=== PATIENT | male | born 1930 | race Caucasian/White ===

== ENCOUNTER 2016-07-08 17:19 | Inpatient (IN) | payer MEDICARE ==
[~2016-07-08] VITALS: Ht 180.3 cm; Wt 95.6 kg
[~2016-07-08 17:19] MED LIST: /ATOR40TA OR; /TAMS4CA OR; /WARF2TA OR; /WARF3TA PO; ASPI81TA45 OR; CAPT12.5 OR; CARV25TA PO; COLA100C2 OR; CORT10TA OR; DOXY100T OR; DRIS1CAP PO; HUMA100I SC; HYDR5TAB59 PO; ICAPCAP PO; INSULANT SC; KLOR10TA OR; LASI40TA OR; LASI80TA PO; MAGN400T5 PO; MAGN500T2 OR; MIRALEX PO; NOVOLOG100 MG/ML SC; OMEP20TA7 OR; TRENTAL PO; TRIA2TA OR; TYL RE; TYLE325T5 PO; WARF1TAB OR; [UNRECOGNIZED DRUG - CODE] PO; [UNRECOGNIZED DRUG - OTHER] PO
[2016-07-08] MEDS ORDERED: TRAZ100T4 PO (17:49)
[2016-07-08] MEDS ORDERED: COUM1TAB14 PO (17:49)
[2016-07-08] MEDS ORDERED: TOUJ1.2I SC (17:49)
[2016-07-08] MEDS ORDERED: CITA20TA4 PO (17:49)
[2016-07-08] MEDS ORDERED: VITA1TAB27 PO (17:49)
[2016-07-08] MEDS ORDERED: GLIP5TAB8 PO (17:49)
[2016-07-08] MEDS ORDERED: COUM2TAB10 PO (17:49)
[2016-07-08] MEDS ORDERED: FURO1TAB15 PO (17:49)
[2016-07-08] MEDS ORDERED: CAPT62TA PO (17:49)
[2016-07-08] MEDS ORDERED: VITA1CAP25 PO (17:49)
[2016-07-08] MEDS ORDERED: GABA-283 PO (17:49)
[2016-07-08] MEDS ORDERED: NS 1,000 ML IV SCH (18:29)
[2016-07-08 18:41] LABS: INR 2.39
[2016-07-08 18:45] LABS: BASO % 0.2 % (0.0-1.0); EOS # 0.4 K/mm3 (0.0-0.50); EOS % 3.8 % (0.0-3.0); LARGE UNSTAINED CELL # 0.1 K/mm3 (0.0-0.4); LYMPH # 1.6 K/mm3 (1.5-4.5); LYMPH % 14.6 % (24.0-44.0); MEAN CORPUSCULAR HEMOGLOBIN 26.6 pg (27.0-33.0); MEAN CORPUSCULAR HGB CONC 31.5 g/dl (32.0-36.5); MEAN CORPUSCULAR VOLUME 84.5 fl (80.0-96.0); MONO # 0.5 K/mm3 (0.0-0.8); MONO % 5.4 % (0.0-5.0); NEUTROPHILS # 7.5 K/mm3 (1.8-7.7); NEUTROPHILS % 75.1 % (36.0-66.0); PLATELET COUNT, AUTOMATED 224 k/mm3 (150-450); RED CELL DISTRIBUTION WIDTH 14.5 % (11.5-14.5)
[2016-07-08 18:46] LABS: ANION GAP 6 MEQ/L (8-16); BLOOD UREA NITROGEN 36 MG/DL (7-18); CALCIUM LEVEL 8.4 MG/DL (8.8-10.2); CARBON DIOXIDE LEVEL 31 MEQ/L (21-32); CHLORIDE LEVEL 103 MEQ/L (98-107); GLOMERULAR FILTRATION RATE 38.6 (>35); GLUCOSE, FASTING 100 MG/DL (83-110); POTASSIUM SERUM 4.5 MEQ/L (3.5-5.1); SODIUM LEVEL 140 MEQ/L (136-145)
--- NOTE | 2016-07-08 19:41 | REP ---
RIGHT HIP: REASON: Pain after trauma. There is comminuted femoral neck fracture. The bones are demineralized. I can not rule out the possibility of a pathological fracture. The AP examination of the pelvis shows the bones to be demineralized with bilateral degenerative changes involving each hip and sacroiliac joints. No additional fractures are noted. IMPRESSION: Right hip fracture as described above. RIGHT FEMUR, TWO VIEWS: PRIOR: Proximal femoral fracture again noted. Please see the hip and AP pelvis report. There is a total knee prosthetic device. There are no additional fractures. Signed by Jacek Enciso DO 07/08/2016 07:45 P
--- NOTE | 2016-07-08 20:06 | REP ---
RIGHT TIBIA AND FIBULA, AP AND LATERAL VIEWS: HISTORY: Pain after trauma. There is a total knee prosthetic device in place. There is no acute fracture or dislocation. The bones are somewhat demineralized. Signed by Jacek Enciso DO 07/09/2016 08:49 A
[2016-07-08] MEDS ORDERED: GLUCAGON FOR INJ 1 MG VIAL (J1610) SC PRN (20:45)
[2016-07-08] MEDS ORDERED: GLUCOSE 4 GM CHEW TABLET PO PRN (20:45)
[2016-07-08] MEDS ORDERED: HYDROmorphone HCL 1 MG/ML SYRINGE (J1170) IV PRN (20:45)
[2016-07-08] MEDS ORDERED: traZODone 100 MG TAB PO SCH (21:00)
[2016-07-08 21:07] LABS: T UPTAKE 33 % (33-40); THYROXINE (T4) 8.6 UG/DL (4.5-12.0)
[2016-07-08] MEDS: HYDROmorphone HCL 1 MG/ML SYRINGE (J1170) IV PRN (21:30)
[2016-07-08] MEDS ORDERED: ATOR40TA PO (22:08)
[2016-07-08] MEDS ORDERED: ASPI81TA7 PO (22:08)
[2016-07-08] MEDS ORDERED: CARV25TA PO (22:14)
[2016-07-08] MEDS ORDERED: GABA-282 PO (22:23)
[2016-07-08] MEDS ORDERED: OMEP40CA2 PO (22:23)
[2016-07-08] MEDS ORDERED: CORE25TA PO (22:23)
[2016-07-08] MEDS ORDERED: INSUHUMDS SC (22:23)
[2016-07-08] MEDS ORDERED: K-TA1TAB PO (22:23)
[2016-07-08] MEDS ORDERED: MAG400TA PO (22:23)
[2016-07-08] MEDS ORDERED: TYLE325T5 PO (22:27)
[2016-07-08 23:30] VITALS: BP 170/76
[2016-07-08] MEDS: HumaLOG INSULIN (NovoLOG) PER UNIT SC SCH (23:44)
[2016-07-08] MEDS: ACETAMINOPHEN TAB 650MG DOSE (2X325MG) PO PRN (23:55)
[2016-07-08] MEDS: NS 1,000 ML IV SCH (23:56)
[2016-07-09] MEDS: CARVedilol 12.5 MG TAB PO SCH ×3 (00:07→21:14)
[2016-07-09] MEDS: SENOKOT S TAB PO SCH ×3 (00:09→21:16)
[2016-07-09] MEDS: HYDROmorphone HCL 1 MG/ML SYRINGE (J1170) IV PRN ×4 (00:41→12:15)
[2016-07-09 01:15] LABS: MICROSCOPIC INDICATED? MAN YES (NO)
[2016-07-09 01:16] LABS: MICROSCOPIC EXAM UNSPUN
[2016-07-09 01:17] LABS: BACTERIA, URINE MOD AMOUNT; HYALINE CAST, URINE NONE SEEN /lpf (0-1); RBC, URINE TNTC /hpf (0-3); SQUAMOUS EPITHELIAL CELL URINE MOD AMOUNT /hpf (SMALL AMT); WBC, URINE 40-50 /hpf (0-3)
--- NOTE | 2016-07-09 01:29 | HPE ---
DATE OF ADMISSION: 07/08/2016 PRIMARY CARE PROVIDER: Doc Smith MD. ORTHOPEDIC SURGEON: Sebastian Tripathi MD. CHIEF COMPLAINT: Fall with right hip pain. HISTORY OF PRESENT ILLNESS: This is an 85-year-old male patient with underlying medical history of coronary arterial disease, catheterization with stents, multiple stents 2004 in [place], with also underlying medical history of atrial fibrillation on Coumadin, dyslipidemia, diabetes mellitus, peripheral vascular disease, questionable history of Richie's disease, hypertension, nephrolithiasis. 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 Subsequently, with severe pain, unable to ambulate. Denies any loss of consciousness or head trauma. Baseline, as per , patient is able to ambulate with a walker for more than a block, able to get up a flight of stairs in the house. Has not had any chest pain recently. Denies any palpitations, abdominal pain, diarrhea, constipation, lightheadedness, any focal neurological weakness. Denies history of sleep apnea, even though the says that she suspects the patient might have sleep apnea, but never had a sleep study. ALLERGIES: HYDROCODONE, MEPERIDINE, MORPHINE, OXYCODONE, PEAS, QUINOLONE, SULFA DRUGS, SULFA DRUGS CROSS REACTOR, SULFAMETHOXAZOLE, TRIAMTERENE. PAST MEDICAL HISTORY: 1. Coronary arterial disease. 2. History of bronchitis. 3. Diabetes type 2. 4. Dyslipidemia. 5. Peripheral vascular disease. 6. Hoagland's disease. 7. BPH. 8. Nephrolithiasis. PAST SURGICAL HISTORY: 1. Cardiac stents. 2. Bilateral knee replacement. 3. Urethral stent. 4. Cholecystectomy. SOCIAL HISTORY: Quit smoking more than 20 years ago. Denies alcohol drinking or illicit drug use. FAMILY HISTORY: Noncontributory. REVIEW OF SYSTEMS: 10-point review of systems negative except for those mentioned in history of present illness (HPI). HOME MEDICATIONS: - aspirin 81 mg by mouth daily - Lipitor 40 mg by mouth daily - captopril 6.25 mg by mouth twice a day - Coreg 25 mg by mouth twice a day - citalopram 20 mg by mouth daily - Lasix 80 mg by mouth daily - gabapentin 400 mg by mouth four times a day - glipizide 5 mg by mouth daily - insulin Humalog before food, nightly - trazodone 100 mg by mouth nightly - Coumadin 6 mg by mouth daily - magnesium oxide 400 by mouth twice a day - vitamin D 50,000 units by mouth as directed every other week - potassium chloride 20 mEq by mouth twice a day - Toujeo 45 units subcutaneously daily PHYSICAL EXAMINATION: VITAL SIGNS: Temperature 99, pulse 64, respirations 18, blood pressure 169/76, pulse oximetry 93% on room air. GENERAL: Patient alert and oriented times three, pale, in no acute distress. HEENT: Normocephalic, atraumatic. PULMONARY: Bilaterally clear to auscultation. CARDIAC: Regular S1, S2. No murmurs detected. ABDOMEN: Soft, nontender, nondistended. EXTREMITIES: Right lower extremity is externally rotated, shortened. Dorsalis pedis (DP), posterior tibialis (PT) pulses 2+. No edema bilateral lower extremities. EKG shows sinus rhythm at 65, no ST segment changes. LABORATORY: WBC 10, hemoglobin and hematocrit 9.7/30.6, platelets 224. Chemistry: Sodium 140, potassium 4.5, chloride 103, bicarbonate 31, BUN 36, creatinine 1.8. A1c 8.4. Cardiac enzymes negative times one. X-ray shows right hip fracture, femoral neck fracture. ASSESSMENT AND PLAN: This is an 85-year-old male patient with underlying medical history of coronary arterial disease, last stent placed 2003, peripheral vascular disease, history of urinary tract infection (UTI), diabetes type 2, dyslipidemia, Hoagland's disease, atrial fibrillation, chronic kidney disease (CKD), admitted status post mechanical fall with right femoral neck fracture. 1. Right femoral neck fracture status post mechanical fall with likely underlying osteopenia due to steroid use. Perioperative management as per orthopedics. Intravenous (IV) fluids for hydration, nothing by mouth after midnight, IV fluids for now. Baseline ambulating with a walker or cane. Pain regimen as ordered. Patient has not tolerated morphine in the past. Will place the patient on Dilaudid. Bowel regimen as ordered. Will give fresh frozen plasma (FFP) 3 units overnight and followup international normalized ratio (INR) with a goal INR of 1.5. Case discussed with Dr. Sebastian Tripathi. Orthopedics has been consulted. Patient's baseline METS greater than four. With advanced age, patient is intermediate risk for intermediate risk procedure. Discussed with patient's family. Given advanced age, even with surgery, patient might not be able to walk again and surgery carries considerable complications including myocardial infarction (DC), pulmonary embolism (PE), and , but alternative is more of a palliation and with significant pain; therefore, surgery will be beneficial to the patient. Patient currently is medically optimized for surgery. Will continue aspirin, holding Coumadin, give FFP, continue beta blockers as ordered. Holding diuretics until after the surgery, nothing by mouth after midnight. Restarting Coumadin after surgery for anticoagulation for atrial fibrillation and deep venous thrombosis (DVT) prophylaxis. 2. Coronary arterial disease. Continue aspirin, statin, beta blockers for now. Resume diuretics after surgery. Currently, patient nothing by mouth. 3. Peripheral vascular disease. Continue aspirin, statin. Resume anticoagulation after surgery. 4. Atrial fibrillation. Continue beta blockers. Resume Coumadin after surgery. Continue to monitor. 5. History of Hoagland's disease. Resume home medication. If patient is hypotensive, will consider stress dose steroids. 6. Diabetes. Insulin as per protocol. Basal bolus. Followup fingersticks. A1c is appreciated. 7. Gastroesophageal reflux disease (GERD). Continue proton pump inhibitor (PPI). 8. Questionable history of obstructive sleep apnea. Obstructive sleep apnea (CHAVEZ) as per protocol. Will continue to monitor. 9. DVT prophylaxis. Patient is with therapeutic INR at this time. Will place the patient on Venodyne sequential compression device. Incentive spirometry. DISPOSITION: Pending surgery via orthopedics, clinical improvement. Likely will need physical medicine and rehabilitation (PM and R) evaluation after surgery.
[2016-07-09 06:00] VITALS: BP 141/63
[2016-07-09 08:26] LABS: MEAN CORPUSCULAR HEMOGLOBIN 26.7 pg (27.0-33.0); MEAN CORPUSCULAR HGB CONC 32.2 g/dl (32.0-36.5); RED CELL DISTRIBUTION WIDTH 14.7 % (11.5-14.5); WHITE BLOOD COUNT 6.8 K/mm3 (4.0-10.0)
[2016-07-09 08:36] LABS: INR 1.81
[2016-07-09 08:52] LABS: ANION GAP 8 MEQ/L (8-16); BLOOD UREA NITROGEN 31 MG/DL (7-18); CALCIUM LEVEL 8.4 MG/DL (8.8-10.2); CARBON DIOXIDE LEVEL 29 MEQ/L (21-32); CHLORIDE LEVEL 105 MEQ/L (98-107); CREATININE FOR GFR 1.58 MG/DL (0.70-1.30); GLOMERULAR FILTRATION RATE 44.8 (>35); GLUCOSE, FASTING 61 MG/DL (83-110); SODIUM LEVEL 142 MEQ/L (136-145)
[2016-07-09] MEDS ORDERED: LEVEMIR (INSULIN DETEMIR) 1 UNITS/0.01ML SC SCH (09:00)
--- NOTE | 2016-07-09 09:27 | CR ---
DATE OF CONSULTATION: 07/08/2016 REASON FOR CONSULTATION: Right femoral neck fracture. 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 He complained of pain and soreness in the right hip only. No loss of consciousness. No neck pain. No complaints of numbness or tingling in his lower extremities and he does not complain of any other injury, soreness or pain other than the right hip. He was transferred here to [facility], evaluated by the emergency room (ER) staff, found to have a femoral neck fracture on the right, and the hospitalist was called for admission and then I was called to see him for this injury. Again, he only complains of right-sided soreness of the right hip. PAST MEDICAL HISTORY: He has a past medical history that is significant for: 1. Atrial fibrillation. 2. Insulin-dependent diabetes. 3. Gastric reflux. 4. Coronary artery disease. 5. Neuropathy. 6. Hypertension. 7. Hypercholesterolemia. 8. Anxiety. PAST SURGICAL HISTORY: 1. Bilateral total knee replacements. 2. Cholecystectomy. 3. Esophageal dilatation. 4. Cardiac stent placements. 5. Cataract excisions. ALLERGIES: No known drug allergies, although NARCOTICS cause hallucinations. MEDICATIONS: Presently at home are Lipitor, Drisdol, magnesium oxide, Coumadin, Coreg, captopril, insulin, Prilosec, trazodone, glipizide, potassium chloride, citalopram, Lasix, and tamsulosin. SOCIAL HISTORY: He is . He is retired. He used to work for [employer]. He uses a cane and a walker on a typical day for ambulation, safety, and balance. He does not smoke or drink alcohol excessively. REVIEW OF SYSTEMS: His review of systems otherwise is unremarkable. Dr. Doc Smith cares for him medically with Beba Perales NP at [facility]. PHYSICAL EXAMINATION: On examination, he is an elderly, pleasant male. He is alert and he is oriented. His blood pressure is 169/76, temperature is 99, his pulse is regular at 64, respirations are 18, oxygen saturations are 93% on room air. HEENT EXAMINATION: Normocephalic, atraumatic. Extraocular muscles grossly unremarkable. NECK: Nontender. UPPER EXTREMITIES: He could elevate his arms up overhead without pain, deformity, or swelling of his shoulder, clavicles, humeri, elbows, forearms, or wrists. ABDOMEN: Nontender. Healed transverse oblique scar consistent with cholecystectomy. His lower extremity on the right side was held in a flexed position and externally rotated with soreness and localized tenderness laterally over the right hip and groin area. Left lower extremity was atraumatic. He had pulses is his feet. He could dorsiflex and plantar flex his ankles and he had reasonable extensor hallucis longus (EHL) and flexor hallucis longus (FHL) strength with sensory function intact, but he has burning pain and that is what he relates to as his neuropathy. Nothing has changed since his fall. LABORATORY STUDIES: Show a white count of 10, hematocrit 30.6, and platelets of 224. Sodium 140, potassium 4.5, bicarbonate 31, chloride 103, sugar was 100. His BUN was 36, creatinine 1.8. Prothrombin time was 26.1 with an INR of 2.39. X-rays of his pelvis and hip showed a displaced right femoral neck fracture. There is some atherosclerosis noted in his iliac arteries. The right tibia/fibula was atraumatic. EKG showed normal sinus rhythm. IMPRESSION: My impression is that this is a displaced right femoral neck fracture in an 85-year-old male with some medical comorbidities and with an elevated international normalized ratio (INR). I talked to he and his about this in some length and I recommended to them that these types of fractures are typically treated with surgical fixation, and with a displaced femoral neck fracture such as this, I would recommend a hemiarthroplasty or prosthetic hip, but doing so carries the risk of having surgery. There is a risk of infection, damage to nerves or blood vessels, anesthetic complications, phlebitis, embolism, heart attack, , amongst others. They understand this. 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 I talked at length with Dr. Anderson, the hospitalist who is admitting him, and clearly he is not prepared for surgery this evening because of his elevated INR. We plan to see if we can reverse him gradually over the next several hours with fresh frozen plasma (FFP) and proceed in the morning if he is medically optimized and his INR is at an acceptable level. The patient signed the consent and we plan to proceed.
--- NOTE | 2016-07-09 09:48 | REP ---
Cough and fever. COMPARISON: 03/21/2012. The technique utilized in obtaining the radiograph has magnified the cardiac silhouette and accentuated the interstitial markings. Cardiomegaly status quo. Interstitial fibrosis status quo. Calcified granulomas left lower lobe status quo. No new abnormal opacities. No change in the osseous structures. IMPRESSION: Stable chronic changes. Signed by Jacek Enciso DO 07/09/2016 10:20 A
[2016-07-09] MEDS: ATORVASTATIN 20 MG TAB PO SCH (10:15)
[2016-07-09] MEDS: PANTOPRAZOLE 40MG TAB (PROTONIX) PO SCH (10:16)
[2016-07-09] MEDS: GABAPENTIN 300 MG CAP PO SCH ×4 (10:16→21:16)
[2016-07-09] MEDS: CitaloPRAM (CeleXA) 20 MG TAB PO SCH (10:16)
[2016-07-09] MEDS: MAGNESIUM OXIDE 400 MG TAB (MAG-OX) PO SCH (10:16)
[2016-07-09] MEDS: HumaLOG INSULIN (NovoLOG) PER UNIT SC SCH ×4 (10:17→21:00)
[2016-07-09] MEDS: NS 1,000 ML IV SCH (10:17)
[2016-07-09] MEDS ORDERED: FUROSEMIDE 80 MG TAB PO ONE (10:45)
[2016-07-09] MEDS ORDERED: PHYTONADIONE 1.25 MG 1/4 TAB PO ONE (11:00)
[2016-07-09] MEDS: TAPENTADOL 50 MG TABLET (NUCYNTA) PO PRN (13:29)
--- NOTE | 2016-07-09 13:57 | ECGEPIP ---
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 No significant change compared with 03/21/2012. Electronically Signed On 07-09-2016 13:57:42 EDT by Erik De Dios
[2016-07-09 13:59] LABS: MICROSCOPIC INDICATED? MAN YES (NO)
[2016-07-09 14:01] LABS: BACTERIA, URINE LARGE AMOUNT; HYALINE CAST, URINE NONE SEEN /lpf (0-1); RBC, URINE TNTC /hpf (0-3); SQUAMOUS EPITHELIAL CELL URINE MOD AMOUNT /hpf (SMALL AMT); WBC, URINE TNTC /hpf (0-3)
[2016-07-09 14:02] LABS: MICROSCOPIC EXAM PERFORMED
--- NOTE | 2016-07-09 15:43 | IPN ---
DATE: 07/09/2016 SUBJECTIVE: Patient seen and examined in the room today. Patient is experiencing pain at the right hip; however, pain his manageable with pain medication. Denies any acute complaint or acute changes. OBJECTIVE: VITAL SIGNS: Temperature is 99.5, pulse is 58, respirations 20, blood pressure is 141/63, pulse oximetry is 96% in room air. GENERAL: No acute distress. Alert and oriented times three. HEENT: Normocephalic, atraumatic. Extraocular motor grossly intact. CARDIOVASCULAR: Positive S1, S2. Regular rate. LUNGS: Clear to auscultation bilaterally. ABDOMEN: Soft, nontender, nondistended. Bowel sounds present. No rebound. No guarding. EXTREMITIES: No edema. No sign of cyanosis. LABORATORY DATA: WBC 6.8, hemoglobin 8.5, hematocrit 26.3, platelet count is 165. Sodium is 142, potassium 4, chloride 105, carbon dioxide 29, BUN 31, creatinine 1.58, GFR is 44.8, fasting glucose is 61, calcium is 8.4, magnesium 2. Troponin I is less than 0.02. UA showed positive nitrite, positive leukocyte esterase, too many to count WBC. Microbiology: Blood cultures pending times two sets. Urine culture is pending. ASSESSMENT AND PLAN: 1. Right hip fracture. Patient has been taking warfarin. Three doses of fresh frozen plasma were given to the patient to attempt to reverse the INR; however, this morning patient still has INR of 1.8. Per orthopedic team, the desired INR would be 1.5 or below; therefore, surgery will be postponed until tomorrow. Patient has been optimized and cleared by the admitting physician, Dr. Anderson, yesterday. Will continue with medical optimization. Patient will be nothing by mouth after midnight today. Currently, patient still has a urinalysis (UA) suggestive of a urinary tract infection (UTI). Microbiology was reviewed. Patient has history of klebsiella and Escherichia (E) coli in the past, and they are all sensitive to Rocephin. Will wait for the urine culture results. Patient will continue on the beta roland. 2. Diabetes, on sliding scale. For today, patient will have a consistent-carbohydrate diet. Patient will start nothing by mouth tomorrow. 3. History of atrial fibrillation. EKG was obtained. Patient showed sinus rhythm. 4. History of coronary artery disease. 5. Dyslipidemia. 6. Peripheral vascular disease. 7. Question of Kaufman disease. 8. Benign prostatic hypertrophy. 9. Questionable history of obstructive sleep apnea. Patient is on obstructive sleep apnea (CHAVEZ) protocol. 10. Gastroesophageal reflux disease. Continue Protonix. 11. Deep vein thrombosis (DVT) prophylaxis. Currently we are in the process of reversing patient's INR. Patient will be on thromboembolic deterrents (TEDs) and sequentials. 12. Acute on chronic renal injury. Renal function is improving. Will to follow the renal function.
[2016-07-09] MEDS: DEXTROSE 50% 50 ML SYRINGE IV PRN ×2 (17:14→17:30)
[2016-07-09] MEDS ORDERED: NALOXONE INJ 0.4 MG/1 ML VIAL (J2310) IV STA (17:15)
[2016-07-09] MEDS ORDERED: NALOXONE INJ 0.4 MG/1 ML VIAL (J2310) As Ordered ONE (17:17)
--- NOTE | 2016-07-09 17:53 | IPN ---
DATE: 07/09/2016 TIME: Around 5:00 p.m. I was called to the patient's room by the nursing staff urgently. The patient was noted to have rapidly decreased alertness and wakefulness and unable to answer any questions or follow commands. When I arrived to the scene, the patient is barely responsive and the patient was found to have a glucose of 53. I ordered 1 amp of dextrose. The patient's medication history was reviewed. Due to suspicion for contributing factor from the narcotic use, 0.4 mg of Narcan was given stat. Shortly after Narcan and the dextrose, the patient showed almost spontaneous recovery of the patient's mental status. The patient is alert and fully oriented but not fully awake yet. All the patient's vital signs were reviewed. Laboratory tests and portable chest x-ray were also ordered.
[2016-07-09] MEDS: cefTRIAXone SOD 2 GM in D5W MINI-BAG PLUS 50 ML IV SCH (18:19)
[2016-07-09 19:54] LABS: INR 1.9
[2016-07-09 20:05] LABS: CALCIUM LEVEL 7.9 MG/DL (8.8-10.2); CREATININE FOR GFR 1.59 MG/DL (0.70-1.30); GLOMERULAR FILTRATION RATE 44.5 (>35); POTASSIUM SERUM 4.1 MEQ/L (3.5-5.1)
[2016-07-09] MEDS: ACETAMINOPHEN TAB 650MG DOSE (2X325MG) PO PRN (21:13)
[2016-07-09] MEDS: CAPTOpril 6.25 MG PER 1/2 TABLET PO SCH (21:15)
[2016-07-09] MEDS: ASPIRIN 81 MG ENTERIC TAB PO SCH (21:16)
[2016-07-09 22:00] VITALS: BP 199/85
[2016-07-10] MEDS: DEXTROSE 50% 50 ML SYRINGE IV PRN ×2 (00:52→04:56)
[2016-07-10] MEDS: cefTRIAXone SOD 2 GM in D5W MINI-BAG PLUS 50 ML IV SCH ×2 (03:38→16:09)
[2016-07-10 05:04] VITALS: BP 187/81
[2016-07-10 06:00] VITALS: BP 170/86
[2016-07-10] MEDS ORDERED: FUROSEMIDE 40 MG/4 ML VIAL (J1940) IV ONE (06:00)
[2016-07-10] MEDS: HumaLOG INSULIN (NovoLOG) PER UNIT SC SCH ×3 (06:00→18:00)
[2016-07-10] MEDS ORDERED: GLUCAGON FOR INJ 1 MG VIAL (J1610) SC PRN (06:15)
[2016-07-10] MEDS ORDERED: GLUCOSE 4 GM CHEW TABLET PO PRN (06:15)
[2016-07-10] MEDS ORDERED: DEXTROSE 50% 50 ML SYRINGE IV PRN (06:15)
[2016-07-10 06:26] LABS: MEAN CORPUSCULAR HEMOGLOBIN 27.3 pg (27.0-33.0); MEAN CORPUSCULAR HGB CONC 32.9 g/dl (32.0-36.5); RED CELL DISTRIBUTION WIDTH 14.6 % (11.5-14.5)
[2016-07-10 06:37] LABS: INR 1.44
[2016-07-10 06:40] LABS: CALCIUM LEVEL 8.6 MG/DL (8.8-10.2); CREATININE FOR GFR 1.42 MG/DL (0.70-1.30); GLOMERULAR FILTRATION RATE 50.7 (>35); POTASSIUM SERUM 3.6 MEQ/L (3.5-5.1)
[2016-07-10] MEDS: ONDANSETRON 4MG/2ML VIAL (J2405) IV PRN ×2 (08:20→16:09)
--- NOTE | 2016-07-10 08:47 | REP ---
Altered mental status. COMPARISON: Earlier the same day. The technique utilized in obtaining the radiograph has magnified the cardiac silhouette and accentuated the interstitial markings. The cardiomediastinal silhouette is unchanged. The heart is enlarged. The lung cortez are essentially unchanged with the possibility of a single linear density in the left lung base due to subsegmental atelectatic change. The exam is otherwise unchanged. Signed by Jacek Enciso DO 07/10/2016 08:51 A
[2016-07-10] MEDS ORDERED: PROPOFOL 200 MG/20 ML VIAL As Ordered ONE (08:53)
[2016-07-10] MEDS ORDERED: LIDOCAINE 2% INJ 100 MG/5 ML SDV (FOR ANES.) As Ordered ONE (08:54)
[2016-07-10] MEDS ORDERED: ROCURONIUM BROMIDE 50 MG/5 ML VIAL As Ordered ONE (08:54)
[2016-07-10] MEDS ORDERED: fentaNYL 100 MCG/2 ML INJECTION (J3010) As Ordered ONE ×2 (08:55→10:47)
[2016-07-10] MEDS: CAPTOpril 6.25 MG PER 1/2 TABLET PO SCH (09:00)
[2016-07-10] MEDS: LEVEMIR (INSULIN DETEMIR) 1 UNITS/0.01ML SC SCH (09:00)
[2016-07-10] MEDS ORDERED: FUROSEMIDE 80 MG TAB PO SCH (09:00)
[2016-07-10] MEDS: CARVedilol 12.5 MG TAB PO SCH (09:00)
--- NOTE | 2016-07-10 09:08 | ECGEPIP ---
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
[2016-07-10] MEDS ORDERED: EPINEPHrine INJ 1 MG/ML 1ML VIAL/AMP As Ordered ONE (09:21)
[2016-07-10] MEDS ORDERED: ceFAZolin 1GM INJ (J0690) As Ordered ONE (09:21)
[2016-07-10] MEDS ORDERED: ceFAZolin 2 GM/D5W 50 ML IV BAG (J0690) As Ordered ONE (09:44)
[2016-07-10] MEDS ORDERED: SUCCINYLCHOLINE 100 MG/5 ML SYRINGE (J0330) As Ordered ONE (09:50)
[2016-07-10] MEDS ORDERED: dexameTHASONE 4 MG/ML 1ML VIAL (J1100) As Ordered ONE (09:50)
[2016-07-10] MEDS ORDERED: ePHEDrine SULFATE 25 MG/5 ML(5MG/ML) SYRINGE As Ordered ONE (10:35)
[2016-07-10] MEDS ORDERED: ONDANSETRON 4MG/2ML VIAL (J2405) As Ordered ONE (10:39)
[2016-07-10] MEDS ORDERED: HYDROmorphone HCL 1 MG/ML SYRINGE (J1170) IV PRN (12:30)
[2016-07-10] MEDS ORDERED: ONDANSETRON 4MG/2ML VIAL (J2405) IV PRN (12:30)
[2016-07-10] MEDS ORDERED: fentaNYL 100 MCG/2 ML INJECTION (J3010) IV PRN (12:30)
[2016-07-10 12:50] VITALS: BP 178/81
[2016-07-10 13:35] VITALS: BP 152/63
[2016-07-10] MEDS: ATORVASTATIN 20 MG TAB PO SCH (13:40)
[2016-07-10] MEDS: POTASSIUM CHLORIDE 10 MEQ SR TABLET PO SCH (13:41)
[2016-07-10] MEDS: CitaloPRAM (CeleXA) 20 MG TAB PO SCH (13:41)
[2016-07-10] MEDS: MAGNESIUM OXIDE 400 MG TAB (MAG-OX) PO SCH (13:41)
[2016-07-10] MEDS: PANTOPRAZOLE 40MG TAB (PROTONIX) PO SCH (13:41)
[2016-07-10] MEDS: SENOKOT S TAB PO SCH ×2 (13:41→20:31)
[2016-07-10 14:00] VITALS: BP 152/70
[2016-07-10] MEDS ORDERED: GABAPENTIN 300 MG CAP PO SCH (14:45)
[2016-07-10] MEDS: GABAPENTIN 100 MG CAP PO SCH ×3 (16:00→20:31)
[2016-07-10] MEDS: ACETAMINOPHEN TAB 650MG DOSE (2X325MG) PO PRN (16:43)
[2016-07-10] MEDS ORDERED: WARFARIN SOD 5 MG TAB PO ONE (17:00)
[2016-07-10] MEDS ORDERED: METOCLOPRAMIDE INJ 10MG/2ML VIAL (J2765) IV PRN (17:30)
[2016-07-10] MEDS: HYDROmorphone HCL 1 MG/ML SYRINGE (J1170) IV PRN ×2 (17:53→22:00)
[2016-07-10] MEDS: NS 1,000 ML IV SCH (18:48)
--- NOTE | 2016-07-10 19:01 | IPN ---
DATE: 07/10/2016 SUBJECTIVE: Patient is seen and examined in the room today. Patient started having intractable nausea and vomiting and patient seemed to be more agitated than before. However, patient is alert and oriented times three. OBJECTIVE: VITAL SIGNS: Temperature 98.8, pulse 79, respirations 18, blood pressure 152/70, pulse oximetry 99% with 3 liters nasal cannula. GENERAL: Patient shows physical signs of distress. Patient is alert and oriented times three but patient is agitated and anxious. HEENT: Normocephalic, atraumatic. Extraocular motors grossly intact. CARDIOVASCULAR: Tachycardic, positive S1, S2. LUNGS: Clear to auscultation bilaterally. ABDOMEN: Soft, nontender, nondistended. Bowel sounds present. No rebound. No guarding. EXTREMITIES: Surgical dressing is in place. Lower extremities show no signs of edema or cyanosis. LABORATORY DATA: WBC 9, hemoglobin 10.2, hematocrit 31.1, platelet count 161. Sodium 140, potassium 3.6, chloride 103, carbon dioxide 31, BUN 26, creatinine 1.42, GFR 50.7, fasting glucose 84, calcium 8.6, magnesium 2. ASSESSMENT AND PLAN: 1. Right hip fracture. Patient just had a hip replacement by orthopedic team. Will defer pain medication, diet, and activity level per primary team. 2. Urinary tract infection. Patient has a positive urinalysis. Urine culture is pending. Patient has history of Escherichia (E) coli and Klebsiella. Patient is on Rocephin. 3. Diabetes. On sliding scale. Will defer diet to the primary orthopedic team. 4. History of atrial fibrillation. EKG obtained and patient in sinus rhythm. Patient's warfarin was reversed to prepare for surgery. We defer anticoagulation to the surgical team for now. 5. History of coronary artery disease. 6. Question of Richie's disease. 7. Benign prostatic hypertrophy. Continue home medication. 8. History of obstructive sleep apnea (CHAVEZ). Patient is on obstructive sleep apnea (CHAVEZ) protocol. 9. Gastroesophageal reflux disease. On Protonix. 10. Deep venous thrombosis (DVT) prophylaxis. Patient is on thromboembolism deterrents (TEDs) and sequential compression device. 11. Acute on chronic renal injury, improving. Continue to follow renal function.
[2016-07-10] MEDS: ASPIRIN 81 MG ENTERIC TAB PO SCH (20:31)
[2016-07-10 22:00] VITALS: BP 146/69
[2016-07-11 02:00] VITALS: BP 172/74
[2016-07-11] MEDS: cefTRIAXone SOD 2 GM in D5W MINI-BAG PLUS 50 ML IV SCH ×2 (03:30→14:55)
[2016-07-11] MEDS: HYDROmorphone HCL 1 MG/ML SYRINGE (J1170) IV PRN (05:44)
[2016-07-11 06:00] VITALS: BP 155/66
[2016-07-11] MEDS: HumaLOG INSULIN (NovoLOG) PER UNIT SC SCH ×4 (06:00→18:32)
[2016-07-11] MEDS: NS 1,000 ML IV SCH ×2 (06:30→18:32)
[2016-07-11 07:01] LABS: MEAN CORPUSCULAR HGB CONC 32.4 g/dl (32.0-36.5); MEAN CORPUSCULAR VOLUME 83.6 fl (80.0-96.0); RED CELL DISTRIBUTION WIDTH 14.7 % (11.5-14.5); WHITE BLOOD COUNT 11.2 K/mm3 (4.0-10.0)
[2016-07-11 07:09] LABS: INR 1.63
[2016-07-11 07:17] LABS: CALCIUM LEVEL 8.3 MG/DL (8.8-10.2); CREATININE FOR GFR 1.49 MG/DL (0.70-1.30); GLOMERULAR FILTRATION RATE 47.9 (>35); MAGNESIUM LEVEL 2.3 MG/DL (1.8-2.4); POTASSIUM SERUM 3.1 MEQ/L (3.5-5.1)
[2016-07-11] MEDS: ATORVASTATIN 20 MG TAB PO SCH (08:43)
[2016-07-11] MEDS: MOM 30ML SUSPENSION UDC PO SCH (08:43)
[2016-07-11] MEDS: MIRALAX *UNIT DOSE* 17GM PACKET PO SCH (08:43)
[2016-07-11] MEDS: FUROSEMIDE 80 MG TAB PO SCH (08:51)
[2016-07-11] MEDS: GABAPENTIN 100 MG CAP PO SCH ×4 (08:51→22:17)
[2016-07-11] MEDS: SENOKOT S TAB PO SCH ×2 (08:51→22:17)
[2016-07-11] MEDS: TAPENTADOL 50 MG TABLET (NUCYNTA) PO PRN (08:52)
[2016-07-11] MEDS: MAGNESIUM OXIDE 400 MG TAB (MAG-OX) PO SCH (08:52)
[2016-07-11] MEDS: POTASSIUM CHLORIDE 10 MEQ SR TABLET PO SCH (08:53)
[2016-07-11] MEDS: CitaloPRAM (CeleXA) 20 MG TAB PO SCH (08:53)
[2016-07-11] MEDS: ONDANSETRON 4MG/2ML VIAL (J2405) IV PRN (08:53)
[2016-07-11] MEDS: PANTOPRAZOLE 40MG TAB (PROTONIX) PO SCH (08:53)
[2016-07-11] MEDS: LEVEMIR (INSULIN DETEMIR) 1 UNITS/0.01ML SC SCH (08:54)
[2016-07-11] MEDS: ACETAMINOPHEN TAB 650MG DOSE (2X325MG) PO PRN ×2 (08:57→14:35)
[2016-07-11] MEDS: CYCLOBENZAPRINE 10 MG TAB PO SCH ×4 (10:09→22:18)
--- NOTE | 2016-07-11 10:09 | REP ---
Right femur post operative study: There is a hemiarthroplasty in satisfactory position alignment both views. There is a cerclage wire. Skin tesha are incidentally noted. Signed by Fady Tatum MD 07/11/2016 10:01 A
--- NOTE | 2016-07-11 11:41 | RO ---
DATE OF PROCEDURE: 07/10/2016 PREPROCEDURE DIAGNOSIS: Right hip femoral neck fracture. POSTPROCEDURE DIAGNOSIS: Right hip femoral neck fracture. PROCEDURE: Right hip hemiarthroplasty cemented using a size #5 [place] stem with a +0 neck and a 15 mm ball. Fixation of a nondisplaced calcar fracture with a single 1.7 mm Synthes cable. SURGEON: Dr. Benny Tripathi DEPARTMENT CLINICIAN: Dr. Flex Zazueta ANESTHESIA: General endotracheal tube anesthesia. COMPLICATIONS: Intraoperative calcar fracture during trial reduction. ESTIMATED BLOOD LOSS: 200 mL. SPECIMENS: Femoral head. DESCRIPTION OF PROCEDURE: Antibiotics were given intravenously preoperatively. He received some for his urinary tract infection (UTI), but also received 2 grams of Kefzol preoperatively. Right hip area was then prepped and draped in the usual sterile fashion. After an appropriate time-out, a longitudinal incision was made for direct lateral approach to the hip. Bovie cautery was used to coagulate crossing vessels. Tensor fascial was divided in line with the skin incision. We split the gluteus medius, anterior one-third and posterior two-third junction, and then the underlying gluteus minimus and then exposed the underlying fracture site. The leg was placed in a leg bag anteriorly, and the starter reamer placed in the piriformis fossa and we began reaming. Then the starter reamer was utilized, followed by the lateralizing reamer. Femoral neck osteotomy was then performed and then we broached up to a size 5 broach. It fit reasonably snuggly and our plan was cement technique, thus I did not want to go any larger to have appropriate sized cement mantle. I then trialed off the #5 broach. The +0 fit well, but I thought possibly we could use a +5. As we were trialing the +5 as we were reducing the hip, the rotational torque caused a nondisplaced fracture of the medial calcar, which was non propagating. For prophylactic purposes, at this point, I called for the cable device fixation and the cable was carefully passed around the medial calcar and around the proximal femur under the vastus lateralis and then secured at 4 kg of pressure. This provided good firm reduction. At this point, we proceeded to cementing the stem. We used the canal brush and the pulsatile lavage intelligence support officer to enter the canal and sized for the cement restricter. A size #4 was chosen, and then measuring off the real stem, I advanced the cement restricter and then began irrigating the canal once again with a canal brush and then used a long nelson tip sucker and then three epinephrine soaked sponges were placed down the femoral canal, and then the cement was mixed on the back table. Two sponges were placed in the acetabulum for cement blocking, and then once the cement had been mixed, I removed the epinephrine soaked sponges and applied three additional dry sutures. We had excellent drying of the femoral canal and then the cement was placed, followed by the real stem with a 10.5 cementralizer. Then we impacted the stem and removed all the excess and held continuous pressure on the stem until the cement had hardened. It is noteworthy that after I broached the femur, we did remove the femoral head and sized for a 50 mm sized femoral head and acetabulum contents were inspected. The ligament of Teres had a small patti of bone attached and thus I did remove that with a rongeur and then carefully inspected the acetabulum and there was no other debris. We copiously irrigated as well. Then I placed the read #50 head on top of the +0 sleeve on the trunnion, after thoroughly drying, and then reduced the hip. He had good stability with flexion and internal rotation and extension and external rotation and minimal, if any, telescoping at all was noted. I then irrigated once again copiously and then closed the deep capsule and the gluteus minimus back anatomically with interrupted #1 PDS sutures, as well as the gluteus medius back anatomically to the greater trochanter anatomically with interrupted #1 PDS sutures, irrigating between layers. I closed the tensor fascia with a running Stratafix. Subdermal tissues were irrigated again and closed with deep subdermal #2-0 PDS sutures and skin was closed with tesha, covered by Adaptic dry, sterile, bulky dressing. He was then turned supine, extubated, and then transferred to his bed and then to the recovery room in stable condition. The intraoperative complication was a nondisplaced calcar fracture. [facility]FIORE HEALTH SYSTEMLuis Fernando
[2016-07-11] MEDS ORDERED: POTASSIUM CHLORIDE 10 MEQ SR TABLET PO ONE (12:30)
[2016-07-11 14:00] VITALS: BP 170/73
[2016-07-11] MEDS: CAPTOpril 6.25 MG PER 1/2 TABLET PO SCH ×3 (14:48→22:17)
[2016-07-11] MEDS: CARVedilol 12.5 MG TAB PO SCH ×3 (14:49→22:18)
[2016-07-11] MEDS ORDERED: WARFARIN SOD 5 MG TAB PO ONE (17:00)
--- NOTE | 2016-07-11 18:25 | IPN ---
DATE: 07/11/2016 SUBJECTIVE: The patient seen and examined in the room in the morning. The patient stated she feels very fatigued. He would like to get some rest. Yesterday he felt anxiety and agitation and he could not get a good night's sleep. No acute complaints. SUBJECTIVE: VITAL SIGNS: Temperature 99, pulse 62, respirations 20, blood pressure 144/66, pulse oximetry 95% with 2 liters nasal cannula. GENERAL: The patient is fatigued. Alert and oriented times three. Answers questions in full sentences. HEENT: Normocephalic, atraumatic. Extraocular movements grossly intact. CARDIOVASCULAR: Intermittent tachycardia. Positive S1, S2. LUNGS: Clear to auscultation bilaterally. . ABDOMEN: Soft, nontender, nondistended. Bowel sounds present. No rebound. No guarding. EXTREMITIES: Surgical dressing in place. No lower extremity edema or sign of cyanosis. LABORATORY DATA: WBC is 11.3, hemoglobin 9.6, hematocrit 29.8, platelet count is 175. Sodium is 140, potassium 3.1, chloride is 99, carbon dioxide 29, BUN 33, creatinine 1.49. GFR is 47.9, fasting glucose is 242. Calcium is 8.3. Magnesium 2.3, PT is 19.4, INR is 1.63. ASSESSMENT AND PLAN: 1. Right hip fracture. The patient has right hip replacement by orthopedic team. Will defer the pain management, diet, activity level, and anticoagulation per primary team. 2. Urinary tract infection. The patient's urine culture is still pending. 3. The patient has a history of E. coli and Klebsiella. The patient on Rocephin. 4. Diabetes. On sliding scale. The patient's IV fluid per ortho. Will refer diet to the ortho team. 5. History of atrial fibrillation. EKG shows sinus rhythm. The patient's warfarin was reversed to prepare for the surgery. Will defer the anticoagulation to surgical team. 6. History of coronary artery disease. 7. Questionable [place] disease. 8. Benign prostatic hypertrophy. Continue home medications. 9. Obstructive sleep apnea (CHAVEZ). CHAVEZ protocol. 10. Gastroesophageal reflux disease. On Protonix. 11. Acute on chronic renal injury, improving. The patient is stable. The patient may need additional fluid due to poor oral intake at this moment. 12. Deep venous thrombosis (DVT) prophylaxis. Patient is on thromboembolism deterrents (TEDs) and sequential compression devices.
[2016-07-11 22:00] VITALS: BP 150/67
[2016-07-11] MEDS: ASPIRIN 81 MG ENTERIC TAB PO SCH (22:17)
[2016-07-12] MEDS: cefTRIAXone SOD 2 GM in D5W MINI-BAG PLUS 50 ML IV SCH ×2 (04:21→18:50)
[2016-07-12] MEDS: CYCLOBENZAPRINE 10 MG TAB PO SCH ×3 (05:32→20:55)
[2016-07-12 06:00] VITALS: BP 139/69
[2016-07-12] MEDS: HumaLOG INSULIN (NovoLOG) PER UNIT SC SCH ×5 (06:00→18:00)
[2016-07-12 07:12] LABS: MEAN CORPUSCULAR HEMOGLOBIN 27.4 pg (27.0-33.0); MEAN CORPUSCULAR HGB CONC 32.5 g/dl (32.0-36.5); MEAN CORPUSCULAR VOLUME 84.3 fl (80.0-96.0); RED CELL DISTRIBUTION WIDTH 14.9 % (11.5-14.5); WHITE BLOOD COUNT 8.9 K/mm3 (4.0-10.0)
[2016-07-12 07:21] LABS: INR 2.82
[2016-07-12 07:29] LABS: CALCIUM LEVEL 8.1 MG/DL (8.8-10.2); CREATININE FOR GFR 1.46 MG/DL (0.70-1.30); GLOMERULAR FILTRATION RATE 49.1 (>35); POTASSIUM SERUM 3.6 MEQ/L (3.5-5.1)
[2016-07-12 08:45] VITALS: BP 135/69
[2016-07-12] MEDS: LEVEMIR (INSULIN DETEMIR) 1 UNITS/0.01ML SC SCH (11:21)
[2016-07-12] MEDS: TAPENTADOL 50 MG TABLET (NUCYNTA) PO PRN (11:22)
[2016-07-12] MEDS: CAPTOpril 6.25 MG PER 1/2 TABLET PO SCH ×2 (11:37→21:02)
[2016-07-12] MEDS: GABAPENTIN 100 MG CAP PO SCH ×3 (11:38→20:55)
[2016-07-12] MEDS: POTASSIUM CHLORIDE 10 MEQ SR TABLET PO SCH (11:38)
[2016-07-12] MEDS: MOM 30ML SUSPENSION UDC PO SCH (11:39)
[2016-07-12] MEDS: MIRALAX *UNIT DOSE* 17GM PACKET PO SCH (11:39)
[2016-07-12] MEDS: MAGNESIUM OXIDE 400 MG TAB (MAG-OX) PO SCH (11:39)
[2016-07-12] MEDS: ATORVASTATIN 20 MG TAB PO SCH (11:40)
[2016-07-12] MEDS: FUROSEMIDE 80 MG TAB PO SCH (11:40)
[2016-07-12] MEDS: CitaloPRAM (CeleXA) 20 MG TAB PO SCH (11:40)
[2016-07-12] MEDS: SENOKOT S TAB PO SCH ×2 (11:41→20:55)
[2016-07-12] MEDS: PANTOPRAZOLE 40MG TAB (PROTONIX) PO SCH (11:41)
[2016-07-12] MEDS: CARVedilol 12.5 MG TAB PO SCH ×2 (11:45→21:03)
[2016-07-12 14:35] VITALS: BP 160/68
--- NOTE | 2016-07-12 16:27 | IPNPDOC ---
Text Note Date of Service The patient was seen on 07/12/16. NOTE Subjective: Patient states he feels well. No hip pain. No chest pain/shortness of breath/palpitations. Objective: Vitals: (see below) General: No acute distress, laying comfortably in bed. HEENT: Moist mucous membranes. Neck: No JVD or lymphadenopathy Cardiac: RRR, No murmurs Pulm: Clear to auscultation b/l. No wheezing, rhonchi Abd: NT/ND + BS Ext: Right hip surgical site with mild swelling. No bleeding. Distal pulses intact. Labs (see below) Images: Assessment/Plan 1. Right hip fracture status post arthroplasty by orthopedics. Pain management deferred to orthopedics. 2. Urinary tract infection- Escherichia coli on culture. Continue antibiotics 3. Diabetes mellitus- continue sliding scale insulin 4. Atrial fibrillation- on Coumadin. INR 2.8. Restart Coumadin tomorrow. 5. History of CAD- continue home meds 6. Questionable history of [place]'s disease 7. Obstructive sleep apnea- CHAVEZ protocol 8. DEEDEE on CKD- resolved. Creatinine at baseline. Avoid nephro toxins. 9 GERD- continue PPI DVT prophy: On Coumadin Dispo: Will need rehabilitation. VS,Fishbone, I+O VS, Fishbone, I+O Laboratory Tests 07/12/16 06:40 Calcium Level 8.1 L, Red Blood Count 3.10 L, Mean Corpuscular Volume 84.3, Mean Corpuscular Hemoglobin 27.4, Mean Corpuscular Hemoglobin Concent 32.5, Red Cell Distribution Width 14.9 H Vital Signs Date Time Temp Pulse Resp B/P Pulse Ox O2 Delivery O2 Flow Rate FiO2 07/12/16 14:35 99.1 52 18 160/68 93 Room Air 07/11/16 21:00 2.0 07/10/16 11:35 100 I&O- Last 24 Hours up to 6 AM 07/12/16 06:00 Intake Total 1480 ml Output Total 950 ml Balance 530 ml KATHERYN SHANNON MD Jul 12, 2016 16:27
[2016-07-12] MEDS ORDERED: WARFARIN SOD 2 MG TAB PO SCH (17:00)
[2016-07-12] MEDS: ASPIRIN 81 MG ENTERIC TAB PO SCH (20:55)
[2016-07-12] MEDS: ACETAMINOPHEN TAB 650MG DOSE (2X325MG) PO PRN (20:56)
[2016-07-12 22:00] VITALS: BP 165/55
[2016-07-13] MEDS: HumaLOG INSULIN (NovoLOG) PER UNIT SC SCH ×5 (00:39→21:00)
[2016-07-13] MEDS: cefTRIAXone SOD 2 GM in D5W MINI-BAG PLUS 50 ML IV SCH ×2 (03:25→17:24)
[2016-07-13] MEDS: CYCLOBENZAPRINE 10 MG TAB PO SCH ×3 (05:44→21:42)
[2016-07-13] MEDS: ACETAMINOPHEN TAB 650MG DOSE (2X325MG) PO PRN ×2 (05:45→17:51)
[2016-07-13 06:00] VITALS: BP_SYST 162; BP_SYST 177; BP_DIAS 55; BP_DIAS 74
[2016-07-13 07:36] LABS: MEAN CORPUSCULAR HEMOGLOBIN 26.8 pg (27.0-33.0); MEAN CORPUSCULAR HGB CONC 31.9 g/dl (32.0-36.5); MEAN CORPUSCULAR VOLUME 83.9 fl (80.0-96.0); RED CELL DISTRIBUTION WIDTH 14.8 % (11.5-14.5); WHITE BLOOD COUNT 7.7 K/mm3 (4.0-10.0)
[2016-07-13 07:51] LABS: CALCIUM LEVEL 7.8 MG/DL (8.8-10.2); CREATININE FOR GFR 1.34 MG/DL (0.70-1.30); GLOMERULAR FILTRATION RATE 54.2 (>35); MAGNESIUM LEVEL 2.2 MG/DL (1.8-2.4); POTASSIUM SERUM 3.5 MEQ/L (3.5-5.1)
[2016-07-13 08:12] LABS: INR 5.07
[2016-07-13] MEDS: MOM 30ML SUSPENSION UDC PO SCH (08:53)
[2016-07-13] MEDS: MIRALAX *UNIT DOSE* 17GM PACKET PO SCH (08:54)
[2016-07-13] MEDS: FUROSEMIDE 80 MG TAB PO SCH (08:54)
[2016-07-13] MEDS: SENOKOT S TAB PO SCH ×2 (08:54→21:00)
[2016-07-13] MEDS: CAPTOpril 6.25 MG PER 1/2 TABLET PO SCH ×2 (08:54→21:42)
[2016-07-13] MEDS: CitaloPRAM (CeleXA) 20 MG TAB PO SCH (08:54)
[2016-07-13] MEDS: PANTOPRAZOLE 40MG TAB (PROTONIX) PO SCH (08:54)
[2016-07-13] MEDS: ATORVASTATIN 20 MG TAB PO SCH (08:55)
[2016-07-13] MEDS: CARVedilol 12.5 MG TAB PO SCH ×2 (08:55→21:42)
[2016-07-13] MEDS: MAGNESIUM OXIDE 400 MG TAB (MAG-OX) PO SCH (08:55)
[2016-07-13] MEDS: POTASSIUM CHLORIDE 10 MEQ SR TABLET PO SCH (08:55)
[2016-07-13] MEDS: GABAPENTIN 100 MG CAP PO SCH ×3 (08:56→21:42)
[2016-07-13] MEDS: LEVEMIR (INSULIN DETEMIR) 1 UNITS/0.01ML SC SCH (08:56)
--- NOTE | 2016-07-13 13:20 | IPNPDOC ---
Text Note Date of Service The patient was seen on 07/13/16. NOTE Subjective: Patient states he feels well. No acute changes overnight. No bleeding. Objective: Vitals: (see below) General: No acute distress, laying comfortably in bed. HEENT: Moist mucous membranes. Neck: No JVD or lymphadenopathy Cardiac: RRR, No murmurs Pulm: Clear to auscultation b/l. No wheezing, rhonchi Abd: NT/ND + BS Ext: Right hip surgical site with mild swelling. No bleeding. Distal pulses intact. Labs (see below) Images: Assessment/Plan 1. Right hip fracture status post arthroplasty by orthopedics. Pain management deferred to orthopedics. 2. Urinary tract infection- Escherichia coli on culture. Continue antibiotics 3. Diabetes mellitus- continue sliding scale insulin 4. Atrial fibrillation- on Coumadin. INR 5. Coumadin Held. No bleeding. Will monitor, and repeat INR in the am. 5. History of CAD- continue home meds 6. Questionable history of [place]'s disease 7. Obstructive sleep apnea- CHAVEZ protocol 8. DEEDEE on CKD- resolved. Creatinine at baseline. Avoid nephro toxins. 9 GERD- continue PPI DVT prophy: On Coumadin Dispo: Will need short term rehabilitation. VS,Fishbone, I+O VS, Fishbone, I+O Laboratory Tests 07/13/16 07:15 Calcium Level 7.8 L, Red Blood Count 3.16 L, Mean Corpuscular Volume 83.9, Mean Corpuscular Hemoglobin 26.8 L, Mean Corpuscular Hemoglobin Concent 31.9 L, Red Cell Distribution Width 14.8 H Vital Signs Date Time Temp Pulse Resp B/P Pulse Ox O2 Delivery O2 Flow Rate FiO2 07/13/16 08:55 52 162/55 07/13/16 06:00 98.7 16 93 Room Air 07/11/16 21:00 2.0 07/10/16 11:35 100 I&O- Last 24 Hours up to 6 AM 07/13/16 06:00 Intake Total 870 ml Output Total 0 ml Balance 870 ml KATHERYN SHANNON MD Jul 13, 2016 13:20
[2016-07-13] MEDS ORDERED: amLODIPine 5 MG TAB PO ONE (13:30)
[2016-07-13 14:00] VITALS: BP 147/67
[2016-07-13] MEDS ORDERED: WARFARIN SOD 2 MG TAB PO SCH (17:00)
[2016-07-13] MEDS: ASPIRIN 81 MG ENTERIC TAB PO SCH (21:42)
[2016-07-13 22:00] VITALS: BP 165/60
[2016-07-14] MEDS: CYCLOBENZAPRINE 10 MG TAB PO SCH ×3 (05:00→22:23)
[2016-07-14] MEDS: cefTRIAXone SOD 2 GM in D5W MINI-BAG PLUS 50 ML IV SCH ×2 (05:00→15:52)
[2016-07-14 06:00] VITALS: BP 160/72
[2016-07-14 06:54] LABS: MEAN CORPUSCULAR HEMOGLOBIN 26.4 pg (27.0-33.0); MEAN CORPUSCULAR VOLUME 85.1 fl (80.0-96.0); RED CELL DISTRIBUTION WIDTH 14.6 % (11.5-14.5); WHITE BLOOD COUNT 7.2 K/mm3 (4.0-10.0)
[2016-07-14 07:01] LABS: INR 4.14
[2016-07-14 07:09] LABS: ANION GAP 8 MEQ/L (8-16); BLOOD UREA NITROGEN 32 MG/DL (7-18); CALCIUM LEVEL 8.3 MG/DL (8.8-10.2); CARBON DIOXIDE LEVEL 30 MEQ/L (21-32); CHLORIDE LEVEL 104 MEQ/L (98-107); CREATININE FOR GFR 1.18 MG/DL (0.70-1.30); GLOMERULAR FILTRATION RATE > 60.0 (>35); GLUCOSE, FASTING 118 MG/DL (83-110); MAGNESIUM LEVEL 2.3 MG/DL (1.8-2.4); POTASSIUM SERUM 3.5 MEQ/L (3.5-5.1); SODIUM LEVEL 142 MEQ/L (136-145)
[2016-07-14] MEDS ORDERED: NUCY50TA9 PO (08:00)
[2016-07-14] MEDS: LEVEMIR (INSULIN DETEMIR) 1 UNITS/0.01ML SC SCH (08:15)
[2016-07-14] MEDS: HumaLOG INSULIN (NovoLOG) PER UNIT SC SCH ×4 (08:16→21:00)
[2016-07-14] MEDS: CitaloPRAM (CeleXA) 20 MG TAB PO SCH (08:16)
[2016-07-14] MEDS: POTASSIUM CHLORIDE 10 MEQ SR TABLET PO SCH (08:16)
[2016-07-14] MEDS: FUROSEMIDE 80 MG TAB PO SCH (08:17)
[2016-07-14] MEDS: PANTOPRAZOLE 40MG TAB (PROTONIX) PO SCH (08:17)
[2016-07-14] MEDS: CARVedilol 12.5 MG TAB PO SCH ×2 (08:17→22:30)
[2016-07-14] MEDS: MAGNESIUM OXIDE 400 MG TAB (MAG-OX) PO SCH (08:17)
[2016-07-14] MEDS: SENOKOT S TAB PO SCH ×2 (08:18→21:00)
[2016-07-14] MEDS: MIRALAX *UNIT DOSE* 17GM PACKET PO SCH (08:18)
[2016-07-14] MEDS: MOM 30ML SUSPENSION UDC PO SCH (08:18)
[2016-07-14] MEDS: CAPTOpril 6.25 MG PER 1/2 TABLET PO SCH ×2 (08:18→22:30)
[2016-07-14] MEDS: GABAPENTIN 100 MG CAP PO SCH ×3 (08:18→22:22)
[2016-07-14] MEDS: ATORVASTATIN 20 MG TAB PO SCH (08:18)
[2016-07-14] MEDS ORDERED: LEVA500T PO (08:49)
[2016-07-14] MEDS ORDERED: INSUDET SC (08:49)
[2016-07-14] MEDS ORDERED: amLODIPine 5 MG TAB PO SCH (09:00)
[2016-07-14] MEDS ORDERED: AMLO10TA2 PO (12:32)
[2016-07-14 14:00] VITALS: BP 177/72
--- NOTE | 2016-07-14 14:25 | IPNPDOC ---
Text Note Date of Service The patient was seen on 07/14/16. NOTE Subjective: Patient states he feels well. No acute changes overnight. No bleeding. Objective: Vitals: (see below) General: No acute distress, laying comfortably in bed. HEENT: Moist mucous membranes. Neck: No JVD or lymphadenopathy Cardiac: RRR, No murmurs Pulm: Clear to auscultation b/l. No wheezing, rhonchi Abd: NT/ND + BS Ext: Right hip surgical site with mild swelling. No bleeding. Distal pulses intact. Labs (see below) Images: Assessment/Plan 1. Right hip fracture status post arthroplasty by orthopedics. Pain management deferred to orthopedics. 2. Urinary tract infection- Escherichia coli on culture. Continue antibiotics 3. Diabetes mellitus- continue sliding scale insulin 4. Atrial fibrillation- on Coumadin. INR 4, decreased from yesterday. Coumadin Held. No bleeding. Will monitor, and repeat INR in the am. 5. History of CAD- continue home meds 6. Questionable history of [place]'s disease 7. Obstructive sleep apnea- CHAVEZ protocol 8. DEEDEE on CKD- resolved. Creatinine at baseline. Avoid nephro toxins. 9 GERD- continue PPI DVT prophy: On Coumadin Dispo: Plan to d/c to [facility] tomorrow. VS,Fishbone, I+O VS, Fishbone, I+O Laboratory Tests 07/14/16 06:28 Calcium Level 8.3 L, Red Blood Count 3.24 L, Mean Corpuscular Volume 85.1, Mean Corpuscular Hemoglobin 26.4 L, Mean Corpuscular Hemoglobin Concent 31.0 L, Red Cell Distribution Width 14.6 H Vital Signs Date Time Temp Pulse Resp B/P Pulse Ox O2 Delivery O2 Flow Rate FiO2 07/14/16 08:17 54 160/72 07/14/16 07:54 Room Air 07/14/16 06:00 99.2 18 93 07/11/16 21:00 2.0 07/10/16 11:35 100 I&O- Last 24 Hours up to 6 AM 07/14/16 06:00 Intake Total 980 ml Balance 980 ml KATHERYN SHANNON MD Jul 14, 2016 14:25
[2016-07-14] MEDS: ACETAMINOPHEN TAB 650MG DOSE (2X325MG) PO PRN (15:52)
[2016-07-14 22:00] VITALS: BP 148/68
[2016-07-14] MEDS: ASPIRIN 81 MG ENTERIC TAB PO SCH (22:23)
[2016-07-15] MEDS: cefTRIAXone SOD 2 GM in D5W MINI-BAG PLUS 50 ML IV SCH (04:58)
[2016-07-15] MEDS: CYCLOBENZAPRINE 10 MG TAB PO SCH ×3 (05:03→21:10)
[2016-07-15 06:00] VITALS: BP 179/78
[2016-07-15 07:17] LABS: MEAN CORPUSCULAR HEMOGLOBIN 26.8 pg (27.0-33.0); MEAN CORPUSCULAR HGB CONC 32.2 g/dl (32.0-36.5); MEAN CORPUSCULAR VOLUME 83.5 fl (80.0-96.0); RED CELL DISTRIBUTION WIDTH 14.5 % (11.5-14.5); WHITE BLOOD COUNT 7.1 K/mm3 (4.0-10.0)
[2016-07-15 07:34] LABS: ANION GAP 7 MEQ/L (8-16); BLOOD UREA NITROGEN 25 MG/DL (7-18); CALCIUM LEVEL 7.7 MG/DL (8.8-10.2); CARBON DIOXIDE LEVEL 28 MEQ/L (21-32); CHLORIDE LEVEL 106 MEQ/L (98-107); CREATININE FOR GFR 1.05 MG/DL (0.70-1.30); GLOMERULAR FILTRATION RATE > 60.0 (>35); GLUCOSE, FASTING 121 MG/DL (83-110); MAGNESIUM LEVEL 2.1 MG/DL (1.8-2.4); POTASSIUM SERUM 3.6 MEQ/L (3.5-5.1); SODIUM LEVEL 141 MEQ/L (136-145)
[2016-07-15 08:03] LABS: INR 5.35
[2016-07-15] MEDS: CARVedilol 12.5 MG TAB PO SCH ×2 (08:30→21:10)
[2016-07-15] MEDS: MAGNESIUM OXIDE 400 MG TAB (MAG-OX) PO SCH (08:30)
[2016-07-15] MEDS: PANTOPRAZOLE 40MG TAB (PROTONIX) PO SCH (08:30)
[2016-07-15] MEDS: amLODIPine 10 MG TAB PO SCH (08:30)
[2016-07-15] MEDS: CitaloPRAM (CeleXA) 20 MG TAB PO SCH (08:30)
[2016-07-15] MEDS: TAPENTADOL 50 MG TABLET (NUCYNTA) PO PRN ×2 (08:31→12:55)
[2016-07-15] MEDS: ATORVASTATIN 20 MG TAB PO SCH (08:31)
[2016-07-15] MEDS: CAPTOpril 6.25 MG PER 1/2 TABLET PO SCH ×2 (08:31→21:10)
[2016-07-15] MEDS: GABAPENTIN 100 MG CAP PO SCH ×3 (08:31→21:10)
[2016-07-15] MEDS: FUROSEMIDE 80 MG TAB PO SCH (08:31)
[2016-07-15] MEDS: POTASSIUM CHLORIDE 10 MEQ SR TABLET PO SCH (08:31)
[2016-07-15] MEDS: HumaLOG INSULIN (NovoLOG) PER UNIT SC SCH ×4 (08:32→21:00)
[2016-07-15] MEDS: LEVEMIR (INSULIN DETEMIR) 1 UNITS/0.01ML SC SCH (08:32)
[2016-07-15] MEDS: MOM 30ML SUSPENSION UDC PO SCH (08:35)
[2016-07-15] MEDS: MIRALAX *UNIT DOSE* 17GM PACKET PO SCH (08:35)
[2016-07-15] MEDS: SENOKOT S TAB PO SCH ×2 (08:36→21:10)
[2016-07-15] MEDS ORDERED: PHYTONADIONE 5 MG TAB PO ONE (11:30)
--- NOTE | 2016-07-15 13:21 | IPNPDOC ---
Text Note Date of Service The patient was seen on 07/15/16. NOTE Subjective: Patient states he feels well. No acute changes overnight. No bleeding. Objective: Vitals: (see below) General: No acute distress, laying comfortably in bed. HEENT: Moist mucous membranes. Neck: No JVD or lymphadenopathy Cardiac: RRR, No murmurs Pulm: Clear to auscultation b/l. No wheezing, rhonchi Abd: NT/ND + BS Ext: Right hip surgical site with mild swelling. No bleeding. Distal pulses intact. Labs (see below) Images: Assessment/Plan 1. Right hip fracture status post arthroplasty by orthopedics. Pain management deferred to orthopedics. 2. Urinary tract infection- Escherichia coli on culture. Continue antibiotics 3. Diabetes mellitus- continue sliding scale insulin 4. Atrial fibrillation- on Coumadin. INR 5, decreased from yesterday. Coumadin Held. No bleeding. Vitamin K PO.Will monitor, and repeat INR in the am. 5. History of CAD- continue home meds 6. Questionable history of [place]'s disease 7. Obstructive sleep apnea- CHAVEZ protocol 8. DEEDEE on CKD- resolved. Creatinine at baseline. Avoid nephro toxins. 9 GERD- continue PPI DVT prophy: On Coumadin Dispo: I was informed that due to insurance, he will not be able to d/c until Monday. VS,Fishbone, I+O VS, Fishbone, I+O Laboratory Tests 07/15/16 07:03 Calcium Level 7.7 L, Red Blood Count 3.26 L, Mean Corpuscular Volume 83.5, Mean Corpuscular Hemoglobin 26.8 L, Mean Corpuscular Hemoglobin Concent 32.2, Red Cell Distribution Width 14.5 Vital Signs Date Time Temp Pulse Resp B/P Pulse Ox O2 Delivery O2 Flow Rate FiO2 07/15/16 11:14 Room Air 07/15/16 09:01 16 07/15/16 08:30 58 179/78 07/15/16 06:00 99.5 92 07/11/16 21:00 2.0 07/10/16 11:35 100 I&O- Last 24 Hours up to 6 AM 07/15/16 06:00 Intake Total 1370 ml Output Total 0 ml Balance 1370 ml KATHERYN SHANNON MD Jul 15, 2016 13:21
[2016-07-15 14:00] VITALS: BP 180/80
[2016-07-15] MEDS: ASPIRIN 81 MG ENTERIC TAB PO SCH (21:10)
[2016-07-15 22:00] VITALS: BP 142/68
[2016-07-16] MEDS: CYCLOBENZAPRINE 10 MG TAB PO SCH ×2 (05:03→13:19)
[2016-07-16 06:00] VITALS: BP 148/70
[2016-07-16] MEDS ORDERED: LevoFLOXacin 500 MG TABLET PO SCH (06:00)
[2016-07-16] MEDS: PANTOPRAZOLE 40MG TAB (PROTONIX) PO SCH (07:47)
[2016-07-16] MEDS: SENOKOT S TAB PO SCH ×2 (07:47→20:54)
[2016-07-16] MEDS: MAGNESIUM OXIDE 400 MG TAB (MAG-OX) PO SCH (07:47)
[2016-07-16] MEDS: CARVedilol 12.5 MG TAB PO SCH ×2 (07:48→20:53)
[2016-07-16] MEDS: CAPTOpril 6.25 MG PER 1/2 TABLET PO SCH ×2 (07:48→20:54)
[2016-07-16] MEDS: POTASSIUM CHLORIDE 10 MEQ SR TABLET PO SCH (07:48)
[2016-07-16] MEDS: FUROSEMIDE 80 MG TAB PO SCH (07:49)
[2016-07-16] MEDS: CitaloPRAM (CeleXA) 20 MG TAB PO SCH (07:49)
[2016-07-16] MEDS: GABAPENTIN 100 MG CAP PO SCH ×3 (07:49→20:52)
[2016-07-16] MEDS: amLODIPine 10 MG TAB PO SCH (07:49)
[2016-07-16] MEDS: ATORVASTATIN 20 MG TAB PO SCH (07:49)
[2016-07-16] MEDS: HumaLOG INSULIN (NovoLOG) PER UNIT SC SCH ×4 (07:50→20:54)
[2016-07-16] MEDS: LEVEMIR (INSULIN DETEMIR) 1 UNITS/0.01ML SC SCH (07:50)
[2016-07-16] MEDS: MOM 30ML SUSPENSION UDC PO SCH (07:50)
[2016-07-16] MEDS: MIRALAX *UNIT DOSE* 17GM PACKET PO SCH (07:51)
[2016-07-16 09:12] LABS: BASO % 0.3 % (0.0-1.0); EOS # 0.3 K/mm3 (0.0-0.50); EOS % 4.1 % (0.0-3.0); LARGE UNSTAINED CELL # 0.1 K/mm3 (0.0-0.4); LARGE UNSTAINED CELL % 1.1 % (0.0-4.0); LYMPH # 1.3 K/mm3 (1.5-4.5); MEAN CORPUSCULAR HEMOGLOBIN 27.2 pg (27.0-33.0); MEAN CORPUSCULAR HGB CONC 32.6 g/dl (32.0-36.5); MEAN CORPUSCULAR VOLUME 83.4 fl (80.0-96.0); MONO # 0.5 K/mm3 (0.0-0.8); MONO % 6.4 % (0.0-5.0); NEUTROPHILS # 5.3 K/mm3 (1.8-7.7); NEUTROPHILS % 71.2 % (36.0-66.0); PLATELET COUNT, AUTOMATED 209 k/mm3 (150-450); RED CELL DISTRIBUTION WIDTH 14.5 % (11.5-14.5); WHITE BLOOD COUNT 7.5 K/mm3 (4.0-10.0)
[2016-07-16 09:19] LABS: INR 1.6
[2016-07-16 09:32] LABS: ANION GAP 7 MEQ/L (8-16); BLOOD UREA NITROGEN 23 MG/DL (7-18); CARBON DIOXIDE LEVEL 29 MEQ/L (21-32); CHLORIDE LEVEL 104 MEQ/L (98-107); CREATININE FOR GFR 1.07 MG/DL (0.70-1.30); GLOMERULAR FILTRATION RATE > 60.0 (>35); GLUCOSE, FASTING 122 MG/DL (83-110); POTASSIUM SERUM 3.6 MEQ/L (3.5-5.1); SODIUM LEVEL 140 MEQ/L (136-145)
--- NOTE | 2016-07-16 11:05 | IPNPDOC ---
Text Note Date of Service The patient was seen on 07/16/16. NOTE Subjective: Patient states he feels well. No acute changes overnight. No bleeding. Objective: Vitals: (see below) General: No acute distress, laying comfortably in bed. HEENT: Moist mucous membranes. Neck: No JVD or lymphadenopathy Cardiac: RRR, No murmurs Pulm: Clear to auscultation b/l. No wheezing, rhonchi Abd: NT/ND + BS Ext: Right hip surgical site with mild swelling. No bleeding. Distal pulses intact. Labs (see below) Images: Assessment/Plan 1. Right hip fracture status post arthroplasty by orthopedics. Pain management deferred to orthopedics. 2. Urinary tract infection- Escherichia coli on culture. completed antibiotics 3. Diabetes mellitus- continue sliding scale insulin 4. Atrial fibrillation- on Coumadin. INR 5-->1.6 s/p Vit K. Coumadin restarted today at lower dose. No bleeding. 5. History of CAD- continue home meds 6. Questionable history of Richie's disease 7. Obstructive sleep apnea- CHAVEZ protocol 8. DEEDEE on CKD- resolved. Creatinine at baseline. Avoid nephro toxins. 9 GERD- continue PPI DVT prophy: On Coumadin Dispo: I was informed that due to insurance, he will not be able to d/c until Monday. VS,Panterabone, I+O VS, Fishbone, I+O Laboratory Tests 07/16/16 08:54 Calcium Level 8.0 L, Red Blood Count 3.56 L, Mean Corpuscular Volume 83.4, Mean Corpuscular Hemoglobin 27.2, Mean Corpuscular Hemoglobin Concent 32.6, Red Cell Distribution Width 14.5, Neutrophils (%) (Auto) 71.2 H, Lymphocytes (%) (Auto) 17.0 L, Monocytes (%) (Auto) 6.4 H, Eosinophils (%) (Auto) 4.1 H, Basophils (%) (Auto) 0.3, Neutrophils # (Auto) 5.3, Lymphocytes # (Auto) 1.3 L, Monocytes # ( Auto) 0.5, Eosinophils # (Auto) 0.3, Basophils # (Auto) 0.0 Vital Signs Date Time Temp Pulse Resp B/P Pulse Ox O2 Delivery O2 Flow Rate FiO2 4/22/17 07:49 70 148/70 4/22/17 06:00 99.2 20 96 Room Air 07/11/16 21:00 2.0 07/10/16 11:35 100 I&O- Last 24 Hours up to 6 AM 07/16/16 06:00 Intake Total 1610 ml Balance 1610 ml KATHERYN SHANNON MD Jul 16, 2016 11:05
[2016-07-16 14:00] VITALS: BP 107/50
[2016-07-16 14:45] VITALS: BP_SYST 111; BP_SYST 150; BP_DIAS 58; BP_DIAS 69
[2016-07-16] MEDS ORDERED: WARFARIN SOD 2.5 MG TAB PO SCH (17:00)
[2016-07-16 17:13] VITALS: BP 107/52
[2016-07-16 17:30] VITALS: BP_SYST 119; BP_SYST 142; BP_SYST 196; BP_DIAS 56; BP_DIAS 66; BP_DIAS 88
[2016-07-16] MEDS: ASPIRIN 81 MG ENTERIC TAB PO SCH (20:53)
[2016-07-16] MEDS: traZODone 100 MG TAB PO PRN (20:56)
[2016-07-16] MEDS: ACETAMINOPHEN TAB 650MG DOSE (2X325MG) PO PRN (20:56)
[2016-07-16 22:00] VITALS: BP 157/69
[2016-07-17 06:00] VITALS: BP 148/63
[2016-07-17 06:04] LABS: BASO % 0.2 % (0.0-1.0); EOS # 0.3 K/mm3 (0.0-0.50); EOS % 4.1 % (0.0-3.0); LARGE UNSTAINED CELL # 0.1 K/mm3 (0.0-0.4); LARGE UNSTAINED CELL % 1.6 % (0.0-4.0); LYMPH # 1.9 K/mm3 (1.5-4.5); LYMPH % 22.7 % (24.0-44.0); MEAN CORPUSCULAR HEMOGLOBIN 28.2 pg (27.0-33.0); MEAN CORPUSCULAR HGB CONC 33.4 g/dl (32.0-36.5); MEAN CORPUSCULAR VOLUME 84.2 fl (80.0-96.0); MONO # 0.5 K/mm3 (0.0-0.8); MONO % 6.4 % (0.0-5.0); NEUTROPHILS # 5.3 K/mm3 (1.8-7.7); PLATELET COUNT, AUTOMATED 214 k/mm3 (150-450); RED CELL DISTRIBUTION WIDTH 14.7 % (11.5-14.5); WHITE BLOOD COUNT 8.1 K/mm3 (4.0-10.0)
[2016-07-17 06:13] LABS: INR 1.36
[2016-07-17 06:27] LABS: ANION GAP 8 MEQ/L (8-16); BLOOD UREA NITROGEN 26 MG/DL (7-18); CARBON DIOXIDE LEVEL 30 MEQ/L (21-32); CHLORIDE LEVEL 104 MEQ/L (98-107); CREATININE FOR GFR 1.21 MG/DL (0.70-1.30); GLOMERULAR FILTRATION RATE > 60.0 (>35); GLUCOSE, FASTING 135 MG/DL (83-110); POTASSIUM SERUM 3.6 MEQ/L (3.5-5.1); SODIUM LEVEL 142 MEQ/L (136-145)
[2016-07-17] MEDS: MOM 30ML SUSPENSION UDC PO SCH (09:00)
[2016-07-17] MEDS: MIRALAX *UNIT DOSE* 17GM PACKET PO SCH (09:00)
[2016-07-17] MEDS: ATORVASTATIN 20 MG TAB PO SCH (09:28)
[2016-07-17] MEDS: GABAPENTIN 100 MG CAP PO SCH ×3 (09:28→21:15)
[2016-07-17] MEDS: CAPTOpril 6.25 MG PER 1/2 TABLET PO SCH ×3 (09:28→21:17)
[2016-07-17] MEDS: SENOKOT S TAB PO SCH ×2 (09:29→21:18)
[2016-07-17] MEDS: MAGNESIUM OXIDE 400 MG TAB (MAG-OX) PO SCH (09:29)
[2016-07-17] MEDS: FUROSEMIDE 80 MG TAB PO SCH (09:29)
[2016-07-17] MEDS: amLODIPine 10 MG TAB PO SCH (09:29)
[2016-07-17] MEDS: PANTOPRAZOLE 40MG TAB (PROTONIX) PO SCH (09:30)
[2016-07-17] MEDS: CitaloPRAM (CeleXA) 20 MG TAB PO SCH (09:30)
[2016-07-17] MEDS: CARVedilol 12.5 MG TAB PO SCH ×2 (09:30→21:17)
[2016-07-17] MEDS: LEVEMIR (INSULIN DETEMIR) 1 UNITS/0.01ML SC SCH (09:31)
[2016-07-17] MEDS: HumaLOG INSULIN (NovoLOG) PER UNIT SC SCH ×4 (09:31→21:18)
[2016-07-17] MEDS: POTASSIUM CHLORIDE 10 MEQ SR TABLET PO SCH (09:33)
[2016-07-17 12:46] LABS: CALCIUM LEVEL 8.5 MG/DL (8.8-10.2); CREATININE FOR GFR 1.43 MG/DL (0.70-1.30); GLOMERULAR FILTRATION RATE 50.3 (>35)
--- NOTE | 2016-07-17 13:29 | IPNPDOC ---
Text Note Date of Service The patient was seen on 07/17/16. NOTE Subjective: Patient states he feels well. No acute changes overnight. Objective: Vitals: (see below) General: No acute distress, laying comfortably in bed. HEENT: Moist mucous membranes. Neck: No JVD or lymphadenopathy Cardiac: RRR, No murmurs Pulm: Clear to auscultation b/l. No wheezing, rhonchi Abd: NT/ND + BS Ext: Right hip surgical site with mild swelling. No bleeding. Distal pulses intact. Labs (see below) Images: Assessment/Plan 1. Right hip fracture status post arthroplasty by orthopedics. Pain management deferred to orthopedics. 2. Urinary tract infection- Escherichia coli on culture. completed antibiotics 3. Diabetes mellitus- continue sliding scale insulin 4. Atrial fibrillation- on Coumadin. INR 5-->1.6 s/p Vit K. Coumadin restarted. No bleeding. 5. History of CAD- continue home meds 6. Questionable history of [place]'s disease 7. Obstructive sleep apnea- CHAVEZ protocol 8. DEEDEE on CKD-gentle IV fluid hydration.avoid nephro toxins. Lasix held for now. 9 GERD- continue PPI 10. Orthostatic vitals- we'll continue to monitor. Lasix discontinued. Gentle hydration. DVT prophy: On Coumadin Dispo: I was informed that due to insurance, he will not be able to d/c until Monday. VS,Fishbone, I+O VS, Fishbone, I+O Laboratory Tests 07/17/16 05:27 Calcium Level 8.0 L, Red Blood Count 3.31 L, Mean Corpuscular Volume 84.2, Mean Corpuscular Hemoglobin 28.2, Mean Corpuscular Hemoglobin Concent 33.4, Red Cell Distribution Width 14.7 H, Neutrophils (%) (Auto) 65.0, Lymphocytes (%) (Auto) 22.7 L, Monocytes (%) (Auto) 6.4 H, Eosinophils (%) (Auto) 4.1 H, Basophils (%) (Auto) 0.2, Neutrophils # (Auto) 5.3, Lymphocytes # (Auto) 1.9, Monocytes # ( Auto) 0.5, Eosinophils # (Auto) 0.3, Basophils # (Auto) 0.0 07/17/16 12:19 Calcium Level 8.5 L Vital Signs Date Time Temp Pulse Resp B/P Pulse Ox O2 Delivery O2 Flow Rate FiO2 07/17/16 09:30 58 148/63 07/17/16 06:00 98.7 18 93 Room Air 07/16/16 14:15 2.0 I&O- Last 24 Hours up to 6 AM 07/17/16 05:59 Intake Total 1380 ml Output Total 0 ml Balance 1380 ml KATHERYN SHANNON MD Jul 17, 2016 13:29
[2016-07-17] MEDS ORDERED: NS 1,000 ML IV SCH (13:30)
[2016-07-17 14:00] VITALS: BP 176/77
[2016-07-17 17:00] VITALS: BP_SYST 124; BP_SYST 167; BP_SYST 175; BP_DIAS 59; BP_DIAS 66; BP_DIAS 73
[2016-07-17] MEDS: WARFARIN SOD 5 MG TAB PO SCH (18:14)
[2016-07-17 18:35] LABS: CALCIUM LEVEL 8.7 MG/DL (8.8-10.2); CREATININE FOR GFR 1.55 MG/DL (0.70-1.30); GLOMERULAR FILTRATION RATE 45.8 (>35); POTASSIUM SERUM 4.1 MEQ/L (3.5-5.1)
[2016-07-17] MEDS ORDERED: NS 0.45% 1,000 ML IV SCH (21:00)
[2016-07-17] MEDS ORDERED: amLODIPine 5 MG TAB PO ONE (21:00)
[2016-07-17] MEDS: ACETAMINOPHEN TAB 650MG DOSE (2X325MG) PO PRN (21:16)
[2016-07-17] MEDS: ASPIRIN 81 MG ENTERIC TAB PO SCH (21:18)
[2016-07-17 22:00] VITALS: BP 142/70
[2016-07-18 06:00] VITALS: BP_SYST 132; BP_SYST 140; BP_SYST 155; BP_DIAS 50; BP_DIAS 56; BP_DIAS 70
[2016-07-18 07:05] LABS: BASO % 0.4 % (0.0-1.0); EOS # 0.3 K/mm3 (0.0-0.50); LARGE UNSTAINED CELL # 0.1 K/mm3 (0.0-0.4); LARGE UNSTAINED CELL % 1.2 % (0.0-4.0); LYMPH % 24.2 % (24.0-44.0); MEAN CORPUSCULAR HEMOGLOBIN 27.1 pg (27.0-33.0); MEAN CORPUSCULAR HGB CONC 31.9 g/dl (32.0-36.5); MONO # 0.5 K/mm3 (0.0-0.8); MONO % 5.9 % (0.0-5.0); NEUTROPHILS % 64.3 % (36.0-66.0); PLATELET COUNT, AUTOMATED 223 k/mm3 (150-450); RED CELL DISTRIBUTION WIDTH 14.7 % (11.5-14.5); WHITE BLOOD COUNT 7.7 K/mm3 (4.0-10.0)
[2016-07-18 07:11] LABS: INR 1.47
[2016-07-18 07:38] LABS: ALBUMIN 2.4 GM/DL (3.2-5.2); ALBUMIN/GLOBULIN RATIO 0.6 (1.00-1.93); BILIRUBIN,TOTAL 0.6 MG/DL (0.2-1.0); CREATININE FOR GFR 1.43 MG/DL (0.70-1.30); GLOMERULAR FILTRATION RATE 50.3 (>35); POTASSIUM SERUM 3.6 MEQ/L (3.5-5.1); TOTAL PROTEIN 6.4 GM/DL (6.4-8.2)
[2016-07-18] MEDS: MOM 30ML SUSPENSION UDC PO SCH (09:00)
[2016-07-18] MEDS: MIRALAX *UNIT DOSE* 17GM PACKET PO SCH (09:00)
[2016-07-18] MEDS: HumaLOG INSULIN (NovoLOG) PER UNIT SC SCH ×4 (09:08→21:00)
[2016-07-18] MEDS: LEVEMIR (INSULIN DETEMIR) 1 UNITS/0.01ML SC SCH (09:08)
[2016-07-18] MEDS: PANTOPRAZOLE 40MG TAB (PROTONIX) PO SCH (09:09)
[2016-07-18] MEDS: MAGNESIUM OXIDE 400 MG TAB (MAG-OX) PO SCH (09:09)
[2016-07-18] MEDS: CAPTOpril 6.25 MG PER 1/2 TABLET PO SCH ×2 (09:09→21:38)
[2016-07-18] MEDS: amLODIPine 5 MG TAB PO SCH (09:09)
[2016-07-18] MEDS: SENOKOT S TAB PO SCH ×2 (09:09→21:00)
[2016-07-18] MEDS: GABAPENTIN 100 MG CAP PO SCH ×3 (09:09→21:38)
[2016-07-18] MEDS: CitaloPRAM (CeleXA) 20 MG TAB PO SCH (09:09)
[2016-07-18] MEDS: CARVedilol 12.5 MG TAB PO SCH ×2 (09:10→21:39)
[2016-07-18] MEDS: ATORVASTATIN 20 MG TAB PO SCH (09:10)
[2016-07-18] MEDS: POTASSIUM CHLORIDE 10 MEQ SR TABLET PO SCH (09:10)
--- NOTE | 2016-07-18 12:08 | IPNPDOC ---
Text Note Date of Service The patient was seen on 07/18/16. NOTE Subjective: Patient states he feels well. No acute changes overnight. Objective: Vitals: (see below) General: No acute distress, laying comfortably in bed. HEENT: Moist mucous membranes. Neck: No JVD or lymphadenopathy Cardiac: RRR, No murmurs Pulm: Clear to auscultation b/l. No wheezing, rhonchi Abd: NT/ND + BS Ext: Right hip surgical site with mild swelling. No bleeding. Distal pulses intact. Labs (see below) Images: Assessment/Plan 1. Right hip fracture status post arthroplasty by orthopedics. Pain management deferred to orthopedics. 2. Urinary tract infection- Escherichia coli on culture. completed antibiotics 3. Diabetes mellitus- continue sliding scale insulin 4. Atrial fibrillation- on Coumadin. INR 5-->1.6 s/p Vit K. Coumadin restarted. No bleeding. 5. History of CAD- continue home meds 6. Questionable history of [place]'s disease 7. Obstructive sleep apnea- CHAVEZ protocol 8. DEEDEE on CKD-gentle IV fluid hydration.avoid nephro toxins. Lasix held for now. 9 GERD- continue PPI 10. Orthostatic vitals- we'll continue to monitor. Lasix discontinued. Gentle hydration. DVT prophy: On Coumadin Dispo: Awaiting placement. Placed in [facility]. VS,Fishbone, I+O VS, Fishbone, I+O Laboratory Tests 07/17/16 12:19 Calcium Level 8.5 L 07/17/16 17:48 Calcium Level 8.7 L 07/18/16 06:27 Calcium Level 8.0 L, Aspartate Amino Transf (AST/SGOT) 17, Alanine Aminotransferase (ALT/SGPT) 17, Alkaline Phosphatase 82, Total Bilirubin 0.6, Total Protein 6.4, Albumin 2.4 L, Red Blood Count 3.38 L, Mean Corpuscular Volume 85.0, Mean Corpuscular Hemoglobin 27.1, Mean Corpuscular Hemoglobin Concent 31.9 L, Red Cell Distribution Width 14.7 H, Neutrophils (%) (Auto) 64.3 , Lymphocytes (%) (Auto) 24.2, Monocytes (%) (Auto) 5.9 H, Eosinophils (%) (Auto ) 4.0 H, Basophils (%) (Auto) 0.4, Neutrophils # (Auto) 5.0, Lymphocytes # (Auto ) 2.0, Monocytes # (Auto) 0.5, Eosinophils # (Auto) 0.3, Basophils # (Auto) 0.0 Vital Signs Date Time Temp Pulse Resp B/P Pulse Ox O2 Delivery O2 Flow Rate FiO2 07/18/16 09:09 68 140/56 07/18/16 08:00 Room Air 07/18/16 06:00 99.7 18 94 07/16/16 14:15 2.0 I&O- Last 24 Hours up to 6 AM 07/18/16 06:00 Intake Total 2660 ml Balance 2660 ml KATHERYN SHANNON MD Jul 18, 2016 12:08
[2016-07-18] MEDS: ACETAMINOPHEN TAB 650MG DOSE (2X325MG) PO PRN (13:57)
[2016-07-18 14:00] VITALS: BP 136/64
[2016-07-18] MEDS: WARFARIN SOD 5 MG TAB PO SCH (16:24)
[2016-07-18] MEDS: ASPIRIN 81 MG ENTERIC TAB PO SCH (21:39)
[2016-07-18 22:00] VITALS: BP 166/76
[2016-07-19 06:00] VITALS: BP 143/74
[2016-07-19 07:27] LABS: BASO % 0.4 % (0.0-1.0); EOS # 0.3 K/mm3 (0.0-0.50); EOS % 4.5 % (0.0-3.0); LARGE UNSTAINED CELL # 0.1 K/mm3 (0.0-0.4); LARGE UNSTAINED CELL % 1.6 % (0.0-4.0); LYMPH # 1.6 K/mm3 (1.5-4.5); LYMPH % 22.2 % (24.0-44.0); MEAN CORPUSCULAR HEMOGLOBIN 26.9 pg (27.0-33.0); MEAN CORPUSCULAR VOLUME 84.1 fl (80.0-96.0); MONO # 0.5 K/mm3 (0.0-0.8); MONO % 6.8 % (0.0-5.0); NEUTROPHILS # 4.4 K/mm3 (1.8-7.7); NEUTROPHILS % 64.5 % (36.0-66.0); PLATELET COUNT, AUTOMATED 236 k/mm3 (150-450); RED CELL DISTRIBUTION WIDTH 14.7 % (11.5-14.5); WHITE BLOOD COUNT 6.8 K/mm3 (4.0-10.0)
[2016-07-19 07:37] LABS: INR 2.04
[2016-07-19 07:43] LABS: ALBUMIN 2.5 GM/DL (3.2-5.2); ALBUMIN/GLOBULIN RATIO 0.63 (1.00-1.93); BILIRUBIN,TOTAL 0.5 MG/DL (0.2-1.0); CALCIUM LEVEL 8.3 MG/DL (8.8-10.2); CREATININE FOR GFR 1.3 MG/DL (0.70-1.30); GLOMERULAR FILTRATION RATE 56.1 (>35); POTASSIUM SERUM 4.1 MEQ/L (3.5-5.1); TOTAL PROTEIN 6.5 GM/DL (6.4-8.2)
[2016-07-19] MEDS: HumaLOG INSULIN (NovoLOG) PER UNIT SC SCH ×4 (08:22→20:44)
[2016-07-19] MEDS: CitaloPRAM (CeleXA) 20 MG TAB PO SCH (08:23)
[2016-07-19] MEDS: GABAPENTIN 100 MG CAP PO SCH ×3 (08:23→20:44)
[2016-07-19] MEDS: LEVEMIR (INSULIN DETEMIR) 1 UNITS/0.01ML SC SCH (08:23)
[2016-07-19] MEDS: CARVedilol 12.5 MG TAB PO SCH ×2 (08:23→20:44)
[2016-07-19] MEDS: MAGNESIUM OXIDE 400 MG TAB (MAG-OX) PO SCH (08:24)
[2016-07-19] MEDS: CAPTOpril 6.25 MG PER 1/2 TABLET PO SCH ×2 (08:24→20:44)
[2016-07-19] MEDS: POTASSIUM CHLORIDE 10 MEQ SR TABLET PO SCH (08:24)
[2016-07-19] MEDS: ATORVASTATIN 20 MG TAB PO SCH (08:24)
[2016-07-19] MEDS: amLODIPine 5 MG TAB PO SCH (08:24)
[2016-07-19] MEDS: PANTOPRAZOLE 40MG TAB (PROTONIX) PO SCH (08:25)
[2016-07-19] MEDS: ACETAMINOPHEN TAB 650MG DOSE (2X325MG) PO PRN ×2 (08:25→18:42)
[2016-07-19] MEDS: MOM 30ML SUSPENSION UDC PO SCH (08:25)
[2016-07-19] MEDS: MIRALAX *UNIT DOSE* 17GM PACKET PO SCH (08:25)
[2016-07-19] MEDS: SENOKOT S TAB PO SCH ×2 (08:25→20:44)
[2016-07-19 14:00] VITALS: BP 139/64
[2016-07-19] MEDS: WARFARIN SOD 2.5 MG TAB PO SCH (17:06)
[2016-07-19] MEDS: ASPIRIN 81 MG ENTERIC TAB PO SCH (20:44)
[2016-07-19 22:00] VITALS: BP 155/65
[2016-07-20 06:00] VITALS: BP 170/77
[2016-07-20 06:53] LABS: BASO % 0.3 % (0.0-1.0); EOS # 0.3 K/mm3 (0.0-0.50); EOS % 4.1 % (0.0-3.0); LARGE UNSTAINED CELL # 0.1 K/mm3 (0.0-0.4); LARGE UNSTAINED CELL % 1.2 % (0.0-4.0); LYMPH # 1.7 K/mm3 (1.5-4.5); LYMPH % 23.7 % (24.0-44.0); MEAN CORPUSCULAR HEMOGLOBIN 27.4 pg (27.0-33.0); MEAN CORPUSCULAR HGB CONC 32.4 g/dl (32.0-36.5); MEAN CORPUSCULAR VOLUME 84.4 fl (80.0-96.0); MONO # 0.5 K/mm3 (0.0-0.8); MONO % 6.8 % (0.0-5.0); NEUTROPHILS # 4.3 K/mm3 (1.8-7.7); NEUTROPHILS % 63.8 % (36.0-66.0); PLATELET COUNT, AUTOMATED 231 k/mm3 (150-450); RED CELL DISTRIBUTION WIDTH 14.6 % (11.5-14.5); WHITE BLOOD COUNT 6.7 K/mm3 (4.0-10.0)
[2016-07-20 06:58] LABS: INR 2.39
[2016-07-20 07:14] LABS: ALBUMIN 2.6 GM/DL (3.2-5.2); ALBUMIN/GLOBULIN RATIO 0.72 (1.00-1.93); ALKALINE PHOSPHATASE 83 U/L (45-117); ALT/SGPT 16 U/L (12-78); ANION GAP 9 MEQ/L (8-16); AST/SGOT 16 U/L (15-37); BILIRUBIN,TOTAL 0.5 MG/DL (0.2-1.0); BLOOD UREA NITROGEN 27 MG/DL (7-18); CALCIUM LEVEL 8.3 MG/DL (8.8-10.2); CARBON DIOXIDE LEVEL 27 MEQ/L (21-32); CHLORIDE LEVEL 105 MEQ/L (98-107); CREATININE FOR GFR 1.21 MG/DL (0.70-1.30); GLOMERULAR FILTRATION RATE > 60.0 (>35); GLUCOSE, FASTING 94 MG/DL (83-110); POTASSIUM SERUM 3.8 MEQ/L (3.5-5.1); SODIUM LEVEL 141 MEQ/L (136-145); TOTAL PROTEIN 6.2 GM/DL (6.4-8.2)
[2016-07-20] MEDS: HumaLOG INSULIN (NovoLOG) PER UNIT SC SCH ×4 (07:30→21:00)
[2016-07-20] MEDS: MOM 30ML SUSPENSION UDC PO SCH (09:00)
[2016-07-20] MEDS: MIRALAX *UNIT DOSE* 17GM PACKET PO SCH (09:00)
[2016-07-20] MEDS: SENOKOT S TAB PO SCH ×2 (09:00→21:00)
[2016-07-20] MEDS: ATORVASTATIN 20 MG TAB PO SCH (11:26)
[2016-07-20] MEDS: CAPTOpril 6.25 MG PER 1/2 TABLET PO SCH ×2 (11:26→22:35)
[2016-07-20] MEDS: CARVedilol 12.5 MG TAB PO SCH ×2 (11:27→22:35)
[2016-07-20] MEDS: GABAPENTIN 100 MG CAP PO SCH ×3 (11:27→22:33)
[2016-07-20] MEDS: amLODIPine 5 MG TAB PO SCH (11:27)
[2016-07-20] MEDS: PANTOPRAZOLE 40MG TAB (PROTONIX) PO SCH (11:27)
[2016-07-20] MEDS: CitaloPRAM (CeleXA) 20 MG TAB PO SCH (11:27)
[2016-07-20] MEDS: POTASSIUM CHLORIDE 10 MEQ SR TABLET PO SCH (11:28)
[2016-07-20] MEDS: LEVEMIR (INSULIN DETEMIR) 1 UNITS/0.01ML SC SCH (11:28)
[2016-07-20] MEDS: ACETAMINOPHEN TAB 650MG DOSE (2X325MG) PO PRN (11:28)
[2016-07-20] MEDS: MAGNESIUM OXIDE 400 MG TAB (MAG-OX) PO SCH (11:28)
[2016-07-20] MEDS: TAPENTADOL 50 MG TABLET (NUCYNTA) PO PRN ×2 (11:29→22:34)
[2016-07-20 14:00] VITALS: BP 143/72
[2016-07-20] MEDS: WARFARIN SOD 2.5 MG TAB PO SCH (17:42)
[2016-07-20 22:00] VITALS: BP 155/70
[2016-07-20] MEDS: ASPIRIN 81 MG ENTERIC TAB PO SCH (22:34)
[2016-07-21 06:00] VITALS: BP 145/70
[2016-07-21 06:39] LABS: BASO % 0.4 % (0.0-1.0); EOS # 0.4 K/mm3 (0.0-0.50); EOS % 4.9 % (0.0-3.0); LARGE UNSTAINED CELL # 0.1 K/mm3 (0.0-0.4); LARGE UNSTAINED CELL % 0.9 % (0.0-4.0); LYMPH # 1.7 K/mm3 (1.5-4.5); LYMPH % 22.8 % (24.0-44.0); MEAN CORPUSCULAR HEMOGLOBIN 26.9 pg (27.0-33.0); MEAN CORPUSCULAR HGB CONC 32.1 g/dl (32.0-36.5); MEAN CORPUSCULAR VOLUME 83.7 fl (80.0-96.0); MONO # 0.5 K/mm3 (0.0-0.8); MONO % 6.6 % (0.0-5.0); NEUTROPHILS # 4.6 K/mm3 (1.8-7.7); NEUTROPHILS % 64.3 % (36.0-66.0); PLATELET COUNT, AUTOMATED 227 k/mm3 (150-450); RED CELL DISTRIBUTION WIDTH 14.6 % (11.5-14.5); WHITE BLOOD COUNT 7.1 K/mm3 (4.0-10.0)
[2016-07-21 06:44] LABS: INR 2.71
[2016-07-21 07:27] LABS: ALBUMIN 2.7 GM/DL (3.2-5.2); ALBUMIN/GLOBULIN RATIO 0.84 (1.00-1.93); ALKALINE PHOSPHATASE 86 U/L (45-117); ALT/SGPT 18 U/L (12-78); ANION GAP 9 MEQ/L (8-16); AST/SGOT 19 U/L (15-37); BILIRUBIN,TOTAL 0.5 MG/DL (0.2-1.0); BLOOD UREA NITROGEN 22 MG/DL (7-18); CARBON DIOXIDE LEVEL 27 MEQ/L (21-32); CHLORIDE LEVEL 106 MEQ/L (98-107); GLOMERULAR FILTRATION RATE > 60.0 (>35); GLUCOSE, FASTING 82 MG/DL (83-110); SODIUM LEVEL 142 MEQ/L (136-145); TOTAL PROTEIN 5.9 GM/DL (6.4-8.2)
[2016-07-21] MEDS: HumaLOG INSULIN (NovoLOG) PER UNIT SC SCH ×4 (08:09→21:00)
[2016-07-21] MEDS: MIRALAX *UNIT DOSE* 17GM PACKET PO SCH (09:03)
[2016-07-21] MEDS: MOM 30ML SUSPENSION UDC PO SCH (09:03)
[2016-07-21] MEDS: POTASSIUM CHLORIDE 10 MEQ SR TABLET PO SCH (09:04)
[2016-07-21] MEDS: CAPTOpril 6.25 MG PER 1/2 TABLET PO SCH ×2 (09:04→20:49)
[2016-07-21] MEDS: LEVEMIR (INSULIN DETEMIR) 1 UNITS/0.01ML SC SCH (09:04)
[2016-07-21] MEDS: GABAPENTIN 100 MG CAP PO SCH ×3 (09:04→20:49)
[2016-07-21] MEDS: CARVedilol 12.5 MG TAB PO SCH ×2 (09:05→20:49)
[2016-07-21] MEDS: SENOKOT S TAB PO SCH ×2 (09:05→20:49)
[2016-07-21] MEDS: CitaloPRAM (CeleXA) 20 MG TAB PO SCH (09:05)
[2016-07-21] MEDS: MAGNESIUM OXIDE 400 MG TAB (MAG-OX) PO SCH (09:05)
[2016-07-21] MEDS: ATORVASTATIN 20 MG TAB PO SCH (09:05)
[2016-07-21] MEDS: PANTOPRAZOLE 40MG TAB (PROTONIX) PO SCH (09:05)
[2016-07-21] MEDS: amLODIPine 5 MG TAB PO SCH (09:06)
[2016-07-21] MEDS: ACETAMINOPHEN TAB 650MG DOSE (2X325MG) PO PRN ×2 (12:15→23:14)
[2016-07-21 13:00] VITALS: BP_SYST 112; BP_SYST 117; BP_SYST 119; BP_DIAS 52; BP_DIAS 56; BP_DIAS 58
[2016-07-21 14:00] VITALS: BP 126/66
[2016-07-21] MEDS: WARFARIN 1.25 MG PER 1/2 TABLET PO SCH (17:56)
[2016-07-21] MEDS: ASPIRIN 81 MG ENTERIC TAB PO SCH (20:49)
[2016-07-21 22:00] VITALS: BP 164/73
[2016-07-22 06:00] VITALS: BP_SYST 121; BP_SYST 124; BP_SYST 168; BP_DIAS 55; BP_DIAS 72
[2016-07-22 06:40] LABS: BASO % 0.4 % (0.0-1.0); EOS # 0.4 K/mm3 (0.0-0.50); EOS % 5.2 % (0.0-3.0); LARGE UNSTAINED CELL # 0.1 K/mm3 (0.0-0.4); LARGE UNSTAINED CELL % 1.1 % (0.0-4.0); LYMPH # 1.9 K/mm3 (1.5-4.5); LYMPH % 24.8 % (24.0-44.0); MEAN CORPUSCULAR HEMOGLOBIN 28.4 pg (27.0-33.0); MEAN CORPUSCULAR HGB CONC 33.4 g/dl (32.0-36.5); MONO # 0.4 K/mm3 (0.0-0.8); MONO % 5.9 % (0.0-5.0); NEUTROPHILS # 4.7 K/mm3 (1.8-7.7); NEUTROPHILS % 62.6 % (36.0-66.0); PLATELET COUNT, AUTOMATED 247 k/mm3 (150-450); RED CELL DISTRIBUTION WIDTH 14.8 % (11.5-14.5); WHITE BLOOD COUNT 7.4 K/mm3 (4.0-10.0)
[2016-07-22 06:50] LABS: INR 3.45
[2016-07-22 07:02] LABS: ALBUMIN 2.6 GM/DL (3.2-5.2); ALBUMIN/GLOBULIN RATIO 0.68 (1.00-1.93); BILIRUBIN,TOTAL 0.4 MG/DL (0.2-1.0); CALCIUM LEVEL 8.3 MG/DL (8.8-10.2); CREATININE FOR GFR 1.28 MG/DL (0.70-1.30); GLOMERULAR FILTRATION RATE 57.1 (>35); TOTAL PROTEIN 6.4 GM/DL (6.4-8.2)
[2016-07-22] MEDS: MIRALAX *UNIT DOSE* 17GM PACKET PO SCH ×2 (08:25→10:02)
[2016-07-22] MEDS: MOM 30ML SUSPENSION UDC PO SCH (08:25)
[2016-07-22] MEDS: SENOKOT S TAB PO SCH ×2 (08:26→20:47)
[2016-07-22] MEDS: HumaLOG INSULIN (NovoLOG) PER UNIT SC SCH ×4 (08:26→21:00)
[2016-07-22] MEDS: LEVEMIR (INSULIN DETEMIR) 1 UNITS/0.01ML SC SCH (08:26)
[2016-07-22] MEDS: ACETAMINOPHEN TAB 650MG DOSE (2X325MG) PO PRN ×2 (08:27→20:47)
[2016-07-22] MEDS: amLODIPine 5 MG TAB PO SCH (08:27)
[2016-07-22] MEDS: CAPTOpril 6.25 MG PER 1/2 TABLET PO SCH ×2 (08:27→20:42)
[2016-07-22] MEDS: POTASSIUM CHLORIDE 10 MEQ SR TABLET PO SCH (08:27)
[2016-07-22] MEDS: ATORVASTATIN 20 MG TAB PO SCH (08:27)
[2016-07-22] MEDS: CitaloPRAM (CeleXA) 20 MG TAB PO SCH (08:28)
[2016-07-22] MEDS: MAGNESIUM OXIDE 400 MG TAB (MAG-OX) PO SCH (08:28)
[2016-07-22] MEDS: GABAPENTIN 100 MG CAP PO SCH ×3 (08:28→20:42)
[2016-07-22] MEDS: PANTOPRAZOLE 40MG TAB (PROTONIX) PO SCH (08:28)
[2016-07-22] MEDS: CARVedilol 12.5 MG TAB PO SCH ×2 (08:29→20:42)
[2016-07-22 14:00] VITALS: BP 105/54
[2016-07-22] MEDS: traZODone 100 MG TAB PO PRN (20:42)
[2016-07-22] MEDS: ASPIRIN 81 MG ENTERIC TAB PO SCH (20:42)
[2016-07-22 22:00] VITALS: BP 160/71
[2016-07-23 06:00] VITALS: BP 180/81
[2016-07-23 06:42] LABS: BASO % 0.3 % (0.0-1.0); EOS # 0.4 K/mm3 (0.0-0.50); EOS % 4.8 % (0.0-3.0); LARGE UNSTAINED CELL # 0.1 K/mm3 (0.0-0.4); LARGE UNSTAINED CELL % 1.2 % (0.0-4.0); LYMPH # 1.6 K/mm3 (1.5-4.5); LYMPH % 20.4 % (24.0-44.0); MEAN CORPUSCULAR HEMOGLOBIN 27.4 pg (27.0-33.0); MEAN CORPUSCULAR HGB CONC 32.4 g/dl (32.0-36.5); MEAN CORPUSCULAR VOLUME 84.6 fl (80.0-96.0); MONO # 0.4 K/mm3 (0.0-0.8); MONO % 5.4 % (0.0-5.0); NEUTROPHILS # 5.4 K/mm3 (1.8-7.7); NEUTROPHILS % 67.8 % (36.0-66.0); PLATELET COUNT, AUTOMATED 259 k/mm3 (150-450); RED CELL DISTRIBUTION WIDTH 14.7 % (11.5-14.5)
[2016-07-23 06:45] LABS: INR 4.29
[2016-07-23] MEDS: ATORVASTATIN 20 MG TAB PO SCH (08:42)
[2016-07-23] MEDS: GABAPENTIN 100 MG CAP PO SCH ×3 (08:42→21:13)
[2016-07-23] MEDS: CitaloPRAM (CeleXA) 20 MG TAB PO SCH (08:42)
[2016-07-23] MEDS: CARVedilol 12.5 MG TAB PO SCH ×2 (08:42→21:14)
[2016-07-23] MEDS: PANTOPRAZOLE 40MG TAB (PROTONIX) PO SCH (08:42)
[2016-07-23] MEDS: amLODIPine 5 MG TAB PO SCH (08:43)
[2016-07-23] MEDS: MAGNESIUM OXIDE 400 MG TAB (MAG-OX) PO SCH (08:43)
[2016-07-23] MEDS: POTASSIUM CHLORIDE 10 MEQ SR TABLET PO SCH (08:43)
[2016-07-23] MEDS: SENOKOT S TAB PO SCH ×2 (08:44→21:13)
[2016-07-23] MEDS: LEVEMIR (INSULIN DETEMIR) 1 UNITS/0.01ML SC SCH (08:44)
[2016-07-23] MEDS: MOM 30ML SUSPENSION UDC PO SCH (08:44)
[2016-07-23] MEDS: HumaLOG INSULIN (NovoLOG) PER UNIT SC SCH ×4 (08:44→21:00)
[2016-07-23] MEDS: CAPTOpril 6.25 MG PER 1/2 TABLET PO SCH ×2 (08:44→21:13)
[2016-07-23] MEDS: MIRALAX *UNIT DOSE* 17GM PACKET PO SCH (08:45)
[2016-07-23] MEDS ORDERED: traZODone 50 MG TAB PO PRN (10:16)
[2016-07-23] MEDS ORDERED: PHYTONADIONE 1.25 MG 1/4 TAB PO ONE (12:00)
[2016-07-23 14:00] VITALS: BP 160/71
[2016-07-23 14:14] VITALS: BP 137/65
[2016-07-23] MEDS: ASPIRIN 81 MG ENTERIC TAB PO SCH (21:13)
[2016-07-23 22:00] VITALS: BP 158/70
[2016-07-24 06:00] VITALS: BP 160/72
[2016-07-24] MEDS: LEVEMIR (INSULIN DETEMIR) 1 UNITS/0.01ML SC SCH (08:41)
[2016-07-24] MEDS: CAPTOpril 6.25 MG PER 1/2 TABLET PO SCH ×2 (08:41→20:36)
[2016-07-24] MEDS: HumaLOG INSULIN (NovoLOG) PER UNIT SC SCH ×4 (08:41→21:00)
[2016-07-24] MEDS: GABAPENTIN 100 MG CAP PO SCH ×3 (08:42→20:36)
[2016-07-24] MEDS: POTASSIUM CHLORIDE 10 MEQ SR TABLET PO SCH (08:42)
[2016-07-24] MEDS: amLODIPine 5 MG TAB PO SCH (08:42)
[2016-07-24] MEDS: MAGNESIUM OXIDE 400 MG TAB (MAG-OX) PO SCH (08:42)
[2016-07-24] MEDS: SENOKOT S TAB PO SCH ×2 (08:43→20:37)
[2016-07-24] MEDS: PANTOPRAZOLE 40MG TAB (PROTONIX) PO SCH (08:43)
[2016-07-24] MEDS: CitaloPRAM (CeleXA) 20 MG TAB PO SCH (08:43)
[2016-07-24] MEDS: CARVedilol 12.5 MG TAB PO SCH ×2 (08:43→20:37)
[2016-07-24] MEDS: MOM 30ML SUSPENSION UDC PO SCH (08:43)
[2016-07-24] MEDS: ATORVASTATIN 20 MG TAB PO SCH (08:43)
[2016-07-24] MEDS: MIRALAX *UNIT DOSE* 17GM PACKET PO SCH (08:44)
--- NOTE | 2016-07-24 09:37 | IPN ---
DATE: 07/23/2016 SUBJECTIVE: This is an 85-year-old male who was seen and examined at bedside. Overnight, no reported acute events. This morning participated in physical therapy, ate breakfast and is now tired and wants to go back to sleep. Per , the patient has episodes at home where he would have excessive snoring and had apneic episodes. However, he did not have further workup regarding his obstructive sleep apnea (CHAVEZ). He denies any chest pain, shortness of breath, palpitations, fevers, chills, nausea, vomiting, diarrhea or constipation. Pain to his hip is well under control. OBJECTIVE: VITAL SIGNS: Blood pressure 180/81 this morning. Heart rate 60. Temperature 98.5. Respiration rate 20. Pulse oximetry 96% on room air. Intake and output last 24 hours 600, no output documented in the last 24 hours, however in the last 12 hours, 400. GENERAL: Patient is lying flat in bed, comfortable, no acute distress. at bedside. Pleasant and cooperative, but tired appearing. HEENT: Normocephalic, atraumatic. Dry oral mucosa. Dentures in place. Eyes extraocular movements intact. Pupils equal and reactive to light. NECK: Supple. Trachea midline. No jugular venous distention (JVD). CHEST: Symmetric chest rise. No accessory muscle use. Breath sounds were diminished, but clear bilaterally. HEART: Regular rate and rhythm. I did not appreciate murmurs, rubs or gallops. ABDOMEN: Soft, nontender, nondistended. Bowel sounds present. No guarding. No rebound. EXTREMITIES: No pedal edema. Pedal pulses are present. LABORATORY DATA: WBC 8, hemoglobin 9.6, hematocrit 29.6, platelets 259. Sodium 141, potassium 4, chloride 105, carbon dioxide 28, BUN 21, creatinine 1.28, glucose 106, calcium 8.3, INR 4.29. Fingerstick glucose have been ranging 97 to 176. IMPRESSION/PLAN: Mr. Nguyen is an 85-year-old male with a history of right hip fracture who underwent surgery with the orthopedic team. 1. Right hip fracture. Postop day 13. He underwent a right hip hemiarthroplasty with fixation of nondisplaced fracture. Pain is well under control without narcotics at this time. He is on gabapentin 200 mg three times a day. Patient is currently on anticoagulation, however his INR was supratherapeutic this morning. We have given him a one time dose of vitamin K. Repeat labs in the morning. 2. History of urinary tract infection. This admission he was found to have E. coli and Aerococcus. Has completed antibiotic course. Remains asymptomatic. 3. Type 2 diabetes. Continue Levemir 20 units daily and insulin sliding scale. 4. History of coronary artery disease. Continue aspirin 81 mg at bedtime, Lipitor 40 mg daily, Coreg 25 mg by mouth twice a day. 5. History of hypertension. Blood pressure was running more on the high end this morning, however yesterday he was more on the low end. His blood pressure does tend to fluctuate significantly. I have asked staff to repeat blood pressure. If continues to be elevated will consider increasing his Norvasc from 5 mg to 10 mg. Continue all other medications including captopril 6.25 mg twice a day, Coreg 25 mg twice a day. 6. Hyperlipidemia. Continue statin as mentioned. 7. Hypokalemia. He is on his home dose of potassium supplementation. 8. Anemia. No evidence of bleeding. Continue to monitor. 9. Supratherapeutic INR. Vitamin K will be given today. 10. Deep vein thrombosis (DVT) prophylaxis. Sequential compression devices (SCD), thromboembolic deterrent stockings (TEDS) and INR is supratherapeutic. DISPOSITION: At this time the plan is for the patient to continue physical therapy with hopefully discharge planning next week, Monday or Monday home with home care. My preceptor for this patient encounter was Dr. Annabel Sinha. The preceptor was physically present in the building during the encounter and was fully available. As needed, all aspects of the patient interview, examination, medical decision making process, and medical care plan development were reviewed and approved by the preceptor. The preceptor is aware and concurs with the plan as stated in the body of this note and will attest to such by his/her cosignature. ARELI
[2016-07-24 14:00] VITALS: BP 166/72
[2016-07-24 16:35] LABS: INR 1.64
[2016-07-24] MEDS: WARFARIN 1.25 MG PER 1/2 TABLET PO SCH (18:06)
[2016-07-24] MEDS: ASPIRIN 81 MG ENTERIC TAB PO SCH (20:37)
[2016-07-24 22:00] VITALS: BP 152/64
[2016-07-25 06:00] VITALS: BP_SYST 138; BP_SYST 142; BP_SYST 145; BP_SYST 159; BP_SYST 160; BP_SYST 164; BP_SYST 165; BP_DIAS 60; BP_DIAS 62; BP_DIAS 64; BP_DIAS 65; BP_DIAS 70
[2016-07-25 06:49] LABS: MEAN CORPUSCULAR HEMOGLOBIN 27.1 pg (27.0-33.0); MEAN CORPUSCULAR HGB CONC 32.1 g/dl (32.0-36.5); MEAN CORPUSCULAR VOLUME 84.3 fl (80.0-96.0); RED CELL DISTRIBUTION WIDTH 14.8 % (11.5-14.5); WHITE BLOOD COUNT 7.5 K/mm3 (4.0-10.0)
[2016-07-25 06:53] LABS: INR 1.42
[2016-07-25 07:12] LABS: ANION GAP 7 MEQ/L (8-16); BLOOD UREA NITROGEN 12 MG/DL (7-18); CALCIUM LEVEL 8.7 MG/DL (8.8-10.2); CARBON DIOXIDE LEVEL 29 MEQ/L (21-32); CHLORIDE LEVEL 109 MEQ/L (98-107); CREATININE FOR GFR 0.99 MG/DL (0.70-1.30); GLOMERULAR FILTRATION RATE > 60.0 (>35); GLUCOSE, FASTING 109 MG/DL (83-110); POTASSIUM SERUM 4.1 MEQ/L (3.5-5.1); SODIUM LEVEL 145 MEQ/L (136-145)
[2016-07-25] MEDS: HumaLOG INSULIN (NovoLOG) PER UNIT SC SCH ×2 (07:30→12:00)
[2016-07-25] MEDS: MOM 30ML SUSPENSION UDC PO SCH (11:03)
[2016-07-25] MEDS: MIRALAX *UNIT DOSE* 17GM PACKET PO SCH (11:03)
[2016-07-25] MEDS: GABAPENTIN 100 MG CAP PO SCH (11:04)
[2016-07-25] MEDS: CARVedilol 12.5 MG TAB PO SCH (11:04)
[2016-07-25] MEDS: SENOKOT S TAB PO SCH (11:05)
[2016-07-25] MEDS: ATORVASTATIN 20 MG TAB PO SCH (11:05)
[2016-07-25] MEDS: PANTOPRAZOLE 40MG TAB (PROTONIX) PO SCH (11:05)
[2016-07-25] MEDS: LEVEMIR (INSULIN DETEMIR) 1 UNITS/0.01ML SC SCH (11:05)
[2016-07-25] MEDS: MAGNESIUM OXIDE 400 MG TAB (MAG-OX) PO SCH (11:06)
[2016-07-25] MEDS: POTASSIUM CHLORIDE 10 MEQ SR TABLET PO SCH (11:07)
[2016-07-25] MEDS: amLODIPine 5 MG TAB PO SCH (11:07)
[2016-07-25 11:08] VITALS: BP 164/62
[2016-07-25] MEDS: CitaloPRAM (CeleXA) 20 MG TAB PO SCH (11:08)
[2016-07-25] MEDS: CAPTOpril 6.25 MG PER 1/2 TABLET PO SCH (11:08)
[2016-07-25] MEDS ORDERED: COUM2TAB10 PO (13:26)
[2016-07-25] MEDS ORDERED: COUM1TAB14 PO (13:26)
[2016-07-25] MEDS ORDERED: AMLO10TA2 PO (13:57)
[2016-07-25 14:00] VITALS: BP 133/63
--- NOTE | 2016-07-25 16:10 | DS.PDOC ---
Discharge Summary General Date of Admission Jul 08, 2016 at 20:49 Date of Discharge 07/25/16 Specialist/Consultants Involve: Benny Tripathi Discharge Summary PROCEDURES PERFORMED DURING STAY: Right hip hemiarthroplasty ADMITTING DIAGNOSES: 1. . Right hip fracture status post right hip hemiarthroplasty 2. . Urinary tract infection 3. . Diabetes mellitus DISCHARGE DIAGNOSES: 1. . Right hip fracture status post right hip hemiarthroplasty 2. . Urinary tract infection 3. . Diabetes mellitus COMPLICATIONS/CHIEF COMPLAINT: R Hip Fx. HISTORY OF PRESENT ILLNESS: . 85 male with past medical history of atrial fibrillation, CAD, type 2 diabetes, dyslipidemia, peripheral vascular disease, Richie's disease, BPH, and nephrolithiasis presents to the ER on 07/08 after the patient sustained a fall. The patient apparently was in his garage and had a fall in the driveway landing on his right hip. He denied trauma to his head, or any complaints of fevers, chills, chest pain, shortness breath, palpitations, abdominal pain, or any nausea/vomiting/diarrhea leading up to the event. He presented to the ER for further evaluation and management of pain in the right hip. In the ER, an x-ray of the right hip revealed a proximal femoral fracture. The patient was admitted to the hospitalist service and an orthopedic consult was placed for further evaluation and management. During the patient's stay in the hospital he did undergo a right hip hemiarthroplasty with orthopedic surgery. The patient was seen by physical therapy and cleared home for discharge. Of note, the patient's INR was noted to be supratherapeutic while inpatient and he did receive vitamin K. At this time, we will continue the patient on his home dose of Coumadin 2 mg every day except Wednesdays on which day he will take 4 mg as he was previously scheduled. I've advised the patient to follow-up with his primary care physician with a repeat INR within the next 2-4 days. I've also asked the patient follow-up with orthopedic surgery in the next 2-4 weeks for further evaluation. DISCHARGE MEDICATIONS: Please see below. ALLERGIES: Please see below. PHYSICAL EXAMINATION ON DISCHARGE: VITAL SIGNS: Please see below. General: No acute distress, laying comfortably in bed. HEENT: Moist mucous membranes. Neck: No JVD or lymphadenopathy Cardiac: RRR, No murmurs Pulm: Clear to auscultation b/l. No wheezing, rhonchi Abd: NT/ND + BS Ext: Right hip surgical site with no swelling. No bleeding. Distal pulses intact. LABORATORY DATA: Please see below. IMAGING: RIGHT HIP: REASON: Pain after trauma. There is comminuted femoral neck fracture. The bones are demineralized. I can not rule out the possibility of a pathological fracture. The AP examination of the pelvis shows the bones to be demineralized with bilateral degenerative changes involving each hip and sacroiliac joints. No additional fractures are noted. IMPRESSION: Right hip fracture as described above. RIGHT FEMUR, TWO VIEWS: PRIOR: Proximal femoral fracture again noted. Please see the hip and AP pelvis report. There is a total knee prosthetic device. There are no additional fractures. PROGNOSIS: Medically stable at this time ACTIVITY: As tolerated. DIET: . 2 g low sodium diet DISCHARGE PLAN: DISPOSITION: Home, Self-Care. DISCHARGE INSTRUCTIONS: 1. . Follow-up with primary care physician within one to 2 weeks 2. . Follow-up with orthopedic surgery within 2-4 weeks 3. . Follow-up with INR in 2-4 days DISCHARGE CONDITION: Stable. TIME SPENT ON DISCHARGE: Greater than 30 minutes. Vital Signs/I&Os Vital Signs Date Time Temp Pulse Resp B/P (MAP) Pulse Ox O2 Delivery O2 Flow Rate FiO2 07/25/16 11:08 164/62 07/25/16 11:07 58 07/25/16 06:00 99.1 18 98 Room Air I&O- Last 24 Hours up to 6 AM 07/25/16 06:00 Intake Total 1380 ml Output Total 0 ml Balance 1380 ml Laboratory Data Labs 24H Laboratory Tests 2 07/24/16 16:17: Bedside Glucose (Misc Panel) 128H 07/24/16 16:20: Prothrombin Time 19.5H, Prothromb Time International Ratio 1.64 07/24/16 20:30: Bedside Glucose (Misc Panel) 143H 07/25/16 06:18: Bedside Glucose (Misc Panel) 115H 07/25/16 06:32: Prothrombin Time 17.5H, Prothromb Time International Ratio 1.42, Anion Gap 7L, Glomerular Filtration Rate > 60.0, Blood Urea Nitrogen 12, Creatinine 0.99, Sodium Level 145, Potassium Level 4.1, Chloride Level 109H, Carbon Dioxide Level 29, Calcium Level 8.7L CBC/BMP Laboratory Tests 07/25/16 06:32 Calcium Level 8.7 L 07/25/16 06:33 Red Blood Count 3.42 L, Mean Corpuscular Volume 84.3, Mean Corpuscular Hemoglobin 27.1, Mean Corpuscular Hemoglobin Concent 32.1, Red Cell Distribution Width 14.8 H FSBS Laboratory Tests Test 07/24/16 16:17 07/24/16 20:30 07/25/16 06:18 Range/Units Bedside Glucose (Misc Panel) 128 143 115 83-110 MG/DL Discharge Medications Scheduled Amlodipine Besylate (Amlodipine Besylate) 10 Mg Tab, 10 MG PO DAILY Amlodipine Besylate (Amlodipine Besylate) 10 Mg Tab, 10 MG PO DAILY Aspirin (Aspirin) 81 Mg Tab, 81 MG PO DAILY, (Reported) Atorvastatin Calcium (Atorvastatin Calcium) 40 Mg Tab, 40 MG PO DAILY, (Reported ) Captopril (Captopril) 12.5 Mg Tab, 6.25 MG PO BID, (Reported) Carvedilol (Carvedilol) 25 Mg Tab, 25 MG PO BID, (Reported) Cholecalciferol (Vitamin D3) 50,000 Unit Tab, 50,000 UNIT PO ASDIRECTED, ( Reported) Every Other Week (Monday @ ) Citalopram Hydrobromide (Citalopram Hydrobromide) 20 Mg Tab, 20 MG PO DAILY, ( Reported) Furosemide (Furosemide) 80 Mg Tab, 80 MG PO DAILY, (Reported) Gabapentin (Gabapentin) 300 Mg Cap, 300 MG PO QID, (Reported) Glipizide (Glipizide) 5 Mg Tab, 5 MG PO BID, (Reported) QAM & Lunch Insulin Detemir (Levemir) 1 Units/0.01 Ml Susp, 15 UNITS SC DAILY Insulin Human Lispro (Humalog) 1 Units/0.01 Ml Inj, 0 SC ASDIRECTED, (Reported) Per Sliding Scale Magnesium Oxide (Magnesium Oxide) 400 Mg Tab, 400 MG PO DAILY, (Reported) Omeprazole (Omeprazole) 40 Mg Cap, 40 MG PO DAILY, (Reported) Potassium Chloride (K-Tab) 20 Meq Tab, 20 MEQ PO DAILY, (Reported) Trazodone HCl (Trazodone HCl) 100 Mg Tab, 100 MG PO QHS, (Reported) Warfarin Sod (Coumadin) 2 Mg Tab, 2 MG PO ASDIRECTED Warfarin Sod (Coumadin) 4 Mg Tab, 4 MG PO ASDIRECTED Scheduled PRN Acetaminophen (Tylenol) 325 Mg Tab, 650 MG PO Q4H PRN for PAIN, (Reported) Tapentadol Hydrochloride (Nucynta) 50 Mg Tab, 50 MG PO Q4HP PRN for pain Allergies Coded Allergies: Sulfa Drugs (Verified Allergy, Mild, RASH, 06/25/12) Sulfa Drugs Cross Reactors (Verified Allergy, Mild, RASH, 06/25/12) Sulfamethoxazole (Verified Allergy, Mild, RASH, 06/25/12) Trimethoprim (Verified Allergy, Mild, RASH, 06/25/12) Pea (Verified Allergy, Unknown, 03/21/12) Hydrocodone (Verified Adverse Reaction, Intermediate, HALLUCINATIONS, ) Meperidine (Verified Adverse Reaction, Intermediate, HALLUCINATIONS, ) Morphine (Verified Adverse Reaction, Intermediate, HALLUCINATIONS, 06/25/12) Oxycodone (Verified Adverse Reaction, Intermediate, HALLUCINATIONS, 06/25/12 ) Replaces PERCODAN Quinolones (Verified Adverse Reaction, Intermediate, HALLUCINATIONS, ) GARRETT PARRY MD July 25, 2016 16:10
== END 2016-07-25 15:10 | disposition home or self-care (01) | DRG 470 ==
LOC: EDBD 17:19 → M ED 17:45 → M ED INP 20:49 → M MS5PR 23:20
PROVIDERS: ADMIT Hospitalist; ATTEND Internal Medicine
PROC: 30233K1 Transfusion of Nonautologous Frozen Plasma into Peripheral Vein, Percutaneous Approach (ICD-10-PCS; 2016-07-09)
PROC: 30233N1 Transfusion of Nonautologous Red Blood Cells into Peripheral Vein, Percutaneous Approach (ICD-10-PCS; 2016-07-09)
PROC: 0SR9029 Replacement of Right Hip Joint with Metal on Polyethylene Synthetic Substitute, Cemented, Open Approach (ICD-10-PCS; principal; 2016-07-10 08:30)
DX: S72.001A Fracture of unspecified part of neck of right femur, initial encounter for closed fracture (principal); N39.0 Urinary tract infection, site not specified; N17.9 Acute kidney failure, unspecified; E27.1 Primary adrenocortical insufficiency; E11.9 Type 2 diabetes mellitus without complications; E78.5 Hyperlipidemia, unspecified; N40.0 Benign prostatic hyperplasia without lower urinary tract symptoms; I48.91 Unspecified atrial fibrillation; I12.9 Hypertensive chronic kidney disease with stage 1 through stage 4 chronic kidney disease, or unspecified chronic kidney disease; N18.9 Chronic kidney disease, unspecified; I73.9 Peripheral vascular disease, unspecified; B96.20 Unspecified Escherichia coli [E. coli] as the cause of diseases classified elsewhere; R41.82 Altered mental status, unspecified; E87.6 Hypokalemia; D64.9 Anemia, unspecified; K21.9 Gastro-esophageal reflux disease without esophagitis; I25.10 Atherosclerotic heart disease of native coronary artery without angina pectoris; T40.605A Adverse effect of unspecified narcotics, initial encounter; W01.0XXA Fall on same level from slipping, tripping and stumbling without subsequent striking against object, initial encounter; Y92.014 Private driveway to single-family (private) house as the place of occurrence of the external cause; Y93.01 Activity, walking, marching and hiking; Y99.9 Unspecified external cause status; Z79.82 Long term (current) use of aspirin; Z79.4 Long term (current) use of insulin; Z79.01 Long term (current) use of anticoagulants; Z79.899 Other long term (current) drug therapy; Z88.2 Allergy status to sulfonamides; Z88.1 Allergy status to other antibiotic agents; Z88.5 Allergy status to narcotic agent; Z88.8 Allergy status to other drugs, medicaments and biological substances; Z95.9 Presence of cardiac and vascular implant and graft, unspecified; Z96.653 Presence of artificial knee joint, bilateral; Z90.49 Acquired absence of other specified parts of digestive tract; Z96.0 Presence of urogenital implants; Z87.891 Personal history of nicotine dependence

== ENCOUNTER → 2016-09-10 | Outpatient (CLI) | payer MEDICARE ==
[~2016-09-10] MED LIST changes: +AMLO10TA2 PO; +ASPI81TA7 PO; +ATOR40TA PO; +CAPT62TA PO; +CITA20TA4 PO; +CORE25TA PO; +COUM1TAB14 PO; +COUM2TAB10 PO; +FURO1TAB15 PO; +GABA-282 PO; +GABA-283 PO; +GLIP5TAB8 PO; +INSUDET SC; +INSUHUMDS SC; +K-TA1TAB PO; +LEVA500T PO; +MAG400TA PO; +NUCY50TA9 PO; +OMEP40CA2 PO; +TOUJ1.2I SC; +TRAZ100T4 PO; +VITA1CAP25 PO; +VITA1TAB27 PO
[2016-09-10 20:16] LABS: MEAN CORPUSCULAR HEMOGLOBIN 28.1 pg (27.0-33.0); MEAN CORPUSCULAR HGB CONC 31.6 g/dl (32.0-36.5); RED CELL DISTRIBUTION WIDTH 15.3 % (11.5-14.5); WHITE BLOOD COUNT 6.7 K/mm3 (4.0-10.0)
[2016-09-10 20:32] LABS: ALBUMIN 3.3 GM/DL (3.2-5.2); BILIRUBIN,TOTAL 0.4 MG/DL (0.2-1.0); CALCIUM LEVEL 8.6 MG/DL (8.8-10.2); CREATININE FOR GFR 1.59 MG/DL (0.70-1.30); GLOMERULAR FILTRATION RATE 44.4 (>35); POTASSIUM SERUM 4.9 MEQ/L (3.5-5.1); TOTAL PROTEIN 6.6 GM/DL (6.4-8.2)
== END ==
LOC: M WUC 09:43
PROVIDERS: ATTEND Internal Medicine
DX: I12.9 Hypertensive chronic kidney disease with stage 1 through stage 4 chronic kidney disease, or unspecified chronic kidney disease (principal); N18.3 Chronic kidney disease, stage 3 (moderate); D63.1 Anemia in chronic kidney disease; E11.40 Type 2 diabetes mellitus with diabetic neuropathy, unspecified; E78.00 Pure hypercholesterolemia, unspecified

== ENCOUNTER → 2017-01-24 | Outpatient (REF) | payer MEDICARE ==
[~2017-01-24] MED LIST changes: +ASPI1TAB15 PO; -ASPI81TA7 PO; -ATOR40TA PO; +ATOR40TA75 PO; -COUM2TAB10 PO; +COUM2TAB22 PO; -FURO1TAB15 PO; +FURO80TA2 PO; +LEVA1TAB2 PO; -LEVA500T PO; +NUCY50TA6 PO; -NUCY50TA9 PO; +TRAZ-136 PO; -TRAZ100T4 PO
[2017-01-24 17:48] LABS: MEAN CORPUSCULAR HEMOGLOBIN 28.8 pg (27.0-33.0); MEAN CORPUSCULAR HGB CONC 32.6 g/dl (32.0-36.5); MEAN CORPUSCULAR VOLUME 88.3 fl (80.0-96.0); PLATELET COUNT, AUTOMATED 205 10^3/uL (150-450); RED CELL DISTRIBUTION WIDTH 14.5 % (11.5-14.5); WHITE BLOOD COUNT 7.5 10^3/uL (4.0-10.0)
[2017-01-24 18:01] LABS: ALBUMIN 3.7 GM/DL (3.2-5.2); ALBUMIN/GLOBULIN RATIO 1.19 (1.00-1.93); BILIRUBIN,TOTAL 0.3 MG/DL (0.2-1.0); CALCIUM LEVEL 9.5 MG/DL (8.8-10.2); CREATININE FOR GFR 1.74 MG/DL (0.70-1.30); MAGNESIUM LEVEL 2.2 MG/DL (1.8-2.4); POTASSIUM SERUM 5.1 MEQ/L (3.5-5.1); TOTAL PROTEIN 6.8 GM/DL (6.4-8.2)
== END ==
LOC: M SFHCPLAZ 15:35
PROVIDERS: ATTEND Internal Medicine
DX: I48.2 Chronic atrial fibrillation (principal); I12.9 Hypertensive chronic kidney disease with stage 1 through stage 4 chronic kidney disease, or unspecified chronic kidney disease; N18.3 Chronic kidney disease, stage 3 (moderate); D63.1 Anemia in chronic kidney disease; E11.40 Type 2 diabetes mellitus with diabetic neuropathy, unspecified

== ENCOUNTER → 2017-05-09 | Outpatient (CLI) | payer MEDICARE ==
[2017-05-09 13:56] LABS: HEMATOCRIT 34.6 % (42.0-52.0); HEMOGLOBIN 10.8 g/dl (14.0-18.0); MEAN CORPUSCULAR HEMOGLOBIN 27.7 pg (27.0-33.0); MEAN CORPUSCULAR HGB CONC 31.2 g/dl (32.0-36.5); MEAN CORPUSCULAR VOLUME 88.7 fl (80.0-96.0); PLATELET COUNT, AUTOMATED 210 10^3/uL (150-450); RED CELL DISTRIBUTION WIDTH 14.6 % (11.5-14.5); WHITE BLOOD COUNT 5.7 10^3/uL (4.0-10.0)
[2017-05-09 14:26] LABS: ALBUMIN 3.5 GM/DL (3.2-5.2); ALBUMIN/GLOBULIN RATIO 1.03 (1.00-1.93); ALKALINE PHOSPHATASE 111 U/L (45-117); ALT/SGPT 23 U/L (12-78); ANION GAP 7 MEQ/L (8-16); AST/SGOT 18 U/L (7-37); BILIRUBIN,TOTAL 0.4 MG/DL (0.2-1.0); BLOOD UREA NITROGEN 33 MG/DL (7-18); CALCIUM LEVEL 8.5 MG/DL (8.8-10.2); CARBON DIOXIDE LEVEL 32 MEQ/L (21-32); CHLORIDE LEVEL 103 MEQ/L (98-107); CHOLESTEROL LEVEL 162 MG/DL (<200); CHOLESTEROL RISK RATIO 3.767 (<5); CREATININE FOR GFR 1.75 MG/DL (0.70-1.30); GLOMERULAR FILTRATION RATE 39.7 (>35); GLUCOSE, FASTING 153 MG/DL (70-100); HDL CHOLESTEROL 43 MG/DL (>40); LDL CHOLESTEROL 95.4 MG/DL (<100); MAGNESIUM LEVEL 2.3 MG/DL (1.8-2.4); NON-HDL-C 119 MG/DL; POTASSIUM SERUM 4.8 MEQ/L (3.5-5.1); SODIUM LEVEL 142 MEQ/L (136-145); TOTAL PROTEIN 6.9 GM/DL (6.4-8.2); TRIGLYCERIDES LEVEL 118 MG/DL (<150)
[2017-05-09 14:28] LABS: ESTIMATED AVERAGE GLUCOSE 143 MG/DL (60-110); HEMOGLOBIN A1c 6.6 %
[2017-05-09 14:35] LABS: PTH INTACT 109.9 PG/ML (18.5-88.0)
[2017-05-09 14:41] LABS: CREATININE, URINE 26.3 MG/DL; MAU/CREAT RATIO 437.2 MCG/MG (0.0-30.0)
== END ==
LOC: M WUC 08:48
DX: E78.00 Pure hypercholesterolemia, unspecified (principal); D63.1 Anemia in chronic kidney disease; E11.40 Type 2 diabetes mellitus with diabetic neuropathy, unspecified; E11.22 Type 2 diabetes mellitus with diabetic chronic kidney disease; I12.9 Hypertensive chronic kidney disease with stage 1 through stage 4 chronic kidney disease, or unspecified chronic kidney disease; N18.3 Chronic kidney disease, stage 3 (moderate)
CPT/HCPCS: 83735

== ENCOUNTER 2017-05-18 14:17 | Inpatient (IN) | payer MEDICARE ==
[2017-05-18 15:43] LABS: BEDSIDE GLUCOSE 199 MG/DL (83-110)
[2017-05-18] MEDS: PROMETHAZINE INJ 25 MG/ML VIAL (J2550) IV (15:43)
[2017-05-18] MEDS: NS 1,000 ML IV (15:44)
[2017-05-18 15:51] LABS: BASO % 0.3 % (0.0-1.0); EOS # 0.1 10^3/uL (0.0-0.50); EOS % 1.1 % (0.0-3.0); HEMATOCRIT 35.5 % (42.0-52.0); HEMOGLOBIN 11.7 g/dl (14.0-18.0); IMMATURE GRANULOCYTE % 0.5 % (0-3.0); LYMPH # 1.1 10^3/uL (1.5-4.5); LYMPH % 14.5 % (24.0-44.0); MEAN CORPUSCULAR HEMOGLOBIN 27.9 pg (27.0-33.0); MEAN CORPUSCULAR VOLUME 84.5 fl (80.0-96.0); MONO # 0.6 10^3/uL (0.0-0.8); MONO % 7.5 % (0.0-5.0); NEUTROPHILS # 5.7 10^3/uL (1.8-7.7); NEUTROPHILS % 76.1 % (36.0-66.0); PLATELET COUNT, AUTOMATED 207 10^3/uL (150-450); RED CELL DISTRIBUTION WIDTH 14.3 % (11.5-14.5); WHITE BLOOD COUNT 7.5 10^3/uL (4.0-10.0)
[2017-05-18 16:02] LABS: INR 2.07
[2017-05-18 16:13] LABS: LACTIC ACID SEPSIS PROTOCOL 1.5 MMOL/L (0.4-2.0)
[2017-05-18 16:15] LABS: ALBUMIN 3.9 GM/DL (3.2-5.2); ALBUMIN/GLOBULIN RATIO 1.18 (1.00-1.93); ALKALINE PHOSPHATASE 115 U/L (45-117); ALT/SGPT 29 U/L (12-78); ANION GAP 9 MEQ/L (8-16); AST/SGOT 24 U/L (7-37); BILIRUBIN,DIRECT 0.2 MG/DL (0.0-0.2); BILIRUBIN,TOTAL 0.7 MG/DL (0.2-1.0); BLOOD UREA NITROGEN 31 MG/DL (7-18); CALCIUM LEVEL 9.3 MG/DL (8.8-10.2); CARBON DIOXIDE LEVEL 28 MEQ/L (21-32); CHLORIDE LEVEL 103 MEQ/L (98-107); CPK CREATINE PHOSPHOKINASE 72 U/L (39-308); CREATININE FOR GFR 1.67 MG/DL (0.70-1.30); GLOMERULAR FILTRATION RATE 41.9 (>35); GLUCOSE, FASTING 187 MG/DL (70-100); LIPASE 83 U/L (73-393); SODIUM LEVEL 140 MEQ/L (136-145); TOTAL PROTEIN 7.2 GM/DL (6.4-8.2); TROPONIN I < 0.02 NG/ML (< 0.10)
[2017-05-18 16:16] LABS: CK-MB VALUE MASS 1.9 NG/ML (0.0-3.6); MB/CK RELATIVE INDEX 2.63 (< OR =4)
[2017-05-18] MEDS ORDERED: NS 1,000 ML IV (17:34)
[2017-05-18 18:14] LABS: MAGNESIUM LEVEL 2.4 MG/DL (1.8-2.4)
[2017-05-18] MEDS ORDERED: GLUCAGON FOR INJ 1 MG VIAL (J1610) SC (18:15)
[2017-05-18] MEDS ORDERED: DEXTROSE 50% 50 ML SYRINGE IV (18:15)
[2017-05-18] MEDS ORDERED: BISACODYL 10 MG SUPP PR (18:15)
[2017-05-18] MEDS ORDERED: ACETAMINOPHEN TAB 650MG DOSE (2X325MG) PO (18:15)
[2017-05-18] MEDS ORDERED: GLUCOSE 4 GM CHEW TABLET PO (18:15)
[2017-05-18] MEDS: FLEET ENEMA PR (18:40)
[2017-05-18] MEDS: OMEPRAZOLE 20 MG CAP PO (18:46)
[2017-05-18] MEDS: WARFARIN SOD 2 MG TAB PO (19:45)
[2017-05-18 20:12] LABS: INR 1.92; PROTHROMBIN TIME 22.6 SECONDS (12.4-14.5)
[2017-05-18] MEDS: HumaLOG INSULIN (NovoLOG) PER UNIT SC (21:00)
[2017-05-18] MEDS ORDERED: CEFTRIAXONE SOD 1 GM in APPROPRIATE DILUENT 1 EA IV (21:00)
[2017-05-18] MEDS: SENOKOT S TAB PO (21:00)
[2017-05-18 21:31] LABS: BEDSIDE GLUCOSE 103 MG/DL (83-110)
[2017-05-18] MEDS: CAPTOpril 6.25 MG PER 1/2 TABLET PO (21:43)
[2017-05-18] MEDS ORDERED: metroNIDAZOLE 500 MG in APPROPRIATE DILUENT 1 EA IV (22:00)
[2017-05-18 22:15] LABS: BEDSIDE GLUCOSE 136 MG/DL (83-110)
[2017-05-18] MEDS: ONDANSETRON 4MG/2ML VIAL (J2405) IV (22:46)
[2017-05-18] MEDS: CEFTRIAXONE SOD 1 GM in APPROPRIATE DILUENT 1 EA IV (23:24)
[2017-05-18] MEDS: metroNIDAZOLE 500 MG in APPROPRIATE DILUENT 1 EA IV (23:58)
[2017-05-19] MEDS: ASPIRIN 81 MG ENTERIC TAB PO ×2 (00:20→20:01)
[2017-05-19] MEDS: CARVedilol 12.5 MG TAB PO ×3 (00:20→20:01)
[2017-05-19] MEDS: GABAPENTIN 300 MG CAP PO ×5 (00:21→20:00)
[2017-05-19] MEDS: metroNIDAZOLE 500 MG in APPROPRIATE DILUENT 1 EA IV ×3 (05:40→21:00)
[2017-05-19 07:02] LABS: HEMATOCRIT 31.6 % (42.0-52.0); HEMOGLOBIN 10.2 g/dl (14.0-18.0); MEAN CORPUSCULAR HGB CONC 32.3 g/dl (32.0-36.5); MEAN CORPUSCULAR VOLUME 86.8 fl (80.0-96.0); PLATELET COUNT, AUTOMATED 173 10^3/uL (150-450); RED BLOOD COUNT 3.64 10^6/uL (4.30-6.10); RED CELL DISTRIBUTION WIDTH 14.5 % (11.5-14.5); WHITE BLOOD COUNT 7.4 10^3/uL (4.0-10.0)
[2017-05-19 07:22] LABS: ALBUMIN 3.2 GM/DL (3.2-5.2); ALBUMIN/GLOBULIN RATIO 0.97 (1.00-1.93); ALKALINE PHOSPHATASE 101 U/L (45-117); ALT/SGPT 22 U/L (12-78); ANION GAP 7 MEQ/L (8-16); AST/SGOT 23 U/L (7-37); BILIRUBIN,TOTAL 0.4 MG/DL (0.2-1.0); BLOOD UREA NITROGEN 30 MG/DL (7-18); CALCIUM LEVEL 8.4 MG/DL (8.8-10.2); CARBON DIOXIDE LEVEL 28 MEQ/L (21-32); CHLORIDE LEVEL 110 MEQ/L (98-107); CREATININE FOR GFR 1.59 MG/DL (0.70-1.30); GLOMERULAR FILTRATION RATE 44.4 (>35); GLUCOSE, FASTING 79 MG/DL (70-100); MAGNESIUM LEVEL 2.3 MG/DL (1.8-2.4); POTASSIUM SERUM 3.7 MEQ/L (3.5-5.1); SODIUM LEVEL 145 MEQ/L (136-145); TOTAL PROTEIN 6.5 GM/DL (6.4-8.2)
[2017-05-19] MEDS: HumaLOG INSULIN (NovoLOG) PER UNIT SC ×4 (07:30→20:01)
[2017-05-19] MEDS: LEVEMIR (INSULIN DETEMIR) 1 UNITS/0.01ML SC (09:00)
[2017-05-19] MEDS: SENOKOT S TAB PO ×2 (09:14→20:01)
[2017-05-19] MEDS: CitaloPRAM (CeleXA) 20 MG TAB PO (09:14)
[2017-05-19] MEDS: CAPTOpril 6.25 MG PER 1/2 TABLET PO ×2 (09:15→20:00)
[2017-05-19] MEDS: OMEPRAZOLE 20 MG CAP PO (09:15)
[2017-05-19] MEDS: CEFTRIAXONE SOD 1 GM in APPROPRIATE DILUENT 1 EA IV ×2 (09:15→20:01)
[2017-05-19] MEDS: NS 1,000 ML IV ×2 (10:31)
[2017-05-19 11:55] LABS: BEDSIDE GLUCOSE 146 MG/DL (83-110)
[2017-05-19 16:44] LABS: BEDSIDE GLUCOSE 89 MG/DL (83-110)
[2017-05-19] MEDS: WARFARIN SOD 2 MG TAB PO (17:51)
[2017-05-19] MEDS: ATORVASTATIN 20 MG TAB PO (17:51)
[2017-05-19 19:56] LABS: BEDSIDE GLUCOSE 157 MG/DL (83-110)
[2017-05-20] MEDS: metroNIDAZOLE 500 MG in APPROPRIATE DILUENT 1 EA IV (05:19)
[2017-05-20 06:22] LABS: HEMATOCRIT 34.2 % (42.0-52.0); HEMOGLOBIN 10.8 g/dl (14.0-18.0); MEAN CORPUSCULAR HEMOGLOBIN 26.9 pg (27.0-33.0); MEAN CORPUSCULAR HGB CONC 31.6 g/dl (32.0-36.5); MEAN CORPUSCULAR VOLUME 85.3 fl (80.0-96.0); PLATELET COUNT, AUTOMATED 180 10^3/uL (150-450); RED BLOOD COUNT 4.01 10^6/uL (4.30-6.10); RED CELL DISTRIBUTION WIDTH 14.5 % (11.5-14.5); WHITE BLOOD COUNT 6.5 10^3/uL (4.0-10.0)
[2017-05-20 06:40] LABS: ALBUMIN 3.2 GM/DL (3.2-5.2); ALBUMIN/GLOBULIN RATIO 0.97 (1.00-1.93); ALKALINE PHOSPHATASE 93 U/L (45-117); ALT/SGPT 20 U/L (12-78); ANION GAP 7 MEQ/L (8-16); AST/SGOT 19 U/L (7-37); BILIRUBIN,TOTAL 0.3 MG/DL (0.2-1.0); BLOOD UREA NITROGEN 24 MG/DL (7-18); CALCIUM LEVEL 8.3 MG/DL (8.8-10.2); CARBON DIOXIDE LEVEL 26 MEQ/L (21-32); CHLORIDE LEVEL 113 MEQ/L (98-107); CREATININE FOR GFR 1.24 MG/DL (0.70-1.30); GLOMERULAR FILTRATION RATE 59.1 (>35); GLUCOSE, FASTING 87 MG/DL (70-100); MAGNESIUM LEVEL 2.2 MG/DL (1.8-2.4); POTASSIUM SERUM 3.4 MEQ/L (3.5-5.1); SODIUM LEVEL 146 MEQ/L (136-145); TOTAL PROTEIN 6.5 GM/DL (6.4-8.2)
[2017-05-20] MEDS: HumaLOG INSULIN (NovoLOG) PER UNIT SC ×4 (07:30→20:40)
[2017-05-20] MEDS: CitaloPRAM (CeleXA) 20 MG TAB PO (09:33)
[2017-05-20] MEDS: GABAPENTIN 300 MG CAP PO ×4 (09:33→20:49)
[2017-05-20] MEDS: OMEPRAZOLE 20 MG CAP PO (09:33)
[2017-05-20] MEDS: SENOKOT S TAB PO ×2 (09:33→20:41)
[2017-05-20] MEDS: CEFTRIAXONE SOD 1 GM in APPROPRIATE DILUENT 1 EA IV ×2 (09:35→20:49)
[2017-05-20] MEDS: CARVedilol 12.5 MG TAB PO ×2 (09:37→20:49)
[2017-05-20] MEDS: LEVEMIR (INSULIN DETEMIR) 1 UNITS/0.01ML SC (09:37)
[2017-05-20] MEDS: CAPTOpril 6.25 MG PER 1/2 TABLET PO ×2 (09:37→20:48)
[2017-05-20 11:42] LABS: BEDSIDE GLUCOSE 181 MG/DL (83-110)
[2017-05-20] MEDS: metroNIDAZOLE (FLAGYL) 500 MG TAB PO ×2 (13:57→21:23)
[2017-05-20 17:21] LABS: BEDSIDE GLUCOSE 134 MG/DL (83-110)
[2017-05-20] MEDS: WARFARIN SOD 2 MG TAB PO (17:22)
[2017-05-20 20:28] LABS: BEDSIDE GLUCOSE 128 MG/DL (83-110)
[2017-05-20] MEDS: ASPIRIN 81 MG ENTERIC TAB PO (20:49)
[2017-05-21] MEDS ORDERED: metroNIDAZOLE (FLAGYL) 500 MG TAB As Ordered (05:51)
[2017-05-21] MEDS: metroNIDAZOLE (FLAGYL) 500 MG TAB PO ×2 (05:57→13:00)
[2017-05-21 06:18] LABS: HEMATOCRIT 31.7 % (42.0-52.0); HEMOGLOBIN 10.4 g/dl (14.0-18.0); MEAN CORPUSCULAR HEMOGLOBIN 27.8 pg (27.0-33.0); MEAN CORPUSCULAR HGB CONC 32.8 g/dl (32.0-36.5); MEAN CORPUSCULAR VOLUME 84.8 fl (80.0-96.0); PLATELET COUNT, AUTOMATED 159 10^3/uL (150-450); RED BLOOD COUNT 3.74 10^6/uL (4.30-6.10); RED CELL DISTRIBUTION WIDTH 14.3 % (11.5-14.5); WHITE BLOOD COUNT 6.6 10^3/uL (4.0-10.0)
[2017-05-21 06:50] LABS: ALBUMIN 3.1 GM/DL (3.2-5.2); ALBUMIN/GLOBULIN RATIO 0.91 (1.00-1.93); ALKALINE PHOSPHATASE 97 U/L (45-117); ALT/SGPT 20 U/L (12-78); ANION GAP 9 MEQ/L (8-16); AST/SGOT 21 U/L (7-37); BILIRUBIN,TOTAL 0.3 MG/DL (0.2-1.0); BLOOD UREA NITROGEN 21 MG/DL (7-18); CALCIUM LEVEL 8.4 MG/DL (8.8-10.2); CARBON DIOXIDE LEVEL 24 MEQ/L (21-32); CHLORIDE LEVEL 111 MEQ/L (98-107); CREATININE FOR GFR 1.21 MG/DL (0.70-1.30); GLOMERULAR FILTRATION RATE > 60.0 (>35); GLUCOSE, FASTING 82 MG/DL (70-100); POTASSIUM SERUM 3.4 MEQ/L (3.5-5.1); SODIUM LEVEL 144 MEQ/L (136-145); TOTAL PROTEIN 6.5 GM/DL (6.4-8.2)
[2017-05-21] MEDS: HumaLOG INSULIN (NovoLOG) PER UNIT SC ×2 (07:30→13:00)
[2017-05-21 08:34] LABS: INR 2.32; PROTHROMBIN TIME 26.4 SECONDS (12.4-14.5)
[2017-05-21] MEDS: SENOKOT S TAB PO (09:00)
[2017-05-21] MEDS: OMEPRAZOLE 20 MG CAP PO (09:37)
[2017-05-21] MEDS: GABAPENTIN 300 MG CAP PO ×2 (09:37→13:00)
[2017-05-21] MEDS: CEFTRIAXONE SOD 1 GM in APPROPRIATE DILUENT 1 EA IV (09:37)
[2017-05-21] MEDS: LEVEMIR (INSULIN DETEMIR) 1 UNITS/0.01ML SC (09:38)
[2017-05-21] MEDS: CitaloPRAM (CeleXA) 20 MG TAB PO (09:38)
[2017-05-21] MEDS: CARVedilol 12.5 MG TAB PO (09:39)
[2017-05-21] MEDS: CAPTOpril 6.25 MG PER 1/2 TABLET PO (09:39)
[2017-05-21 12:07] LABS: BEDSIDE GLUCOSE 171 MG/DL (83-110)
[2017-05-24] MEDS ORDERED: WARFARIN SOD 4 MG TAB PO (17:00)
== END 2017-05-21 15:20 | disposition home or self-care (01) | DRG 389 ==
LOC: M ED 14:17 → M ED INP 19:49 → M MS4PR 21:50
PROVIDERS: Internal Medicine
DX: K56.41 Fecal impaction (principal); N17.9 Acute kidney failure, unspecified; E27.1 Primary adrenocortical insufficiency; K52.9 Noninfective gastroenteritis and colitis, unspecified; I48.91 Unspecified atrial fibrillation; N18.3 Chronic kidney disease, stage 3 (moderate); K21.9 Gastro-esophageal reflux disease without esophagitis; G62.9 Polyneuropathy, unspecified; I73.9 Peripheral vascular disease, unspecified; E78.5 Hyperlipidemia, unspecified; I25.10 Atherosclerotic heart disease of native coronary artery without angina pectoris; E11.9 Type 2 diabetes mellitus without complications; Z79.899 Other long term (current) drug therapy; Z79.82 Long term (current) use of aspirin; N40.0 Benign prostatic hyperplasia without lower urinary tract symptoms; Z88.2 Allergy status to sulfonamides; Z88.8 Allergy status to other drugs, medicaments and biological substances; Z88.5 Allergy status to narcotic agent; Z96.651 Presence of right artificial knee joint; Z96.652 Presence of left artificial knee joint; Z95.2 Presence of prosthetic heart valve; Z79.01 Long term (current) use of anticoagulants

== ENCOUNTER → 2017-09-15 | Outpatient (CLI) | payer MEDICARE ==
[2017-09-15 12:54] LABS: ALBUMIN 3.6 GM/DL (3.2-5.2); ALBUMIN/GLOBULIN RATIO 1.13 (1.00-1.93); ALKALINE PHOSPHATASE 98 U/L (45-117); ALT/SGPT 18 U/L (12-78); ANION GAP 7 MEQ/L (8-16); AST/SGOT 10 U/L (7-37); BILIRUBIN,TOTAL 0.3 MG/DL (0.2-1.0); BLOOD UREA NITROGEN 41 MG/DL (7-18); CALCIUM LEVEL 8.6 MG/DL (8.8-10.2); CARBON DIOXIDE LEVEL 32 MEQ/L (21-32); CHLORIDE LEVEL 105 MEQ/L (98-107); CREATININE FOR GFR 2.12 MG/DL (0.70-1.30); GLOMERULAR FILTRATION RATE 31.8 (>35); GLUCOSE, FASTING 82 MG/DL (70-100); MAGNESIUM LEVEL 1.9 MG/DL (1.8-2.4); POTASSIUM SERUM 5.1 MEQ/L (3.5-5.1); SODIUM LEVEL 144 MEQ/L (136-145); TOTAL PROTEIN 6.8 GM/DL (6.4-8.2)
[2017-09-15 13:10] LABS: PTH INTACT 78.3 PG/ML (18.5-88.0)
== END ==
LOC: M WUC 09:52
DX: E78.00 Pure hypercholesterolemia, unspecified (principal); N18.3 Chronic kidney disease, stage 3 (moderate); Z79.01 Long term (current) use of anticoagulants
CPT/HCPCS: 83735

== ENCOUNTER → 2018-01-23 | Outpatient (CLI) | payer MEDICARE ==
[2018-01-23 12:47] LABS: HEMATOCRIT 30.2 % (42.0-52.0); HEMOGLOBIN 9.3 g/dl (13.5-17.5); MEAN CORPUSCULAR HGB CONC 30.8 g/dl (32.0-36.5); PLATELET COUNT, AUTOMATED 226 10^3/uL (150-450); RED BLOOD COUNT 3.32 10^6/uL (4.30-6.10); RED CELL DISTRIBUTION WIDTH 14.3 % (11.5-14.5); WHITE BLOOD COUNT 7.4 10^3/uL (4.0-10.0)
[2018-01-23 13:17] LABS: ALBUMIN 3.2 GM/DL (3.2-5.2); ALBUMIN/GLOBULIN RATIO 1.03 (1.00-1.93); ALKALINE PHOSPHATASE 82 U/L (45-117); ALT/SGPT 14 U/L (12-78); ANION GAP 3 MEQ/L (8-16); AST/SGOT 14 U/L (7-37); BILIRUBIN,TOTAL 0.3 MG/DL (0.2-1.0); BLOOD UREA NITROGEN 19 MG/DL (7-18); CALCIUM LEVEL 8.6 MG/DL (8.8-10.2); CARBON DIOXIDE LEVEL 31 MEQ/L (21-32); CHLORIDE LEVEL 107 MEQ/L (98-107); CHOLESTEROL LEVEL 142 MG/DL (<200); CHOLESTEROL RISK RATIO 3.944 (<5); CREATININE FOR GFR 1.25 MG/DL (0.70-1.30); GLOMERULAR FILTRATION RATE 58.4 (>35); GLUCOSE, FASTING 74 MG/DL (70-100); HDL CHOLESTEROL 36 MG/DL (>40); LDL CHOLESTEROL 85 MG/DL (<100); MAGNESIUM LEVEL 2.1 MG/DL (1.8-2.4); NON-HDL-C 106 MG/DL; POTASSIUM SERUM 5.4 MEQ/L (3.5-5.1); SODIUM LEVEL 141 MEQ/L (136-145); TOTAL PROTEIN 6.3 GM/DL (6.4-8.2); TRIGLYCERIDES LEVEL 105 MG/DL (<150)
[2018-01-23 13:26] LABS: PTH INTACT 40.6 PG/ML (18.5-88.0)
[2018-01-23 13:52] LABS: ESTIMATED AVERAGE GLUCOSE 134 MG/DL (60-110); HEMOGLOBIN A1c 6.3 %
[2018-01-23 14:00] LABS: CREATININE, URINE 23.8 MG/DL; MAU/CREAT RATIO 3079.8 MCG/MG (0.0-30.0)
[2018-01-23 14:16] LABS: TOTAL 25(OH) VITAMIN D 62.1 NG/ML (30.0-100.0)
== END ==
LOC: M WUC 09:55
DX: E11.40 Type 2 diabetes mellitus with diabetic neuropathy, unspecified (principal); D63.1 Anemia in chronic kidney disease; I12.9 Hypertensive chronic kidney disease with stage 1 through stage 4 chronic kidney disease, or unspecified chronic kidney disease; E78.00 Pure hypercholesterolemia, unspecified; N18.3 Chronic kidney disease, stage 3 (moderate); E55.9 Vitamin D deficiency, unspecified
CPT/HCPCS: 83735

== ENCOUNTER → 2018-03-09 | Outpatient (REF) | payer MEDICARE ==
[~2018-03-09] MED LIST changes: -AMLO10TA2 PO; +AMLO10TA4 PO; +CEFD1CAP8 PO; +FLAG500T PO; -GABA-282 PO; -GABA-283 PO; +GABA-843 PO; +GABA-845 PO; +KLOR10TA76 PO; -TRAZ-136 PO; +TRAZ-163 PO; +WARF-20 PO; +WARF4TAB51 PO
[2018-03-09 14:17] LABS: AMORPHOUS SEDIMENT SMALL (NEGATIVE); APPEARANCE, URINE TURBID (CLEAR); BACTERIA, URINE AUTO NEGATIVE (NEGATIVE); BILIRUBIN, URINE AUTO NEGATIVE (NEGATIVE); BLOOD, URINE BLOOD NEGATIVE (NEGATIVE); COLOR, URINE AMBER (YELLOW); GLUCOSE, URINE (UA) AUTO NEGATIVE (NEGATIVE); KETONE, URINE AUTO NEGATIVE (NEGATIVE); LEUKOCYTE ESTERASE, URINE AUTO 2+ (NEGATIVE); NITRITE, URINE AUTO NEGATIVE (NEGATIVE); PROTEIN, URINE AUTO 3+ mg/dL (NEGATIVE); RBC, URINE AUTO 40 /HPF (0-3); SPECIFIC GRAVITY URINE AUTO 1.013 (1.002-1.035); SQUAMOUS EPITHELIAL CELL UR AU 1 /HPF (0-6); UROBILINOGEN, URINE AUTO 0.2 mg/dL (0.0-2.0); WBC, URINE AUTO 23 /HPF (0-3)
== END ==
LOC: M SFHCPLAZ 13:16
PROVIDERS: ATTEND Internal Medicine
DX: R30.0 Dysuria (principal)

== ENCOUNTER → 2018-04-10 | Outpatient (REF) | payer MEDICARE ==
[~2018-04-10] MED LIST changes: -AMLO10TA4 PO; +AMLO10TA5 PO; +NUCY50TA19 PO; -NUCY50TA6 PO
== END ==
LOC: M SFHCPLAZ 14:25
PROVIDERS: ATTEND Nurse Practitioner Adult Health
DX: R35.0 Frequency of micturition (principal)

== ENCOUNTER → 2018-05-01 | Outpatient (REF) | payer MEDICARE | LOC: M SFHCPLAZ 11:41 | PROVIDERS: ATTEND Nurse Practitioner Adult Health | DX: R35.0 Frequency of micturition (principal) ==

== ENCOUNTER 2018-05-12 11:10 | Inpatient (IN) | payer MEDICARE ==
[~2018-05-12] VITALS: Ht 180.3 cm; Wt 99.5 kg
[2018-05-12 11:30] LABS: BASO % 0.3 % (0.0-1.0); EOS # 0.2 10^3/uL (0.0-0.50); EOS % 1.4 % (0.0-3.0); HEMATOCRIT 28.8 % (42.0-52.0); HEMOGLOBIN 8.7 g/dl (13.5-17.5); LYMPH # 1.1 10^3/uL (1.5-4.5); LYMPH % 8.8 % (24.0-44.0); MEAN CORPUSCULAR HGB CONC 30.2 g/dl (32.0-36.5); MEAN CORPUSCULAR VOLUME 79.6 fl (80.0-96.0); MONO # 1.1 10^3/uL (0.0-0.8); MONO % 8.9 % (0.0-5.0); NEUTROPHILS # 9.9 10^3/uL (1.8-7.7); PLATELET COUNT, AUTOMATED 298 10^3/uL (150-450); RED BLOOD COUNT 3.62 10^6/uL (4.30-6.10); WHITE BLOOD COUNT 12.4 10^3/uL (4.0-10.0)
[2018-05-12 11:40] LABS: INR 3.57; PARTIAL THROMBOPLASTIN TIME 37.8 SECONDS (25.4-37.6); PROTHROMBIN TIME 36.5 SECONDS (12.1-14.4)
[2018-05-12] MEDS ORDERED: NS 500 ML IV ONE (11:45)
[2018-05-12] MEDS ORDERED: NITR100C2 PO (11:51)
[2018-05-12 12:02] LABS: ALBUMIN 3.3 GM/DL (3.2-5.2); BILIRUBIN,DIRECT 0.2 MG/DL (0.0-0.2); BILIRUBIN,TOTAL 0.6 MG/DL (0.2-1.0); CALCIUM LEVEL 8.7 MG/DL (8.8-10.2); CREATININE FOR GFR 1.33 MG/DL (0.70-1.30); FREE T4 1.42 NG/DL (0.76-1.46); GLOMERULAR FILTRATION RATE 54.4 (>35); MB/CK RELATIVE INDEX 2.93 (< OR =4); POTASSIUM SERUM 3.5 MEQ/L (3.5-5.1); THYROID STIMULATING HORMONE 1.56 uIU/ML (0.358-3.740); TROPONIN I 0.06 NG/ML (< 0.10)
--- NOTE | 2018-05-12 12:09 | REP ---
CT BRAIN WITHOUT CONTRAST: 05/12/2018. Clinical history: Weakness. Comparison: 05/18/2017. Findings: Noncontrast protocol with soft tissue and bone windows reviewed for each slice level. Lateral ventricles are midline, symmetric and mildly dilated. Third and fourth ventricles are also dilated. All of this is proportionate to the diffuse cerebral atrophy. This is age appropriate. There is periventricular, deep central and subcortical white matter hypodensity again seen, representing chronic small vessel white matter ischemic disease. 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 There is also a small old lacunar infarct in the left thalamus unchanged. No vascular territory infarct or extra-axial fluid collection. No extra-axial or intra-axial hemorrhage. Brainstem was unremarkable. Cerebellum shows mild atrophy but no posterior fossa hemorrhage. Vascular calcification of the vertebrobasilar arteries noted. Carotid siphon calcifications also seen. Mastoids and sinuses visible were clear. Skull base and calvarium show no fracture or focal lesion. Impression: 1. 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 2. Ventriculomegaly proportionate to the degree of atrophy and extensive chronic small vessel white matter ischemic changes of aging noted. 3. No intracranial hemorrhage, acute infarct, extra-axial fluid collection nor other significant finding. Stable examination. Electronically Signed by Kervin Lawrence MD 05/12/2018 07:44 P
--- NOTE | 2018-05-12 13:40 | REP ---
CHEST AP LATERAL: 05/12/2018. COMPARISON: 05/07/2018, 05/18/2017. CLINICAL HISTORY: Weakness. FINDINGS: Some cardiomegaly with left atrial and ventricular enlargement noted. There is vascular congestion present with redistribution evident. Underlying fibrosis makes early interstitial edema difficult to exclude. Heavier basilar fibrosis noted, left more than right. No gross effusion. Calcified tortuous aorta unchanged. There are degenerative changes throughout the spine, shoulders, and AC joints. IMPRESSION: 1. Cardiomegaly with left atrial and ventricular enlargement, vascular redistribution, and some underlying interstitial fibrosis. This fibrosis makes early interstitial edema difficult to exclude and I am suspicious. I do not see dense consolidation with air bronchograms. No visible effusion. Electronically Signed by Kervin Lawrence MD 05/12/2018 07:49 P
[2018-05-12] MEDS ORDERED: NS 1,000 ML IV SCH (14:25)
[2018-05-12] MEDS ORDERED: METOCLOPRAMIDE INJ 10MG/2ML VIAL (J2765) IV PRN (14:30)
[2018-05-12] MEDS ORDERED: **hydrALAZINE HCL** 25 MG TAB PO ONE (14:30)
[2018-05-12] MEDS ORDERED: ATOR80TA59 PO (15:05)
[2018-05-12] MEDS ORDERED: VENTAER INH (15:12)
[2018-05-12] MEDS: cefTRIAXone SOD 1 GM in D5W MINI-BAG PLUS 50 ML IV SCH (16:02)
[2018-05-12] MEDS ORDERED: GLUCAGON FOR INJ 1 MG VIAL (J1610) SC PRN (16:45)
[2018-05-12] MEDS ORDERED: GLUCOSE 4 GM CHEW TABLET PO PRN (16:45)
[2018-05-12] MEDS ORDERED: ALBUTEROL 90 MCG/ACT 8GM HFA INHALER INH PRN (16:45)
[2018-05-12] MEDS ORDERED: DEXTROSE 50% 50 ML SYRINGE IV PRN (16:45)
[2018-05-12] MEDS: HumaLOG INSULIN (NovoLOG) PER UNIT SC SCH ×2 (17:30→21:00)
[2018-05-12] MEDS ORDERED: DEXTROSE 50% 50 ML SYRINGE As Ordered ONE (18:07)
[2018-05-12] MEDS ORDERED: WARFARIN SOD 2 MG TAB PO SCH (18:30)
[2018-05-12] MEDS ORDERED: FUROSEMIDE 80 MG TAB PO SCH (18:30)
[2018-05-12] MEDS ORDERED: WARFARIN SOD 4 MG TAB PO SCH (18:30)
[2018-05-12] MEDS: D5W/0.45% SODIUM CHLORIDE 1,000 ML IV SCH (18:33)
[2018-05-12] MEDS: CitaloPRAM (CeleXA) 20 MG TAB PO SCH (18:33)
--- NOTE | 2018-05-12 18:56 | HPEPDOC ---
General Date of Admission May 12, 2018 at 13:52 Primary Care Physician: Beba Perales Other Providers PCP: Dr. nicholson Attending Physician: SUNIL RABAGO MD Chief Complaint The patient is a 87-year-old male admitted with a reason for visit of UTI. History of Present Illness 87-year-old male brought in via EMS after his noted blood in his urine earlier today. He denies any abdominal, pelvic, or bladder pain. Of note, he was recently treated for UTI, placed on Bactrim, without any improvement. He admits to continued dysuria, urgency, frequency. At baseline, he is incontinent of his urine. Per MrChace mathew, he is still making urine, and is actually going more than his usual, likely due to his UTI. Per the , patient has a history of a urethral stent, procedure performed in [place], of which we do not have records. Currently he is in the process of establishing with a local urologist. In the ER, attempts were made at inserting a Marrero as well as straight cath for urine sample, however per staff, resistance was met within 2-3 cm of insertion. Home Medications Scheduled (Kayla Jean) 300 Unit/Ml Inj, 35 UNIT SC DAILY, (Reported) Aspirin (Aspirin) 81 Mg Tab, 81 MG PO QHS, (Reported) Atorvastatin Calcium (Atorvastatin Calcium) 80 Mg Tab, 40 MG PO 3XW, (Reported) QHS: MON,MON,MON Captopril (Captopril) 12.5 Mg Tab, 6.25 MG PO BID, (Reported) Carvedilol (Carvedilol) 25 Mg Tab, 25 MG PO BID, (Reported) Cholecalciferol (Vitamin D3) 50,000 Unit Tab, 50,000 UNIT PO Q2WK, (Reported) WEDNESDAYS Citalopram Hydrobromide (Citalopram Hydrobromide) 20 Mg Tab, 20 MG PO DAILY, (Reported) Furosemide (Furosemide) 80 Mg Tab, 80 MG PO 2XWK, (Reported) MONDAY AND MONDAY Gabapentin (Gabapentin) 300 Mg Cap, 300 MG PO ACHS, (Reported) Glipizide (Glipizide) 5 Mg Tab, 2.5 MG PO BID, (Reported) BREAKFAST AND DINNER Magnesium Oxide (Magnesium Oxide) 400 Mg Tab, 400 MG PO QHS, (Reported) Nitrofurantoin Macrocrystals (Nitrofurantoin Macrocrystals) 100 Mg Cap, 100 MG PO BID, (Reported) FILLED 2/8 X 10 DAY SUPPLY Omeprazole (Omeprazole) 40 Mg Cap, 40 MG PO DAILY, (Reported) LUNCH Potassium Chloride (Klor-Con M10) 10 Meq Tabcr, 10 MEQ PO BID, (Reported) BREAKFAST AND DINNER Trazodone HCl (Trazodone HCl) 100 Mg Tab, 100 MG PO QHS, (Reported) Warfarin Sod (Warfarin Sodium) 2 Mg Tab, 2 MG PO 4XWK, (Reported) QPM: TU,THURS,SAT,SUN Warfarin Sod (Warfarin Sodium) 4 Mg Tab, 4 MG PO 3XW, (Reported) QPM: MON,WED,FRI Scheduled PRN Albuterol Sulfate (Ventolin Hfa) 108 Mcg/Act Aer, 2 PUFF INH Q4H PRN for SHORT NESS OF BREATH, (Reported) Allergies Coded Allergies: Sulfa Drugs (Verified Allergy, Mild, RASH, 06/25/12) Sulfa Drugs Cross Reactors (Verified Allergy, Mild, RASH, 06/25/12) Sulfamethoxazole (Verified Allergy, Mild, RASH, 06/25/12) Trimethoprim (Verified Allergy, Mild, RASH, 06/25/12) Pea (Verified Allergy, Unknown, 03/21/12) Hydrocodone (Verified Adverse Reaction, Intermediate, HALLUCINATIONS, 06/25/12) Meperidine (Verified Adverse Reaction, Intermediate, HALLUCINATIONS, 06/25/12) Morphine (Verified Adverse Reaction, Intermediate, HALLUCINATIONS, 06/25/12) Oxycodone (Verified Adverse Reaction, Intermediate, HALLUCINATIONS, 06/25/12) Replaces PERCODAN Quinolones (Verified Adverse Reaction, Intermediate, HALLUCINATIONS, 06/25/12) Past Medical History Medical History Chronic A. 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 Previous smoker, quit 10 years ago. Denies alcohol. Review of Systems Constitutional: Denies: Chills, Fever, Fatigue, Weight Loss Eyes: Reports: Pain, Vision change Pulmonary: Denies: Dyspnea, Cough Cardiovascular: Reports: Lt Headedness; Denies: Chest Pain, Palpitations Gastrointestinal: Reports: Nausea; Denies: Vomiting, Abdominal Pain, Diarrhea, Constipation, Melena, Hematochezia Hematologic: Reports: Bruising (chroinc AC) Musculoskeletal: Denies: Back Pain, Muscle Pain Neurological: Denies: Weakness, Numbness Physical Examination General Exam: Positive: Alert, Cooperative, No Acute Distress Eye Exam: Positive: Conjunctiva & lids normal, EOMI ENT Exam: Positive: Atraumatic, Other ENT (hard of hearing); Negative: Mucous membr. moist/pink (dry) Neck Exam: Positive: Supple, +2 carotid pulse wo bruit; Negative: JVD Chest Exam: Positive: Clear to auscultation, Normal air movement; Negative: Rales, Rhonchi, Wheezing Heart Exam: Positive: Rate Normal, Irregular Rhythm (in afib on monitor) Telemetry: Positive: Atrial fibrillation Abdomen Exam: Positive: Normal bowel sounds Extremity Exam: Positive: Normal pulses, Tenderness (chronic pain in rt leg) Psych Exam: Positive: Mental status NL, Mood NL Vital Signs Vital Signs Date Time Temp Pulse Resp B/P (MAP) Pulse Ox O2 Delivery O2 Flow Rate FiO2 05/12/18 16:25 98.4 64 20 169/80 (109) 98 Nasal Cannula 2.0 Laboratory Data Labs 24H Laboratory Tests 2 05/12/18 11:24: Immature Granulocyte % (Auto) 0.6, White Blood Count 12.4H, Red Blood Count 3.62L, Hemoglobin 8.7L, Hematocrit 28.8L, Mean Corpuscular Volume 79.6L, Mean Corpuscular Hemoglobin 24.0L, Mean Corpuscular Hemoglobin Concent 30.2L, Red Cell Distribution Width 15.7H, Platelet Count 298, Neutrophils (%) (Auto) 80.0H, Lymphocytes (%) (Auto) 8.8L, Monocytes (%) (Auto) 8.9H, Eosinophils (%) (Auto) 1.4, Basophils (%) (Auto) 0.3, Neutrophils # (Auto) 9.9H, Lymphocytes # (Auto) 1.1L, Monocytes # (Auto) 1.1H, Eosinophils # (Auto) 0.2, Basophils # (Auto) 0.0, Nucleated Red Blood Cells % (auto) 0.0, Prothrombin Time 36.5H, Prothromb Time International Ratio 3.57, Activated Partial Thromboplast Time 37.8H, Anion Gap 8, Glomerular Filtration Rate 54.4, Calcium Level 8.7L, Aspartate Amino Transf (AST/SGOT) 21, Alanine Aminotransferase (ALT/SGPT) 17, Alkaline Phosphatase 89, Total Bilirubin 0.6, Direct Bilirubin 0.2, Total Creatine Kinase 123, Creatine Kinase MB 4.0H, Creatine Kinase MB Relative Index 2.93, Troponin I 0.06, Total Protein 7.0, Albumin 3.3, Albumin/Globulin Ratio 0.89L, Lipase 34L, Thyroid Stimulating Hormone (TSH) 1.560, Free Thyroxine 1.42 05/12/18 11:28: Bedside Glucose (Misc Panel) 65L 05/12/18 12:01: Bedside Glucose (Misc Panel) 65L 05/12/18 15:00: Lactic Acid Level 1.1 05/12/18 17:50: Bedside Glucose (Misc Panel) 55L CBC/BMP Laboratory Tests 05/12/18 11:24 Red Blood Count 3.62 L, Mean Corpuscular Volume 79.6 L, Mean Corpuscular Hemoglobin 24.0 L, Mean Corpuscular Hemoglobin Concent 30.2 L, Red Cell Distribution Width 15.7 H, Neutrophils (%) (Auto) 80.0 H, Lymphocytes (%) (Auto) 8.8 L, Monocytes (%) (Auto) 8.9 H, Eosinophils (%) (Auto) 1.4, Basophils (%) (Auto) 0.3, Neutrophils # (Auto) 9.9 H, Lymphocytes # (Auto) 1.1 L, Monocytes # (Auto) 1.1 H, Eosinophils # (Auto) 0.2, Basophils # (Auto) 0.0 Microbiology Microbiology 05/12/18 Blood Culture, Received Pending 05/12/18 Blood Culture, Received Pending Assessment/Plan Gross hematuria * With a history of obstructive uropathy and urethral stent placed in [place]. We do not have records * bleeding may be multifactorial: supratherapeutic INR vs trauma/dislodged stent vs UTI vs possible nephrolithiasis vs glomerulonephritis * pt unable to give UA in ER, and inserting catheter was unsuccessful due to resistance met in 2-3cm of insertion. Awaiting UA. Renal US ordered * Urologist Dr. Carter consulted, appreciate input. Per her recommendations, perform a post void residual and call her with the results, avoid inserting any catheters at this point. She will see patient tomorrow. No need for CBI or OR at this point. * place blood thinners on hold. Monitor H&H. Baseline 9-10. Transfuse <8. UTI * Patient has a history of growing Escherichia coli in his urine. Was recently started on Macrobid without any improvement. * Most recent UA is from 05/01/2018, which is also growing Escherichia coli sensitive to ceftriaxone. Given his multiple allergies, will start him on IV ceftriaxone. Supratherapeutic INR * Hold home Coumadin. From PCP notes, it appears they have been trying to adjust his anticoagulation as his INR was supratherapeutic in the past few weeks in the office as well. Check daily PT/INR. Leukocytosis * likely 2/2 UTI. Pt afebrile. Continue monitor Chronic A. fib * long-term Coumadin. Will hold anticoagulation especially given supratherapeu tic INR on admission. BPH with baseline urinary incontinence * Continue home Flomax Hypoglycemia in setting of IDDM2 * will give D5 half-normal saline. Blood sugars improved after half amp of D5. Insulin sliding scale inpatient. Hold home glipizide, and reduce long-acting insulin inpatient. For the remainder of his chronic medical conditions, will continue his home medications. Hold his home diuretics given he is actively being hydrated and dry on exam. Hold home KIERA inhibitor given his mildly-elevated creatinine from baseline on admission. Consider resuming these as he improves. PO hydralazine has been started in lieu of his KIERA inhibitor temporarily for BP control. DVT prophylaxis: Mechanical, hold it correlation given his subtherapeutic INR and current bleed DISPO: Will admit to the hospital service. To be seen by urology. Plan / VTE VTE Prophylaxis Ordered?: Yes VTE Exclusion Pharmacological: Active Bleeding GME ATTESTATION GME ATTESTATION My faculty preceptor for this patient encounter was physically present during the encounter and was fully available. All aspects of the patient interview, examination, medical decision making process, and medical care plan development were reviewed and approved by the faculty preceptor. The faculty preceptor is aware and concurs with the plan as stated in the body of this note and will attest to such by his/her cosignature. LAKESHIA MCKINLEY DO May 12, 2018 18:56
--- NOTE | 2018-05-12 19:38 | ECGEPIP ---
Stationary ECG Study [facility] - ED Test Date: 2018-05-12 Pat Name: AME MCCOLLUM Department: Room: - Gender: M News Commentator: : [id number] Requested By: MARINA Zapata Order Number: [id number] Reading MD: Aria Cormier Measurements Intervals [place] Rate: 62 P: 30 IN: 185 QRS: 13 QRSD: 142 T: -8 QT: 469 QTc: 476 Interpretive Statements SINUS RHYTHM WITH SINUS ARRHYTHMIA RIGHT BUNDLE BRANCH BLOCK INCREASED RATE/LESS ECTOPY 05/18/17 Electronically Signed On 05-12-2018 19:38:14 EST by Aria Cormier
[2018-05-12] MEDS ORDERED: ASPIRIN 81 MG ENTERIC TAB PO SCH (21:00)
[2018-05-12] MEDS ORDERED: POTASSIUM CHLORIDE 10 MEQ SR TABLET PO SCH (21:00)
[2018-05-12] MEDS ORDERED: CAPTOpril 6.25 MG PER 1/2 TABLET PO SCH (21:00)
[2018-05-12] MEDS ORDERED: MAGNESIUM OXIDE 400 MG TAB (MAG-OX) PO SCH (21:00)
[2018-05-12] MEDS ORDERED: glipiZIDE (GLUCOTROL) 5 MG TAB PO SCH (21:00)
[2018-05-12 22:00] VITALS: BP 138/65
[2018-05-12] MEDS: traZODone 100 MG TAB PO SCH (22:10)
[2018-05-12] MEDS: GABAPENTIN 300 MG CAP PO SCH (22:11)
[2018-05-12] MEDS: **hydrALAZINE** 10 MG TAB PO SCH (22:11)
[2018-05-12] MEDS: CARVedilol 12.5 MG TAB PO SCH (22:12)
[2018-05-12] MEDS: LEVEMIR (INSULIN DETEMIR) 1 UNITS/0.01ML SC SCH (22:40)
[2018-05-13] MEDS: D5W/0.45% SODIUM CHLORIDE 1,000 ML IV SCH ×4 (02:39→22:54)
[2018-05-13 06:00] VITALS: BP 148/66
[2018-05-13 06:37] LABS: HEMATOCRIT 26.1 % (42.0-52.0); HEMOGLOBIN 7.8 g/dl (13.5-17.5); MEAN CORPUSCULAR HEMOGLOBIN 23.5 pg (27.0-33.0); MEAN CORPUSCULAR HGB CONC 29.9 g/dl (32.0-36.5); MEAN CORPUSCULAR VOLUME 78.6 fl (80.0-96.0); PLATELET COUNT, AUTOMATED 216 10^3/uL (150-450); RED BLOOD COUNT 3.32 10^6/uL (4.30-6.10); WHITE BLOOD COUNT 9.2 10^3/uL (4.0-10.0)
[2018-05-13 07:01] LABS: INR 4.55; PROTHROMBIN TIME 44.3 SECONDS (12.1-14.4)
[2018-05-13 07:02] LABS: CALCIUM LEVEL 8.3 MG/DL (8.8-10.2); CREATININE FOR GFR 1.3 MG/DL (0.70-1.30); GLOMERULAR FILTRATION RATE 55.9 (>35); POTASSIUM SERUM 3.2 MEQ/L (3.5-5.1)
--- NOTE | 2018-05-13 07:13 | REP ---
RENAL ULTRASOUND: 05/12/2018. CLINICAL HISTORY: Hematuria. Evaluate for obstruction or hydronephrosis. COMPARISON: CT abdomen pelvis, 05/18/2017. FINDINGS: Sonographic evaluation shows the right kidney 10.8 x 7.3 x 5.3 cm with cortical thinning and increased sinus lipomatosis. No hydronephrosis or hydroureter on that right side. There is a lateral cyst peripherally upper pole 3.9 x 3.6 x 3.5 cm, stable from CT. No solid mass, stone, or perinephric fluid. The left kidney is 10.7 x 5.1 x 5.6 cm. It also shows cortical thinning and sinus lipomatosis. There is an exophytic 1.3 x 1 cm cyst interpolar region peripherally. No hydronephrosis, solid mass, or perinephric fluid. Bladder is poorly filled. Measurement of 8.3 x 5.8 x 2.7 cm gives calculated volume 67 mL. It has irregular posterior-inferior wall which could be from nondistention or a lesion. The bladder evaluation is nondiagnostic with underfilling. Bladder wall mass is not excluded. IMPRESSION: 1. Cortical thinning and sinus lipomatosis bilaterally. No hydronephrosis, hydroureter, solid mass, stone, or perinephric fluid. 2. Exophytic cyst on the right 3.9 x 3.6 cm, on the left 1.3 x 1 cm. 3. Bladder underfilled. Thickened irregular bladder wall inferiorly, but this could be just due to underfilling of the bladder versus a true bladder wall mass. True bladder lesion is not excluded or defined by this study which is nondiagnostic regarding the bladder. A better exam with the bladder filled would be in order for followup. Electronically Signed by Kervin Lawrence MD 05/13/2018 08:20 A
[2018-05-13] MEDS: HumaLOG INSULIN (NovoLOG) PER UNIT SC SCH ×4 (07:30→21:00)
[2018-05-13] MEDS: GABAPENTIN 300 MG CAP PO SCH ×4 (08:36→20:42)
[2018-05-13] MEDS: CitaloPRAM (CeleXA) 20 MG TAB PO SCH (08:37)
[2018-05-13] MEDS: **hydrALAZINE** 10 MG TAB PO SCH ×2 (08:37→20:42)
[2018-05-13] MEDS: CARVedilol 12.5 MG TAB PO SCH ×2 (08:38→20:41)
[2018-05-13] MEDS: traZODone 100 MG TAB PO SCH (08:40)
[2018-05-13] MEDS ORDERED: LEVEMIR (INSULIN DETEMIR) 1 UNITS/0.01ML SC SCH (09:00)
--- NOTE | 2018-05-13 11:47 | CR ---
UROLOGIC CONSULTATION DATE OF CONSULTATION: 05/13/2018 REASON FOR CONSULTATION Gross hematuria, recurrent urinary tract infection, and patient with a urethral stent. HISTORY OF PRESENT ILLNESS The patient is in a 87-year-old gentleman who had one episode of gross hematuria yesterday without any clots. He was recently treated for an E. coli UTI as an outpatient with Macrobid but he did not notice any improvement in his burning with urination. His urine also had appeared murky and had a foul odor. He denies any previous history of gross hematuria and since that time his urine is now clear although he is incontinent of urine. A postvoid residual was checked and he is emptying his bladder completely. The patient had a urethral stent placed in 2003 in [place] and he and his do not remember if it was done for urethral stricture or for benign prostatic hypertrophy. After the original procedure, he was not incontinent. He denies any previous history of gross hematuria. He is on Coumadin and aspirin now. His incontinence began 1 year ago and it sounds like it is mostly urinary urgency and urge incontinence and he also has fecal incontinence. He is confused at times but does not have any diagnosis of dementia and has not had any strokes. His incontinence has not been worked up by a urologist and he has not tried medications for this problem. He denies any previous history of kidney stones. He normally feels as though he empties his bladder completely. He does not drink coffee or tea, but he does drink diet soda during the day. He denies any constipation and does have loose stools and again is incontinent of his bowels also. PAST MEDICAL HISTORY: Chronic atrial fibrillation on Coumadin. Type 2 diabetes. High blood pressure with heart disease. Coronary artery disease. Hypercholesterolemia. Chronic kidney disease stage III. History of obstructive uropathy with benign prostatic hypertrophy (BPH) on Flomax. Anemia of renal disease. Macular degeneration. PAST SURGICAL HISTORY: Appendectomy. Bilateral total knee repair. Colonoscopy. Esophageal dilation. Urethral stent placement back in 2003. Cardiac stents placed with five stents in 2006. Bilateral cataract extractions. Right hip and knee operative arthroplasty. MEDICATIONS: - aspirin - atorvastatin - captopril - carvedilol - cholecalciferol - citalopram - furosemide mg two times a week - gabapentin - glipizide - magnesium oxide - Macrobid when he came in - omeprazole - potassium chloride - trazodone - warfarin ALLERGIES: 1. SULFA causes a rash. 2. HYDROCODONE caused hallucinations. 3. MEPERIDINE caused hallucinations. 4. MORPHINE caused hallucinations. FAMILY HISTORY: Father had coronary artery disease. His mother had a cerebrovascular accident (CVA). SOCIAL HISTORY: Lives at home with his . He was previous smoker but quit 10 years ago. He denies alcohol use. REVIEW OF SYSTEMS: A 12 system review was done and he is all little lightheaded and has been much more tired than normal. Otherwise, there is no change from the HPI. PHYSICAL EXAMINATION: This is a well-developed, well-nourished gentleman napping in a hospital bed, alert and oriented times three. His temperature is 97.3. His heart rate was 55. His blood pressure is 148/66 and his pulse is 96 on the nasal cannula. His head is normocephalic, atraumatic. His eyes are EOMI. His trachea is midline and he has no significant supraclavicular or cervical adenopathy. His heart has a regular rate but an irregular rhythm and he is in atrial fibrillation on the monitor. His lungs are clear to auscultation and percussion with normal air movement and no rales, rhonchi or wheezing appreciated. He has no CVA tenderness. His abdomen is soft and nontender. His diaper shows darkish urine but without blood. His extremities show no cyanosis, clubbing or edema. LABORATORY DATA His white blood count is down to 9.2 from 12.4 yesterday. His hemoglobin and hematocrit is 7.8/26.1 and this is down from 8.7/28.8 yesterday. His BUN is 24 and his creatinine is 1.33. Blood cultures are pending but no urine was sent because they were unable to place a catheter and he is incontinent. IMAGING STUDIES: A renal ultrasound done 05/12/2018 showed cortical thinning with some irregularity of the bladder wall with thickness but the bladder was not distended. IMPRESSION: 1. Episode of gross hematuria with a complicated UTI in a patient with a urethral stent placed in 2003. 2. Urinary and bowel incontinence for the last year of questionable etiology but with urinary urgency and urge incontinence in a patient who does drink diet soda and takes gross might 80 mg twice weekly. 3. Multiple medical problems including coronary artery disease with five stents, on Coumadin, atrial fibrillation, type 2 diabetes, high blood pressure, chronic kidney disease stage III. PLAN: 1. Recommend putting on a condom cath and obtaining a urine to sent for microscopic urinalysis, culture and sensitivity, and change antibiotics accordingly. 2. Continue current medical management. 3. Consider a blood transfusion since he is quite tired and weak and with his history of heart disease. 4. The patient will need to be seen as an outpatient and will require a cystoscopy and probably urodynamic studies at that time to try to deal with his urinary incontinence.
[2018-05-13 14:00] VITALS: BP 182/85
[2018-05-13] MEDS ORDERED: PHYTONADIONE 5 MG TAB PO ONE (14:00)
[2018-05-13] MEDS ORDERED: POTASSIUM CHLORIDE 10 MEQ SR TABLET PO ONE (14:00)
[2018-05-13] MEDS: OMEPRAZOLE 20 MG CAP PO SCH (14:14)
--- NOTE | 2018-05-13 16:42 | IPN ---
DATE: 05/13/2018 SUBJECTIVE: The patient is seen and examined in the room today. The patient feels very fatigued. The patient noted to have blood in the urine. The patient stated when he came to the hospital he was noted to have increased wheeze. No fever, no chills. OBJECTIVE: VITAL SIGNS: Temperature 97.3, pulse 55, respirations 19, blood pressure 148/66, pulse oximetry 96% on 2 liters nasal canula. GENERAL: No sign of acute distress or fatigue, alert and awake. HEENT: Normocephalic, atraumatic. Extraocular muscles intact. CARDIOVASCULAR: Positive S1, S2, irregularly irregular. LUNGS: Clear to auscultation bilaterally. ABDOMEN: Soft, nontender, nondistended. Bowel sounds present. EXTREMITIES: Chronic pain of the lower extremities. LABORATORY DATA: White blood count (WBC) 9.3, hemoglobin 7.8, hematocrit 26.1, platelet count is 216. Sodium is 140, potassium 3.85, chloride 105, CO2 is 29, BUN is 25, creatinine is 1.3, glomerular filtration rate (GFR) is 55.9, fasting glucose is 125, calcium is 8.3. PT is 44.3, INR is 4.55. ASSESSMENT AND PLAN: 1. Gross hematuria. The patient had a history of obstructive uropathy, status post ureteral stent placement in [place]. The patient currently being treated for the urinary tract infection (UTI). The patient has supra-therapeutic INR on empiric antibiotics. Warfarin on hold and urologist consulted. Continue to hemoglobin and hematocrit. Blood cultures obtained. Will give the patient transfusion as needed. 2. Urinary tract infection (UTI). The patient had multiple urine cultures done in the past, mostly the patient has Escherichia coli urinary tract infection (UTI). The patient is on Rocephin. 3. Supra-therapeutic INR. Coumadin on hold. 4. Chronic atrial fibrillation. Coumadin on hold due to supra-therapeutic INR. Heart rate in satisfactory range. 5. Insulin-dependent diabetes. The patient is on insulin. 6. Coronary artery disease. Due to bleeding, aspirin is on hold, on Lipitor, Coreg. 7. History of chronic kidney disease (CKD), stage III. Continue to monitor. 8. Deep vein thrombosis (DVT) prophylaxis. The patient currently has supra-therapeutic INR.
[2018-05-13] MEDS: cefTRIAXone SOD 1 GM in D5W MINI-BAG PLUS 50 ML IV SCH (21:20)
[2018-05-13] MEDS: LEVEMIR (INSULIN DETEMIR) 1 UNITS/0.01ML SC SCH (21:24)
[2018-05-13 22:00] VITALS: BP 144/70
[2018-05-14 02:55] LABS: APPEARANCE, URINE CLOUDY (CLEAR); BACTERIA, URINE AUTO NEGATIVE (NEGATIVE); BILIRUBIN, URINE AUTO NEGATIVE (NEGATIVE); BLOOD, URINE BLOOD 2+ (NEGATIVE); CALCIUM PHOSPHATE CRYSTALS SMALL; COLOR, URINE AMBER (YELLOW); GLUCOSE, URINE (UA) AUTO NEGATIVE (NEGATIVE); KETONE, URINE AUTO NEGATIVE (NEGATIVE); LEUKOCYTE ESTERASE, URINE AUTO 3+ (NEGATIVE); MUCUS, URINE SMALL (NEGATIVE); NITRITE, URINE AUTO NEGATIVE (NEGATIVE); PROTEIN, URINE AUTO 3+ mg/dL (NEGATIVE); RBC, URINE AUTO 66 /HPF (0-3); SPECIFIC GRAVITY URINE AUTO 1.019 (1.002-1.035); SQUAMOUS EPITHELIAL CELL UR AU 7 /HPF (0-6); TRANSITIONAL EPITHELIAL AUTO 3 /HPF; UROBILINOGEN, URINE AUTO 0.2 mg/dL (0.0-2.0); WBC, URINE AUTO TNTC /HPF (0-3)
[2018-05-14 05:54] LABS: HEMATOCRIT 28.3 % (42.0-52.0); HEMOGLOBIN 8.4 g/dl (13.5-17.5); MEAN CORPUSCULAR HGB CONC 29.7 g/dl (32.0-36.5); MEAN CORPUSCULAR VOLUME 80.9 fl (80.0-96.0); PLATELET COUNT, AUTOMATED 192 10^3/uL (150-450); WHITE BLOOD COUNT 8.4 10^3/uL (4.0-10.0)
[2018-05-14 06:00] VITALS: BP 147/70
[2018-05-14 06:07] LABS: INR 2.33
[2018-05-14 06:15] LABS: BLOOD UREA NITROGEN 22 MG/DL (7-18); CALCIUM LEVEL 7.5 MG/DL (8.8-10.2); CARBON DIOXIDE LEVEL 27 MEQ/L (21-32); CHLORIDE LEVEL 108 MEQ/L (98-107); CREATININE FOR GFR 1.17 MG/DL (0.70-1.30); GLOMERULAR FILTRATION RATE > 60.0 (>35); GLUCOSE, FASTING 123 MG/DL (70-100); POTASSIUM SERUM 3.4 MEQ/L (3.5-5.1); SODIUM LEVEL 140 MEQ/L (136-145)
[2018-05-14] MEDS: D5W/0.45% SODIUM CHLORIDE 1,000 ML IV SCH ×2 (06:47→15:01)
[2018-05-14] MEDS: GABAPENTIN 300 MG CAP PO SCH ×4 (07:59→21:07)
[2018-05-14] MEDS ORDERED: POTASSIUM CHLORIDE 10 MEQ SR TABLET PO ONE (08:00)
[2018-05-14] MEDS: CARVedilol 12.5 MG TAB PO SCH ×2 (08:04→21:07)
[2018-05-14] MEDS: HumaLOG INSULIN (NovoLOG) PER UNIT SC SCH ×4 (08:05→21:00)
[2018-05-14] MEDS: **hydrALAZINE** 10 MG TAB PO SCH ×2 (08:06→21:08)
[2018-05-14] MEDS: traZODone 100 MG TAB PO SCH (08:06)
[2018-05-14] MEDS: CitaloPRAM (CeleXA) 20 MG TAB PO SCH (08:07)
--- NOTE | 2018-05-14 11:53 | IPN ---
DATE OF SERVICE: 05/14/2018 ATTENDING PHYSICIAN: Annabel Sinha MD The patient examined at bedside with in room. The patient's hematuria has resolved, and now he is having brown cloudy output. Denies any bladder or pelvic pain. No difficulty urinating. Is status post 1 unit packed red blood cells (PRBC) transfused yesterday with hemoglobin stable at 8.4 today. No fever or chills. Continues on ceftriaxone for a urinary tract infection (UTI). No longer having any wheezing or difficulty breathing. OBJECTIVE: PHYSICAL EXAMINATION: Vital signs: Temperature 98.0, pulse 56, respirations 18, blood pressure (BP) 147/70, mean arterial pressure (MAP) of 95, pulse oximetry 94% on 2 liters nasal cannula. General: Alert and oriented times three, resting comfortably in bed, no acute distress, pleasantly conversant. HEENT: Normocephalic and atraumatic (NCAT). Extraocular movements intact (EOMI). Anicteric sclerae. Cardiovascular: Irregular rhythm. Rate is controlled. Has chronic atrial fibrillation (AFib). No audible murmur. Lungs: Clear to auscultation bilaterally. Equal chest rise bilaterally. Abdomen: Soft, nontender, nondistended. Positive bowel sounds. No guarding, rigidity, or rebound. No extended bladder. Extremities: 2+ radial pulses bilaterally. Chronic pain in lower extremities. LABORATORIES: WBC 8.4, hemoglobin and hematocrit 8.4 and 28.3, platelets 192. Potassium 3.4, BUN and creatinine 22 and 1.17. INR 2.33. Blood cultures negative. Urine culture pending. ASSESSMENT AND PLAN: 1. Gross hematuria with a history of obstructive uropathy, status post urethral stent. May be related to his supratherapeutic international normalized ratio (INR) on admission, as well as underlying UTI. His warfarin and aspirin are on h old. His hematuria has resolved as of this morning, and he has responded well to 1 unit transfused yesterday with a hemoglobin of 8.4 today. Will recheck his hemoglobin and hematocrit later today and if stable will consider resuming his warfarin after discussion with urology. Transfuse as needed to maintain hemoglobin of 8. 2. Urinary tract infection. Current urine culture is pending. However, previous culture had been positive for Escherichia (E.) coli. Per sensitivities, continue on ceftriaxone. 3. Supratherapeutic international normalized ratio. The patient is on Coumadin for atrial fibrillation. He is status post one dose of vitamin K yesterday for an INR of 4.55. Today is at 2.33. Will consider resuming Coumadin after discussing with urology. 4. Chronic atrial fibrillation. Rate is controlled. Coumadin on hold due to supratherapeutic INR. 5. Insulin-dependent diabetes. Insulin sliding scale. Consistent-carbohydrate diet 6. Coronary artery disease (CAD). Continue on Lipitor and Coreg. Aspirin on hold, given acute bleed. 7. History of chronic kidney disease (CKD) stage III, stable. Continue monitoring. May resume his home angiotensin-converting enzyme (KIERA) inhibitor, which was initially on hold due to elevated creatinine. 8. Hypokalemia. Is supplemented. Will recheck tomorrow. 9. Benign prostatic hypertrophy (BPH) with baseline urinary incontinence. Continue home Flomax. 10. Deep vein thrombosis (DVT) prophylaxis. Thromboembolic deterrents (TEDs), sequential. Hold anticoagulation given his acute bleed. DISPOSITION: Monitor hemoglobin and hematocrit and INR. Consider resuming warfarin. Will discuss with urology. My faculty preceptor for this patient encounter was physically present during the encounter and was fully available. All aspects of the patient interview, examination, medical decision-making process, and medical care plan development were reviewed and approved by the faculty preceptor. The faculty preceptor is aware and concurs with the plan as stated in the body of this note and will attest to such by his/her cosignature.
[2018-05-14 12:59] LABS: HEMATOCRIT 31.9 % (42.0-52.0); HEMOGLOBIN 9.6 g/dl (13.5-17.5)
[2018-05-14] MEDS: OMEPRAZOLE 20 MG CAP PO SCH (13:27)
[2018-05-14 14:00] VITALS: BP 163/65
[2018-05-14] MEDS: ASPIRIN 81 MG ENTERIC TAB PO SCH (14:57)
[2018-05-14] MEDS: cefTRIAXone SOD 1 GM in D5W MINI-BAG PLUS 50 ML IV SCH (14:58)
[2018-05-14] MEDS ORDERED: WARFARIN SOD 3 MG TAB PO ONE (17:00)
[2018-05-14] MEDS: ATORVASTATIN 20 MG TAB PO SCH (21:07)
[2018-05-14] MEDS: LEVEMIR (INSULIN DETEMIR) 1 UNITS/0.01ML SC SCH (21:08)
[2018-05-14 22:00] VITALS: BP 160/72
[2018-05-15] MEDS: D5W/0.45% SODIUM CHLORIDE 1,000 ML IV SCH ×2 (00:05→09:42)
[2018-05-15 05:54] LABS: HEMATOCRIT 28.8 % (42.0-52.0); HEMOGLOBIN 8.6 g/dl (13.5-17.5); MEAN CORPUSCULAR HEMOGLOBIN 23.9 pg (27.0-33.0); MEAN CORPUSCULAR HGB CONC 29.9 g/dl (32.0-36.5); PLATELET COUNT, AUTOMATED 197 10^3/uL (150-450); WHITE BLOOD COUNT 9.9 10^3/uL (4.0-10.0)
[2018-05-15 06:00] VITALS: BP 172/80
[2018-05-15 06:05] LABS: INR 1.57
[2018-05-15 06:21] LABS: BLOOD UREA NITROGEN 20 MG/DL (7-18); CALCIUM LEVEL 7.6 MG/DL (8.8-10.2); CARBON DIOXIDE LEVEL 26 MEQ/L (21-32); CHLORIDE LEVEL 109 MEQ/L (98-107); GLOMERULAR FILTRATION RATE > 60.0 (>35); GLUCOSE, FASTING 127 MG/DL (70-100); POTASSIUM SERUM 3.9 MEQ/L (3.5-5.1); SODIUM LEVEL 140 MEQ/L (136-145)
[2018-05-15 09:30] VITALS: BP 216/91
[2018-05-15] MEDS: CitaloPRAM (CeleXA) 20 MG TAB PO SCH (09:43)
[2018-05-15] MEDS: traZODone 100 MG TAB PO SCH ×3 (09:43→20:46)
[2018-05-15] MEDS: ASPIRIN 81 MG ENTERIC TAB PO SCH (09:43)
[2018-05-15] MEDS: HumaLOG INSULIN (NovoLOG) PER UNIT SC SCH ×4 (09:43→20:35)
[2018-05-15] MEDS: GABAPENTIN 300 MG CAP PO SCH ×4 (09:44→20:46)
[2018-05-15] MEDS: **hydrALAZINE** 10 MG TAB PO SCH ×2 (09:47→20:45)
[2018-05-15] MEDS: CARVedilol 12.5 MG TAB PO SCH ×2 (09:48→20:47)
[2018-05-15] MEDS: OMEPRAZOLE 20 MG CAP PO SCH (12:26)
[2018-05-15] MEDS: SENNA 8.6 MG TAB (SENOKOT) PO SCH ×2 (13:03→20:45)
[2018-05-15] MEDS: CAPTOpril 6.25 MG PER 1/2 TABLET PO SCH ×2 (13:06→20:45)
[2018-05-15 13:32] LABS: HEMATOCRIT 30.4 % (42.0-52.0); HEMOGLOBIN 8.9 g/dl (13.5-17.5)
[2018-05-15 14:55] VITALS: BP 175/85
[2018-05-15] MEDS: cefTRIAXone SOD 1 GM in D5W MINI-BAG PLUS 50 ML IV SCH (15:27)
[2018-05-15] MEDS ORDERED: WARFARIN SOD 4 MG TAB PO ONE (17:00)
--- NOTE | 2018-05-15 17:39 | IPN ---
DATE: 05/15/2018 Patient seen and examined at bedside. No reported events overnight. Per the patient and staff, his hematuria is almost fully resolved. He is overall having his regular cloudy urine. A small clot this morning; however, otherwise is doing well. No abdominal or pelvic pain. No bladder distention or urinary retention. Of note, his hemoglobin did drop from 9.6 to 8.6 this morning. We will be rechecking in the afternoon. PHYSICAL EXAMINATION: VITAL SIGNS: Temperature 98.1, pulse 64, respirations 21, blood pressure (BP) 172/80 with a mean arterial pressure (MAP) of 110, pulse oximetry 94% on 1 liter nasal cannula. GENERAL: Ambulating comfortably from the bathroom to his chair. No acute distress. Fully conversant. HEENT: Normocephalic, atraumatic (NCAT). Extraocular muscles intact (EOMI). Anicteric sclerae. NECK: Supple. CARDIOVASCULAR: Regular rate and regular rhythm today, although has a history of paroxysmal atrial fibrillation. No audible murmurs. LUNGS: Clear to auscultation bilaterally. Equal chest rise. No audible wheezing. ABDOMEN: Soft, nontender, nondistended. Positive bowel sounds. Nontender and nondistended bladder. EXTREMITIES: Radial pulses 2+ bilaterally. Chronic pain in bilateral lower extremities. LABORATORY DATA: WBC 9.9, hemoglobin and hematocrit 8.6 and 28.8, platelets 197. Potassium 3.9, BUN and creatinine 20 and 1.1, ASSESSMENT AND PLAN: 1. Gross hematuria, likely multifactorial given his acute urinary tract infection (UTI) and a history of obstructive uropathy as well as urethral stent in 2003. He is being actively treated for his UTI, and his INR is subtherapeutic today at 1.57. Continue his warfarin doses to get in therapeutic range. His hematuria has essentially resolved. Urology would like an outpatient followup for possible cystoscopy and urologic studies. His hemoglobin did drop from 9.6 to 8.6 this morning. We will recheck in the afternoon and transfuse as needed to maintain hemoglobin above 8. He is status post one transfusion thus far this admission. 2. UTI. Positive urinalysis (UA) on admission; however, culture is negative. Of note, he did have a recent urine culture done just a few days prior to this admission that did grow Escherichia (E) coli and did not improve with Macrobid; thus, we will continue him on ceftriaxone, started on May 12, based off previous sensitivities. 3. Long-term anticoagulation use. The patient is on Coumadin for his atrial fibrillation, however, was supratherapeutic on admission and has received one dose of vitamin K, and anticoag was initially held. Due to his acute hematuria, he was restarted back on Coumadin yesterday without any bleeding, however, has subtherapeutic INR today. After speaking to urology yesterday, Dr. Carter recommended restarting anticoagulation. Will give higher dose today and recheck INR tomorrow. 4. Paroxysmal atrial fibrillation. Patient is in normal sinus rhythm this morning. Rate is controlled. Continue adjusting Coumadin for therapeutic level. 5. Insulin-dependent diabetes mellitus, type 2. Continue insulin sliding scale and consistent-carbohydrate diet. 6. Coronary artery disease (CAD). Continue Lipitor, Coreg, and aspirin restarted per urology's recommendations. 7. Chronic kidney disease (CKD), stage III, stable. Continue monitoring. We will resume his home angiotensin-converting enzyme (KIERA) inhibitor, which was initially held due to elevated creatinine. 8. Hypokalemia. Supplemented yesterday, resolved today. 9. BPH. Baseline urinary incontinence. Continue Flomax. 10. Deep vein thrombosis (DVT) prophylaxis. Thromboembolic deterrent stockings (TEDS), sequential compression devices (SCDs), and Coumadin. DISPOSITION: Monitor hemoglobin and hematocrit. Subtherapeutic INR. Likely discharge in the next few days. My faculty preceptor for this patient encounter was physically present during the encounter and was fully available. All aspects of the patient interview, examination, medical decision making process, and medical care plan development were reviewed and approved by the faculty preceptor. The faculty preceptor is aware and concurs with the plan as stated in the body of this note and will attest to such by his/her co-signature. ARELI
[2018-05-15] MEDS: LEVEMIR (INSULIN DETEMIR) 1 UNITS/0.01ML SC SCH (20:46)
[2018-05-15 22:00] VITALS: BP 160/87
[2018-05-16 05:43] LABS: HEMATOCRIT 27.8 % (42.0-52.0); HEMOGLOBIN 8.3 g/dl (13.5-17.5); MEAN CORPUSCULAR HGB CONC 29.9 g/dl (32.0-36.5); MEAN CORPUSCULAR VOLUME 80.3 fl (80.0-96.0); PLATELET COUNT, AUTOMATED 185 10^3/uL (150-450); RED BLOOD COUNT 3.46 10^6/uL (4.30-6.10); WHITE BLOOD COUNT 7.8 10^3/uL (4.0-10.0)
[2018-05-16 05:57] LABS: INR 1.54; PROTHROMBIN TIME 18.7 SECONDS (12.1-14.4)
[2018-05-16 06:00] VITALS: BP 159/88
[2018-05-16 06:09] LABS: BLOOD UREA NITROGEN 19 MG/DL (7-18); CALCIUM LEVEL 7.6 MG/DL (8.8-10.2); CARBON DIOXIDE LEVEL 26 MEQ/L (21-32); CHLORIDE LEVEL 111 MEQ/L (98-107); CREATININE FOR GFR 1.11 MG/DL (0.70-1.30); GLOMERULAR FILTRATION RATE > 60.0 (>35); GLUCOSE, FASTING 145 MG/DL (70-100); POTASSIUM SERUM 3.8 MEQ/L (3.5-5.1); SODIUM LEVEL 141 MEQ/L (136-145)
[2018-05-16] MEDS: SENNA 8.6 MG TAB (SENOKOT) PO SCH ×2 (08:43→21:00)
[2018-05-16] MEDS: HumaLOG INSULIN (NovoLOG) PER UNIT SC SCH ×4 (08:43→20:53)
[2018-05-16] MEDS: CARVedilol 12.5 MG TAB PO SCH ×2 (08:44→21:02)
[2018-05-16] MEDS: CAPTOpril 12.5 MG TAB PO SCH ×2 (08:44→21:02)
[2018-05-16] MEDS: CitaloPRAM (CeleXA) 20 MG TAB PO SCH (08:44)
[2018-05-16] MEDS: **hydrALAZINE** 10 MG TAB PO SCH ×2 (08:44→21:01)
[2018-05-16] MEDS: GABAPENTIN 300 MG CAP PO SCH ×4 (08:45→21:00)
[2018-05-16] MEDS: ASPIRIN 81 MG ENTERIC TAB PO SCH (08:45)
[2018-05-16] MEDS: OMEPRAZOLE 20 MG CAP PO SCH (12:41)
[2018-05-16] MEDS: CEFDINIR 300 MG CAP (OMNICEF) PO SCH ×2 (13:47→21:00)
--- NOTE | 2018-05-16 16:26 | IPN ---
DATE: 05/16/2018 Patient seen and examined at bedside. No acute events overnight. His hemoglobin and hematocrit remain stable. He is no longer having hematuria. No bladder or pelvic pain. His INR remains subtherapeutic. Continue increasing his warfarin doses. He continues to participate with physical therapy (PT). PHYSICAL EXAMINATION: VITAL SIGNS: Temperature 99, pulse 67, respirations 20, blood pressure (BP) 159/88 with a mean arterial pressure (MAP) of 111, pulse oxycodone 98% on 1 liter nasal cannula. GENERAL: Sitting up in chair resting comfortable. No acute distress. Fully conversant. HEENT: Normocephalic, atraumatic (NCAT). Extraocular muscles intact (EOMI), anicteric sclerae. NECK: Supple. CARDIOVASCULAR: Regular rate and rhythm, although he has a history of paroxysmal atrial fibrillation. No audible murmurs. Normal S1, S2. LUNGS: Clear to auscultation bilaterally. Equal chest rise. No wheezing, rhonchi, or rales. ABDOMEN: Soft, nontender, nondistended. Positive bowel sounds. Non-tense bladder. EXTREMITIES: Radial pulses 2+ bilaterally. Chronic pain, bilateral lower extremities. LABORATORY DATA: WBC 7.8, hemoglobin and hematocrit 8.3 and 27.8, platelets 185. BUN and creatinine are 19 and 1.11. INR today 1.54. ASSESSMENT AND PLAN: 1. Gross hematuria, likely multifactorial given his supratherapeutic INR on admission as well as acute urinary tract infection (UTI) and history of obstructive uropathy, status post urethral stent in 2003. Hematuria has resolved after withholding anticoagulation on admission and with supportive care. He is now resumed on his warfarin and is actively being treated with antibiotics for his UTI. Urology would like outpatient followup for possible cystoscopy and urologic studies. His hemoglobin and hematocrit remain stable at 8.3 today. Continue monitoring. He has received 1 unit of packed red blood cells (PRBC) thus far (to maintain above 8). 2. Subtherapeutic INR. Patient is chronically anticoagulated for his history of paroxysmal atrial fibrillation. Warfarin was initially held on admission given his acute hematuria, which is now resolved. He has also received 1 unit of fresh frozen plasma (FFP) thus far. His INR is 1.54. Continue up-titrating his Coumadin for therapeutic levels. 3. UTI. Continue ceftriaxone started on 05/12/2018. He has grown Escherichia (E) coli in the past. 4. Hypertension. Patient is on 6.25 mg twice a day of captopril at home. He has elevated blood pressures thus far. Will increase dose and monitor. Renal function is stable. 5. Paroxysmal atrial fibrillation. He is in normal sinus rhythm today. Rate is controlled. Continue up-titrating Coumadin and checking daily INRs. 6. Insulin-dependent diabetes mellitus, type 2. Continue insulin sliding scale, consistent-carbohydrate diet. 7. Coronary artery disease (CAD). Continue Lipitor, Coreg, aspirin. 8. Chronic kidney disease (CKD), stage III, stable. Continue monitoring. 9. BPH. Continue Flomax. 10. Deep vein thrombosis prophylaxis. Thromboembolic deterrents (TEDs) and sequential compression devices (SCDs) and chronically on Coumadin. DISPOSITION: Pending PT and occupational therapy (OT). Likely to acute rehabilitation in the next few days. My faculty preceptor for this patient encounter was physically present during the encounter and was fully available. All aspects of the patient interview, examination, medical decision making process, and medical care plan development were reviewed and approved by the faculty preceptor. The faculty preceptor is aware and concurs with the plan as stated in the body of this note and will attest to such by his/her co-signature.
[2018-05-16] MEDS ORDERED: WARFARIN SOD 3 MG TAB PO ONE (17:00)
[2018-05-16] MEDS: ATORVASTATIN 20 MG TAB PO SCH (21:00)
[2018-05-16] MEDS: traZODone 100 MG TAB PO SCH (21:01)
[2018-05-16] MEDS: LEVEMIR (INSULIN DETEMIR) 1 UNITS/0.01ML SC SCH (21:03)
[2018-05-16 22:00] VITALS: BP 157/71
[2018-05-17 05:51] LABS: HEMATOCRIT 27.5 % (42.0-52.0); HEMOGLOBIN 8.2 g/dl (13.5-17.5); MEAN CORPUSCULAR HEMOGLOBIN 24.3 pg (27.0-33.0); MEAN CORPUSCULAR HGB CONC 29.8 g/dl (32.0-36.5); MEAN CORPUSCULAR VOLUME 81.4 fl (80.0-96.0); PLATELET COUNT, AUTOMATED 170 10^3/uL (150-450); RED BLOOD COUNT 3.38 10^6/uL (4.30-6.10); WHITE BLOOD COUNT 7.8 10^3/uL (4.0-10.0)
[2018-05-17 06:00] VITALS: BP 151/77
[2018-05-17 06:08] LABS: INR 1.54; PROTHROMBIN TIME 18.7 SECONDS (12.1-14.4)
[2018-05-17 06:19] LABS: BLOOD UREA NITROGEN 19 MG/DL (7-18); CALCIUM LEVEL 7.7 MG/DL (8.8-10.2); CARBON DIOXIDE LEVEL 25 MEQ/L (21-32); CHLORIDE LEVEL 112 MEQ/L (98-107); CREATININE FOR GFR 1.07 MG/DL (0.70-1.30); GLOMERULAR FILTRATION RATE > 60.0 (>35); GLUCOSE, FASTING 106 MG/DL (70-100); POTASSIUM SERUM 3.9 MEQ/L (3.5-5.1); SODIUM LEVEL 143 MEQ/L (136-145)
[2018-05-17] MEDS: HumaLOG INSULIN (NovoLOG) PER UNIT SC SCH ×4 (07:30→20:50)
[2018-05-17] MEDS: CEFDINIR 300 MG CAP (OMNICEF) PO SCH ×2 (08:39→20:50)
[2018-05-17] MEDS: ASPIRIN 81 MG ENTERIC TAB PO SCH (08:39)
[2018-05-17] MEDS: CAPTOpril 12.5 MG TAB PO SCH ×2 (08:39→20:49)
[2018-05-17] MEDS: CitaloPRAM (CeleXA) 20 MG TAB PO SCH (08:40)
[2018-05-17] MEDS: GABAPENTIN 300 MG CAP PO SCH ×4 (08:40→20:50)
[2018-05-17] MEDS: SENNA 8.6 MG TAB (SENOKOT) PO SCH ×2 (08:40→20:49)
[2018-05-17] MEDS: CARVedilol 12.5 MG TAB PO SCH ×2 (08:41→20:49)
[2018-05-17] MEDS: amLODIPine 5 MG TAB PO SCH (08:41)
[2018-05-17] MEDS: OMEPRAZOLE 20 MG CAP PO SCH (12:15)
[2018-05-17 14:00] VITALS: BP 132/50
[2018-05-17] MEDS ORDERED: WARFARIN SOD 4 MG TAB PO ONE (17:00)
--- NOTE | 2018-05-17 20:08 | IPN ---
DATE: 05/17/2018 Patient was examined at bedside. No issues overnight. He continues to ambulate and is looking forward to going to rehabilitation and then home. His INR is subtherapeutic. Continue up titrating warfarin. His blood pressure is slightly elevated for which he has been started on additional antihypertensives. Continues with physical therapy (PT)/occupational therapy (OT). PHYSICAL EXAMINATION: VITALS: Temperature 98.1, pulse 64, respirations 19, blood pressure 157/77. Mean arterial pressure (MAP) of 101. Pulse oximetry 93% on 2 liters. GENERAL: Sitting up in bed. No acute distress. Fully conversant and pleasant. HEENT: Normocephalic, atraumatic. Extraocular muscles intact. Anicteric sclera. Moist mucous membranes. NECK: Supple. CARDIOVASCULAR: Regular rate and rhythm. He does have a history of paroxysmal atrial fibrillation (a-fib). No audible murmurs. Normal S1, S2. LUNGS: Clear bilaterally. Equal chest rise. No wheezing, rhonchi, or rales. ABDOMEN: Soft, nontender, nondistended. Positive bowel sounds. EXTREMITIES: 2+ radial pulses bilaterally. Chronic pain bilateral lower extremities. LABS: WBC 7.8, hemoglobin and hematocrit 8.2, 27.5. Platelets 170. BUN and creatinine 19 and 1.07. INR 1.54. ASSESSMENT AND PLAN: 1. Gross hematuria. Has resolved after holding anticoagulation and with supportive care. Most likely multifactorial given supratherapeutic INR on admission as well as active urinary tract infection (UTI) and history of obstructive uropathy. Status post urethral stent in 2003. He is now resumed on his anticoagulation. No longer having any hematuria and he continues on antibiotics for the UTI. Upon discharge urology would like outpatient followup for possible cystoscopy and neurologic studies. His hemoglobin and hematocrit overall remain stable. Transfuse as needed to maintain above 8. Currently he is status post one transfusion during this stay. 2. Subtherapeutic INR. Patient is on warfarin chronically for his paroxysmal atrial fibrillation. Anticoagulation was held on admission due to supratherapeutic levels and patient is status post one unit of fresh frozen plasma (FFP). INR remains 1.54 today. Continue up titrating Coumadin for therapeutic levels. 3. UTI. He continues on by mouth (p.o.) cefdinir. Given previous cultures of E. Coli, antibiotics started 05/12/2018. 4. Hypertension. Home dose of Captopril has been increased. He has also been started on amlodipine for better blood pressure control. Renal function remains stable. 5. Paroxysmal a-fib. He is in normal sinus rhythm today. Rate is controlled. Subtherapeutic INR requires continuing up titrating his Coumadin and daily INR checks. 6. Insulin dependent diabetes mellitus type 2. On insulin sliding scale and consistent carbohydrate diet. 7. Coronary artery disease (CAD). Lipitor, Coreg and aspirin. 8. Chronic kidney disease (CKD) stage III. Stable. 9. Benign prostatic hypertrophy (BPH). Continue Flomax. 10. Deep venous thrombosis (DVT) prophylaxis. TEDs, sequential compression devices (SCDs) and chronically Coumadin. DISPOSITION: Pending PT and OT. Likely to acute rehabilitation when he clears. My faculty preceptor for this patient encounter was physically present during the encounter and was fully available. All aspects of the patient interview, examination, medical decision making process, and medical care plan development were reviewed and approved by the faculty preceptor. The faculty preceptor is aware and concurs with the plan as stated in the body of this note and will attest to such by his/her co-signature.
[2018-05-17] MEDS: traZODone 100 MG TAB PO SCH (20:48)
[2018-05-17] MEDS: LEVEMIR (INSULIN DETEMIR) 1 UNITS/0.01ML SC SCH (20:48)
[2018-05-17 22:00] VITALS: BP_SYST 130; BP_SYST 66; BP_DIAS 77
[2018-05-18 06:00] VITALS: BP 149/87
[2018-05-18 06:00] LABS: HEMATOCRIT 26.9 % (42.0-52.0); HEMOGLOBIN 7.9 g/dl (13.5-17.5); MEAN CORPUSCULAR HGB CONC 29.4 g/dl (32.0-36.5); MEAN CORPUSCULAR VOLUME 81.8 fl (80.0-96.0); PLATELET COUNT, AUTOMATED 164 10^3/uL (150-450); RED BLOOD COUNT 3.29 10^6/uL (4.30-6.10)
[2018-05-18 06:09] LABS: INR 1.86; PROTHROMBIN TIME 21.8 SECONDS (12.1-14.4)
[2018-05-18 06:21] LABS: BLOOD UREA NITROGEN 18 MG/DL (7-18); CALCIUM LEVEL 7.6 MG/DL (8.8-10.2); CARBON DIOXIDE LEVEL 26 MEQ/L (21-32); CHLORIDE LEVEL 110 MEQ/L (98-107); CREATININE FOR GFR 1.04 MG/DL (0.70-1.30); GLOMERULAR FILTRATION RATE > 60.0 (>35); GLUCOSE, FASTING 110 MG/DL (70-100); POTASSIUM SERUM 3.8 MEQ/L (3.5-5.1); SODIUM LEVEL 142 MEQ/L (136-145)
[2018-05-18] MEDS: ASPIRIN 81 MG ENTERIC TAB PO SCH (09:09)
[2018-05-18] MEDS: CEFDINIR 300 MG CAP (OMNICEF) PO SCH (09:09)
[2018-05-18] MEDS: SENNA 8.6 MG TAB (SENOKOT) PO SCH (09:09)
[2018-05-18] MEDS: GABAPENTIN 300 MG CAP PO SCH ×2 (09:09→13:23)
[2018-05-18] MEDS: HumaLOG INSULIN (NovoLOG) PER UNIT SC SCH ×2 (09:10→13:24)
[2018-05-18] MEDS: CitaloPRAM (CeleXA) 20 MG TAB PO SCH (09:10)
[2018-05-18 09:11] VITALS: BP 160/75
[2018-05-18] MEDS: amLODIPine 5 MG TAB PO SCH (09:11)
[2018-05-18] MEDS: CARVedilol 12.5 MG TAB PO SCH (09:11)
[2018-05-18] MEDS: CAPTOpril 12.5 MG TAB PO SCH (09:11)
[2018-05-18] MEDS ORDERED: WARF4TAB51 PO ×2 (11:08→11:09)
[2018-05-18] MEDS ORDERED: WARFARIN SOD 5 MG TAB PO ONE ×2 (11:15→17:00)
[2018-05-18] MEDS: OMEPRAZOLE 20 MG CAP PO SCH (13:23)
[2018-05-18 14:00] VITALS: BP 135/60
[2018-05-18] MEDS ORDERED: WARFARIN SOD 4 MG TAB PO ONE (17:00)
--- NOTE | 2018-05-29 12:07 | DS.PDOC ---
Discharge Summary General Date of Admission May 14, 2018 at 13:36 Date of Discharge 05/18/18 Attending Physician: GARRETT PARRY MD Discharge Summary PROCEDURES PERFORMED DURING STAY: 2U PRBC transfusion, 1 dose Vit K ADMITTING DIAGNOSES: 1. Gross hematuria 2. supratherapeutic INR 3. Supra-therapeutic INR 4. UTI DISCHARGE DIAGNOSES: 1. Gross hematuria, resolved. 2/2 supratherapeutic INR & UTI 2. Supra-therapeutic INR 3. UTI 4. Hypoglycemia in setting of IDDM2 5. Uncontrolled HTN with Hypertensive Heart Ds Paroxysmal Afib, chronically on Coumadin CAD Hypercholesterolemia CKD III Obstructive uropathy with BPH, s/p urethral stent 2003 Dysthymic disorder Vitamin D deficiency Anemia of renal disease Macular degeneration COMPLICATIONS/CHIEF COMPLAINT: UTI. HISTORY OF PRESENT ILLNESS: 87-year-old male brought in via EMS after his noted blood in his urine earlier today. He denies any abdominal, pelvic, or bladder pain. Of note, he was recently treated for UTI, placed on Bactrim, without any improvement. He admits to continued dysuria, urgency, frequency. At baseline, he is incontinent of his urine. Per MrChace mathew, he is still making urine, and is actually going more than his usual, likely due to his UTI. Per the , patient has a history of a urethral stent, procedure performed in [place], of which we do not have records. Currently he is in the process of establishing with a local urologist. In the ER, attempts were made at inserting a Marrero as well as straight cath for urine sample, however per staff, resistance was met within 2-3 cm of insertion. HOSPITAL COURSE: Pt was admitted. UA & renal Us ordered. given +UA and hx growing EColi and having failed o/p Macrobid, he was started on Ceftriaxone. Pt was also noted to be hypoglycemic in 50s-60s on admission, improved with fluids and hypoglycemic protocol. Urologist Dr. Carter was consulted and recommended performing a post void residual and to avoid inserting any catheters given resistance on attempts in ER. Per Urology, no need for CBI or OR. Urology recommended he be seen as an outpatient and will require a cystoscopy and probably urodynamic studies. Pt Coumadin was held due to INR of 3.57 on admission, and he was given 1 dose Vit K for INR of 4.55 the next morning. INR dropped to 2.33 next day, and after discussing with Urology, Coumadin was resumed per their recommendations. He required larger doses of Coumadin to help raise his INR, still subtherapeutic on discharge at 1.86 with 10mg given before pt left hospital. During the stay, he required 2U PRBC transfusion for H&H 7.8 on day 2 and 7.9 on d/c. His hematuria gradually improved with supportive care. His H&H remained stable and hematuria resolved. He cleared PT & OT, and was discharged home, updated on his health and plan of care and all questions answered. Pt was instructed to f/u with PCP within 1 week and Urology in 2-3 weeks. He was switched to po antibitoics for UTI and instructed to complete remaining course. Of note, during his stay, bp was uncontrolled despite resuming his home regimen. Captopril was doubled from his home dose of 6.25mg bid to 12.5 bid, with which renal function remained stable, but bp still uncontrolled. Thus, he was also started on Amlodipine inpatient. On discharge, pt was kept on same antihypertensives as before admission, and counseled to follow up o/p with PCP regarding bp reassessment and adjustment as needed. MEDS CHANGED ON DISCHARGE: Stop nitrofurantoin Warfarin dose adjusted to 2mg daily, f/u INR with PCP DISCHARGE MEDICATIONS: Please see below. ALLERGIES: Please see below. PHYSICAL EXAMINATION ON DISCHARGE: VITAL SIGNS: Please see below. GENERAL: Sitting up in bed. No acute distress. Fully conversant and pleasant. HEENT: Normocephalic, atraumatic. Extraocular muscles intact. Anicteric sclera. Moist mucous membranes. NECK: Supple. CARDIOVASCULAR: Regular rate and rhythm. He does have a history of paroxysmal atrial fibrillation (a-fib). No audible murmurs. Normal S1, S2. LUNGS: Clear bilaterally. Equal chest rise. No wheezing, rhonchi, or rales. ABDOMEN: Soft, nontender, nondistended. Positive bowel sounds. EXTREMITIES: 2+ radial pulses bilaterally. Chronic pain bilateral lower extremities. LABORATORY DATA: Please see below. IMAGING: * 05/12/[address]: 1. 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 2. Ventriculomegaly proportionate to the degree of atrophy and extensive chronic small vessel white matter ischemic changes of aging noted. 3. No intracranial hemorrhage, acute infarct, extra-axial fluid collection nor other significant finding. Stable examination. * 05/12/18 CXR: 1. Cardiomegaly with left atrial and ventricular enlargement, vascular redistribution, and some underlying interstitial fibrosis. This fibrosis makes early interstitial edema difficult to exclude and I am leon spicious. I do not see dense consolidation with air bronchograms. No visible effusion. * 05/12/18 Renal US: 1. Cortical thinning and sinus lipomatosis bilaterally. No hydronephrosis, hydroureter, solid mass, stone, or perinephric fluid. 2. Exophytic cyst on the right 3.9 x 3.6 cm, on the left 1.3 x 1 cm. 3. Bladder underfilled. Thickened irregular bladder wall inferiorly, but this could be just due to underfilling of the bladder versus a true bladder wall mass. True bladder lesion is not excluded or defined by this study which is nondiagnostic regarding the bladder. A better exam with the bladder filled would be in order for followup. PROGNOSIS: fair ACTIVITY: [As tolerated]. DIET: 2g sodium DISPOSITION: 01 Home, Self-Care. DISCHARGE INSTRUCTIONS: 1. F/U with PCP within 1 week, with Urology within 2-3 weeks 2. Return to ER for emergency 3. Complete remainder of antibiotics as prescribed DISCHARGE CONDITION: [Stable]. TIME SPENT ON DISCHARGE: Greater than 35 minutes. Discharge Medications Scheduled (Kayla Jean) 300 Unit/Ml Inj, 35 UNIT SC DAILY, (Reported) Aspirin (Aspirin) 81 Mg Tab, 81 MG PO QHS, (Reported) Atorvastatin Calcium (Atorvastatin Calcium) 80 Mg Tab, 40 MG PO 3XW, (Reported) QHS: MON,WED,MON Captopril (Captopril) 12.5 Mg Tab, 6.25 MG PO BID, (Reported) Carvedilol (Carvedilol) 25 Mg Tab, 25 MG PO BID, (Reported) Cholecalciferol (Vitamin D3) 50,000 Unit Tab, 50,000 UNIT PO Q2WK, (Reported) WEDNESDAYS Citalopram Hydrobromide (Citalopram Hydrobromide) 20 Mg Tab, 20 MG PO DAILY, (Reported) Furosemide (Furosemide) 80 Mg Tab, 80 MG PO 2XWK, (Reported) MONDAY AND MONDAY Gabapentin (Gabapentin) 300 Mg Cap, 300 MG PO ACHS, (Reported) Glipizide (Glipizide) 5 Mg Tab, 2.5 MG PO BID, (Reported) BREAKFAST AND DINNER Magnesium Oxide (Magnesium Oxide) 400 Mg Tab, 400 MG PO QHS, (Reported) Omeprazole (Omeprazole) 40 Mg Cap, 40 MG PO DAILY, (Reported) LUNCH Potassium Chloride (Klor-Con M10) 10 Meq Tabcr, 10 MEQ PO BID, (Reported) BREAKFAST AND DINNER Trazodone HCl (Trazodone HCl) 100 Mg Tab, 100 MG PO QHS, (Reported) Warfarin Sod (Warfarin Sodium) 2 Mg Tab, 2 MG PO QPM Scheduled PRN Albuterol Sulfate (Ventolin Hfa) 108 Mcg/Act Aer, 2 PUFF INH Q4H PRN for SHORTNESS OF BREATH, (Reported) Allergies Coded Allergies: Sulfa Drugs (Verified Allergy, Mild, RASH, 06/25/12) Sulfa Drugs Cross Reactors (Verified Allergy, Mild, RASH, 06/25/12) Sulfamethoxazole (Verified Allergy, Mild, RASH, 06/25/12) Trimethoprim (Verified Allergy, Mild, RASH, 06/25/12) Pea (Verified Allergy, Unknown, 03/21/12) Hydrocodone (Verified Adverse Reaction, Intermediate, HALLUCINATIONS, 06/25/12) Meperidine (Verified Adverse Reaction, Intermediate, HALLUCINATIONS, 06/25/12) Morphine (Verified Adverse Reaction, Intermediate, HALLUCINATIONS, 06/25/12) Oxycodone (Verified Adverse Reaction, Intermediate, HALLUCINATIONS, 06/25/12) Replaces PERCODAN Quinolones (Verified Adverse Reaction, Intermediate, HALLUCINATIONS, 06/25/12) GME ATTESTATION GME ATTESTATION My faculty preceptor for this patient encounter was physically present during the encounter and was fully available. All aspects of the patient interview, examination, medical decision making process, and medical care plan development were reviewed and approved by the faculty preceptor. The faculty preceptor is aware and concurs with the plan as stated in the body of this note and will attest to such by his/her cosignature. LAKESHIA MCKINLEY DO May 29, 2018 12:07
== END 2018-05-18 17:02 | disposition home health service (06) | DRG 813 ==
LOC: EDBD 11:10 → M ED 11:10 → M ED INP 13:52 → M MSPAV 16:25 → OBSVTOIN 05-14 13:36
PROVIDERS: ADMIT Internal Medicine; ATTEND Internal Medicine
DX: D68.32 Hemorrhagic disorder due to extrinsic circulating anticoagulants (principal); N39.0 Urinary tract infection, site not specified; R31.0 Gross hematuria; E11.649 Type 2 diabetes mellitus with hypoglycemia without coma; I48.2 Chronic atrial fibrillation; R79.1 Abnormal coagulation profile; N18.3 Chronic kidney disease, stage 3 (moderate); I48.0 Paroxysmal atrial fibrillation; Z79.01 Long term (current) use of anticoagulants; E55.9 Vitamin D deficiency, unspecified; D63.1 Anemia in chronic kidney disease; H35.30 Unspecified macular degeneration; N40.0 Benign prostatic hyperplasia without lower urinary tract symptoms; I12.9 Hypertensive chronic kidney disease with stage 1 through stage 4 chronic kidney disease, or unspecified chronic kidney disease; E78.00 Pure hypercholesterolemia, unspecified; B96.29 Other Escherichia coli [E. coli] as the cause of diseases classified elsewhere; Z79.899 Other long term (current) drug therapy; Z79.82 Long term (current) use of aspirin; Z88.2 Allergy status to sulfonamides; Z88.5 Allergy status to narcotic agent; Z88.8 Allergy status to other drugs, medicaments and biological substances; Z91.018 Allergy to other foods; I25.10 Atherosclerotic heart disease of native coronary artery without angina pectoris; Z87.891 Personal history of nicotine dependence; Z95.2 Presence of prosthetic heart valve; E87.6 Hypokalemia

== ENCOUNTER → 2018-05-25 | Outpatient (REF) | payer MEDICARE ==
[~2018-05-25] MED LIST changes: +ATOR80TA59 PO; +NITR100C2 PO; +VENTAER INH
== END ==
LOC: M SMT 17:04
PROVIDERS: ATTEND Nurse Practitioner Family
DX: R31.0 Gross hematuria (principal)
CPT/HCPCS: 51798; 88108; G0463

== ENCOUNTER → 2018-05-29 | Outpatient (REF) | payer MEDICARE ==
[2018-05-29 18:27] LABS: HEMATOCRIT 31.5 % (42.0-52.0); HEMOGLOBIN 9.3 g/dl (13.5-17.5); MEAN CORPUSCULAR HEMOGLOBIN 24.6 pg (27.0-33.0); MEAN CORPUSCULAR HGB CONC 29.5 g/dl (32.0-36.5); MEAN CORPUSCULAR VOLUME 83.3 fl (80.0-96.0); PLATELET COUNT, AUTOMATED 191 10^3/uL (150-450); RED BLOOD COUNT 3.78 10^6/uL (4.30-6.10); WHITE BLOOD COUNT 6.4 10^3/uL (4.0-10.0)
[2018-05-29 18:52] LABS: ALBUMIN 3.2 GM/DL (3.2-5.2); BILIRUBIN,TOTAL 0.4 MG/DL (0.2-1.0); CALCIUM LEVEL 8.6 MG/DL (8.8-10.2); CREATININE FOR GFR 1.31 MG/DL (0.70-1.30); GLOMERULAR FILTRATION RATE 55.4 (>35); POTASSIUM SERUM 5.3 MEQ/L (3.5-5.1); TOTAL PROTEIN 6.3 GM/DL (6.4-8.2)
[2018-05-29 19:01] LABS: PTH INTACT 56.1 PG/ML (18.5-88.0)
[2018-05-29 19:10] LABS: HEMOGLOBIN A1c 6.1 %
== END ==
LOC: M SFHCPLAZ 15:09
PROVIDERS: ATTEND Internal Medicine
DX: N18.3 Chronic kidney disease, stage 3 (moderate) (principal); D63.1 Anemia in chronic kidney disease; I12.9 Hypertensive chronic kidney disease with stage 1 through stage 4 chronic kidney disease, or unspecified chronic kidney disease; E11.40 Type 2 diabetes mellitus with diabetic neuropathy, unspecified; E11.22 Type 2 diabetes mellitus with diabetic chronic kidney disease; I48.2 Chronic atrial fibrillation; I25.10 Atherosclerotic heart disease of native coronary artery without angina pectoris; E78.00 Pure hypercholesterolemia, unspecified; F34.1 Dysthymic disorder; N13.9 Obstructive and reflux uropathy, unspecified; E55.9 Vitamin D deficiency, unspecified; R33.9 Retention of urine, unspecified; Z51.81 Encounter for therapeutic drug level monitoring; Z79.01 Long term (current) use of anticoagulants; Z79.4 Long term (current) use of insulin; H35.30 Unspecified macular degeneration; Z87.448 Personal history of other diseases of urinary system
CPT/HCPCS: 36415; 80053; 83036; 83735; 83970; 85027; G0463

== ENCOUNTER → 2018-05-30 | Outpatient (REF) | payer MEDICARE ==
[2018-05-30 20:50] LABS: CREATININE, URINE 65.4 MG/DL
== END ==
LOC: M SFHCPLAZ 13:36
PROVIDERS: ATTEND Internal Medicine
DX: E11.40 Type 2 diabetes mellitus with diabetic neuropathy, unspecified (principal)

== ENCOUNTER → 2018-06-20 | Outpatient (REF) | payer MEDICARE ==
[~2018-06-20] MED LIST changes: -/ATOR40TA OR; -/TAMS4CA OR; -/WARF2TA OR; -/WARF3TA PO; -CITA20TA4 PO; +CITA20TA6 PO; +COUM1TAB16 OR; +COUM1TAB19 PO; +FLOM0.4C39 OR; +INSUHUMDS; +KEFL500C17 PO; +LIPI1TAB2 OR; +PENT1TAB PO; +TAMS1CAP17; -[UNRECOGNIZED DRUG - OTHER] PO
[2018-06-20 19:44] LABS: CALCIUM LEVEL 8.7 MG/DL (8.8-10.2); CREATININE FOR GFR 1.52 MG/DL (0.70-1.30); GLOMERULAR FILTRATION RATE 46.6 (>35); MAGNESIUM LEVEL 2.3 MG/DL (1.8-2.4); POTASSIUM SERUM 4.9 MEQ/L (3.5-5.1)
== END ==
LOC: M SFHCPLAZ 15:29
PROVIDERS: ATTEND Internal Medicine
DX: I11.0 Hypertensive heart disease with heart failure (principal); Z51.81 Encounter for therapeutic drug level monitoring; Z79.01 Long term (current) use of anticoagulants
CPT/HCPCS: 36415; 80048; 83735; 85610; G0463

== ENCOUNTER 2018-06-30 12:21 | Emergency (ER) | payer MEDICARE ==
[~2018-06-30] VITALS: Ht 177.8 cm; Wt 88.6 kg
[~2018-06-30 12:21] MED LIST changes: -INSUHUMDS; -KEFL500C17 PO; -TAMS1CAP17
[2018-06-30] MEDS ORDERED: INSUHUMDS (12:33)
[2018-06-30] MEDS ORDERED: TAMS1CAP17 (12:33)
[2018-06-30 13:12] LABS: HEMATOCRIT 34.2 % (42.0-52.0); HEMOGLOBIN 10.3 g/dl (13.5-17.5); MEAN CORPUSCULAR HEMOGLOBIN 24.6 pg (27.0-33.0); MEAN CORPUSCULAR HGB CONC 30.1 g/dl (32.0-36.5); MEAN CORPUSCULAR VOLUME 81.8 fl (80.0-96.0); PLATELET COUNT, AUTOMATED 247 10^3/uL (150-450); RED BLOOD COUNT 4.18 10^6/uL (4.30-6.10); WHITE BLOOD COUNT 9.3 10^3/uL (4.0-10.0)
[2018-06-30 13:22] LABS: PROTHROMBIN TIME 23.1 SECONDS (12.1-14.4)
[2018-06-30 13:23] LABS: PARTIAL THROMBOPLASTIN TIME 34.1 SECONDS (25.4-37.6)
[2018-06-30 13:35] LABS: CREATININE FOR GFR 1.64 MG/DL (0.70-1.30); GLOMERULAR FILTRATION RATE 42.7 (>35)
[2018-06-30] MEDS ORDERED: KEFL500C17 PO (15:27)
[2018-06-30 15:52] VITALS: BP 148/72
== END 2018-06-30 15:59 | disposition home or self-care (01) ==
LOC: M ED 12:21
DX: R31.9 Hematuria, unspecified (principal); T83.091A Other mechanical complication of indwelling urethral catheter, initial encounter; Y73.2 Prosthetic and other implants, materials and accessory gastroenterology and urology devices associated with adverse incidents; N40.0 Benign prostatic hyperplasia without lower urinary tract symptoms; I48.91 Unspecified atrial fibrillation; I50.9 Heart failure, unspecified; E11.40 Type 2 diabetes mellitus with diabetic neuropathy, unspecified; I11.0 Hypertensive heart disease with heart failure; G47.33 Obstructive sleep apnea (adult) (pediatric); H26.9 Unspecified cataract; K21.9 Gastro-esophageal reflux disease without esophagitis; K57.90 Diverticulosis of intestine, part unspecified, without perforation or abscess without bleeding; M54.2 Cervicalgia; F41.9 Anxiety disorder, unspecified; F32.9 Major depressive disorder, single episode, unspecified; Z95.5 Presence of coronary angioplasty implant and graft; Z96.649 Presence of unspecified artificial hip joint; Z96.659 Presence of unspecified artificial knee joint; Z87.891 Personal history of nicotine dependence; Z88.2 Allergy status to sulfonamides; Z88.8 Allergy status to other drugs, medicaments and biological substances; Z88.5 Allergy status to narcotic agent; Z91.018 Allergy to other foods

== ENCOUNTER → 2018-07-30 | Outpatient (REF) | payer MEDICARE ==
[~2018-07-30] MED LIST changes: +INSUHUMDS; +KEFL500C17 PO; +TAMS1CAP17
[2018-07-30 14:21] LABS: INR 3.08; PROTHROMBIN TIME 32.5 SECONDS (12.1-14.4)
== END ==
LOC: M SHH 13:40
PROVIDERS: ATTEND Internal Medicine
DX: Z51.81 Encounter for therapeutic drug level monitoring (principal)

== ENCOUNTER → 2018-08-30 | Outpatient (REF) | payer MEDICARE ==
[2018-08-30 12:43] LABS: HEMATOCRIT 33.3 % (42.0-52.0); HEMOGLOBIN 10.4 g/dl (13.5-17.5); MEAN CORPUSCULAR HEMOGLOBIN 26.5 pg (27.0-33.0); MEAN CORPUSCULAR HGB CONC 31.2 g/dl (32.0-36.5); MEAN CORPUSCULAR VOLUME 84.7 fl (80.0-96.0); PLATELET COUNT, AUTOMATED 210 10^3/uL (150-450); RED BLOOD COUNT 3.93 10^6/uL (4.30-6.10); WHITE BLOOD COUNT 7.3 10^3/uL (4.0-10.0)
[2018-08-30 12:52] LABS: INR 2.72; PROTHROMBIN TIME 29.4 SECONDS (12.1-14.4)
[2018-08-30 13:05] LABS: HEMOGLOBIN A1c 6.5 %
[2018-08-30 13:21] LABS: ALBUMIN 3.1 GM/DL (3.2-5.2); BILIRUBIN,TOTAL 0.3 MG/DL (0.2-1.0); CALCIUM LEVEL 8.9 MG/DL (8.8-10.2); CHOLESTEROL RISK RATIO 3.255 (<5); CREATININE FOR GFR 1.96 MG/DL (0.70-1.30); GLOMERULAR FILTRATION RATE 34.7 (>35); MAGNESIUM LEVEL 2.5 MG/DL (1.8-2.4); POTASSIUM SERUM 5.3 MEQ/L (3.5-5.1); TOTAL PROTEIN 6.9 GM/DL (6.4-8.2)
[2018-08-30 13:27] LABS: PTH INTACT 35.5 PG/ML (18.5-88.0)
== END ==
LOC: M LAB REF 12:10 → M SHH 12:10
PROVIDERS: ATTEND Internal Medicine
DX: N18.3 Chronic kidney disease, stage 3 (moderate) (principal); I12.9 Hypertensive chronic kidney disease with stage 1 through stage 4 chronic kidney disease, or unspecified chronic kidney disease; E11.40 Type 2 diabetes mellitus with diabetic neuropathy, unspecified; E11.22 Type 2 diabetes mellitus with diabetic chronic kidney disease

== ENCOUNTER → 2018-09-19 | Outpatient (REF) | payer MEDICARE ==
[2018-09-19 15:06] LABS: INR 1.98; PROTHROMBIN TIME 22.3 SECONDS (11.8-14.0)
== END ==
LOC: M LAB REF 14:31
PROVIDERS: ATTEND Internal Medicine
DX: Z51.81 Encounter for therapeutic drug level monitoring (principal); I48.2 Chronic atrial fibrillation

== ENCOUNTER → 2018-10-18 | Outpatient (REF) | payer MEDICARE ==
[2018-10-18 14:45] LABS: INR 1.67; PROTHROMBIN TIME 19.4 SECONDS (11.8-14.0)
== END ==
LOC: M SHH 13:36
PROVIDERS: ATTEND Internal Medicine
DX: Z51.81 Encounter for therapeutic drug level monitoring (principal); I48.2 Chronic atrial fibrillation

== ENCOUNTER → 2018-10-26 | Outpatient (REF) | payer MEDICARE ==
[2018-10-26 17:59] LABS: HEMATOCRIT 30.1 % (42.0-52.0); HEMOGLOBIN 9.7 g/dl (13.5-17.5); MEAN CORPUSCULAR HEMOGLOBIN 28.4 pg (27.0-33.0); MEAN CORPUSCULAR HGB CONC 32.2 g/dl (32.0-36.5); MEAN CORPUSCULAR VOLUME 88.3 fl (80.0-96.0); PLATELET COUNT, AUTOMATED 189 10^3/uL (150-450); RED BLOOD COUNT 3.41 10^6/uL (4.30-6.10); WHITE BLOOD COUNT 7.9 10^3/uL (4.0-10.0)
[2018-10-26 18:00] LABS: CALCIUM LEVEL 8.3 MG/DL (8.8-10.2); CREATININE FOR GFR 1.76 MG/DL (0.70-1.30); GLOMERULAR FILTRATION RATE 39.3 (>35); POTASSIUM SERUM 4.8 MEQ/L (3.5-5.1)
[2018-10-26 18:13] LABS: PTH INTACT 38.4 PG/ML (18.5-88.0)
== END ==
LOC: M SFHCPLAZ 15:37
PROVIDERS: ATTEND Internal Medicine
DX: I12.9 Hypertensive chronic kidney disease with stage 1 through stage 4 chronic kidney disease, or unspecified chronic kidney disease (principal); D63.1 Anemia in chronic kidney disease; N18.3 Chronic kidney disease, stage 3 (moderate); Z79.01 Long term (current) use of anticoagulants
CPT/HCPCS: 36415; 80048; 83970; 85027; 85610; G0463

== ENCOUNTER → 2019-02-26 | Outpatient (REF) | payer MEDICARE ==
[~2019-02-26] MED LIST changes: -OMEP40CA2 PO; +OMEP40CA97 PO
[2019-02-26 17:42] LABS: HEMATOCRIT 28.1 % (42.0-52.0); HEMOGLOBIN 8.5 g/dl (13.5-17.5); MEAN CORPUSCULAR HEMOGLOBIN 25.7 pg (27.0-33.0); MEAN CORPUSCULAR HGB CONC 30.2 g/dl (32.0-36.5); MEAN CORPUSCULAR VOLUME 84.9 fl (80.0-96.0); PLATELET COUNT, AUTOMATED 214 10^3/uL (150-450); RED BLOOD COUNT 3.31 10^6/uL (4.30-6.10); WHITE BLOOD COUNT 7.4 10^3/uL (4.0-10.0)
[2019-02-26 18:16] LABS: HEMOGLOBIN A1c 6.5 %
[2019-02-26 18:46] LABS: ALBUMIN 3.3 GM/DL (3.2-5.2); BILIRUBIN,TOTAL 0.5 MG/DL (0.2-1.0); CALCIUM LEVEL 8.7 MG/DL (8.8-10.2); CREATININE FOR GFR 1.89 MG/DL (0.70-1.30); GLOMERULAR FILTRATION RATE 36.2 (>35); MAGNESIUM LEVEL 2.4 MG/DL (1.8-2.4); PERCENT SATURATION 8.5 % (19.7-50.0); TOTAL PROTEIN 6.7 GM/DL (6.4-8.2)
[2019-02-27 13:12] LABS: CREATININE, URINE 37.4 MG/DL; MALB URINE SIEMENS 72.5 MG/L; MAU/CREAT RATIO 193.8 MCG/MG (0.0-30.0)
== END ==
LOC: M SFHCPLAZ 15:39
PROVIDERS: ATTEND Internal Medicine
DX: E11.40 Type 2 diabetes mellitus with diabetic neuropathy, unspecified (principal); D63.1 Anemia in chronic kidney disease; I12.9 Hypertensive chronic kidney disease with stage 1 through stage 4 chronic kidney disease, or unspecified chronic kidney disease; Z51.81 Encounter for therapeutic drug level monitoring; N18.3 Chronic kidney disease, stage 3 (moderate); Z87.448 Personal history of other diseases of urinary system; R39.89 Other symptoms and signs involving the genitourinary system

== ENCOUNTER → 2019-03-26 | Outpatient (REF) | payer MEDICARE ==
[2019-03-26 15:48] LABS: INR 2.08; PROTHROMBIN TIME 23.2 SECONDS (11.8-14.0)
== END ==
LOC: M SHH 14:43
PROVIDERS: ATTEND Internal Medicine
DX: Z51.81 Encounter for therapeutic drug level monitoring (principal)

== ENCOUNTER → 2019-04-23 | Outpatient (REF) | payer MEDICARE ==
[~2019-04-23] MED LIST changes: +ACET1TAB55 PO; +BAG BALM TOP; +FERR1TAB8 PO; +SPIR-10 PO; -TAMS1CAP17; +TAMS1CAP17 PO; -TRAZ-163 PO; +TRAZ-257 PO; +VITA50005 PO
== END ==
LOC: M SHH 15:28
PROVIDERS: ATTEND Internal Medicine
DX: Z53.9 Procedure and treatment not carried out, unspecified reason (principal)

== ENCOUNTER 2019-04-24 16:11 | Inpatient (IN) | payer MEDICARE ==
[~2019-04-24] VITALS: Ht 180.3 cm; Wt 86.5 kg
[~2019-04-24 16:11] MED LIST changes: -ACET1TAB55 PO; -BAG BALM TOP; -FERR1TAB8 PO; -SPIR-10 PO; -VITA50005 PO
[2019-04-24 16:40] LABS: BASO % 0.4 % (0.0-1.0); EOS # 0.4 10^3/uL (0.0-0.5); EOS % 3.7 % (0.0-3.0); HEMATOCRIT 30.3 % (42.0-52.0); LYMPH # 1.3 10^3/uL (1.5-5.0); LYMPH % 12.6 % (24.0-44.0); MEAN CORPUSCULAR HEMOGLOBIN 25.2 pg (27.0-33.0); MEAN CORPUSCULAR HGB CONC 29.7 g/dl (32.0-36.5); MEAN CORPUSCULAR VOLUME 84.9 fl (80.0-96.0); MONO # 0.8 10^3/uL (0.0-0.8); MONO % 7.5 % (0.0-5.0); NEUTROPHILS # 7.6 10^3/uL (1.5-8.5); NEUTROPHILS % 74.5 % (36.0-66.0); PLATELET COUNT, AUTOMATED 223 10^3/uL (150-450); RED BLOOD COUNT 3.57 10^6/uL (4.30-6.10); WHITE BLOOD COUNT 10.2 10^3/uL (4.0-10.0)
[2019-04-24 16:53] LABS: PROTHROMBIN TIME 47.5 SECONDS (11.8-14.0)
[2019-04-24 16:58] LABS: APPEARANCE, URINE TURBID (CLEAR); BACTERIA, URINE AUTO NEGATIVE (NEGATIVE); BILIRUBIN, URINE AUTO NEGATIVE (NEGATIVE); BLOOD, URINE BLOOD 1+ (NEGATIVE); COLOR, URINE YELLOW (YELLOW); GLUCOSE, URINE (UA) AUTO NEGATIVE (NEGATIVE); KETONE, URINE AUTO NEGATIVE (NEGATIVE); LEUKOCYTE ESTERASE, URINE AUTO 1+ (NEGATIVE); NITRITE, URINE AUTO POSITIVE (NEGATIVE); PROTEIN, URINE AUTO 3+ mg/dL (NEGATIVE); RBC, URINE AUTO 0 /HPF (0-3); SQUAMOUS EPITHELIAL CELL UR AU 0 /HPF (0-6); UROBILINOGEN, URINE AUTO 0.2 mg/dL (0.0-2.0); WBC, URINE AUTO 0 /HPF (0-3)
[2019-04-24 17:05] LABS: ALBUMIN 3.1 GM/DL (3.2-5.2); ALT/SGPT 14 U/L (12-78); AMYLASE 31 U/L (25-115); BILIRUBIN,DIRECT < 0.1 MG/DL (0.0-0.2); BILIRUBIN,TOTAL 0.3 MG/DL (0.2-1.0); BLOOD UREA NITROGEN 53 MG/DL (7-18); C REACTIVE PROTEIN QUANTITATIV 1.89 MG/DL (0.00-0.30); CALCIUM LEVEL 8.8 MG/DL (8.8-10.2); CARBON DIOXIDE LEVEL 29 MEQ/L (21-32); CHLORIDE LEVEL 104 MEQ/L (98-107); CK-MB VALUE MASS 1.9 NG/ML (<3.6); CPK CREATINE PHOSPHOKINASE 59 U/L (39-308); CREATININE FOR GFR 2.08 MG/DL (0.70-1.30); GLOMERULAR FILTRATION RATE 32.4 (>35); GLUCOSE, FASTING 174 MG/DL (70-100); MB/CK RELATIVE INDEX 3.22 (< OR =4); POTASSIUM SERUM 5.5 MEQ/L (3.5-5.1); SODIUM LEVEL 138 MEQ/L (136-145); TOTAL PROTEIN 6.6 GM/DL (6.4-8.2); TROPONIN I < 0.02 NG/ML (< 0.10)
--- NOTE | 2019-04-24 17:15 | REP ---
CHEST, SINGLE VIEW: Single view of the chest is performed and compared to prior study 05/12/2018. There is left ventricular prominence. No acute infiltrate is seen. There is some calcification and tortuosity of the thoracic aorta. Mediastinal silhouette is unremarkable. IMPRESSION: No acute infiltrate. Electronically Signed by Fady Riggs MD 04/25/2019 07:58 P
[2019-04-24 17:20] LABS: INFLUENZA A AMPLIFICATION NEGATIVE (NEGATIVE); INFLUENZA B AMPLIFICATION NEGATIVE (NEGATIVE)
[2019-04-24 17:43] LABS: INR 5.1
[2019-04-24] MEDS ORDERED: cefTRIAXone SOD 1 GM in D5W MINI-BAG PLUS 50 ML IV ONE (18:00)
[2019-04-24] MEDS ORDERED: VITA50005 PO (18:57)
[2019-04-24] MEDS ORDERED: WARF4TAB51 PO (19:05)
[2019-04-24] MEDS ORDERED: SPIR-10 PO (19:11)
[2019-04-24] MEDS ORDERED: ACET1TAB55 PO (19:11)
[2019-04-24] MEDS ORDERED: BAG BALM TOP (19:11)
[2019-04-24] MEDS ORDERED: FERR1TAB8 PO (19:11)
[2019-04-24] MEDS ORDERED: MAALOX 30 ML SUSP *UDC PO PRN (19:15)
[2019-04-24] MEDS ORDERED: GLUCOSE 4 GM CHEW TABLET PO PRN (19:15)
[2019-04-24] MEDS ORDERED: DEXTROSE 50% 50 ML SYRINGE IV PRN (19:15)
[2019-04-24] MEDS ORDERED: GLUCAGON FOR INJ 1 MG VIAL (J1610) SC PRN (19:15)
--- NOTE | 2019-04-24 19:25 | HPEPDOC ---
[facility] Medical History & Physical Date of Admission Apr 24, 2019 Date of Service: Apr 24, 2019 Primary Care Physician: WYATT REGAN Attending Physician: Gonzalez Morgan MD History and Physical TIME OF SERVICE: 8:40 PM CHIEF COMPLAINT: Discoloration of left toe HISTORY OF PRESENT ILLNESS: This is an 88 old male who presented with complaints of discoloration of his left great toe associated with intermittent cramping pains in his left leg for several days. Earlier during the day, he was evaluated by a home RN who called EMS because his blood pressure was 80/40. EMS noted that his glucose was glucose 80 , and he was in A. fib. Per discussion with the ER provider the presence of lower extremity pulses was confirmed with a Doppler; bilateral arterial duplex are pending. The patient was diagnosed with a UTI and started on Rocephin. REVIEW OF SYSTEMS: 12 point review of systems negative except as listed in HPI PAST MEDICAL/ SURGICAL HISTORY: Chronic A. 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 NIDDM. Chronic CAD, status post placement of 5 stents in 2006 / Dyslipidemia Dysthymic disorder History of vitamin D deficiency. Macular degeneration. Status post appendectomy. Bilateral knee surgeries. Status post esophageal dilation. Status post bilateral cataract surgery 2007 Status post right hip hemiarthroplasty in 2017 SOCIAL HISTORY: Former smoker. Lives with his FAMILY HISTORY: CAD CVA ALLERGIES: Please see below. HOME MEDICATIONS: Please see below. PHYSICAL EXAMINATION: VITAL SIGNS: Please see below. GEN: well-nourished / well developed/ NAD INTEGUMENT: not flushed/ not jaundice / he has pressure sores on both heels / the tip of his left hallux has an area that is red/brown in color HEENT: NCAT / lips acyanotic /mucus membranes dry CVS: RRR/NMRG/+ bilateral lower extremity edema LUNGS: able to speak full sentences without stopping to take a breath /lungs are clear to auscultation bilaterally on room air ABDOMEN: soft & not tender with palpation MSK/EXTREMITIES: range of motion intact in all 4 extremities NEURO: CN 2-12 are grossly intact / speech is not dysarthric PSYCH: alert and oriented to person place and time/ able to understand and follow all commands LABORATORY DATA: See below. IMAGING: Chest x-ray is unremarkable MICROBIOLOGY: Please see below ASSESSMENT: Mr. Nguyen is an 88-year-old male. The past medical history of A. fib, CKD3 with anemia, obstructive uropathy, hypertension, NIDDM, chronic CAD with coronary artery stents,, dysthymic disorder, and multiple joint surgeries, who is admitted for evaluation of left toe discoloration associated with lower extremit y pain, which may be due to PAD and possible UTI. PLAN: 1. Left lower extremity pain/left hallux discoloration. Possibly due to PAD. Plan: Admit to medical floor/follow-up, arterial duplex/vascular surgery consult to determine if he needs additional imaging study such as CTA aorta with runoff / continue with aspirin and statin 2. Asymptomatic UTI ? He did not complain of back pain or abdominal pain , but according to his he has been having urinary incontinence. He does not have any SIRS criteria. His WBC count is only slightly elevated The UA is positive for leukocyte esterase and nitrites Plan: continue the Rocephin in case he needs urological procedure/follow-up urine culture 3. Ureteral stricture? He has a history of obstructive uropathy Per discussion with the ER, RN the bladder scan showed 200 mls of urine and there is a lot of resistance, but the proximal part of the urethra when they attempted to place a Marrero. The patient has a history of ureteral stent placement. Plan: Urology consult / continue with tamsulosin 4. Asymptomatic Bradycardia Likely due to carvedilol His potassium is 5.5. His calcium and troponin were within normal limits Plan:Plan: Telemetry / since he is not symptomatic we will not hold carvedilol to avoid rebound tachycardia 5. Pressure Sores on Heels Plan: elevate heels 6. Chronic A. fib His INR is supratherapeutic. Plan: Monitor for bleeding/ hold Coumadin and follow-up INR 7. CKD 3 with anemia of renal disease Both his hemoglobin and GFR are at his baseline Plan: Follow up BMP in the morning / continue with oral iron / hold potassium supplement 8. Chronic hypertension Plan: Continue with carvedilol Lasix and spironolactone 9. NIDDM Plan: diabetic diet / A1C / hypoglycemia protocol / sliding scale insulin / hold oral anti-glycemics / decrease long-acting insulin from 30-25 units daily pending Accu-Cheks 10. Chronic CAD, status post placement of 5 stents in 2006 / Dyslipidemia Plan: Continue with carvedilol, aspirin and statin 11. Dysthymic disorder / Anxiety ? Plan continue with citalopram 12. Vitamin D deficiency Plan: Continue vitamin D supplement 13. Obesity BMI is 33 This complicates care He has co-existing DM Plan: can f/u w PCP for STOPBANG questionnaire DVT PROPHYLAXIS: None because his INR supratherapeutic DISPOSITION: Home after more than 2 midnight stay Vital Signs Vital Signs Date Time Temp Pulse Resp B/P (MAP) Pulse Ox O2 Delivery O2 Flow Rate FiO2 04/24/19 19:15 96.2 54 20 175/80 (111) 100 Room Air Laboratory Data Labs 24H Laboratory Tests 2 04/24/19 16:22: Immature Granulocyte % (Auto) 1.3, Neutrophils (%) (Auto) 74.5H, Lymphocytes (%) (Auto) 12.6L, Monocytes (%) (Auto) 7.5H, Eosinophils (%) (Auto) 3.7H, Basophils (%) (Auto) 0.4, Neutrophils # (Auto) 7.6, Lymphocytes # (Auto) 1.3L, Monocytes # (Auto) 0.8, Eosinophils # (Auto) 0.4, Basophils # (Auto) 0.0, Nucleated Red Blood Cells % (auto) 0.0, Prothrombin Time 47.5H, Prothromb Time International Ratio 5.10*H, Activated Partial Thromboplast Time 52.0H, Anion Gap 5L, Glomerular Filtration Rate 32.4L, Calcium Level 8.8, Total Bilirubin 0.3, Direct Bilirubin < 0.1, Aspartate Amino Transf (AST/SGOT) 10, Alanine Aminotransferase (ALT/SGPT) 14, Alkaline Phosphatase 80, Total Creatine Kinase 59, Creatine Kinase MB 1.9, Creatine Kinase MB Relative Index 3.22, Troponin I < 0.02, C- Reactive Protein, Quantitative 1.89H, Total Protein 6.6, Albumin 3.1L, Albumin/Globulin Ratio 0.89L, Amylase Level 31 04/24/19 16:23: Lactic Acid Level 1.7, Influenza Type A (RT-PCR) NEGATIVE, Influenza Type B (RT- PCR) NEGATIVE 04/24/19 16:25: Bedside Glucose (Misc Panel) 166H 04/24/19 16:49: Urine Color YELLOW, Urine Appearance TURBIDH, Urine pH 8.0, Urine Specific [place] 1.010, Urine Protein 3+H, Urine Glucose (Auto)(UA) NEGATIVE, Urine Ketones (Auto) NEGATIVE, Urine Blood 1+H, Urine Nitrite POSITIVE, Urine Bilirubin NEGATIVE, Urine Urobilinogen 0.2, Urine Leukocyte Esterase (Auto) 1+H, Urine WBC (Auto) 0, Urine RBC (Auto) 0, Urine Hyaline Casts (Auto) 0, Urine Bacteria (Auto) NEGATIVE, Urine Squamous Epithelial Cells 0, Urine Sperm (Auto) 04/24/19 17:19: POC pH (Misc Panel) 7.479H, POC Base Excess (Misc Panel) 4.0H, POC Saturated Percent O2 (Misc) 97, POC pO2 (Misc Panel) 82.0, POC pCO2 (Misc Panel) 36.8, POC HCO3 (Misc Panel) 27.4H, POC Total CO2 (Misc Panel) 28.0H CBC/BMP Laboratory Tests 04/24/19 16:22 Microbiology Microbiology 04/24/19 Blood Culture, Received Pending 04/24/19 Urine Culture, Received Pending 04/24/19 Blood Culture, Received Pending Home Medications Scheduled Aspirin (Aspirin EC) 81 Mg Tab, 81 MG PO QHS Atorvastatin Calcium (Atorvastatin Calcium) 80 Mg Tab, 40 MG PO 3XW QHS: MON,MON,MON Carvedilol (Carvedilol) 25 Mg Tab, 25 MG PO BID Citalopram Hydrobromide (Citalopram HBr) 20 Mg Tab, 20 MG PO DAILY LUNCHTIME Ergocalciferol (Vitamin D2) (Vitamin D2) 50,000 Units Cap, 50,000 UNITS PO Q2WK EVERY OTHER MONDAY Ferrous Sulfate (Ferrous Sulfate) 325 Mg Tablet, 325 MG PO QHS Furosemide (Furosemide) 80 Mg Tab, 40 MG PO DAILY Gabapentin (Gabapentin) 300 Mg Cap, 300 MG PO QID Glipizide (Glipizide) 5 Mg Tab, 2.5 MG PO BID BREAKFAST AND LUNCH Insulin Glargine,Hum.rec.anlog ([place] Solostar) 300 Unit/Ml Inj, 30 UNIT SC DAILY Magnesium Oxide (Magnesium Oxide) 400 Mg Tab, 400 MG PO QHS Omeprazole (Omeprazole) 40 Mg Cap, 40 MG PO DAILY LUNCH Potassium Chloride (Klor-Con M10) 10 Meq Tabcr, 10 MEQ PO BID BREAKFAST AND DINNER Spironolactone (Spironolactone) 25 Mg Tablet, 12.5 MG PO QPM Tamsulosin Hcl (Tamsulosin HCl) 0.4 Mg Cap, 0.4 MG PO DAILY Trazodone HCl (Trazodone HCl) 100 Mg Tab, 100 MG PO QHS Warfarin Sodium (Warfarin Sodium) 2 Mg Tablet, 2 MG PO QPM MWF 2MG TAB Warfarin Sodium (Warfarin Sodium) 2 Mg Tablet, 1 MG PO QPM TUES, THURS, SAT, SUN [Bag [place]] , 1 APLCT TOP DAILY APPLIED TO LEGS AND FEET Scheduled PRN Acetaminophen (Acetaminophen) 325 Mg Tablet, 650 MG PO Q6H PRN for PAIN Albuterol Sulfate (Ventolin Hfa) 108 Mcg/Act Aer, 2 PUFF INH Q4H PRN for SHORTNESS OF BREATH Allergies Coded Allergies: Sulfa (Sulfonamide Antibiotics) (Verified Allergy, Mild, rash, 04/24/19) sulfamethoxazole (Verified Allergy, Mild, rash, 04/24/19) Pea (Verified Allergy, Unknown, 03/21/12) trimethoprim (Verified Allergy, Unknown, 06/30/18) Quinolones (Verified Adverse Reaction, Mild, AMS, 04/24/19) hydrocodone (Verified Adverse Reaction, Mild, AMS, 04/24/19) morphine (Verified Adverse Reaction, Mild, AMS, 04/24/19) oxycodone (Verified Adverse Reaction, Mild, AMS, 04/24/19) A-FIB/CHADSVASC A-FIB History Current/History of A-Fib/PAF?: Yes Current PO Anticoag Therapy: No Treatment Treatment ordered: Holding Warfarin Reason Anticoagulant not given: Supratherapeutic Warfarin CONSTANTINE TOTH MD Apr 24, 2019 19:25
[2019-04-24] MEDS: ACETAMINOPHEN TAB 650MG DOSE (2X325MG) PO PRN (19:49)
[2019-04-24 20:27] VITALS: BP 150/82
[2019-04-24] MEDS ORDERED: SPIRONOLACTONE 25 MG TAB PO SCH (21:00)
[2019-04-24] MEDS ORDERED: MAGNESIUM OXIDE 400 MG TAB (MAG-OX) PO SCH (21:00)
[2019-04-24] MEDS: RAMELTEON 8 MG TAB (ROZEREM) PO SCH (21:00)
[2019-04-24] MEDS: HumaLOG INSULIN (NovoLOG) PER UNIT SC SCH (21:00)
[2019-04-24] MEDS ORDERED: ALBUTEROL 90 MCG/ACT 8GM HFA INHALER INH PRN (21:15)
[2019-04-24] MEDS: FERROUS SULFATE 325MG TAB PO SCH (21:56)
[2019-04-24] MEDS: traZODone 100 MG TAB PO SCH (21:56)
[2019-04-24] MEDS: LIDOCAINE 5% (LIDODERM) PATCH TD SCH (21:57)
[2019-04-24] MEDS: ASPIRIN 81 MG ENTERIC TAB PO SCH (21:57)
[2019-04-24] MEDS: GABAPENTIN 300 MG CAP PO SCH (21:57)
[2019-04-24] MEDS: ATORVASTATIN 20 MG TAB PO SCH (21:59)
[2019-04-25] VITALS: BP_SYST 130; BP_SYST 147; BP_DIAS 61; BP_DIAS 66
[2019-04-25 04:00] VITALS: BP 134/63
[2019-04-25] MEDS ORDERED: HEPARIN SOD (PORCINE) 5000 UNITS/ML VIAL (J1644 PER 1000UNITS) SC SCH (06:00)
[2019-04-25 06:07] LABS: HEMATOCRIT 26.8 % (42.0-52.0); HEMOGLOBIN 8.4 g/dl (13.5-17.5); MEAN CORPUSCULAR HEMOGLOBIN 26.2 pg (27.0-33.0); MEAN CORPUSCULAR HGB CONC 31.3 g/dl (32.0-36.5); MEAN CORPUSCULAR VOLUME 83.5 fl (80.0-96.0); PLATELET COUNT, AUTOMATED 188 10^3/uL (150-450); RED BLOOD COUNT 3.21 10^6/uL (4.30-6.10); WHITE BLOOD COUNT 8.7 10^3/uL (4.0-10.0)
[2019-04-25 06:19] LABS: PROTHROMBIN TIME 57.6 SECONDS (11.8-14.0)
[2019-04-25 06:25] LABS: CALCIUM LEVEL 9.1 MG/DL (8.8-10.2); CREATININE FOR GFR 1.88 MG/DL (0.70-1.30); GLOMERULAR FILTRATION RATE 36.4 (>35); MAGNESIUM LEVEL 3.1 MG/DL (1.8-2.4); POTASSIUM SERUM 4.5 MEQ/L (3.5-5.1)
[2019-04-25 06:37] LABS: HEMOGLOBIN A1c 6.5 %
[2019-04-25 07:07] LABS: INR 6.49
[2019-04-25] MEDS: HumaLOG INSULIN (NovoLOG) PER UNIT SC SCH ×4 (07:30→20:47)
[2019-04-25 08:00] VITALS: BP 130/61
--- NOTE | 2019-04-25 08:44 | CR.PDOC ---
General Date of Consultation: Apr 25, [address] Leblanc HPI: 88year oldM admitted as per hospitalist service regarding left lower extremity pain and left great toe discoloration. Vascular surgery is consulted regarding nonhealing foot wound. Pt provides very limited history, Pt unsure how long toe has been discolored. Most of history is taken from the chart. PAST MEDICAL/ SURGICAL HISTORY: Chronic A. 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 NIDDM. Chronic CAD, status post placement of 5 stents in 2006 / Dyslipidemia Dysthymic disorder History of vitamin D deficiency. Macular degeneration. Status post appendectomy. Bilateral knee surgeries. Status post esophageal dilation. Status post bilateral cataract surgery 2007 Status post right hip hemiarthroplasty in 2016 SOCIAL HISTORY: Former smoker. Lives with his FAMILY HISTORY: CAD CVA ROS: As noted in HPI, otherwise 11pt ROS of systems reviewed and unremarkable. PE: GEN: 88yoM, appears stated age. No acute distress. Alert and responsive. HEENT: Normocephalic, atraumatic. Moist mucous membranes. CHEST: +S1, +S2 irreg LUNGS: Clear to auscultation bilaterally. No wheezes. ABD: Round, soft, non-tender, non-distended. EXT: Left great toe with dark discoloration noted at the tip, there is a small blister noted at the tip of the second toe. There are no wounds noted on the ri ght foot. Pedal pulses are nonpalpable. DP/PT pulses are obtained with Doppler, monophasic bilaterally. NEURO: No focal deficits appreciated. A&P: 1. Left foot wound/left lower extremity pain. Dark discoloration is noted at the tip of the left great toe as well as a small blister at the tip of left second toe. There are no wounds noted on the right foot. Pedal pulses are noted to be monophasic bilaterally. The patient remains on aspirin 81 mg daily/statin. Arterial ultrasound bilateral lower extremities pending. Additional recommendations as per Dr. Leblanc pending these results. 2. Chronic kidney disease stage III. Serum creatinine is noted to be 1.88 with GFR 36.4. Thank you for your consultation. We will continue to follow along with you. Vital Signs/I&O Vital Signs Date Time Temp Pulse Resp B/P (MAP) Pulse Ox O2 Delivery O2 Flow Rate FiO2 04/25/19 04:00 97.4 59 18 134/63 (86) 97 Room Air I&O- Last 24 Hours up to 6 AM 04/25/19 06:00 Intake Total 260 ml Output Total 800 ml Balance -540 ml Laboratory Data Labs 24H Laboratory Tests 2 04/24/19 16:22: Immature Granulocyte % (Auto) 1.3, Neutrophils (%) (Auto) 74.5H, Lymphocytes (%) (Auto) 12.6L, Monocytes (%) (Auto) 7.5H, Eosinophils (%) (Auto) 3.7H, Basophils (%) (Auto) 0.4, Neutrophils # (Auto) 7.6, Lymphocytes # (Auto) 1.3L, Monocytes # (Auto) 0.8, Eosinophils # (Auto) 0.4, Basophils # (Auto) 0.0, Nucleated Red Blood Cells % (auto) 0.0, Prothrombin Time 47.5H, Prothromb Time International Ratio 5.10*H, Activated Partial Thromboplast Time 52.0H, Anion Gap 5L, Glomeru lar Filtration Rate 32.4L, Calcium Level 8.8, Total Bilirubin 0.3, Direct Bilirubin < 0.1, Aspartate Amino Transf (AST/SGOT) 10, Alanine Aminotransferase (ALT/SGPT) 14, Alkaline Phosphatase 80, Total Creatine Kinase 59, Creatine Kinase MB 1.9, Creatine Kinase MB Relative Index 3.22, Troponin I < 0.02, C- Reactive Protein, Quantitative 1.89H, Total Protein 6.6, Albumin 3.1L, Albumin/Globulin Ratio 0.89L, Amylase Level 31 04/24/19 16:23: Lactic Acid Level 1.7, Influenza Type A (RT-PCR) NEGATIVE, Influenza Type B (RT- PCR) NEGATIVE 04/24/19 16:25: Bedside Glucose (Misc Panel) 166H 04/24/19 16:49: Urine Color YELLOW, Urine Appearance TURBIDH, Urine pH 8.0, Urine Specific [place] 1.010, Urine Protein 3+H, Urine Glucose (Auto)(UA) NEGATIVE, Urine Ketones (Auto) NEGATIVE, Urine Blood 1+H, Urine Nitrite POSITIVE, Urine Bilirubin NEGATIVE, Urine Urobilinogen 0.2, Urine Leukocyte Esterase (Auto) 1+H, Urine WBC (Auto) 0, Urine RBC (Auto) 0, Urine Hyaline Casts (Auto) 0, Urine Bacteria (Auto) NEGATIVE, Urine Squamous Epithelial Cells 0, Urine Sperm (Auto) 04/24/19 17:19: POC pH (Misc Panel) 7.479H, POC Base Excess (Misc Panel) 4.0H, POC Saturated Percent O2 (Misc) 97, POC pO2 (Misc Panel) 82.0, POC pCO2 (Misc Panel) 36.8, POC HCO3 (Misc Panel) 27.4H, POC Total CO2 (Misc Panel) 28.0H 04/24/19 21:08: Bedside Glucose (Misc Panel) 71L 04/25/19 03:50: Bedside Glucose (Misc Panel) 64L 04/25/19 05:39: Bedside Glucose (Misc Panel) 78L 04/25/19 05:40: Nucleated Red Blood Cells % (auto) 0.0, Prothrombin Time 57.6H, Prothromb Time International Ratio 6.49*H, Anion Gap 5L, Glomerular Filtration Rate 36.4, Estimated Mean Plasma Glucose 140H, Hemoglobin A1c 6.5, Calcium Level 9.1, Magnesium Level 3.1H CBC/BMP Laboratory Tests 04/24/19 16:22 04/25/19 05:40 Microbiology Microbiology 04/24/19 Blood Culture, Received Pending 04/24/19 Urine Culture, Received Pending 04/24/19 Blood Culture, Received Pending Allergies Coded Allergies: Sulfa (Sulfonamide Antibiotics) (Verified Allergy, Mild, rash, 04/24/19) sulfamethoxazole (Verified Allergy, Mild, rash, 04/24/19) Pea (Verified Allergy, Unknown, 03/21/12) trimethoprim (Verified Allergy, Unknown, 06/30/18) Quinolones (Verified Adverse Reaction, Mild, AMS, 04/24/19) hydrocodone (Verified Adverse Reaction, Mild, AMS, 04/24/19) morphine (Verified Adverse Reaction, Mild, AMS, 04/24/19) oxycodone (Verified Adverse Reaction, Mild, AMS, 04/24/19) Home Medications Scheduled Aspirin (Aspirin EC) 81 Mg Tab, 81 MG PO QHS, (Reported) Atorvastatin Calcium (Atorvastatin Calcium) 80 Mg Tab, 40 MG PO 3XW, (Reported) QHS: MON,WED,MON Carvedilol (Carvedilol) 25 Mg Tab, 25 MG PO BID, (Reported) Citalopram Hydrobromide (Citalopram HBr) 20 Mg Tab, 20 MG PO DAILY, (Reported) LUNCHTIME Ergocalciferol (Vitamin D2) (Vitamin D2) 50,000 Units Cap, 50,000 UNITS PO Q2WK, (Reported) EVERY OTHER MONDAY Ferrous Sulfate (Ferrous Sulfate) 325 Mg Tablet, 325 MG PO QHS, (Reported) Furosemide (Furosemide) 80 Mg Tab, 40 MG PO DAILY, (Reported) Gabapentin (Gabapentin) 300 Mg Cap, 300 MG PO QID, (Reported) Glipizide (Glipizide) 5 Mg Tab, 2.5 MG PO BID, (Reported) BREAKFAST AND LUNCH Insulin Glargine,Hum.rec.anlog (Toujeo Solostar) 300 Unit/Ml Inj, 30 UNIT SC DAILY, (Reported) Magnesium Oxide (Magnesium Oxide) 400 Mg Tab, 400 MG PO QHS, (Reported) Omeprazole (Omeprazole) 40 Mg Cap, 40 MG PO DAILY, (Reported) LUNCH Potassium Chloride (Klor-Con M10) 10 Meq Tabcr, 10 MEQ PO BID, (Reported) BREAKFAST AND DINNER Spironolactone (Spironolactone) 25 Mg Tablet, 12.5 MG PO QPM, (Reported) Tamsulosin Hcl (Tamsulosin HCl) 0.4 Mg Cap, 0.4 MG PO DAILY, (Reported) Trazodone HCl (Trazodone HCl) 100 Mg Tab, 100 MG PO QHS, (Reported) Warfarin Sodium (Warfarin Sodium) 2 Mg Tablet, 2 MG PO QPM, (Reported) MWF 2MG TAB Warfarin Sodium (Warfarin Sodium) 2 Mg Tablet, 1 MG PO QPM, (Reported) TUES, THURS, SAT, SUN [Bag [place]] , 1 APLCT TOP DAILY, (Reported) APPLIED TO LEGS AND FEET Scheduled PRN Acetaminophen (Acetaminophen) 325 Mg Tablet, 650 MG PO Q6H PRN for PAIN, (Reported) Albuterol Sulfate (Ventolin Hfa) 108 Mcg/Act Aer, 2 PUFF INH Q4H PRN for SHORTNESS OF BREATH, (Reported) Genoveva Andrade Apr 25, 2019 07:44
[2019-04-25] MEDS ORDERED: POTASSIUM CHLORIDE 10 MEQ SR TABLET PO SCH (09:00)
[2019-04-25] MEDS ORDERED: LEVEMIR (INSULIN DETEMIR) 1 UNITS/0.01ML SC SCH (09:00)
[2019-04-25] MEDS: FUROSEMIDE 40 MG TAB PO SCH (09:06)
[2019-04-25] MEDS: TAMSULOSIN 0.4 MG CAP PO SCH (09:06)
[2019-04-25] MEDS: CitaloPRAM (CeleXA) 20 MG TAB PO SCH (09:06)
[2019-04-25] MEDS: CARVedilol 12.5 MG TAB PO SCH ×2 (09:06→21:01)
[2019-04-25] MEDS: GABAPENTIN 300 MG CAP PO SCH ×3 (09:07→20:59)
[2019-04-25] MEDS: OMEPRAZOLE 20 MG CAP PO SCH (09:07)
[2019-04-25] MEDS: **NOTE PATIENT COMMENT** MISC XX SCH (09:08)
[2019-04-25] MEDS ORDERED: ACETAMINOPHEN 500 MG TAB PO PRN (11:00)
--- NOTE | 2019-04-25 11:07 | IPNPDOC ---
Subjective Date Seen The patient was seen on 04/25/19. Subjective Chief Complaint/HPI Pt this morning without new concerns. Uro is at bedside this morning to place haynes. He has not had arterial US this morning. His is at bedside. General: Denies: Fatigue Constitutional: Denies: Chills, Fever Pulmonary: Denies: Dyspnea, Cough Cardiovascular: Denies: Chest Pain, Palpitations Gastrointestinal: Denies: Nausea, Vomiting, Diarrhea Neurological: Denies: Weakness Psych: Reports: Mood Normal Objective Physical Examination General Exam: Positive: Alert, No Acute Distress ENT Exam: Positive: Mucous membr. moist/pink Chest Exam: Positive: Clear to auscultation, Normal air movement Heart Exam: Positive: Rate Normal, Normal S1, Normal S2 Abdomen Exam: Positive: Normal bowel sounds, Soft; Negative: Tenderness Extremity Exam: Positive: Other (tip of left hallux, medially dark brown/black discoloration, similarly colored area on the medially heel of the same heel); Negative: Edema, Normal pulses Neuro Exam: Positive: Normal Speech Psych Exam: Positive: Mental status NL, Mood NL Assessment /Plan Problems (1) Atherosclerotic PVD with ulceration Status: Chronic Problem Text: favoring LLE bypass 04/24 BLE arterial US: Diffuse calcific plaque is seen bilaterally limiting evaluation of the arterial structures due to the acoustic shadowing. On the right, there is occlusion of the distal anterior tibial artery, with reconstitution more distally. Diffuse biphasic waveforms are seen in the right lower extremity except for mild phasic waveform in the distal anterior tibial artery. On the left, there is stenosis of the profunda and proximal superficial femoral artery. This is fairly high-grade. Diffuse mild phasic waveforms are seen. This may indicate a more proximal stenosis of the left iliac arteries. There is high-grade stenosis of the proximal anterior tibial artery. (2) CHF (congestive heart failure) Problem Text: 04/25 Mg 3.1-therefore, MOX 400 held, check TTE (none in [place] nor ecw) (3) Toe pain, left Status: Acute Response to Treatment: Stable Discussed With: Nurse, Patient, Family with Pt Consent Problem Specific Plan: Monitor Clinically, Repeat Labs Problem Text: asp per PVD (4) Urethral stricture Status: Acute Problem Specific Plan: Consult Specialist, Monitor Clinically Problem Text: Uro at bedside this morning, await report. UC & S pending (5) A-fib Status: Chronic Response to Treatment: Stable Problem Specific Plan: Monitor Clinically Problem Text: Rate controlled with Coreg, cont with ASA for now Coumadin held INR 6.49 this morning. (6) CKD (chronic kidney disease) stage 3, GFR 30-59 ml/min Status: Chronic Response to Treatment: Stable Problem Specific Plan: Monitor Clinically Problem Text: Baseline scr 1.6-1.8 (7) DM2 (diabetes mellitus, type 2) Status: Chronic Response to Treatment: Stable Problem Text: 03/2019 A1C 6.5 HD: glar 30 QHS, glip 5 BID 04/25 on det 25 QHS, AC TID/QHS lispro BG to 70s this AM; therefore, decreased to 15 QHS (8) CAD (coronary artery disease) Status: Chronic Response to Treatment: Stable Problem Specific Plan: Monitor Clinically (9) Supratherapeutic INR Status: Acute Problem Specific Plan: Monitor Clinically, Repeat Labs Problem Text: baseline hgb low 92 04/25 INR 6.5, Hgb 9 this morning down to 8.4 this morning, monitor-continue to follow-no indication to reverse. (10) Anemia Status: Acute Response to Treatment: Stable Problem Specific Plan: Monitor Clinically, Repeat Labs Problem Text: Monitor Hgb, obtain iron studies, b12, folatem check hemoccult Plan/VTE VTE Prophylaxis Ordered?: No VS, I&O, 24H, Fishbone Vital Signs/I&O Vital Signs Date Time Temp Pulse Resp B/P (MAP) Pulse Ox O2 Delivery O2 Flow Rate FiO2 04/25/19 09:06 56 141/63 04/25/19 08:00 97.1 20 98 Room Air I&O- Last 24 Hours up to 6 AM 04/25/19 06:00 Intake Total 260 ml Output Total 800 ml Balance -540 ml Laboratory Data 24H LABS Laboratory Tests 2 04/24/19 16:22: Immature Granulocyte % (Auto) 1.3, Neutrophils (%) (Auto) 74.5H, Lymphocytes (%) (Auto) 12.6L, Monocytes (%) (Auto) 7.5H, Eosinophils (%) (Auto) 3.7H, Basophils (%) (Auto) 0.4, Neutrophils # (Auto) 7.6, Lymphocytes # (Auto) 1.3L, Monocytes # (Auto) 0.8, Eosinophils # (Auto) 0.4, Basophils # (Auto) 0.0, Nucleated Red Blood Cells % (auto) 0.0, Prothrombin Time 47.5H, Prothromb Time International Ratio 5.10*H, Activated Partial Thromboplast Time 52.0H, Anion Gap 5L, Glomerular Filtration Rate 32.4L, Calcium Level 8.8, Total Bilirubin 0.3, Direct Bilirubin < 0.1, Aspartate Amino Transf (AST/SGOT) 10, Alanine Aminotransferase (ALT/SGPT) 14, Alkaline Phosphatase 80, Total Creatine Kinase 59, Creatine Kinase MB 1.9, Creatine Kinase MB Relative Index 3.22, Troponin I < 0.02, C- Reactive Protein, Quantitative 1.89H, Total Protein 6.6, Albumin 3.1L, Albumin/Globulin Ratio 0.89L, Amylase Level 31 04/24/19 16:23: Lactic Acid Level 1.7, Influenza Type A (RT-PCR) NEGATIVE, Influenza Type B (RT- PCR) NEGATIVE 04/24/19 16:25: Bedside Glucose (Misc Panel) 166H 04/24/19 16:49: Urine Color YELLOW, Urine Appearance TURBIDH, Urine pH 8.0, Urine Specific [place] 1.010, Urine Protein 3+H, Urine Glucose (Auto)(UA) NEGATIVE, Urine Ketones (Auto) NEGATIVE, Urine Blood 1+H, Urine Nitrite POSITIVE, Urine Bilirubin NEGATIVE, Urine Urobilinogen 0.2, Urine Leukocyte Esterase (Auto) 1+H, Urine WBC (Auto) 0, Urine RBC (Auto) 0, Urine Hyaline Casts (Auto) 0, Urine Bacteria (Auto) NEGATIVE, Urine Squamous Epithelial Cells 0, Urine Sperm (Auto) 04/24/19 17:19: POC pH (Misc Panel) 7.479H, POC Base Excess (Misc Panel) 4.0H, POC Saturated Percent O2 (Misc) 97, POC pO2 (Misc Panel) 82.0, POC pCO2 (Misc Panel) 36.8, POC HCO3 (Misc Panel) 27.4H, POC Total CO2 (Misc Panel) 28.0H 04/24/19 21:08: Bedside Glucose (Misc Panel) 71L 04/25/19 03:50: Bedside Glucose (Misc Panel) 64L 04/25/19 05:39: Bedside Glucose (Misc Panel) 78L 04/25/19 05:40: Nucleated Red Blood Cells % (auto) 0.0, Prothrombin Time 57.6H, Prothromb Time International Ratio 6.49*H, Anion Gap 5L, Glomerular Filtration Rate 36.4, Estimated Mean Plasma Glucose 140H, Hemoglobin A1c 6.5, Calcium Level 9.1, Magnesium Level 3.1H CBC/BMP Laboratory Tests 04/24/19 16:22 04/25/19 05:40 Microbiology Microbiology 04/24/19 Blood Culture, Received Pending 04/24/19 Urine Culture, Received Pending 04/24/19 Blood Culture, Received Pending JEOVANNY MONTEMAYOR PA-C Apr 25, 2019 11:07 Carson Menjivar M.D. Apr 25, 2019 17:53
[2019-04-25 12:00] VITALS: BP 162/70
[2019-04-25] MEDS: ACETAMINOPHEN TAB 650MG DOSE (2X325MG) PO PRN (12:58)
--- NOTE | 2019-04-25 13:57 | REP ---
BILATERAL LOWER EXTREMITY DUPLEX DOPPLER ARTERIAL ULTRASOUND: Real-time ultrasound evaluation and duplex Doppler interrogation of bilateral lower extremity arterial systems is performed. Diffuse calcific plaque is seen bilaterally limiting evaluation of the arterial structures due to the acoustic shadowing. On the right, there is occlusion of the distal anterior tibial artery, with reconstitution more distally. Diffuse biphasic waveforms are seen in the right lower extremity except for mild phasic waveform in the distal anterior tibial artery. On the left, there is stenosis of the profunda and proximal superficial femoral artery. This is fairly high-grade. Diffuse mild phasic waveforms are seen. This may indicate a more proximal stenosis of the left iliac arteries. There is high-grade stenosis of the proximal anterior tibial artery. Right Peak Left Peak Systolic Velocity Systolic velocity Common femoral artery 66.1 cm/s 43.0 cm/s Profunda 86.7 cm/s 411.3 cm/s Proximal SFA 92.0 cm/s 240.0 cm/s Mid SFA 85.2 cm/s 38.4 cm/s Distal SFA 100.5 cm/s 38.7 cm/s Popliteal 58.1 cm/s 25.6 cm/s Proximal LIONEL 38.2 cm/s 183.1 cm/s Tibial peroneal trunk 94.3 cm/s 42.7 cm/s Proximal GARMENT TURNER 44.5 cm/s 50.2 cm/s Distal GARMENT TURNER 46.9 cm/s 44.0 cm/s Distal LIONEL 60.5 cm/s 31.2 cm/s Electronically Signed by Fady Riggs MD 04/26/2019 12:31 P
--- NOTE | 2019-04-25 15:18 | CR ---
DATE OF CONSULTATION: 04/25/2019 REASON FOR CONSULTATION: Urethral stricture with difficulty passing Marrero catheter. HISTORY: This is an 88-year-old white male who was admitted for was admitted for vascular insufficiency to the left great toe. During his stay, he was seen to be incontinent of urine and attempts at passing a Marrero catheter are unsuccessful. Urology consult was then called. PAST MEDICAL HISTORY: Significant for Chronic atrial fibrillation on Coumadin. Chronic kidney disease (CKD III with anemia of renal disease. History of urethral stricture stent placements. Chronic hypertension. Diabetes. Chronic coronary artery disease. Dysrhythmic disorder. History of vitamin D deficiency. Macular degeneration. Status post appendectomy. Bilateral knee surgeries. Status post esophageal dilation. Status post bilateral cataract surgery. Status post right hip hemiarthroplasty in 2019. SOCIAL HISTORY: Patient is a former smoker and lives with his . FAMILY HISTORY: Coronary artery disease. REVIEW OF SYSTEMS: Not obtainable at this time. PHYSICAL EXAMINATION: Alert, oriented white male who is in no acute distress. HEENT: Pupils equal and react to light. Sclerae are white. Extraocular muscles intact. NECK: Supple without adenopathy. Trachea is in the midline. CHEST: Normal thoracic with breath sounds bilaterally present and clear. CARDIAC: Regular. ABDOMEN: Flat, soft, benign. No masses, organomegaly or tenderness. GENITALIA: Shows uncircumcised penis with some adhesions to the glands. Scrotum, testicles, epididymides, perineum are normal. EXTREMITIES: Show good range of motion and he has an ischemic area on the left great toe. Initial attempts at passing an 18-Bur[place] catheter are unsuccessful. A 16-Burundian catheter was then attempted, also unsuccessfully. Urethral dilators were then used starting with a wire over which a Darlene dilator was passed up to 18-Burundian. An 18-Burundian catheter Coud Kake catheter was passed over this wire and finally advanced into the bladder with some difficulty. The balloon was then inflated with 10 mL of sterile water. Urine was collected for culture and the catheter was then connected to closed drainage. Patient should keep the Marrero catheter indwelling until ready for discharge at which time trial of voiding can be performed.
[2019-04-25 15:46] VITALS: BP 178/70
[2019-04-25] MEDS ORDERED: SLF 3 ML SYR IV PRN (16:00)
[2019-04-25] MEDS: SLF 3 ML SYR IV SCH ×2 (16:46→21:01)
[2019-04-25] MEDS ORDERED: cefTRIAXone SOD 1 GM in D5W MINI-BAG PLUS 50 ML IV SCH (17:00)
--- NOTE | 2019-04-25 19:39 | IPNPDOC ---
Date Seen The patient was seen on 04/25/19. Progress Note Patient seen and examined. is at bedside. I had a lengthy discussion with both them about the findings on the arterial duplex. The patient has monophasic waveforms throughout the left lower extremity suggesting left iliac disease, and also severe plaque throughout the arterial tree in both lower extremities. He has stenosis at the origin of the SFA, moderate, and severe stenosis at the or igin of the profunda which is likely limiting flow to the lower extremity. The right lower extremity has biphasic flow all the way down, suggestive of iliac disease as well, and I think the patient would benefit from an arteriogram and intervention. His left foot first toe appears to be due to injury versus pressure more so than blue toe syndrome from an embolic event. His left heel ulcer finally appears to be a pressure wound. This is suggestive of a patient that is mostly bedridden, but his says that he ambulates frequently at home. He seems fairly debilitated, but she is adamant that he walks. We had a long talk about the risks benefits and alternatives to an arteriogram and potential intervention. The patient is 88 years old, has a little bit of trouble following commands and holding still, and I'm not sure how he will do having to lay flat, but he feels he is up for the procedure. He says he had a heart cath in the past and did very well with it. We did discuss that the patient has renal insufficiency, although this seems to be improving with treatment of his UTI and hydration. His admission creatinine was 2.08 and is now 1.88, and his admission GFR was 32.4 and is now 36.4. This is trending in the right direction. If we do the procedure, we will use minimal contrast and hydrate the patient well. I discussed with them that I would do my best to see if it's possible to add this case on for tomorrow, but I have a full day of scheduled cases and add ons already, and I am not sure if it will be possible to fit it in. It may need to be done next Monday by our local physician, Dr. Nayak. However, if I can get this done tomorrow, I would be happy to do so. We will discuss again tomorrow. The patient should be nothing by mouth after breakfast in case we are able to do his procedure. We can always order lunch if we are not able to proceed. VS, I&O, 24H, Fishbone Vital Signs/I&O Vital Signs Date Time Temp Pulse Resp B/P (MAP) Pulse Ox O2 Delivery O2 Flow Rate FiO2 04/25/19 15:46 96.8 51 20 178/70 (106) 99 Room Air I&O- Last 24 Hours up to 6 AM 04/25/19 06:00 Intake Total 260 ml Output Total 800 ml Balance -540 ml Laboratory Data 24H LABS Laboratory Tests 2 04/24/19 21:08: Bedside Glucose (Misc Panel) 71L 04/25/19 03:50: Bedside Glucose (Misc Panel) 64L 04/25/19 05:39: Bedside Glucose (Misc Panel) 78L 04/25/19 05:40: Nucleated Red Blood Cells % (auto) 0.0, Prothrombin Time 57.6H, Prothromb Time International Ratio 6.49*H, Anion Gap 5L, Glomerular Filtration Rate 36.4, Estimated Mean Plasma Glucose 140H, Hemoglobin A1c 6.5, Calcium Level 9.1, Magnesium Level 3.1H 04/25/19 12:47: Bedside Glucose (Misc Panel) 104 04/25/19 16:38: Bedside Glucose (Misc Panel) 94 CBC/BMP Laboratory Tests 04/25/19 05:40 Microbiology Microbiology 04/25/19 Urine Culture, Received Pending 04/24/19 Blood Culture - Preliminary, Resulted No growth after 24 hours . All specim... 04/24/19 Urine Culture, Received Pending 04/24/19 Blood Culture - Preliminary, Resulted No growth after 24 hours . All specim... HODAN SCHMIDT MD Apr 25, 2019 19:39
[2019-04-25 20:00] VITALS: BP 153/68
[2019-04-25] MEDS: RAMELTEON 8 MG TAB (ROZEREM) PO SCH (20:51)
[2019-04-25] MEDS: LIDOCAINE 5% (LIDODERM) PATCH TD SCH (20:58)
[2019-04-25] MEDS: traZODone 100 MG TAB PO SCH (20:59)
[2019-04-25] MEDS: FERROUS SULFATE 325MG TAB PO SCH (20:59)
[2019-04-25] MEDS: ASPIRIN 81 MG ENTERIC TAB PO SCH (20:59)
[2019-04-26 04:00] VITALS: BP 136/60
[2019-04-26] MEDS: SLF 3 ML SYR IV SCH ×3 (04:45→20:34)
[2019-04-26 05:34] LABS: HEMATOCRIT 29.4 % (42.0-52.0); HEMOGLOBIN 8.9 g/dl (13.5-17.5); MEAN CORPUSCULAR HEMOGLOBIN 25.5 pg (27.0-33.0); MEAN CORPUSCULAR HGB CONC 30.3 g/dl (32.0-36.5); MEAN CORPUSCULAR VOLUME 84.2 fl (80.0-96.0); PLATELET COUNT, AUTOMATED 226 10^3/uL (150-450); RED BLOOD COUNT 3.49 10^6/uL (4.30-6.10); WHITE BLOOD COUNT 9.4 10^3/uL (4.0-10.0)
[2019-04-26 06:04] LABS: CALCIUM LEVEL 8.5 MG/DL (8.8-10.2); CREATININE FOR GFR 1.57 MG/DL (0.70-1.30); GLOMERULAR FILTRATION RATE 44.8 (>35); PERCENT SATURATION 15.6 % (19.7-50.0); POTASSIUM SERUM 4.1 MEQ/L (3.5-5.1)
[2019-04-26] MEDS: HumaLOG INSULIN (NovoLOG) PER UNIT SC SCH ×4 (07:30→20:41)
--- NOTE | 2019-04-26 07:56 | IPNPDOC ---
Date Seen The patient was seen on 04/26/19. Progress Note Patient seen and examined. I went over the risks benefits and alternatives to arteriogram again with the patient and his . I mentioned to them that his INR was very high yesterday, and if it is not safe we will not proceed today. Additionally, there may not be a way to add him on due to an extensive number of lengthy case is scheduled and at onset already today. If we cannot do the case today, we will definitely let him eat as soon as we know. An INR was ordered this morning so I put in an order and we will see if it is safe to proceed from that standpoint. He was extremely supratherapeutic yesterday at 6.94. The patient and his are agreeable to proceed if it is safe and consent was obtained. Further recommendations to follow. If we cannot do his case today, it may need to be done next week, or when I return in 2 weeks, depending on availability and decision of the locum surgeon. VS, I&O, 24H, Fishbone Vital Signs/I&O Vital Signs Date Time Temp Pulse Resp B/P (MAP) Pulse Ox O2 Delivery O2 Flow Rate FiO2 04/26/19 04:00 97.7 61 18 136/60 (85) 97 Room Air I&O- Last 24 Hours up to 6 AM 04/26/19 06:00 Intake Total 410 ml Output Total 1550 ml Balance -1140 ml Laboratory Data 24H LABS Laboratory Tests 2 04/25/19 12:47: Bedside Glucose (Misc Panel) 104 04/25/19 16:38: Bedside Glucose (Misc Panel) 94 04/25/19 20:12: Bedside Glucose (Misc Panel) 111H 04/26/19 05:10: Nucleated Red Blood Cells % (auto) 0.0, Anion Gap 4L, Glomerular Filtration Rate 44.8, Calcium Level 8.5L, Iron Level 39L, Total Iron Binding Capacity 250, Transferrin % Saturation 15.6L, Ferritin 80 04/26/19 07:04: 04/26/19 07:45: Bedside Glucose (Misc Panel) 42L CBC/BMP Laboratory Tests 04/26/19 05:10 Microbiology Microbiology 04/25/19 Urine Culture, Received Pending 04/24/19 Blood Culture - Preliminary, Resulted No growth after 24 hours . All specim... 04/24/19 Urine Culture - Final, Complete Enterococcus Faecalis 04/24/19 Blood Culture - Preliminary, Resulted No growth after 24 hours . All specim... HODAN SCHMIDT MD Apr 26, 2019 07:56
[2019-04-26 08:27] LABS: INR 4.91; PROTHROMBIN TIME 46.1 SECONDS (11.8-14.0)
[2019-04-26 08:30] VITALS: BP 119/56
[2019-04-26] MEDS: CitaloPRAM (CeleXA) 20 MG TAB PO SCH (08:33)
[2019-04-26] MEDS: FUROSEMIDE 40 MG TAB PO SCH (08:33)
[2019-04-26] MEDS: OMEPRAZOLE 20 MG CAP PO SCH (08:33)
[2019-04-26] MEDS: GABAPENTIN 300 MG CAP PO SCH ×3 (08:33→20:32)
[2019-04-26] MEDS: ATORVASTATIN 20 MG TAB PO SCH (08:33)
[2019-04-26] MEDS: TAMSULOSIN 0.4 MG CAP PO SCH (08:33)
[2019-04-26] MEDS: CARVedilol 12.5 MG TAB PO SCH ×2 (08:34→20:33)
[2019-04-26] MEDS: LEVEMIR (INSULIN DETEMIR) 1 UNITS/0.01ML SC SCH (08:56)
[2019-04-26] MEDS ORDERED: PREVNAR 13 VACCINE SYRINGE (CPT CODE:90670) IM ONE (09:00)
[2019-04-26] MEDS: **NOTE PATIENT COMMENT** MISC XX SCH (09:00)
[2019-04-26 10:19] LABS: FOLATE 14.5 NG/ML (>5.4)
--- NOTE | 2019-04-26 13:04 | ECGEPIP ---
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
[2019-04-26] MEDS: AMPICILLIN SOD/SULBACTAM SOD 3 GM in D5W MINI-BAG PLUS 100 ML IV SCH ×2 (13:08→20:31)
--- NOTE | 2019-04-26 14:01 | IPNPDOC ---
Subjective Date Seen The patient was seen on 04/26/19. Subjective Chief Complaint/HPI Mr. Nguyen's and daughter are at the bedside. He's sleeping, but arouses easily. No acute complaints at this time. No active bleeding with elevated INR Objective Physical Examination General Exam: Positive: Alert, No Acute Distress Eye Exam: Positive: Conjunctiva & lids normal; Negative: Sclera icteric ENT Exam: Positive: Mucous membr. moist/pink Neck Exam: Negative: Supple, JVD, Lymphadenopathy Chest Exam: Positive: Clear to auscultation, Normal air movement Heart Exam: Positive: Rate Normal, Normal S1, Normal S2 Telemetry: Positive: Atrial fibrillation (rate controlled) Abdomen Exam: Positive: Normal bowel sounds, Soft; Negative: Tenderness Extremity Exam: Positive: Other (tip of left hallux, medially dark brown/black discoloration, similarly colored area on the medially heel of the same heel); Negative: Edema, Normal pulses Skin Exam: Positive: Other skin issue (left toe with pressure ulcer on heel, and left hallux discoloration) Neuro Exam: Positive: Normal Speech Psych Exam: Positive: Mental status NL, Mood NL Assessment /Plan Assessment # 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 - urology required to place [facility] - leave in until ready for discharge, then can do PVR - continue flomax Plan/VTE VTE Prophylaxis Ordered?: No (on coumadin) VTE Exclusion Mechanical Proph: Eron Lower Ex Ischemia VTE Exclusion Pharmacological: Bleeding Risk VS, I&O, 24H, Panterabone Vital Signs/I&O Vital Signs Date Time Temp Pulse Resp B/P (MAP) Pulse Ox O2 Delivery O2 Flow Rate FiO2 04/26/19 08:34 61 119/56 04/26/19 08:30 97.1 18 92 Room Air I&O- Last 24 Hours up to 6 AM 04/26/19 06:00 Intake Total 410 ml Output Total 1550 ml Balance -1140 ml Laboratory Data 24H LABS Laboratory Tests 2 04/25/19 16:38: Bedside Glucose (Misc Panel) 94 04/25/19 20:12: Bedside Glucose (Misc Panel) 111H 04/26/19 05:10: Nucleated Red Blood Cells % (auto) 0.0, Anion Gap 4L, Glomerular Filtration Rate 44.8, Calcium Level 8.5L, Iron Level 39L, Total Iron Binding Capacity 250, Transferrin % Saturation 15.6L, Ferritin 80 04/26/19 07:04: Vitamin B12 Level 283, Folate 14.5 04/26/19 07:45: Bedside Glucose (Misc Panel) 42L 04/26/19 07:58: Prothrombin Time 46.1H, Prothromb Time International Ratio 4.91 04/26/19 08:27: Bedside Glucose (Misc Panel) 179H 04/26/19 11:51: Bedside Glucose (Misc Panel) 136H CBC/BMP Laboratory Tests 04/26/19 05:10 Microbiology Microbiology 04/25/19 Urine Culture, Received Pending 04/24/19 Blood Culture - Preliminary, Resulted No growth after 24 hours . All specim... 04/24/19 Urine Culture - Final, Complete Enterococcus Faecalis 04/24/19 Blood Culture - Preliminary, Resulted No growth after 24 hours . All specim... MITCHELL HECK MD Apr 26, 2019 13:36
[2019-04-26 14:13] VITALS: BP 132/53
--- NOTE | 2019-04-26 16:50 | IPNPDOC ---
Text Note Date of Service The patient was seen on 04/26/19. NOTE HPI: 88year oldM admitted as per hospitalist service regarding left lower ext remity pain and left great toe discoloration. Vascular surgery is consulted regarding nonhealing foot wound. Pt provides very limited history, Pt unsure how long toe has been discolored. and dtr at bedside and state that Pt is WC bound, takes only a few steps for transfer and is non mobile. 1. Left foot wound/left lower extremity pain. Dark discoloration is noted at the tip of the left great toe as well as a small blister at the tip of left second toe, dark discoloration at the left heel c/w pressure. There are no wounds noted on the right foot. Pedal pulses are noted to be monophasic bilaterally. The patient remains on aspirin 81 mg daily/statin. Arterial ultrasound bilateral lower extremities is reviewed. INR is supra therapeutic, not able to proceed with arteriogram at this time. 2. Chronic kidney disease stage III. Serum creatinine is noted to be 1.57 with GFR 44.8. VS,Fishbone, I+O VS, Fishbone, I+O Laboratory Tests 04/26/19 05:10 Vital Signs Date Time Temp Pulse Resp B/P (MAP) Pulse Ox O2 Delivery O2 Flow Rate FiO2 04/26/19 14:13 97.6 55 18 132/53 (79) 99 Room Air I&O- Last 24 Hours up to 6 AM 04/26/19 06:00 Intake Total 410 ml Output Total 1550 ml Balance -1140 ml Genoveva Andrade Apr 26, 2019 16:50
[2019-04-26 18:00] VITALS: BP 129/53
[2019-04-26] MEDS: FERROUS SULFATE 325MG TAB PO SCH (20:32)
[2019-04-26] MEDS: RAMELTEON 8 MG TAB (ROZEREM) PO SCH (20:32)
[2019-04-26] MEDS: ASPIRIN 81 MG ENTERIC TAB PO SCH (20:32)
[2019-04-26] MEDS: traZODone 100 MG TAB PO SCH (20:32)
[2019-04-26] MEDS: LIDOCAINE 5% (LIDODERM) PATCH TD SCH (20:33)
[2019-04-26 22:00] VITALS: BP 130/54
[2019-04-27 02:00] VITALS: BP 127/57
[2019-04-27] MEDS: SLF 3 ML SYR IV SCH ×3 (04:39→20:23)
[2019-04-27] MEDS: AMPICILLIN SOD/SULBACTAM SOD 3 GM in D5W MINI-BAG PLUS 100 ML IV SCH ×3 (04:40→20:21)
[2019-04-27 06:00] VITALS: BP 137/61
[2019-04-27 06:45] LABS: HEMATOCRIT 26.4 % (42.0-52.0); HEMOGLOBIN 8.2 g/dl (13.5-17.5); MEAN CORPUSCULAR HEMOGLOBIN 25.9 pg (27.0-33.0); MEAN CORPUSCULAR HGB CONC 31.1 g/dl (32.0-36.5); MEAN CORPUSCULAR VOLUME 83.5 fl (80.0-96.0); PLATELET COUNT, AUTOMATED 180 10^3/uL (150-450); RED BLOOD COUNT 3.16 10^6/uL (4.30-6.10); WHITE BLOOD COUNT 7.1 10^3/uL (4.0-10.0)
[2019-04-27 07:00] LABS: INR 3.15; PROTHROMBIN TIME 32.3 SECONDS (11.8-14.0)
[2019-04-27 07:18] LABS: CALCIUM LEVEL 8.2 MG/DL (8.8-10.2); CREATININE FOR GFR 1.66 MG/DL (0.70-1.30); POTASSIUM SERUM 4.3 MEQ/L (3.5-5.1)
[2019-04-27 09:13] VITALS: BP 132/55
[2019-04-27] MEDS: LEVEMIR (INSULIN DETEMIR) 1 UNITS/0.01ML SC SCH (09:14)
[2019-04-27] MEDS: OMEPRAZOLE 20 MG CAP PO SCH (09:15)
[2019-04-27] MEDS: GABAPENTIN 300 MG CAP PO SCH ×3 (09:15→20:22)
[2019-04-27] MEDS: TAMSULOSIN 0.4 MG CAP PO SCH (09:15)
[2019-04-27] MEDS: FUROSEMIDE 40 MG TAB PO SCH (09:15)
[2019-04-27] MEDS: HumaLOG INSULIN (NovoLOG) PER UNIT SC SCH ×4 (09:15→20:22)
[2019-04-27] MEDS: CitaloPRAM (CeleXA) 20 MG TAB PO SCH (09:15)
[2019-04-27] MEDS: **NOTE PATIENT COMMENT** MISC XX SCH (09:17)
[2019-04-27] MEDS: CARVedilol 12.5 MG TAB PO SCH ×2 (09:20→20:22)
--- NOTE | 2019-04-27 10:56 | IPNPDOC ---
Subjective Date Seen The patient was seen on 04/27/19. Subjective Chief Complaint/HPI Douglas is doing well this morning. No complaints. Objective Physical Examination General Exam: Positive: Alert, No Acute Distress Eye Exam: Positive: Conjunctiva & lids normal; Negative: Sclera icteric ENT Exam: Positive: Mucous membr. 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 - urology required to place [facility] - leave in until ready for discharge, then can do PVR - continue flomax Plan/VTE VTE Prophylaxis Ordered?: No (on coumadin) VTE Exclusion Mechanical Proph: Eron Lower Ex Ischemia VTE Exclusion Pharmacological: Bleeding Risk VS, I&O, 24H, Fishbone Vital Signs/I&O Vital Signs Date Time Temp Pulse Resp B/P (MAP) Pulse Ox O2 Delivery O2 Flow Rate FiO2 04/27/19 09:13 56 132/55 (80) 04/27/19 06:00 97.7 17 95 04/27/19 02:00 Room Air I&O- Last 24 Hours up to 6 AM 04/27/19 05:59 Intake Total 900 ml Output Total 750 ml Balance 150 ml Laboratory Data 24H LABS Laboratory Tests 2 04/26/19 11:51: Bedside Glucose (Misc Panel) 136H 04/26/19 16:31: Bedside Glucose (Misc Panel) 118H 04/26/19 19:57: Bedside Glucose (Misc Panel) 134H 04/27/19 06:02: Nucleated Red Blood Cells % (auto) 0.0, Prothrombin Time 32.3H, Prothromb Time International Ratio 3.15, Anion Gap 6L, Glomerular Filtration Rate 42.0, Calcium Level 8.2L CBC/BMP Laboratory Tests 04/27/19 06:02 Microbiology Microbiology 04/25/19 Urine Culture - Final, Complete Enterococcus Faecalis 04/24/19 Blood Culture - Preliminary, Resulted No Growth after 48 hours. All Specime... 04/24/19 Urine Culture - Final, Complete Enterococcus Faecalis 04/24/19 Blood Culture - Preliminary, Resulted No Growth after 48 hours. All Specime... MITCHELL HECK MD Apr 27, 2019 10:56
--- NOTE | 2019-04-27 13:26 | ECHO ---
DATE OF PROCEDURE: 04/26/2019 REFERRING PROVIDER: Dr. Carson Menjivar PATIENT LOCATION: Room 3223 REASON FOR THE STUDY: Abnormal EKG. 2D MEASUREMENTS: IVS: 1.3 cm LV: 4.9 cm LVPW: 1.2 cm LA: 3.5 cm Aorta: 3.5 cm IVC: 2.1 cm DOPPLER MEASUREMENTS: Peak velocity across the aortic valve: 1.5 m/s Peak velocity across the LVOT: 0.68 m/s Mitral E: 0.60 Mitral A: 1.0 with a ratio of 0.6 Maximum tricuspid valve velocity: 2.8 m/s 2-D COMMENTS: 1. Normal left ventricular size with mildly increased left ventricular wall thickness. Left ventricular systolic function is normal, estimated at 55-60%. 2. Normal left atrium. Normal right atrium and right ventricle. 3. The atrial septum appeared to be normal without evidence of defect or shunt. 4. Normal aortic root. 5. No pericardial effusion seen. 6. Mildly calcified aortic valve with normal leaflet excursion. Mildly calcified mitral annulus with normal anterior mitral leaflet motion. Normal tricuspid valve and pulmonic valve. The proximal pulmonary artery branches were not well visualized. 7. The inferior vena cava was mildly enlarged, central venous pressure mildly elevated. DOPPLER: It detects trace to mild mitral regurgitation, mild tricuspid regurgitation, and trace pulmonic regurgitation. The calculated pulmonary artery systolic pressure varies between 30-40 mmHg. Abnormal relaxation pattern was noted across the mitral valve leaflets as well as the mitral valve annulus consistent with features of grade 1 left ventricular diastolic dysfunction. IMPRESSION: 1. Low normal global left ventricular systolic function with mild concentric left ventricular hypertrophy. There is some features of left ventricular diastolic dysfunction manifested by abnormal relaxation. 2. Aortic valve sclerosis without stenosis or aortic radiation. 3. Mitral annulus calcification with trace to mild mitral radiation. 4. Mild tricuspid radiation with mild pulmonary hypertension. MTDD
[2019-04-27 14:00] VITALS: BP 117/61
[2019-04-27] MEDS: ASPIRIN 81 MG ENTERIC TAB PO SCH (20:22)
[2019-04-27] MEDS: traZODone 100 MG TAB PO SCH (20:22)
[2019-04-27] MEDS: FERROUS SULFATE 325MG TAB PO SCH (20:22)
[2019-04-27] MEDS: RAMELTEON 8 MG TAB (ROZEREM) PO SCH (20:22)
[2019-04-27] MEDS: LIDOCAINE 5% (LIDODERM) PATCH TD SCH (20:23)
[2019-04-27 22:00] VITALS: BP 153/69
[2019-04-28 02:00] VITALS: BP 126/59
[2019-04-28] MEDS: AMPICILLIN SOD/SULBACTAM SOD 3 GM in D5W MINI-BAG PLUS 100 ML IV SCH (04:08)
[2019-04-28] MEDS: SLF 3 ML SYR IV SCH ×3 (05:04→22:07)
[2019-04-28 06:00] VITALS: BP 126/58
[2019-04-28 06:18] LABS: HEMATOCRIT 26.4 % (42.0-52.0); HEMOGLOBIN 8.1 g/dl (13.5-17.5); MEAN CORPUSCULAR HEMOGLOBIN 25.7 pg (27.0-33.0); MEAN CORPUSCULAR HGB CONC 30.7 g/dl (32.0-36.5); MEAN CORPUSCULAR VOLUME 83.8 fl (80.0-96.0); PLATELET COUNT, AUTOMATED 170 10^3/uL (150-450); RED BLOOD COUNT 3.15 10^6/uL (4.30-6.10); WHITE BLOOD COUNT 7.5 10^3/uL (4.0-10.0)
[2019-04-28 06:30] LABS: INR 2.2; PROTHROMBIN TIME 24.2 SECONDS (11.8-14.0)
[2019-04-28 06:39] LABS: CALCIUM LEVEL 8.5 MG/DL (8.8-10.2); CREATININE FOR GFR 1.7 MG/DL (0.70-1.30); GLOMERULAR FILTRATION RATE 40.9 (>35); POTASSIUM SERUM 4.1 MEQ/L (3.5-5.1)
[2019-04-28] MEDS: HumaLOG INSULIN (NovoLOG) PER UNIT SC SCH ×5 (07:30→21:00)
[2019-04-28 08:30] VITALS: BP 88/56
[2019-04-28 08:44] VITALS: BP 94/50
[2019-04-28] MEDS ORDERED: NS 1,000 ML IV SCH (09:30)
--- NOTE | 2019-04-28 11:50 | IPNPDOC ---
Subjective Date Seen The patient was seen on 04/28/19. Subjective Chief Complaint/HPI Wing developed hypotension this morning and reported feeling tired, he did not lose consciousness, I have checked on him several times and he feels improved. His am BP meds and diuretic are held for today. His BP improved on recheck with return to bed. His tells me he has not been eating well. No reports of worsening bradycardia by tele. Objective Physical Examination General Exam: Positive: Alert, Mild Distress (feeling tired) Eye Exam: Positive: Conjunctiva & lids normal; Negative: Sclera icteric ENT Exam: Positive: Mucous membr. moist/pink Neck Exam: Negative: Supple, JVD, Lymphadenopathy Chest Exam: Positive: Clear to auscultation, Normal air movement Heart Exam: Positive: Rate Normal, Normal S1, Normal S2 Telemetry: Positive: Atrial fibrillation (rate controlled) Abdomen Exam: Positive: Normal bowel sounds, Soft; Negative: Tenderness Extremity Exam: Negative: Edema, Normal pulses Skin Exam: Positive: Other skin issue (left toe with pressure ulcer on heel, and left hallux discoloration) Neuro Exam: Positive: Normal Speech, Strength at 5/5 X4 ext, Cranial Nerves 3- 12 NL Psych Exam: Positive: Mental status NL Assessment /Plan Assessment # 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 UC & S pending (2) A-fib Status: Chronic Response to Treatment: Stable Problem Specific Plan: Monitor Clinically Problem Text: Rate controlled with Coreg, cont with ASA for now Coumadin held INR 6.49 this morning. (3) CKD (chronic kidney disease) stage 3, GFR 30-59 ml/min Status: Chronic Response to Treatment: Stable Problem Specific Plan: Monitor Clinically Problem Text: Baseline scr 1.6-1.8 (4) DM2 (diabetes mellitus, type 2) Status: Chronic Response to Treatment: Stable Problem Text: 03/2019 A1C 6.5 HD: glar 30 QHS, glip 5 BID 04/25 on det 25 QHS, AC TID/QHS lispro BG to 70s this AM; therefore, decreased to 15 QHS (5) CAD (coronary artery disease) Status: Chronic Response to Treatment: Stable Problem Specific Plan: Monitor Clinically (6) Supratherapeutic INR Status: Acute Problem Specific Plan: Monitor Clinically, Repeat Labs Problem Text: baseline hgb low 92 04/25 INR 6.5, Hgb 9 this morning down to 8.4 this morning, monitor-continue to follow-no indication to reverse. (7) Anemia Status: Acute Response to Treatment: Stable Problem Specific Plan: Monitor Clinically, Repeat Labs Problem Text: Monitor Hgb, obtain iron studies, b12, folatem check hemoccult Plan/VTE VTE Prophylaxis Ordered?: No (on coumadin) VTE Exclusion Mechanical Proph: Eron Lower Ex Ischemia VTE Exclusion Pharmacological: Bleeding Risk VS, I&O, 24H, Fishbone Vital Signs/I&O Vital Signs Date Time Temp Pulse Resp B/P (MAP) Pulse Ox O2 Delivery O2 Flow Rate FiO2 04/28/19 08:30 97.8 64 16 88/56 (67) Room Air 04/28/19 06:00 96 I&O- Last 24 Hours up to 6 AM 04/28/19 05:59 Intake Total 2470 ml Output Total 1800 ml Balance 670 ml Laboratory Data 24H LABS Laboratory Tests 2 04/27/19 11:41: Bedside Glucose (Misc Panel) 137H 04/27/19 16:41: Bedside Glucose (Misc Panel) 97 04/27/19 20:16: Bedside Glucose (Misc Panel) 137H 04/28/19 05:59: Nucleated Red Blood Cells % (auto) 0.0, Prothrombin Time 24.2H, Prothromb Time International Ratio 2.20, Anion Gap 5L, Glomerular Filtration Rate 40.9, Calcium Level 8.5L 04/28/19 08:51: Bedside Glucose (Misc Panel) 91 04/28/19 09:05: Troponin I < 0.02 CBC/BMP Laboratory Tests 04/28/19 05:59 Microbiology Microbiology 04/25/19 Urine Culture - Final, Complete Enterococcus Faecalis 04/24/19 Blood Culture - Preliminary, Resulted No Growth after 72 hours. All specime... 04/24/19 Urine Culture - Final, Complete Enterococcus Faecalis 04/24/19 Blood Culture - Preliminary, Resulted No Growth after 72 hours. All specime... MITCHELL HECK MD Apr 28, 2019 11:50
[2019-04-28] MEDS: TAMSULOSIN 0.4 MG CAP PO SCH (12:10)
[2019-04-28] MEDS: AUGMENTIN 500 MG TAB PO SCH ×2 (12:10→20:02)
[2019-04-28] MEDS: CitaloPRAM (CeleXA) 20 MG TAB PO SCH (12:11)
[2019-04-28] MEDS: OMEPRAZOLE 20 MG CAP PO SCH (12:11)
[2019-04-28] MEDS: GABAPENTIN 300 MG CAP PO SCH ×3 (12:11→20:03)
[2019-04-28] MEDS: LEVEMIR (INSULIN DETEMIR) 1 UNITS/0.01ML SC SCH (12:11)
[2019-04-28] MEDS: **NOTE PATIENT COMMENT** MISC XX SCH (12:25)
[2019-04-28 14:00] VITALS: BP 110/60
[2019-04-28] MEDS: DOCUSATE SODIUM 100 MG CAP PO SCH ×2 (17:48→20:02)
[2019-04-28] MEDS: FERROUS SULFATE 325MG TAB PO SCH (20:02)
[2019-04-28] MEDS: LIDOCAINE 5% (LIDODERM) PATCH TD SCH (20:03)
[2019-04-28] MEDS: traZODone 100 MG TAB PO SCH (20:03)
[2019-04-28] MEDS: ASPIRIN 81 MG ENTERIC TAB PO SCH (20:03)
[2019-04-28] MEDS: RAMELTEON 8 MG TAB (ROZEREM) PO SCH (20:03)
[2019-04-28] MEDS ORDERED: DOCUSATE SODIUM 100 MG CAP PO SCH (21:00)
[2019-04-28 22:00] VITALS: BP 153/57
--- NOTE | 2019-04-28 23:27 | ECGEPIP ---
[facility] Test Date: 2019-04-28 Pat Name: AME MCCOLLUM Department: Room: [place] [address] Gender: Male Lead Printer: YUE : [id number] Requested By: MITCHELL Mace Order Number: [id number] Reading MD: Rich Fry Measurements Intervals [place] Rate: 53 P: 79 MA: 213 QRS: 8 QRSD: 162 T: 38 QT: 507 QTc: 479 Interpretive Statements SINUS BRADYCARDIA WITH FIRST DEGREE AV BLOCK RIGHT BUNDLE BRANCH BLOCK COMPARED TO THE LAST 4 TRACINGS IN THE SYSTEM, NO SIGNIFICANT CHANGES Electronically Signed on 04-28-2019 23:26:58 EST by Rich Fry
[2019-04-29] MEDS: SLF 3 ML SYR IV SCH ×3 (05:57→20:43)
[2019-04-29 06:00] VITALS: BP 153/60
[2019-04-29 06:27] LABS: HEMATOCRIT 24.9 % (42.0-52.0); HEMOGLOBIN 7.9 g/dl (13.5-17.5); MEAN CORPUSCULAR HEMOGLOBIN 26.6 pg (27.0-33.0); MEAN CORPUSCULAR HGB CONC 31.7 g/dl (32.0-36.5); MEAN CORPUSCULAR VOLUME 83.8 fl (80.0-96.0); PLATELET COUNT, AUTOMATED 191 10^3/uL (150-450); RED BLOOD COUNT 2.97 10^6/uL (4.30-6.10); WHITE BLOOD COUNT 8.3 10^3/uL (4.0-10.0)
[2019-04-29 06:34] LABS: INR 1.76; PROTHROMBIN TIME 20.2 SECONDS (11.8-14.0)
[2019-04-29 06:54] LABS: CALCIUM LEVEL 8.4 MG/DL (8.8-10.2); CREATININE FOR GFR 1.41 MG/DL (0.70-1.30); GLOMERULAR FILTRATION RATE 50.7 (>35); POTASSIUM SERUM 3.9 MEQ/L (3.5-5.1)
[2019-04-29 07:30] VITALS: BP 152/70
[2019-04-29] MEDS: HumaLOG INSULIN (NovoLOG) PER UNIT SC SCH ×4 (07:30→21:00)
[2019-04-29] MEDS: **NOTE PATIENT COMMENT** MISC XX SCH (09:00)
[2019-04-29 09:36] VITALS: BP_SYST 123; BP_SYST 150; BP_SYST 76; BP_DIAS 40; BP_DIAS 55; BP_DIAS 62
[2019-04-29] MEDS: LEVEMIR (INSULIN DETEMIR) 1 UNITS/0.01ML SC SCH (10:19)
[2019-04-29] MEDS: OMEPRAZOLE 20 MG CAP PO SCH (10:20)
[2019-04-29] MEDS: ATORVASTATIN 20 MG TAB PO SCH (10:20)
[2019-04-29] MEDS: AUGMENTIN 500 MG TAB PO SCH ×2 (10:20→20:42)
[2019-04-29] MEDS: TAMSULOSIN 0.4 MG CAP PO SCH (10:20)
[2019-04-29] MEDS: DOCUSATE SODIUM 100 MG CAP PO SCH ×2 (10:21→20:42)
[2019-04-29] MEDS: GABAPENTIN 300 MG CAP PO SCH ×3 (10:21→20:42)
[2019-04-29] MEDS: CitaloPRAM (CeleXA) 20 MG TAB PO SCH (10:21)
--- NOTE | 2019-04-29 10:49 | IPNPDOC ---
Subjective Date Seen The patient was seen on 04/29/19. Subjective Chief Complaint/HPI Seen this morning while in bed. Daughter and at bedside and updated on lab results. c/o presyncopal symptoms with standing later in the morning, with orthostasis on repeat vital check Objective Physical Examination General Exam: Positive: Alert, Mild Distress (feeling tired) Eye Exam: Positive: Conjunctiva & lids normal; Negative: Sclera icteric ENT Exam: Positive: Mucous membr. moist/pink Neck Exam: Negative: Supple, JVD, Lymphadenopathy Chest Exam: Positive: Clear to auscultation, Normal air movement Heart Exam: Positive: Rate Normal, Normal S1, Normal S2 Telemetry: Positive: Atrial fibrillation (rate controlled) Abdomen Exam: Positive: Normal bowel sounds, Soft; Negative: Tenderness Extremity Exam: Negative: Edema, Normal pulses Skin Exam: Positive: Other skin issue (left toe with pressure ulcer on heel, and left hallux discoloration) Neuro Exam: Positive: Normal Speech, Strength at 5/5 X4 ext, Cranial Nerves 3- 12 NL Psych Exam: Positive: Mental status NL Assessment /Plan Assessment # 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 - urology required to place [facility] - leave in until ready for discharge, then can do PVR - hold flomax for orthostatic hypotension Dispo: will need placement at time of discharge, PT/OT consulted Plan/VTE VTE Prophylaxis Ordered?: No (on coumadin) VTE Exclusion Mechanical Proph: Eron Lower Ex Ischemia VTE Exclusion Pharmacological: Bleeding Risk VS, I&O, 24H, Fishbone Vital Signs/I&O Vital Signs Date Time Temp Pulse Resp B/P (MAP) Pulse Ox O2 Delivery O2 Flow Rate FiO2 04/29/19 09:36 81 76/40 (52) 04/29/19 07:30 98.1 18 100 Room Air I&O- Last 24 Hours up to 6 AM 04/29/19 06:00 Intake Total 360 ml Output Total 1150 ml Balance -790 ml Laboratory Data 24H LABS Laboratory Tests 2 04/28/19 11:37: Bedside Glucose (Misc Panel) 116H 04/28/19 15:17: Troponin I 0.02 04/28/19 16:56: Bedside Glucose (Misc Panel) 150H 04/28/19 20:58: Bedside Glucose (Misc Panel) 195H 04/29/19 05:43: Nucleated Red Blood Cells % (auto) 0.0, Prothrombin Time 20.2H, Prothromb Time International Ratio 1.76, Anion Gap 3L, Glomerular Filtration Rate 50.7, Calcium Level 8.4L CBC/BMP Laboratory Tests 04/29/19 05:43 Microbiology Microbiology 04/25/19 Urine Culture - Final, Complete Enterococcus Faecalis 04/24/19 Blood Culture - Preliminary, Resulted No Growth after 72 hours. All specime... 04/24/19 Urine Culture - Final, Complete Enterococcus Faecalis 04/24/19 Blood Culture - Preliminary, Resulted No Growth after 72 hours. All specime... MITCHELL HECK MD Apr 29, 2019 10:49
[2019-04-29] MEDS: NS 1,000 ML IV SCH (11:29)
[2019-04-29 14:00] VITALS: BP 128/51
[2019-04-29] MEDS: FERROUS SULFATE 325MG TAB PO SCH (20:42)
[2019-04-29] MEDS: ASPIRIN 81 MG ENTERIC TAB PO SCH (20:42)
[2019-04-29] MEDS: RAMELTEON 8 MG TAB (ROZEREM) PO SCH (20:42)
[2019-04-29] MEDS: traZODone 100 MG TAB PO SCH (20:42)
[2019-04-29] MEDS: LIDOCAINE 5% (LIDODERM) PATCH TD SCH (20:43)
[2019-04-29 22:00] VITALS: BP 125/68
[2019-04-30] VITALS (12 sets, daily range): BP systolic 88–155; BP diastolic 50–67
[2019-04-30] MEDS: NS 1,000 ML IV SCH (00:24)
[2019-04-30] MEDS: SLF 3 ML SYR IV SCH ×3 (06:00→20:18)
[2019-04-30] MEDS: HumaLOG INSULIN (NovoLOG) PER UNIT SC SCH ×4 (07:10→20:04)
[2019-04-30] MEDS: LEVEMIR (INSULIN DETEMIR) 1 UNITS/0.01ML SC SCH (07:15)
[2019-04-30] MEDS ORDERED: fentaNYL 100 MCG/2 ML INJECTION (J3010) As Ordered ONE (08:20)
[2019-04-30] MEDS ORDERED: LIDOCAINE 1% MDV 20ML VIAL As Ordered ONE (08:21)
[2019-04-30] MEDS ORDERED: ISOVUE-300 61% 50ML VIAL (Q9967) As Ordered ONE (08:21)
[2019-04-30] MEDS ORDERED: MIDAZOLAM INJ 2 MG/2 ML VIAL (J2250) As Ordered ONE (08:21)
[2019-04-30] MEDS ORDERED: HEPARIN 1,000 UNITS/ML 10ML VIAL (FOR RADIOLOGY& DIALYSIS ONLY)(J1644-10) As Ordered ONE (08:21)
[2019-04-30] MEDS ORDERED: diphenhydrAMINE INJ 50MG/ML VIAL (J1200) As Ordered ONE (08:22)
[2019-04-30] MEDS: ACETAMINOPHEN TAB 650MG DOSE (2X325MG) PO PRN (11:19)
[2019-04-30] MEDS: DOCUSATE SODIUM 100 MG CAP PO SCH ×2 (11:20→20:16)
[2019-04-30] MEDS: AUGMENTIN 500 MG TAB PO SCH ×2 (11:20→20:16)
[2019-04-30] MEDS: CitaloPRAM (CeleXA) 20 MG TAB PO SCH (11:20)
[2019-04-30] MEDS: GABAPENTIN 300 MG CAP PO SCH ×3 (11:20→20:16)
[2019-04-30] MEDS: OMEPRAZOLE 20 MG CAP PO SCH (11:22)
[2019-04-30] MEDS: **NOTE PATIENT COMMENT** MISC XX SCH (11:22)
[2019-04-30 12:45] LABS: HEMOGLOBIN 7.6 g/dl (13.5-17.5); MEAN CORPUSCULAR HEMOGLOBIN 26.7 pg (27.0-33.0); MEAN CORPUSCULAR HGB CONC 31.7 g/dl (32.0-36.5); MEAN CORPUSCULAR VOLUME 84.2 fl (80.0-96.0); PLATELET COUNT, AUTOMATED 165 10^3/uL (150-450); RED BLOOD COUNT 2.85 10^6/uL (4.30-6.10); WHITE BLOOD COUNT 9.9 10^3/uL (4.0-10.0)
[2019-04-30 13:14] LABS: ALBUMIN 2.7 GM/DL (3.2-5.2); ALT/SGPT 12 U/L (12-78); BILIRUBIN,TOTAL 0.1 MG/DL (0.2-1.0); BLOOD UREA NITROGEN 20 MG/DL (7-18); CALCIUM LEVEL 7.9 MG/DL (8.8-10.2); CARBON DIOXIDE LEVEL 25 MEQ/L (21-32); CHLORIDE LEVEL 110 MEQ/L (98-107); CREATININE FOR GFR 1.19 MG/DL (0.70-1.30); GLOMERULAR FILTRATION RATE > 60.0 (>35); GLUCOSE, FASTING 115 MG/DL (70-100); MAGNESIUM LEVEL 1.9 MG/DL (1.8-2.4); POTASSIUM SERUM 3.9 MEQ/L (3.5-5.1); SODIUM LEVEL 140 MEQ/L (136-145); TOTAL PROTEIN 5.7 GM/DL (6.4-8.2)
[2019-04-30] MEDS: KETOROLAC 30 MG/ML VIAL (J1885) IV SCH ×2 (14:20→20:17)
--- NOTE | 2019-04-30 14:37 | IPNPDOC ---
Subjective Date Seen The patient was seen on 04/30/19. Subjective Chief Complaint/HPI Patient comfortable in no distress. Offers no new complaints Constitutional: Denies: Chills, Fever, Malaise, Night Sweats, Weakness, Fatigue, Weight Loss, Lethargy, Other Eyes: Denies: Pain, Vision change, Conjunctivae inflammation, Eyelid inflammation, Redness, Other Skin: Denies: Rash, Lesions, Jaundice, Bruising, Itching, Dry, Breakdown, Nail Changes, Other Pulmonary: Denies: Dyspnea, Cough, Pleuritic Chest Pain, Other Symptoms Cardiovascular: Denies: Chest Pain, Palpitations, Orthopnea, Paroxysmal Noc. Dyspnea, Edema, Lt Headedness, Other Symptoms Gastrointestinal: Denies: Nausea, Vomiting, Abdominal Pain, Diarrhea, Constipation, Melena, Hematochezia, Other Symptoms Endocrine: Denies: Polydipsia, Polyphagia, Polyuria, Heat Intolerance, Cold Intolerance, Other Endocrine Sx Musculoskeletal: Denies: Neck Pain, Back Pain, Shoulder Pain, Arm Pain, Hand Pain, Leg Pain, Foot Pain, Joint Pain, Muscle Pain, Spasms, Other Symptoms Neurological: Denies: Weakness, Numbness, Incoordination, Change in speech, Confusion, Seizures, Other Symptoms Objective Physical Examination General Exam: Positive: Alert, Mild Distress (feeling tired) Eye Exam: Positive: Conjunctiva & lids normal; Negative: Sclera icteric ENT Exam: Positive: Mucous membr. moist/pink Neck Exam: Negative: Supple, JVD, Lymphadenopathy Chest Exam: Positive: Clear to auscultation, Normal air movement Heart Exam: Positive: Rate Normal, Normal S1, Normal S2 Telemetry: Positive: Atrial fibrillation (rate controlled) Abdomen Exam: Positive: Normal bowel sounds, Soft; Negative: Tenderness Extremity Exam: Negative: Edema, Normal pulses Skin Exam: Positive: Other skin issue (left toe with pressure ulcer on heel, and left hallux discoloration) Neuro Exam: Positive: Normal Speech, Strength at 5/5 X4 ext, Cranial Nerves 3- 12 NL Psych Exam: Positive: Mental status NL Assessment /Plan Problems (1) Atherosclerotic PVD with ulceration Status: Chronic Problem Text: Multilevel left foot, PAD with areas of necrosis Patient had angiogram done today Awaiting vascular surgery recommendations. 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 Continue present meds INR in a.m., continue Coumadin (4) CKD (chronic kidney disease) stage 3, GFR 30-59 ml/min Status: Chronic Response to Treatment: Stable Problem Specific Plan: Monitor Clinically Problem Text: CKD stage 3 creat baaseline 1.6-1.8 remains stable this morning at 1.4 (5) DM2 (diabetes mellitus, type 2) Status: Chronic Response to Treatment: Stable Problem Text: Fingerstick blood sugar every before meals and at bedtime with coverage continue humalog SS hold levemir dose this am due to hypoglycemia (6) Anemia Status: Acute Response to Treatment: Stable Problem Specific Plan: Monitor Clinically, Repeat Labs Problem Text: H&H stable Monitor CBC Plan/VTE VTE Prophylaxis Ordered?: Yes VTE Exclusion Mechanical Proph: Eron Lower Ex Ischemia VTE Exclusion Pharmacological: Bleeding Risk VS, I&O, 24H, Fishbone Vital Signs/I&O Vital Signs Date Time Temp Pulse Resp B/P (MAP) Pulse Ox O2 Delivery O2 Flow Rate FiO2 04/30/19 14:30 99.2 61 18 135/50 (78) 96 Room Air 04/30/19 10:03 3 I&O- Last 24 Hours up to 6 AM 04/30/19 06:00 Intake Total 1300 ml Output Total 1575 ml Balance -275 ml Laboratory Data 24H LABS Laboratory Tests 2 04/29/19 16:39: Bedside Glucose (Misc Panel) 94 04/29/19 21:10: Bedside Glucose (Misc Panel) 156H 04/30/19 06:25: Bedside Glucose (Misc Panel) 95 04/30/19 11:43: Bedside Glucose (Misc Panel) 114H 04/30/19 12:31: Nucleated Red Blood Cells % (auto) 0.0, Anion Gap 5L, Glomerular Filtration Rate > 60.0, Calcium Level 7.9L, Magnesium Level 1.9, Total Bilirubin 0.1L, Aspartate Amino Transf (AST/SGOT) 13, Alanine Aminotransferase (ALT/SGPT) 12, Alkaline Phosphatase 68, Total Protein 5.7L, Albumin 2.7L, Albumin/Globulin Ratio 0.90L CBC/BMP Laboratory Tests 04/30/19 12:31 Microbiology Microbiology 04/25/19 Urine Culture - Final, Complete Enterococcus Faecalis 04/24/19 Blood Culture - Final, Complete NO GROWTH AFTER 5 DAYS 04/24/19 Urine Culture - Final, Complete Enterococcus Faecalis 04/24/19 Blood Culture - Final, Complete NO GROWTH AFTER 5 DAYS INÉS BLACKMAN MD Apr 30, 2019 14:37
[2019-04-30] MEDS: traZODone 100 MG TAB PO SCH (20:16)
[2019-04-30] MEDS: LIDOCAINE 5% (LIDODERM) PATCH TD SCH (20:16)
[2019-04-30] MEDS: ASPIRIN 81 MG ENTERIC TAB PO SCH (20:16)
[2019-04-30] MEDS: FERROUS SULFATE 325MG TAB PO SCH (20:16)
[2019-04-30] MEDS: RAMELTEON 8 MG TAB (ROZEREM) PO SCH (20:16)
[2019-05-01] VITALS (7 sets, daily range): BP systolic 115–154; BP diastolic 44–60
[2019-05-01] MEDS: KETOROLAC 30 MG/ML VIAL (J1885) IV SCH ×4 (01:57→20:00)
[2019-05-01] MEDS: SLF 3 ML SYR IV SCH ×3 (06:35→20:38)
[2019-05-01 07:14] LABS: BASO % 0.3 % (0.0-1.0); EOS # 0.3 10^3/uL (0.0-0.5); EOS % 2.8 % (0.0-3.0); HEMATOCRIT 25.5 % (42.0-52.0); HEMOGLOBIN 7.9 g/dl (13.5-17.5); LYMPH # 0.9 10^3/uL (1.5-5.0); LYMPH % 7.5 % (24.0-44.0); MEAN CORPUSCULAR HEMOGLOBIN 26.3 pg (27.0-33.0); MONO # 0.6 10^3/uL (0.0-0.8); MONO % 5.2 % (0.0-5.0); NEUTROPHILS % 83.5 % (36.0-66.0); PLATELET COUNT, AUTOMATED 183 10^3/uL (150-450)
[2019-05-01 07:26] LABS: INR 1.88; PROTHROMBIN TIME 21.4 SECONDS (11.8-14.0)
[2019-05-01 07:48] LABS: ALBUMIN 2.7 GM/DL (3.2-5.2); BILIRUBIN,TOTAL 0.4 MG/DL (0.2-1.0); CALCIUM LEVEL 8.4 MG/DL (8.8-10.2); CREATININE FOR GFR 1.39 MG/DL (0.70-1.30); GLOMERULAR FILTRATION RATE 51.6 (>35); MAGNESIUM LEVEL 1.9 MG/DL (1.8-2.4); POTASSIUM SERUM 4.1 MEQ/L (3.5-5.1); TOTAL PROTEIN 6.6 GM/DL (6.4-8.2)
[2019-05-01] MEDS: GABAPENTIN 300 MG CAP PO SCH ×3 (09:50→20:37)
[2019-05-01] MEDS: OMEPRAZOLE 20 MG CAP PO SCH (09:50)
[2019-05-01] MEDS: ACETAMINOPHEN TAB 650MG DOSE (2X325MG) PO PRN (09:50)
[2019-05-01] MEDS: DOCUSATE SODIUM 100 MG CAP PO SCH ×2 (09:50→20:37)
[2019-05-01] MEDS: ATORVASTATIN 20 MG TAB PO SCH (09:50)
[2019-05-01] MEDS: VITAMIN D 50,000 UNITS CAPSULE (ERGOCALCIFEROL 1.25MG) PO SCH (09:50)
[2019-05-01] MEDS: CitaloPRAM (CeleXA) 20 MG TAB PO SCH (09:51)
[2019-05-01] MEDS: HumaLOG INSULIN (NovoLOG) PER UNIT SC SCH ×4 (09:53→20:05)
[2019-05-01] MEDS: LEVEMIR (INSULIN DETEMIR) 1 UNITS/0.01ML SC SCH (09:53)
[2019-05-01] MEDS: **NOTE PATIENT COMMENT** MISC XX SCH (09:54)
--- NOTE | 2019-05-01 11:24 | IPNPDOC ---
Subjective Date Seen The patient was seen on 05/01/19. Subjective Chief Complaint/HPI Patient is comfortable, no distress. Offers no new complaints General: Denies: ROS Unobtainable, Chills, Night Sweats, Fatigue, Malaise, Normal Appetite, Other Symptoms Constitutional: Denies: Chills, Fever, Malaise, Night Sweats, Weakness, Fatigue, Weight Loss, Lethargy, Other Eyes: Denies: Pain, Vision change, Conjunctivae inflammation, Eyelid inflammation, Redness, Other Pulmonary: Denies: Dyspnea, Cough, Pleuritic Chest Pain, Other Symptoms Cardiovascular: Denies: Chest Pain, Palpitations, Orthopnea, Paroxysmal Noc. Dyspnea, Edema, Lt Headedness, Other Symptoms Gastrointestinal: Denies: Nausea, Vomiting, Abdominal Pain, Diarrhea, Constipation, Melena, Hematochezia, Other Symptoms Musculoskeletal: Denies: Neck Pain, Back Pain, Shoulder Pain, Arm Pain, Hand Pain, Leg Pain, Foot Pain, Joint Pain, Muscle Pain, Spasms, Other Symptoms Neurological: Denies: Weakness, Numbness, Incoordination, Change in speech, Confusion, Seizures, Other Symptoms Objective Physical Examination General Exam: Positive: Alert, Mild Distress (feeling tired) Eye Exam: Positive: Conjunctiva & lids normal; Negative: Sclera icteric ENT Exam: Positive: Mucous membr. moist/pink Neck Exam: Negative: Supple, JVD, Lymphadenopathy Chest Exam: Positive: Clear to auscultation, Normal air movement Heart Exam: Positive: Rate Normal, Normal S1, Normal S2 Telemetry: Positive: Atrial fibrillation (rate controlled) Abdomen Exam: Positive: Normal bowel sounds, Soft; Negative: Tenderness Extremity Exam: Negative: Edema, Normal pulses Skin Exam: Positive: Other skin issue (left toe with pressure ulcer on heel, and left hallux discoloration) Neuro Exam: Positive: Normal Speech, Strength at 5/5 X4 ext, Cranial Nerves 3- 12 NL Psych Exam: Positive: Mental status NL Assessment /Plan Problems (1) Atherosclerotic PVD with ulceration Status: Chronic Problem Text: Multilevel left foot, PAD with areas of necrosis Patient had angiogram done today Angiogram report is still pending Further, as per vascular surgery's recommendations Continue present meds (2) Urethral stricture Status: Acute Problem Specific Plan: Consult Specialist, Monitor Clinically Problem Text: Urinary retention due to urethral stricture Marrero catheter was removed yesterday. Today again patient has urinary obstruction Discussed with Dr. Phillips he wants to nursing staff to try Cymro Marrero catheter #16. If unable, then call him and he will come in place a Marrero and We will leave the Marrero in for now (3) A-fib Status: Chronic Response to Treatment: Stable Problem Specific Plan: Monitor Clinically Problem Text: Patient's ventricular rate is under well control. Continue present meds INR in a.m., continue Coumadin (4) CKD (chronic kidney disease) stage 3, GFR 30-59 ml/min Status: Chronic Response to Treatment: Stable Problem Specific Plan: Monitor Clinically Problem Text: CKD stage 3 creat baaseline 1.6-1.8 remains stable this morning at 1.4 (5) DM2 (diabetes mellitus, type 2) Status: Chronic Response to Treatment: Stable Problem Text: Fingerstick blood sugar every before meals and at bedtime with coverage continue humalog SS hold levemir dose this am due to hypoglycemia (6) Anemia Status: Acute Response to Treatment: Stable Problem Specific Plan: Monitor Clinically, Repeat Labs Problem Text: Patient H&H is stable CBC in a.m. Plan/VTE VTE Prophylaxis Ordered?: Yes VTE Exclusion Mechanical Proph: Eron Lower Ex Ischemia VTE Exclusion Pharmacological: Bleeding Risk VS, I&O, 24H, Fishbone Vital Signs/I&O Vital Signs Date Time Temp Pulse Resp B/P (MAP) Pulse Ox O2 Delivery O2 Flow Rate FiO2 05/01/19 10:00 100.4 62 19 154/55 (88) 94 Room Air 04/30/19 10:03 3 I&O- Last 24 Hours up to 6 AM 05/01/19 06:00 Intake Total 1035 ml Output Total 300 ml Balance 735 ml Laboratory Data 24H LABS Laboratory Tests 2 04/30/19 11:43: Bedside Glucose (Misc Panel) 114H 04/30/19 12:31: Nucleated Red Blood Cells % (auto) 0.0, Anion Gap 5L, Glomerular Filtration Rate > 60.0, Calcium Level 7.9L, Magnesium Level 1.9, Total Bilirubin 0.1L, Aspartate Amino Transf (AST/SGOT) 13, Alanine Aminotransferase (ALT/SGPT) 12, Alkaline Phosphatase 68, Total Protein 5.7L, Albumin 2.7L, Albumin/Globulin Ratio 0.90L 04/30/19 16:39: Bedside Glucose (Misc Panel) 125H 04/30/19 19:58: Bedside Glucose (Misc Panel) 141H 05/01/19 06:44: Immature Granulocyte % (Auto) 0.7, Neutrophils (%) (Auto) 83.5H, Lymphocytes (%) (Auto) 7.5L, Monocytes (%) (Auto) 5.2H, Eosinophils (%) (Auto) 2.8, Basophils (%) (Auto) 0.3, Neutrophils # (Auto) 10.0H, Lymphocytes # (Auto) 0.9L, Monocytes # (Auto) 0.6, Eosinophils # (Auto) 0.3, Basophils # (Auto) 0.0, Nucleated Red Blood Cells % (auto) 0.0, Prothrombin Time 21.4H, Prothromb Time International Ratio 1.88, Anion Gap 6L, Glomerular Filtration Rate 51.6, Calcium Level 8.4L, Magnesium Level 1.9, Total Bilirubin 0.4#, Aspartate Amino Transf (AST/SGOT) 14, Alanine Aminotransferase (ALT/SGPT) 14, Alkaline Phosphatase 76, Total Protein 6.6, Albumin 2.7L, Albumin/Globulin Ratio 0.69L CBC/BMP Laboratory Tests 04/30/19 12:31 05/01/19 06:44 Microbiology Microbiology 04/25/19 Urine Culture - Final, Complete Enterococcus Faecalis 04/24/19 Blood Culture - Final, Complete NO GROWTH AFTER 5 DAYS 04/24/19 Urine Culture - Final, Complete Enterococcus Faecalis 04/24/19 Blood Culture - Final, Complete NO GROWTH AFTER 5 DAYS INÉS BLACKMAN MD May 01, 2019 11:24
--- NOTE | 2019-05-01 11:33 | ROOPDOC ---
[facility] Report Of Operation Report of Operation DATE OF PROCEDURE: 04/30/19 PREPROCEDURE DIAGNOSES: [ 1. Peripheral arterial disease 2. Chronic kidney disease 3. A fib on coumadin 4. Left foot first toe ischemia]. POSTPROCEDURE DIAGNOSES: [same]. PROCEDURE: [ 1. Right common femoral artery access using ultrasound guidance 2. Left leg angiogram]. SURGEON: [Malini], CASING TESTER: none ANESTHESIA: [moderate sedation, local]. ESTIMATED BLOOD LOSS: Approximately [5] mL. COMPLICATIONS: [none]. RADIOLOGIC FINDINGS: Common and external iliac arteries on the left are patent without stenosis or occlusion. There is moderate atherosclerotic disease present. Internal iliac artery is patent without significant disease The common femoral artery with heavy atherosclerotic disease but patent without flow limiting lesions The superficial femoral artery is is patent throughout but with diffuse atherosclerotic disease. There are no flow limiting lesions noted Popliteal artery is heavily diseased but there is patent flow. The TP trunk is patent with flow via the posterior tibial to the foot. Minimal flow within the foot. DESCRIPTION OF PROCEDURE: Informed consent was obtained from the patient prior to taking him back to the angio suite. Risks and benefits of the procedure had been explained. Moderate sedation was begun. The bilateral groins were prepped and draped in the usual sterile fashion. Using ultrasound guidance, 1% lidocaine was infiltrated in the right groin overly the common femoral artery. Using a micropuncture set, the right common femoral artery was accessed and the wire was passed into the iliac artery. A micropuncture catheter was placed and then exchanged for a 6 Japanese sheath. A Lee wire was placed into the abdominal aorta and an Omni flush catheter placed into the distal aorta. The wire was placed down into the left leg and the catheter advanced over the wire. The catheter was placed in the left external iliac artery and an angiogram of the left leg was performed. Findings listed above. Given the results, no intervention was performed. The wire and catheter were removed. Pressure was held in the right groin. Patient tolerated the procedure well. DON SHEIKH MD Apr 30, 2019 10:54
[2019-05-01] MEDS: LIDOCAINE 5% (LIDODERM) PATCH TD SCH (20:37)
[2019-05-01] MEDS: FERROUS SULFATE 325MG TAB PO SCH (20:37)
[2019-05-01] MEDS: RAMELTEON 8 MG TAB (ROZEREM) PO SCH (20:37)
[2019-05-01] MEDS: ASPIRIN 81 MG ENTERIC TAB PO SCH (20:37)
[2019-05-01] MEDS: traZODone 100 MG TAB PO SCH (20:37)
[2019-05-02] VITALS (19 sets, daily range): BP systolic 124–185; BP diastolic 51–81
[2019-05-02] MEDS: KETOROLAC 30 MG/ML VIAL (J1885) IV SCH ×4 (02:13→20:59)
[2019-05-02] MEDS: SLF 3 ML SYR IV SCH ×3 (05:40→21:00)
[2019-05-02 05:57] LABS: BASO % 0.3 % (0.0-1.0); EOS # 0.2 10^3/uL (0.0-0.5); EOS % 1.4 % (0.0-3.0); HEMATOCRIT 22.4 % (42.0-52.0); LYMPH % 9.1 % (24.0-44.0); MEAN CORPUSCULAR HEMOGLOBIN 26.5 pg (27.0-33.0); MEAN CORPUSCULAR HGB CONC 31.3 g/dl (32.0-36.5); MEAN CORPUSCULAR VOLUME 84.8 fl (80.0-96.0); MONO # 0.8 10^3/uL (0.0-0.8); MONO % 7.1 % (0.0-5.0); NEUTROPHILS # 9.2 10^3/uL (1.5-8.5); NEUTROPHILS % 81.2 % (36.0-66.0); PLATELET COUNT, AUTOMATED 142 10^3/uL (150-450); RED BLOOD COUNT 2.64 10^6/uL (4.30-6.10); WHITE BLOOD COUNT 11.3 10^3/uL (4.0-10.0)
[2019-05-02 06:28] LABS: ALBUMIN 2.3 GM/DL (3.2-5.2); BILIRUBIN,TOTAL 0.3 MG/DL (0.2-1.0); CREATININE FOR GFR 1.42 MG/DL (0.70-1.30); GLOMERULAR FILTRATION RATE 50.3 (>35); POTASSIUM SERUM 3.4 MEQ/L (3.5-5.1); TOTAL PROTEIN 5.9 GM/DL (6.4-8.2)
[2019-05-02] MEDS: HumaLOG INSULIN (NovoLOG) PER UNIT SC SCH ×4 (07:30→20:18)
[2019-05-02] MEDS ORDERED: diphenhydrAMINE 25 MG CAP PO ONE (08:00)
[2019-05-02] MEDS ORDERED: POTASSIUM CHLORIDE 10 MEQ SR TABLET PO ONE (08:00)
[2019-05-02] MEDS: LEVEMIR (INSULIN DETEMIR) 1 UNITS/0.01ML SC SCH (08:09)
[2019-05-02] MEDS: **NOTE PATIENT COMMENT** MISC XX SCH (08:10)
[2019-05-02] MEDS: OMEPRAZOLE 20 MG CAP PO SCH (08:12)
[2019-05-02] MEDS: GABAPENTIN 300 MG CAP PO SCH ×3 (08:12→20:59)
[2019-05-02] MEDS: CitaloPRAM (CeleXA) 20 MG TAB PO SCH (08:12)
[2019-05-02] MEDS: DOCUSATE SODIUM 100 MG CAP PO SCH ×2 (08:12→20:58)
[2019-05-02] MEDS ORDERED: ACETAMINOPHEN TAB 650MG DOSE (2X325MG) PO ONE (08:30)
--- NOTE | 2019-05-02 10:57 | IPNPDOC ---
Subjective Date Seen The patient was seen on 05/02/19. Subjective Chief Complaint/HPI Patient is comfortable in no apparent distress. Offers no new complaints, discussed with patient's daughterSuzanne for details. Yesterday over the phone General: Denies: ROS Unobtainable, Chills, Night Sweats, Fatigue, Malaise, Normal Appetite, Other Symptoms Constitutional: Denies: Chills, Fever, Malaise, Night Sweats, Weakness, Fatigue, Weight Loss, Lethargy, Other Pulmonary: Denies: Dyspnea, Cough, Pleuritic Chest Pain, Other Symptoms Cardiovascular: Denies: Chest Pain, Palpitations, Orthopnea, Paroxysmal Noc. Dyspnea, Edema, Lt Headedness, Other Symptoms Gastrointestinal: Denies: Nausea, Vomiting, Abdominal Pain, Diarrhea, Constipation, Melena, Hematochezia, Other Symptoms Genitourinary: Denies: Dysuria, Frequency, Incontinence, Hematuria, Retention, Other Symptoms Musculoskeletal: Denies: Neck Pain, Back Pain, Shoulder Pain, Arm Pain, Hand Pain, Leg Pain, Foot Pain, Joint Pain, Muscle Pain, Spasms, Other Symptoms Neurological: Denies: Weakness, Numbness, Incoordination, Change in speech, Confusion, Seizures, Other Symptoms Objective Physical Examination ENT Exam: Positive: Mucous membr. moist/pink Neck Exam: Positive: Supple Chest Exam: Positive: Clear to auscultation, Normal air movement Heart Exam: Positive: Rate Normal, Normal S1, Normal S2 Telemetry: Positive: Atrial fibrillation (rate controlled) Abdomen Exam: Positive: Normal bowel sounds, Soft Extremity Exam: Positive: Normal pulses Skin Exam: Positive: Other skin issue (left toe with pressure ulcer on heel, and left hallux discoloration) Assessment /Plan Problems (1) Atherosclerotic PVD with ulceration Status: Chronic Problem Text: Multilevel left foot, PAD with areas of necrosis Patient had angiogram done today Angiogram report is still pending Discussed with Dr. Nayak today, patient is a not a surgical candidate. Hence, all the conservative medical management has been recommended and recommended to start patient Plavix if not already on it Patient probably will be transferred to rehabilitation facility and follow with vascular surgery as an outpatient Discussed with patient's daughter, Suzanne yesterday over the phone and she agrees with the placement of patient and rehabilitation facility as his mother is unable to take care of him at home Discussed with case management social work during the rounds today discharge planning in progress (2) Urethral stricture Status: Acute Problem Specific Plan: Consult Specialist, Monitor Clinically Problem Text: Urinary retention due to urethral stricture Patient had a new Marrero catheter placed and yesterday and will continue as indwelling (3) A-fib Status: Chronic Response to Treatment: Stable Problem Specific Plan: Monitor Clinically Problem Text: Patient's ventricular rate is under well control. Continue present meds INR in a.m., continue Coumadin (4) CKD (chronic kidney disease) stage 3, GFR 30-59 ml/min Status: Chronic Response to Treatment: Stable Problem Specific Plan: Monitor Clinically Problem Text: CKD stage 3 creat baaseline 1.6-1.8 remains stable this morning at 1.4 (5) DM2 (diabetes mellitus, type 2) Status: Chronic Response to Treatment: Stable Problem Text: Fingerstick blood sugar every before meals and at bedtime with coverage (6) Anemia Status: Acute Response to Treatment: Stable Problem Specific Plan: Monitor Clinically, Repeat Labs Problem Text: Patient's hemoglobin is 7, hematocrit 22.4 Transfuse 2 units of PRBC today Monitor H&H (7) Hypokalemia Status: Acute Problem Text: Potassium supplement 40 mEq by mouth 1 given Plan/VTE VTE Prophylaxis Ordered?: Yes VTE Exclusion Mechanical Proph: Eron Lower Ex Ischemia VTE Exclusion Pharmacological: Bleeding Risk VS, I&O, 24H, Fishbone Vital Signs/I&O Vital Signs Date Time Temp Pulse Resp B/P (MAP) Pulse Ox O2 Delivery O2 Flow Rate FiO2 05/02/19 10:28 97.8 48 16 165/71 97 Room Air 04/30/19 10:03 3 I&O- Last 24 Hours up to 6 AM 05/02/19 06:00 Intake Total 940 ml Output Total 750 ml Balance 190 ml Laboratory Data 24H LABS Laboratory Tests 2 05/01/19 11:27: Bedside Glucose (Misc Panel) 116H 05/01/19 16:25: Bedside Glucose (Misc Panel) 135H 05/01/19 19:45: Bedside Glucose (Misc Panel) 97 05/02/19 05:32: Immature Granulocyte % (Auto) 0.9, Neutrophils (%) (Auto) 81.2H, Lymphocytes (%) (Auto) 9.1L, Monocytes (%) (Auto) 7.1H, Eosinophils (%) (Auto) 1.4, Basophils (%) (Auto) 0.3, Neutrophils # (Auto) 9.2H, Lymphocytes # (Auto) 1.0L, Monocytes # (Auto) 0.8, Eosinophils # (Auto) 0.2, Basophils # (Auto) 0.0, Nucleated Red Blood Cells % (auto) 0.0, Anion Gap 8, Glomerular Filtration Rate 50.3, Calcium Level 8.0L, Total Bilirubin 0.3, Aspartate Amino Transf (AST/SGOT) 20, Alanine Aminotransferase (ALT/SGPT) 17, Alkaline Phosphatase 94, Total Protein 5.9L, Albumin 2.3L, Albumin/Globulin Ratio 0.64L 05/02/19 08:14: Bedside Glucose Confirm (Misc) 50 05/02/19 08:41: Bedside Glucose (Misc Panel) 85 05/02/19 09:57: Bedside Glucose (Misc Panel) 101 CBC/BMP Laboratory Tests 05/02/19 05:32 Microbiology Microbiology 04/25/19 Urine Culture - Final, Complete Enterococcus Faecalis 04/24/19 Blood Culture - Final, Complete NO GROWTH AFTER 5 DAYS 04/24/19 Urine Culture - Final, Complete Enterococcus Faecalis 04/24/19 Blood Culture - Final, Complete NO GROWTH AFTER 5 DAYS INÉS BLACKMAN MD May 02, 2019 10:57
[2019-05-02] MEDS ORDERED: FUROSEMIDE 40 MG/4 ML VIAL (J1940) IV ONE (14:00)
[2019-05-02] MEDS ORDERED: hydrALAZINE INJ 20 MG/ML VIAL IV SCH (15:45)
[2019-05-02] MEDS ORDERED: **hydrALAZINE** 10 MG TAB PO ONE (17:00)
[2019-05-02] MEDS: ASPIRIN 81 MG ENTERIC TAB PO SCH (20:58)
[2019-05-02] MEDS: RAMELTEON 8 MG TAB (ROZEREM) PO SCH (20:58)
[2019-05-02] MEDS: traZODone 100 MG TAB PO SCH (20:58)
[2019-05-02] MEDS: FERROUS SULFATE 325MG TAB PO SCH (20:59)
[2019-05-02] MEDS: LIDOCAINE 5% (LIDODERM) PATCH TD SCH (21:00)
[2019-05-02] MEDS: **hydrALAZINE** 10 MG TAB PO SCH (23:24)
[2019-05-03 02:00] VITALS: BP 128/66
[2019-05-03] MEDS: KETOROLAC 30 MG/ML VIAL (J1885) IV SCH ×4 (02:17→20:00)
[2019-05-03] MEDS: **hydrALAZINE** 10 MG TAB PO SCH ×3 (05:33→17:43)
[2019-05-03] MEDS: SLF 3 ML SYR IV SCH ×3 (05:37→21:13)
[2019-05-03 06:00] VITALS: BP 158/62
[2019-05-03 06:25] LABS: BASO % 0.4 % (0.0-1.0); EOS # 0.4 10^3/uL (0.0-0.5); EOS % 3.7 % (0.0-3.0); HEMATOCRIT 29.6 % (42.0-52.0); LYMPH # 1.4 10^3/uL (1.5-5.0); LYMPH % 13.1 % (24.0-44.0); MEAN CORPUSCULAR HEMOGLOBIN 26.6 pg (27.0-33.0); MEAN CORPUSCULAR HGB CONC 31.4 g/dl (32.0-36.5); MEAN CORPUSCULAR VOLUME 84.6 fl (80.0-96.0); MONO % 9.4 % (0.0-5.0); NEUTROPHILS # 7.6 10^3/uL (1.5-8.5); NEUTROPHILS % 72.4 % (36.0-66.0); PLATELET COUNT, AUTOMATED 168 10^3/uL (150-450); WHITE BLOOD COUNT 10.5 10^3/uL (4.0-10.0)
[2019-05-03 06:27] LABS: HEMOGLOBIN 9.3 g/dl (13.5-17.5)
[2019-05-03 06:55] LABS: ALBUMIN 2.3 GM/DL (3.2-5.2); BILIRUBIN,TOTAL 0.5 MG/DL (0.2-1.0); CALCIUM LEVEL 8.1 MG/DL (8.8-10.2); CREATININE FOR GFR 1.24 MG/DL (0.70-1.30); GLOMERULAR FILTRATION RATE 58.8 (>35); POTASSIUM SERUM 3.7 MEQ/L (3.5-5.1); TOTAL PROTEIN 5.6 GM/DL (6.4-8.2)
[2019-05-03] MEDS: HumaLOG INSULIN (NovoLOG) PER UNIT SC SCH ×4 (07:30→21:00)
[2019-05-03] MEDS ORDERED: ACETAMINOPHEN TAB 650MG DOSE (2X325MG) PO ONE (08:00)
[2019-05-03] MEDS: LEVEMIR (INSULIN DETEMIR) 1 UNITS/0.01ML SC SCH (08:56)
[2019-05-03] MEDS: DOCUSATE SODIUM 100 MG CAP PO SCH ×2 (08:56→21:11)
[2019-05-03] MEDS: GABAPENTIN 300 MG CAP PO SCH ×3 (08:57→21:11)
[2019-05-03] MEDS: OMEPRAZOLE 20 MG CAP PO SCH (08:57)
[2019-05-03] MEDS: CitaloPRAM (CeleXA) 20 MG TAB PO SCH (08:57)
[2019-05-03] MEDS: ATORVASTATIN 20 MG TAB PO SCH (08:58)
[2019-05-03] MEDS: **NOTE PATIENT COMMENT** MISC XX SCH (08:59)
[2019-05-03 10:00] VITALS: BP 99/61
--- NOTE | 2019-05-03 10:20 | IPNPDOC ---
Subjective Date Seen The patient was seen on 05/03/19. Subjective Chief Complaint/HPI Patient comfortable in no distress. Offers no new complaints General: Denies: ROS Unobtainable, Chills, Night Sweats, Fatigue, Malaise, Normal Appetite, Other Symptoms Constitutional: Denies: Chills, Fever, Malaise, Night Sweats, Weakness, Fatigue, Weight Loss, Lethargy, Other Skin: Denies: Rash, Lesions, Jaundice, Bruising, Itching, Dry, Breakdown, Nail Changes, Other Pulmonary: Denies: Dyspnea, Cough, Pleuritic Chest Pain, Other Symptoms Cardiovascular: Denies: Chest Pain, Palpitations, Orthopnea, Paroxysmal Noc. Dyspnea, Edema, Lt Headedness, Other Symptoms Gastrointestinal: Denies: Nausea, Vomiting, Abdominal Pain, Diarrhea, Constipation, Melena, Hematochezia, Other Symptoms Endocrine: Denies: Polydipsia, Polyphagia, Polyuria, Heat Intolerance, Cold Intolerance, Other Endocrine Sx Musculoskeletal: Denies: Neck Pain, Back Pain, Shoulder Pain, Arm Pain, Hand Pain, Leg Pain, Foot Pain, Joint Pain, Muscle Pain, Spasms, Other Symptoms Neurological: Denies: Weakness, Numbness, Incoordination, Change in speech, Confusion, Seizures, Other Symptoms Objective Physical Examination ENT Exam: Positive: Mucous membr. moist/pink Neck Exam: Positive: Supple Chest Exam: Positive: Clear to auscultation, Normal air movement Heart Exam: Positive: Rate Normal, Normal S1, Normal S2 Telemetry: Positive: Atrial fibrillation (rate controlled) Abdomen Exam: Positive: Normal bowel sounds, Soft Extremity Exam: Positive: Normal pulses Skin Exam: Positive: Other skin issue (left toe with pressure ulcer on heel, and left hallux discoloration) Assessment /Plan Problems (1) Atherosclerotic PVD with ulceration Status: Chronic Problem Text: Multilevel left foot, PAD with areas of necrosis Patient had angiogram done today Angiogram was discussed with Dr. Nayak does not show any significant blockage requiring surgery as patient is a already not a good surgical candidate Discussed with Dr. Nayak today, patient is a not a surgical candidate. Hence, all the conservative medical management has been recommended and recommended to start patient Plavix if not already on it Patient probably will be transferred to rehabilitation facility and follow with vascular surgery as an outpatient Discussed with patient's daughter, Suzanne yesterday over the phone and she agrees with the placement of patient and rehabilitation facility as his mother is unable to take care of him at home Discussed with case management. Patient needs to be transferred to rehabilitatio facility (2) Urethral stricture Status: Acute Problem Specific Plan: Consult Specialist, Monitor Clinically Problem Text: Urinary retention due to urethral stricture Patient had a new Marrero catheter placed and yesterday and will continue as indwelling (3) A-fib Status: Chronic Response to Treatment: Stable Problem Specific Plan: Monitor Clinically Problem Text: Patient's ventricular rate is under well control. Continue present meds continue Coumadin (4) CKD (chronic kidney disease) stage 3, GFR 30-59 ml/min Status: Chronic Response to Treatment: Stable Problem Specific Plan: Monitor Clinically Problem Text: CKD stage 3 creat baaseline 1.6-1.8 remains stable this morning at 1.4 (5) DM2 (diabetes mellitus, type 2) Status: Chronic Response to Treatment: Stable Problem Text: Fingerstick blood sugar every before meals and at bedtime with coverage (6) Anemia Status: Acute Response to Treatment: Stable Problem Specific Plan: Monitor Clinically, Repeat Labs Problem Text: Patient's hemoglobin has improved with the transfusion. It is 9.3 and 29.6 today Will start iron supplement as well (7) Hypokalemia Status: Resolved Problem Text: Resolved Plan/VTE VTE Prophylaxis Ordered?: Yes VTE Exclusion Mechanical Proph: Eron Lower Ex Ischemia VTE Exclusion Pharmacological: Bleeding Risk VS, I&O, 24H, Fishbone Vital Signs/I&O Vital Signs Date Time Temp Pulse Resp B/P (MAP) Pulse Ox O2 Delivery O2 Flow Rate FiO2 05/03/19 06:00 98.3 52 18 158/62 (94) 96 05/02/19 22:00 Room Air 04/30/19 10:03 3 I&O- Last 24 Hours up to 6 AM 05/03/19 06:00 Intake Total 1727 ml Output Total 1900 ml Balance -173 ml Laboratory Data 24H LABS Laboratory Tests 2 05/02/19 11:30: Bedside Glucose (Misc Panel) 84 05/02/19 11:41: Bedside Glucose (Misc Panel) 85 05/02/19 16:52: Bedside Glucose (Misc Panel) 93 05/02/19 20:16: Bedside Glucose (Misc Panel) 146H 05/03/19 05:48: Immature Granulocyte % (Auto) 1.0, Neutrophils (%) (Auto) 72.4H, Lymphocytes (%) (Auto) 13.1L, Monocytes (%) (Auto) 9.4H, Eosinophils (%) (Auto) 3.7H, Basophils (%) (Auto) 0.4, Neutrophils # (Auto) 7.6, Lymphocytes # (Auto) 1.4L, Monocytes # (Auto) 1.0H, Eosinophils # (Auto) 0.4, Basophils # (Auto) 0.0, Nucleated Red Blood Cells % (auto) 0.0, Anion Gap 7L, Glomerular Filtration Rate 58.8, Calcium Level 8.1L, Total Bilirubin 0.5#, Aspartate Amino Transf (AST/SGOT) 20, Alanine Aminotransferase (ALT/SGPT) 19, Alkaline Phosphatase 115, Total Protein 5.6L, Albumin 2.3L, Albumin/Globulin Ratio 0.70L 05/03/19 06:05: Bedside Glucose (Misc Panel) 98 CBC/BMP Laboratory Tests 05/03/19 05:48 Microbiology Microbiology 04/25/19 Urine Culture - Final, Complete Enterococcus Faecalis 04/24/19 Blood Culture - Final, Complete NO GROWTH AFTER 5 DAYS 04/24/19 Urine Culture - Final, Complete Enterococcus Faecalis 04/24/19 Blood Culture - Final, Complete NO GROWTH AFTER 5 DAYS INÉS BLACKMAN MD May 03, 2019 10:20
[2019-05-03] MEDS: FERROUS SULFATE 325MG TAB PO SCH ×2 (12:47→21:12)
[2019-05-03 14:00] VITALS: BP 138/49
[2019-05-03 18:00] VITALS: BP 173/74
[2019-05-03] MEDS: RAMELTEON 8 MG TAB (ROZEREM) PO SCH (21:12)
[2019-05-03] MEDS: traZODone 100 MG TAB PO SCH (21:12)
[2019-05-03] MEDS: ASPIRIN 81 MG ENTERIC TAB PO SCH (21:12)
[2019-05-03] MEDS: LIDOCAINE 5% (LIDODERM) PATCH TD SCH (21:13)
[2019-05-03 22:00] VITALS: BP 139/50
[2019-05-04] MEDS: **hydrALAZINE** 10 MG TAB PO SCH ×4 (01:14→16:37)
[2019-05-04] MEDS: KETOROLAC 30 MG/ML VIAL (J1885) IV SCH ×4 (01:14→20:00)
[2019-05-04 02:00] VITALS: BP 160/74
[2019-05-04] MEDS: SLF 3 ML SYR IV SCH ×3 (05:10→21:56)
[2019-05-04 06:00] VITALS: BP 150/70
[2019-05-04 07:07] LABS: BASO % 0.4 % (0.0-1.0); EOS # 0.5 10^3/uL (0.0-0.5); EOS % 5.8 % (0.0-3.0); HEMATOCRIT 29.7 % (42.0-52.0); HEMOGLOBIN 9.4 g/dl (13.5-17.5); LYMPH # 1.6 10^3/uL (1.5-5.0); LYMPH % 19.5 % (24.0-44.0); MEAN CORPUSCULAR HEMOGLOBIN 26.6 pg (27.0-33.0); MEAN CORPUSCULAR HGB CONC 31.6 g/dl (32.0-36.5); MEAN CORPUSCULAR VOLUME 84.1 fl (80.0-96.0); MONO # 0.7 10^3/uL (0.0-0.8); MONO % 9.3 % (0.0-5.0); NEUTROPHILS # 5.1 10^3/uL (1.5-8.5); NEUTROPHILS % 63.9 % (36.0-66.0); PLATELET COUNT, AUTOMATED 185 10^3/uL (150-450); RED BLOOD COUNT 3.53 10^6/uL (4.30-6.10); WHITE BLOOD COUNT 7.9 10^3/uL (4.0-10.0)
[2019-05-04] MEDS: HumaLOG INSULIN (NovoLOG) PER UNIT SC SCH ×4 (07:30→21:00)
[2019-05-04 07:33] LABS: ALBUMIN 2.3 GM/DL (3.2-5.2); ALT/SGPT 19 U/L (12-78); BILIRUBIN,TOTAL 0.4 MG/DL (0.2-1.0); BLOOD UREA NITROGEN 26 MG/DL (7-18); CALCIUM LEVEL 8.3 MG/DL (8.8-10.2); CARBON DIOXIDE LEVEL 25 MEQ/L (21-32); CHLORIDE LEVEL 109 MEQ/L (98-107); GLOMERULAR FILTRATION RATE > 60.0 (>35); GLUCOSE, FASTING 83 MG/DL (70-100); POTASSIUM SERUM 3.5 MEQ/L (3.5-5.1); SODIUM LEVEL 140 MEQ/L (136-145); TOTAL PROTEIN 6.1 GM/DL (6.4-8.2)
[2019-05-04] MEDS: LEVEMIR (INSULIN DETEMIR) 1 UNITS/0.01ML SC SCH (09:04)
[2019-05-04] MEDS: GABAPENTIN 300 MG CAP PO SCH ×3 (09:06→21:53)
[2019-05-04] MEDS: **NOTE PATIENT COMMENT** MISC XX SCH (09:06)
[2019-05-04] MEDS: OMEPRAZOLE 20 MG CAP PO SCH (09:06)
[2019-05-04] MEDS: FERROUS SULFATE 325MG TAB PO SCH ×2 (09:06→21:56)
[2019-05-04] MEDS: CitaloPRAM (CeleXA) 20 MG TAB PO SCH (09:06)
[2019-05-04] MEDS: DOCUSATE SODIUM 100 MG CAP PO SCH ×2 (09:06→21:54)
--- NOTE | 2019-05-04 10:37 | IPNPDOC ---
Subjective Date Seen The patient was seen on 05/04/19. Subjective Chief Complaint/HPI Patient comfortable in no distress. Offers no new complaints walk to the bathroom with the help General: Denies: ROS Unobtainable, Chills, Night Sweats, Fatigue, Malaise, Normal Appetite, Other Symptoms Constitutional: Denies: Chills, Fever, Malaise, Night Sweats, Weakness, Fatigue, Weight Loss, Lethargy, Other Skin: Denies: Rash, Lesions, Jaundice, Bruising, Itching, Dry, Breakdown, Nail Changes, Other Pulmonary: Denies: Dyspnea, Cough, Pleuritic Chest Pain, Other Symptoms Cardiovascular: Denies: Chest Pain, Palpitations, Orthopnea, Paroxysmal Noc. Dyspnea, Edema, Lt Headedness, Other Symptoms Gastrointestinal: Denies: Nausea, Vomiting, Abdominal Pain, Diarrhea, Constipation, Melena, Hematochezia, Other Symptoms Musculoskeletal: Denies: Neck Pain, Back Pain, Shoulder Pain, Arm Pain, Hand Pain, Leg Pain, Foot Pain, Joint Pain, Muscle Pain, Spasms, Other Symptoms Neurological: Denies: Weakness, Numbness, Incoordination, Change in speech, Confusion, Seizures, Other Symptoms Objective Physical Examination ENT Exam: Positive: Mucous membr. moist/pink Neck Exam: Positive: Supple Chest Exam: Positive: Clear to auscultation, Normal air movement Heart Exam: Positive: Rate Normal, Normal S1, Normal S2 Telemetry: Positive: Atrial fibrillation (rate controlled) Abdomen Exam: Positive: Normal bowel sounds, Soft Extremity Exam: Positive: Normal pulses Skin Exam: Positive: Other skin issue (left toe with pressure ulcer on heel, and left hallux discoloration) Assessment /Plan Problems (1) Atherosclerotic PVD with ulceration Status: Chronic Problem Text: Multilevel left foot, PAD with areas of necrosis Patient had angiogram done today Angiogram was discussed with Dr. Nayak does not show any significant blockage requiring surgery as patient is a already not a good surgical candidate Discussed with Dr. Nayak today, patient is a not a surgical candidate. Hence, all the conservative medical management has been recommended and recommended to start patient Plavix if not already on it Patient will be transferred to rehabilitation facility once the bed is available. Patient was informed again today and he agrees Follow with vascular surgery as an outpatient (2) Urethral stricture Status: Acute Problem Specific Plan: Consult Specialist, Monitor Clinically Problem Text: Urinary retention due to urethral stricture Patient had a new Marrero catheter placed and yesterday and will continue as indwelling (3) A-fib Status: Chronic Response to Treatment: Stable Problem Specific Plan: Monitor Clinically Problem Text: Patient's ventricular rate is under well control. Continue present meds continue Coumadin (4) CKD (chronic kidney disease) stage 3, GFR 30-59 ml/min Status: Chronic Response to Treatment: Stable Problem Specific Plan: Monitor Clinically Problem Text: CKD stage 3 creat baaseline 1.6-1.8 remains stable this morning at 1.4 (5) DM2 (diabetes mellitus, type 2) Status: Chronic Response to Treatment: Stable Problem Text: Fingerstick blood sugar every before meals and at bedtime with coverage (6) Anemia Status: Acute Response to Treatment: Stable Problem Specific Plan: Monitor Clinically, Repeat Labs Problem Text: Patient's hemoglobin has improved with the transfusion. Myoglobin 9.4 and hematocrit 29.7 today Will start iron supplement as well (7) Hypokalemia Status: Resolved Problem Text: Resolved Plan/VTE VTE Prophylaxis Ordered?: Yes VTE Exclusion Mechanical Proph: Eron Lower Ex Ischemia VTE Exclusion Pharmacological: Bleeding Risk VS, I&O, 24H, Fishbone Vital Signs/I&O Vital Signs Date Time Temp Pulse Resp B/P (MAP) Pulse Ox O2 Delivery O2 Flow Rate FiO2 05/04/19 06:00 97.4 50 16 150/70 (96) 96 Room Air 04/30/19 10:03 3 I&O- Last 24 Hours up to 6 AM 05/04/19 06:00 Intake Total 921 ml Output Total 680 ml Balance 241 ml Laboratory Data 24H LABS Laboratory Tests 2 05/03/19 11:34: Bedside Glucose (Misc Panel) 152H 05/03/19 16:38: Bedside Glucose (Misc Panel) 148H 05/03/19 21:19: Bedside Glucose (Misc Panel) 113H 05/04/19 06:52: Immature Granulocyte % (Auto) 1.1, Neutrophils (%) (Auto) 63.9, Lymphocytes (%) (Auto) 19.5L, Monocytes (%) (Auto) 9.3H, Eosinophils (%) (Auto) 5.8H, Basophils (%) (Auto) 0.4, Neutrophils # (Auto) 5.1, Lymphocytes # (Auto) 1.6, Monocytes # (Auto) 0.7, Eosinophils # (Auto) 0.5, Basophils # (Auto) 0.0, Nucleated Red Blood Cells % (auto) 0.0, Anion Gap 6L, Glomerular Filtration Rate > 60.0, Calcium Level 8.3L, Total Bilirubin 0.4, Aspartate Amino Transf (AST/SGOT) 20, Alanine Aminotransferase (ALT/SGPT) 19, Alkaline Phosphatase 111, Total Protein 6.1L, Albumin 2.3L, Albumin/Globulin Ratio 0.61L CBC/BMP Laboratory Tests 05/04/19 06:52 Microbiology Microbiology 04/25/19 Urine Culture - Final, Complete Enterococcus Faecalis 04/24/19 Blood Culture - Final, Complete NO GROWTH AFTER 5 DAYS 04/24/19 Urine Culture - Final, Complete Enterococcus Faecalis 04/24/19 Blood Culture - Final, Complete NO GROWTH AFTER 5 DAYS INÉS BLACKMAN MD May 04, 2019 10:37
[2019-05-04 14:00] VITALS: BP 160/66
[2019-05-04] MEDS: LIDOCAINE 5% (LIDODERM) PATCH TD SCH (21:53)
[2019-05-04] MEDS: traZODone 100 MG TAB PO SCH (21:53)
[2019-05-04] MEDS: ASPIRIN 81 MG ENTERIC TAB PO SCH (21:53)
[2019-05-04] MEDS: RAMELTEON 8 MG TAB (ROZEREM) PO SCH (21:54)
[2019-05-04 22:00] VITALS: BP 144/70
[2019-05-05] MEDS: **hydrALAZINE** 10 MG TAB PO SCH ×5 (01:21→23:43)
[2019-05-05] MEDS: KETOROLAC 30 MG/ML VIAL (J1885) IV SCH ×2 (01:22→08:00)
[2019-05-05 06:00] VITALS: BP 140/60
[2019-05-05] MEDS: SLF 3 ML SYR IV SCH ×3 (06:25→21:16)
[2019-05-05] MEDS: HumaLOG INSULIN (NovoLOG) PER UNIT SC SCH ×4 (07:30→20:44)
[2019-05-05] MEDS: LEVEMIR (INSULIN DETEMIR) 1 UNITS/0.01ML SC SCH (08:52)
[2019-05-05] MEDS: CitaloPRAM (CeleXA) 20 MG TAB PO SCH (08:52)
[2019-05-05] MEDS: VITAMIN D 50,000 UNITS CAPSULE (ERGOCALCIFEROL 1.25MG) PO SCH (08:52)
[2019-05-05] MEDS: OMEPRAZOLE 20 MG CAP PO SCH (08:52)
[2019-05-05] MEDS: GABAPENTIN 300 MG CAP PO SCH ×3 (08:52→21:16)
[2019-05-05] MEDS: DOCUSATE SODIUM 100 MG CAP PO SCH ×2 (08:52→21:16)
[2019-05-05] MEDS: FERROUS SULFATE 325MG TAB PO SCH ×2 (08:53→21:16)
[2019-05-05] MEDS: **NOTE PATIENT COMMENT** MISC XX SCH (08:53)
--- NOTE | 2019-05-05 09:58 | IPNPDOC ---
Subjective Date Seen The patient was seen on 05/05/19. Subjective Chief Complaint/HPI Patient is comfortable offers no new complaints at the present time. He goes to the bathroom with the help of walker and assistance General: Denies: ROS Unobtainable, Chills, Night Sweats, Fatigue, Malaise, N ormal Appetite, Other Symptoms Skin: Denies: Rash, Lesions, Jaundice, Bruising, Itching, Dry, Breakdown, Nail Changes, Other Pulmonary: Denies: Dyspnea, Cough, Pleuritic Chest Pain, Other Symptoms Cardiovascular: Denies: Chest Pain, Palpitations, Orthopnea, Paroxysmal Noc. Dyspnea, Edema, Lt Headedness, Other Symptoms Gastrointestinal: Denies: Nausea, Vomiting, Abdominal Pain, Diarrhea, Constipation, Melena, Hematochezia, Other Symptoms Musculoskeletal: Denies: Neck Pain, Back Pain, Shoulder Pain, Arm Pain, Hand Pain, Leg Pain, Foot Pain, Joint Pain, Muscle Pain, Spasms, Other Symptoms Neurological: Denies: Weakness, Numbness, Incoordination, Change in speech, Confusion, Seizures, Other Symptoms Psych: Denies: Mood Normal, Anxiety, Depression, Memory Issues, Thoughts of Self Harm, Anger, Thoughts of Harming Other, Other Psych Objective Physical Examination ENT Exam: Positive: Mucous membr. moist/pink Neck Exam: Positive: Supple Chest Exam: Positive: Clear to auscultation, Normal air movement Heart Exam: Positive: Rate Normal, Normal S1, Normal S2 Telemetry: Positive: Atrial fibrillation (rate controlled) Abdomen Exam: Positive: Normal bowel sounds, Soft Extremity Exam: Positive: Normal pulses Skin Exam: Positive: Other skin issue (left toe with pressure ulcer on heel, and left hallux discoloration) Assessment /Plan Problems (1) Atherosclerotic PVD with ulceration Status: Chronic Problem Text: Multilevel left foot, PAD with areas of necrosis Patient had angiogram done today Angiogram was discussed with Dr. Nayak does not show any significant blockage requiring surgery as patient is a already not a good surgical candidate Discussed with Dr. Nayak today, patient is a not a surgical candidate. 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 Continue present meds continue Coumadin (4) CKD (chronic kidney disease) stage 3, GFR 30-59 ml/min Status: Chronic Response to Treatment: Stable Problem Specific Plan: Monitor Clinically Problem Text: CKD stage 3 creat baaseline 1.6-1.8 remains stable this morning at 1.4 (5) DM2 (diabetes mellitus, type 2) Status: Chronic Response to Treatment: Stable Problem Text: Fingerstick blood sugar every before meals and at bedtime with coverage (6) Anemia Status: Acute Response to Treatment: Stable Problem Specific Plan: Monitor Clinically, Repeat Labs Problem Text: Patient's hemoglobin has improved with the transfusion. Myoglobin 9.4 and hematocrit 29.7 today Will start iron supplement as well (7) Hypokalemia Status: Resolved Problem Text: Resolved Plan/VTE VTE Prophylaxis Ordered?: Yes VTE Exclusion Mechanical Proph: Eron Lower Ex Ischemia VTE Exclusion Pharmacological: Bleeding Risk VS, I&O, 24H, Fishbone Vital Signs/I&O Vital Signs Date Time Temp Pulse Resp B/P (MAP) Pulse Ox O2 Delivery O2 Flow Rate FiO2 05/05/19 06:00 97.2 51 18 140/60 (86) 96 Room Air 04/30/19 10:03 3 I&O- Last 24 Hours up to 6 AM 05/05/19 06:00 Intake Total 960 ml Output Total 800 ml Balance 160 ml Laboratory Data 24H LABS Laboratory Tests 2 05/04/19 11:30: Bedside Glucose (Misc Panel) 210H 05/04/19 16:10: Bedside Glucose (Misc Panel) 91 05/04/19 22:06: Bedside Glucose (Misc Panel) 163H 05/05/19 06:41: Bedside Glucose (Misc Panel) 100 Microbiology Microbiology 04/25/19 Urine Culture - Final, Complete Enterococcus Faecalis INÉS BLACKMAN MD May 05, 2019 09:58
[2019-05-05 10:00] VITALS: BP 152/72
[2019-05-05 14:00] VITALS: BP 140/62
[2019-05-05 18:00] VITALS: BP 140/71
[2019-05-05] MEDS: LIDOCAINE 5% (LIDODERM) PATCH TD SCH (21:16)
[2019-05-05] MEDS: RAMELTEON 8 MG TAB (ROZEREM) PO SCH (21:16)
[2019-05-05] MEDS: ASPIRIN 81 MG ENTERIC TAB PO SCH (21:16)
[2019-05-05] MEDS: traZODone 100 MG TAB PO SCH (21:16)
[2019-05-05 22:00] VITALS: BP 182/72
[2019-05-06] VITALS (8 sets, daily range): BP systolic 98–188; BP diastolic 48–90
[2019-05-06] MEDS: SLF 3 ML SYR IV SCH ×3 (06:11→20:26)
[2019-05-06] MEDS: **hydrALAZINE** 10 MG TAB PO SCH (06:11)
[2019-05-06] MEDS: HumaLOG INSULIN (NovoLOG) PER UNIT SC SCH ×4 (07:36→20:27)
[2019-05-06] MEDS: GABAPENTIN 300 MG CAP PO SCH ×3 (09:18→20:26)
[2019-05-06] MEDS: ATORVASTATIN 20 MG TAB PO SCH (09:18)
[2019-05-06] MEDS: LEVEMIR (INSULIN DETEMIR) 1 UNITS/0.01ML SC SCH (09:18)
[2019-05-06] MEDS: CitaloPRAM (CeleXA) 20 MG TAB PO SCH (09:19)
[2019-05-06] MEDS: OMEPRAZOLE 20 MG CAP PO SCH (09:19)
[2019-05-06] MEDS: **NOTE PATIENT COMMENT** MISC XX SCH (09:19)
[2019-05-06] MEDS: VITAMIN D 50,000 UNITS CAPSULE (ERGOCALCIFEROL 1.25MG) PO SCH (09:19)
[2019-05-06] MEDS: DOCUSATE SODIUM 100 MG CAP PO SCH ×2 (09:19→20:26)
[2019-05-06] MEDS: FERROUS SULFATE 325MG TAB PO SCH ×2 (09:19→20:26)
--- NOTE | 2019-05-06 11:26 | IPNPDOC ---
Subjective Date Seen The patient was seen on 05/06/19. Subjective Chief Complaint/HPI Patient offers no new complaints of eye present. The bedside and is agreeable being transferred to rehabilitation facility General: Denies: ROS Unobtainable, Chills, Night Sweats, Fatigue, Malaise, Normal Appetite, Other Symptoms Constitutional: Denies: Chills, Fever, Malaise, Night Sweats, Weakness, Fatigue, Weight Loss, Lethargy, Other Skin: Denies: Rash, Lesions, Jaundice, Bruising, Itching, Dry, Breakdown, Nail Changes, Other Pulmonary: Denies: Dyspnea, Cough, Pleuritic Chest Pain, Other Symptoms Cardiovascular: Denies: Chest Pain, Palpitations, Orthopnea, Paroxysmal Noc. Dyspnea, Edema, Lt Headedness, Other Symptoms Gastrointestinal: Denies: Nausea, Vomiting, Abdominal Pain, Diarrhea, Constipation, Melena, Hematochezia, Other Symptoms Musculoskeletal: Denies: Neck Pain, Back Pain, Shoulder Pain, Arm Pain, Hand Pain, Leg Pain, Foot Pain, Joint Pain, Muscle Pain, Spasms, Other Symptoms Neurological: Denies: Weakness, Numbness, Incoordination, Change in speech, Confusion, Seizures, Other Symptoms Psych: Denies: Mood Normal, Anxiety, Depression, Memory Issues, Thoughts of Self Harm, Anger, Thoughts of Harming Other, Other Psych Objective Physical Examination ENT Exam: Positive: Mucous membr. moist/pink Neck Exam: Positive: Supple Chest Exam: Positive: Clear to auscultation, Normal air movement Heart Exam: Positive: Rate Normal, Normal S1, Normal S2 Telemetry: Positive: Atrial fibrillation (rate controlled) Abdomen Exam: Positive: Normal bowel sounds, Soft Extremity Exam: Positive: Normal pulses Skin Exam: Positive: Other skin issue (left toe with pressure ulcer on heel, and left hallux discoloration) Assessment /Plan Problems (1) Atherosclerotic PVD with ulceration Status: Chronic Problem Text: Multilevel left foot, PAD with areas of necrosis Patient had angiogram done today Angiogram was discussed with Dr. Nayak does not show any significant blockage requiring surgery as patient is a already not a good surgical candidate Discussed with Dr. Nayak today, patient is a not a surgical candidate. 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 Continue present meds continue Coumadin (4) CKD (chronic kidney disease) stage 3, GFR 30-59 ml/min Status: Chronic Response to Treatment: Stable Problem Specific Plan: Monitor Clinically Problem Text: CKD stage 3 creat baaseline 1.6-1.8 remains stable this morning at 1.4 (5) DM2 (diabetes mellitus, type 2) Status: Chronic Response to Treatment: Stable Problem Text: Fingerstick blood sugar every before meals and at bedtime with coverage (6) Anemia Status: Acute Response to Treatment: Stable Problem Specific Plan: Monitor Clinically, Repeat Labs Problem Text: Patient's hemoglobin has improved with the transfusion. Myoglobin 9.4 and hematocrit 29.7 today Will start iron supplement as well (7) Hypokalemia Status: Resolved Problem Text: Resolved (8) HTN (hypertension) Status: Chronic Problem Text: Difficult to control patient's blood pressure secondary to widespread sclerotic blood vessels Increase the hydralazine to 25 mg by mouth 4 times a day and then further can be increased to 50 mg by mouth 3 times a day after one week Continue all present meds Plan/VTE VTE Prophylaxis Ordered?: Yes VTE Exclusion Mechanical Proph: Eron Lower Ex Ischemia VTE Exclusion Pharmacological: Bleeding Risk VS, I&O, 24H, Fishbone Vital Signs/I&O Vital Signs Date Time Temp Pulse Resp B/P (MAP) Pulse Ox O2 Delivery O2 Flow Rate FiO2 05/06/19 11:16 188/86 05/06/19 08:03 56 05/06/19 06:00 98.7 18 97 Room Air 04/30/19 10:03 3 I&O- Last 24 Hours up to 6 AM 05/06/19 06:00 Intake Total 600 ml Output Total 875 ml Balance -275 ml Laboratory Data 24H LABS Laboratory Tests 2 05/05/19 11:26: Bedside Glucose (Misc Panel) 152H 05/05/19 16:32: Bedside Glucose (Misc Panel) 161H 05/05/19 20:27: Bedside Glucose (Misc Panel) 143H 05/06/19 05:52: Bedside Glucose (Misc Panel) 105 INÉS BLACKMAN MD May 06, 2019 11:26
[2019-05-06] MEDS ORDERED: **hydrALAZINE HCL** 25 MG TAB PO PRN (12:00)
[2019-05-06] MEDS ORDERED: WARFARIN SOD 2 MG TAB PO SCH (17:00)
[2019-05-06] MEDS: LIDOCAINE 5% (LIDODERM) PATCH TD SCH (20:26)
[2019-05-06] MEDS: RAMELTEON 8 MG TAB (ROZEREM) PO SCH (20:26)
[2019-05-06] MEDS: ASPIRIN 81 MG ENTERIC TAB PO SCH (20:26)
[2019-05-06] MEDS: traZODone 100 MG TAB PO SCH (20:26)
[2019-05-07 02:00] VITALS: BP 147/88
[2019-05-07] MEDS: SLF 3 ML SYR IV SCH (05:45)
[2019-05-07 06:00] VITALS: BP_SYST 141; BP_SYST 147; BP_DIAS 80; BP_DIAS 88
[2019-05-07] MEDS: HumaLOG INSULIN (NovoLOG) PER UNIT SC SCH ×2 (07:30→12:00)
[2019-05-07 10:00] VITALS: BP 150/85
[2019-05-07] MEDS: DOCUSATE SODIUM 100 MG CAP PO SCH (10:14)
[2019-05-07] MEDS: CitaloPRAM (CeleXA) 20 MG TAB PO SCH (10:14)
[2019-05-07] MEDS: FERROUS SULFATE 325MG TAB PO SCH (10:14)
[2019-05-07] MEDS: GABAPENTIN 300 MG CAP PO SCH (10:14)
[2019-05-07] MEDS: OMEPRAZOLE 20 MG CAP PO SCH (10:15)
[2019-05-07] MEDS: **NOTE PATIENT COMMENT** MISC XX SCH (10:15)
[2019-05-07] MEDS: LEVEMIR (INSULIN DETEMIR) 1 UNITS/0.01ML SC SCH (10:15)
[2019-05-07] MEDS ORDERED: HYDR25TA PO (11:29)
[2019-05-07] MEDS ORDERED: INSUDET SC (11:29)
[2019-05-07] MEDS ORDERED: FERR325T18 PO (11:29)
[2019-05-07] MEDS ORDERED: DOCU100C16 PO (11:29)
[2019-05-07] MEDS ORDERED: RAME8TAB2 PO (11:29)
--- NOTE | 2019-05-07 12:58 | DS.PDOC ---
Discharge Summary General Date of Admission Apr 24, 2019 at 19:15 Date of Discharge 05/07/19 Discharge Summary PROCEDURES PERFORMED DURING STAY: None. ADMITTING DIAGNOSES: 1. Toe infection UTI. DISCHARGE DIAGNOSES: 1. Atherosclerotic PVD with ulceration of left foot and left big toe, urethral stricture, atrial fibrillation, CK D, stage III, diabetes mellitus type 2. Anemia, hypokalemia, hypertension, UTI. COMPLICATIONS/CHIEF COMPLAINT: Toe Infection; Uti. HISTORY OF PRESENT ILLNESS: This is an 88 old male who presented with complaints of discoloration of his left great toe associated with intermittent cramping pains in his left leg for several days. Earlier during the day, he was evaluated by a home RN who called EMS because his blood pressure was 80/40. EMS noted that his glucose was glucose 80 , and he was in A. fib. Per discussion with the ER provider the presence of lower extremity pulses was confirmed with a Doppler; bilateral arterial duplex are pending. The patient was diagnosed with a UTI and started on Rocephin.. HOSPITAL COURSE: (1) Atherosclerotic PVD with ulceration Multilevel left foot, PAD with areas of necrosis Bilateral arterial venous Doppler were done which showed: Real-time ultrasound evaluation and duplex Doppler interrogation of bilateral lower extremity arterial systems is performed. Diffuse calcific plaque is seen bilaterally limiting evaluation of the arterial structures due to the acoustic shadowing. On the right, there is occlusion of the distal anterior tibial artery, with reconstitution more distally. Diffuse biphasic waveforms are seen in the right lower extremity except for mild phasic waveform in the distal anterior tibial artery. On the left, there is stenosis of the profunda and proximal superficial femoral artery. This is fairly high-grade. Diffuse mild phasic waveforms are seen. This may indicate a more proximal stenosis of the left iliac arteries. There is high-grade stenosis of the proximal anterior tibial artery. Right Peak Left Peak Systolic Velocity Systolic velocity Common femoral artery 66.1 cm/s 43.0 cm/s Profunda 86.7 cm/s 411.3 cm/s Proximal SFA 92.0 cm/s 240.0 cm/s Mid SFA 85.2 cm/s 38.4 cm/s Distal SFA 100.5 cm/s 38.7 cm/s Popliteal 58.1 cm/s 25.6 cm/s Proximal LIONEL 38.2 cm/s 183.1 cm/s Tibial peroneal trunk 94.3 cm/s 42.7 cm/s Proximal CARPORT ERECTOR 44.5 cm/s 50.2 cm/s Distal CARPORT ERECTOR 46.9 cm/s 44.0 cm/s Distal LIONEL 60.5 cm/s 31.2 cm/s nous Angiogram was discussed with Dr. Nayak does not show any significant blockage requiring surgery as patient is a already not a good surgical candidate Discussed with Dr. Nayak today, patient is a not a surgical candidate. Hence, all the conservative medical management has been recommended and recommended to start patient Plavix if not already on it Follow with vascular surgery as an outpatient Patient is clinically stable. He is able to ablate with a walker and will be discharged to acute rehabilitation unit today for further care. Nursing consult for wound care was obtained before his discharge to acute rehabilitation unit (2) Urethral stricture urinary retention due to urethral stricture Patient had a new Marrero catheter placed by urology and we'll leave it indwelling until patient is reevaluated by urology for removal (3) A-fib Patient's ventricular rate is under well control. Continue present meds continue Coumadin , check INR (4) CKD (chronic kidney disease) stage 3, GFR 30-59 ml/min CKD stage 3 creat baaseline 1.6-1.8 remains stable this morning at 1.4 (5) DM2 (diabetes mellitus, type 2) Fingerstick blood sugar every before meals and at bedtime with coverage (6) Anemia Patient's hemoglobin has improved with the transfusion. Myoglobin 9.4 and hematocrit 29.7 today Will start iron supplement as well (7) Hypokalemia Resolved (8) HTN (hypertension) Difficult to control patient's blood pressure secondary to widespread sclerotic blood vessels Increase the hydralazine to 25 mg by mouth 4 times a day and then further can be increased to 50 mg by mouth 3 times a day after one week Continue all present meds. DISCHARGE MEDICATIONS: Please see below. ALLERGIES: Please see below. PHYSICAL EXAMINATION ON DISCHARGE: VITAL SIGNS: Please see below. GENERAL: Within normal limits HEENT: Cristal extraocular muscles intact NECK: Normal CARDIOVASCULAR EXAMINATION: S1, S2, regular RESPIRATORY EXAMINATION: Clear to A&P ABDOMINAL EXAMINATION: , Soft, nontender, bowel sound present EXTREMITIES: No clubbing, cyanosis, edema SKIN: Normal NEUROLOGICAL EXAMINATION: . No focal motor sensory deficit PSYCHIATRIC EXAMINATION: Normal LABORATORY DATA: Please see below. IMAGING: As above PROGNOSIS: Failure ACTIVITY: As tolerated. DIET: As tolerated DISCHARGE PLAN: Discharged to acute rehabilitation unit DISPOSITION: Acute rehabilitation unit. DISCHARGE INSTRUCTIONS: 1. As above. ITEMS TO FOLLOWUP ON ON OUTPATIENT: 1. Follow-up with PCP in one week. DISCHARGE CONDITION: Stable. TIME SPENT ON DISCHARGE: 42 minutes. Vital Signs/I&Os Vital Signs Date Time Temp Pulse Resp B/P (MAP) Pulse Ox O2 Delivery O2 Flow Rate FiO2 05/07/19 10:00 97.8 51 19 150/85 (106) 98 05/06/19 18:00 Room Air I&O- Last 24 Hours up to 6 AM 05/07/19 06:00 Intake Total 1105 ml Output Total 1000 ml Balance 105 ml Laboratory Data Labs 24H Laboratory Tests 2 05/06/19 16:35: Bedside Glucose (Misc Panel) 143H 05/06/19 20:07: Bedside Glucose (Misc Panel) 158H 05/07/19 05:39: Bedside Glucose (Misc Panel) 81L 05/07/19 12:00: Bedside Glucose (Misc Panel) 122H FSBS Laboratory Tests Test 05/06/19 16:35 05/06/19 20:07 05/07/19 05:39 05/07/19 12:00 Range/Units Bedside Glucose (Misc Panel) 143 158 81 122 83-110 MG/DL Discharge Medications Scheduled Aspirin (Aspirin EC) 81 Mg Tab, 81 MG PO QHS, (Reported) Atorvastatin Calcium (Atorvastatin Calcium) 80 Mg Tab, 40 MG PO 3XW, (Reported) QHS: MON,WED,FRI Citalopram Hydrobromide (Citalopram HBr) 20 Mg Tab, 20 MG PO DAILY, (Reported) LUNCHTIME Docusate Sodium (Docusate Sodium) 100 Mg Capsule, 100 MG PO BID Ergocalciferol (Vitamin D2) (Vitamin D2) 50,000 Units Cap, 50,000 UNITS PO Q2WK, (Reported) EVERY OTHER MONDAY Ferrous Sulfate (Ferrous Sulfate) 325 Mg Tablet, 325 MG PO QHS, (Reported) Ferrous Sulfate (Ferrous Sulfate) 325 Mg Tablet, 325 MG PO BID Insulin Detemir (Levemir) 100 Unit/1 Ml Vial, 15 UNITS SC DAILY Omeprazole (Omeprazole) 40 Mg Cap, 40 MG PO DAILY, (Reported) LUNCH Ramelteon (Ramelteon) 8 Mg Tablet, 8 MG PO QHS Trazodone HCl (Trazodone HCl) 100 Mg Tab, 100 MG PO QHS, (Reported) Warfarin Sodium (Warfarin Sodium) 2 Mg Tablet, 2 MG PO QPM, (Reported) MWF 2MG TAB Warfarin Sodium (Warfarin Sodium) 2 Mg Tablet, 1 MG PO QPM, (Reported) TUES, THURS, SAT, SUN Scheduled PRN Acetaminophen (Acetaminophen) 325 Mg Tablet, 650 MG PO Q6H PRN for PAIN, (Reported) Albuterol Sulfate (Ventolin Hfa) 108 Mcg/Act Aer, 2 PUFF INH Q4H PRN for SHORTNESS OF BREATH, (Reported) Hydralazine HCl (Hydralazine HCl) 25 Mg Tablet, 25 MG PO Q6H PRN for FOR SBP >160 Allergies Coded Allergies: Sulfa (Sulfonamide Antibiotics) (Verified Allergy, Mild, rash, 04/24/19) sulfamethoxazole (Verified Allergy, Mild, rash, 04/24/19) Pea (Verified Allergy, Unknown, 03/21/12) trimethoprim (Verified Allergy, Unknown, 06/30/18) Quinolones (Verified Adverse Reaction, Mild, AMS, 04/24/19) hydrocodone (Verified Adverse Reaction, Mild, AMS, 04/24/19) morphine (Verified Adverse Reaction, Mild, AMS, 04/24/19) oxycodone (Verified Adverse Reaction, Mild, AMS, 04/24/19) INÉS BLACKMAN MD May 07, 2019 12:58
[2019-05-07] MEDS ORDERED: WARFARIN SOD 1 MG TAB PO SCH (17:00)
== END 2019-05-07 13:39 | DRG 300 ==
LOC: M ED 16:11 → EDBD 16:11 → M ED INP 19:15 → ENRESERV 19:54 → M PCU 20:26 → M MSPAV 04-26 15:41
PROVIDERS: ADMIT Internal Medicine; ATTEND Internal Medicine
PROC: B41F1ZZ Fluoroscopy of Right Lower Extremity Arteries using Low Osmolar Contrast (ICD-10-PCS; 2019-04-30)
PROC: 30233N1 Transfusion of Nonautologous Red Blood Cells into Peripheral Vein, Percutaneous Approach (ICD-10-PCS; principal; 2019-05-02)
DX: I70.245 Atherosclerosis of native arteries of left leg with ulceration of other part of foot (principal); I48.20 Chronic atrial fibrillation, unspecified; N39.0 Urinary tract infection, site not specified; L89.629 Pressure ulcer of left heel, unspecified stage; N18.3 Chronic kidney disease, stage 3 (moderate); N35.919 Unspecified urethral stricture, male, unspecified site; E11.649 Type 2 diabetes mellitus with hypoglycemia without coma; E87.6 Hypokalemia; I12.9 Hypertensive chronic kidney disease with stage 1 through stage 4 chronic kidney disease, or unspecified chronic kidney disease; D63.1 Anemia in chronic kidney disease; Z79.899 Other long term (current) drug therapy; Z79.82 Long term (current) use of aspirin; Z88.2 Allergy status to sulfonamides; Z88.5 Allergy status to narcotic agent; Z88.8 Allergy status to other drugs, medicaments and biological substances; Z91.018 Allergy to other foods; R00.1 Bradycardia, unspecified; E55.9 Vitamin D deficiency, unspecified; I25.10 Atherosclerotic heart disease of native coronary artery without angina pectoris; Z95.2 Presence of prosthetic heart valve; E66.9 Obesity, unspecified; Z68.33 Body mass index [BMI] 33.0-33.9, adult; F34.1 Dysthymic disorder; N40.0 Benign prostatic hyperplasia without lower urinary tract symptoms; H35.30 Unspecified macular degeneration; Z96.641 Presence of right artificial hip joint; Z87.891 Personal history of nicotine dependence; Z79.4 Long term (current) use of insulin; Z79.01 Long term (current) use of anticoagulants

== ENCOUNTER → 2019-05-09 | Outpatient (REF) ==
[~2019-05-09] MED LIST changes: +ACET1TAB55 PO; +BAG BALM TOP; +DOCU100C16 PO; +FERR1TAB8 PO; +FERR325T18 PO; +HYDR25TA PO; +RAME8TAB2 PO; +SPIR-10 PO; +VITA50005 PO
[2019-05-09 07:52] LABS: INR 1.72; PROTHROMBIN TIME 19.9 SECONDS (11.8-14.0)
== END ==
LOC: SKLAB4 11:23
PROVIDERS: ATTEND Family Medicine
DX: I48.91 Unspecified atrial fibrillation (principal)

== ENCOUNTER → 2019-05-13 | Outpatient (REF) ==
[2019-05-13 08:39] LABS: HEMATOCRIT 28.3 % (42.0-52.0); HEMOGLOBIN 9.3 g/dl (13.5-17.5); MEAN CORPUSCULAR HEMOGLOBIN 27.8 pg (27.0-33.0); MEAN CORPUSCULAR HGB CONC 32.9 g/dl (32.0-36.5); MEAN CORPUSCULAR VOLUME 84.7 fl (80.0-96.0); PLATELET COUNT, AUTOMATED 183 10^3/uL (150-450); RED BLOOD COUNT 3.34 10^6/uL (4.30-6.10); WHITE BLOOD COUNT 7.2 10^3/uL (4.0-10.0)
[2019-05-13 08:50] LABS: INR 2.36; PROTHROMBIN TIME 25.6 SECONDS (11.8-14.0)
[2019-05-13 09:05] LABS: BLOOD UREA NITROGEN 15 MG/DL (7-18); CARBON DIOXIDE LEVEL 28 MEQ/L (21-32); CHLORIDE LEVEL 112 MEQ/L (98-107); CREATININE FOR GFR 0.79 MG/DL (0.70-1.30); GLOMERULAR FILTRATION RATE > 60.0 (>35); GLUCOSE, FASTING 77 MG/DL (70-100); POTASSIUM SERUM 3.5 MEQ/L (3.5-5.1); SODIUM LEVEL 144 MEQ/L (136-145)
== END ==
LOC: SKLAB4 09:41
PROVIDERS: ATTEND Family Medicine
DX: I48.91 Unspecified atrial fibrillation (principal); D64.9 Anemia, unspecified; E78.5 Hyperlipidemia, unspecified

== ENCOUNTER → 2019-05-16 | Outpatient (REF) ==
[2019-05-16 09:27] LABS: INR 2.08; PROTHROMBIN TIME 23.2 SECONDS (11.8-14.0)
== END ==
LOC: SKLAB4 09:55
PROVIDERS: ATTEND Family Medicine
DX: I48.91 Unspecified atrial fibrillation (principal)

== ENCOUNTER → 2019-05-17 | Outpatient (REF) | LOC: SKLAB4 07:12 | PROVIDERS: ATTEND Family Medicine | DX: R76.11 Nonspecific reaction to tuberculin skin test without active tuberculosis (principal) ==

== ENCOUNTER → 2019-05-20 | Outpatient (REF) ==
[2019-05-20 08:44] LABS: HEMATOCRIT 32.2 % (42.0-52.0); HEMOGLOBIN 10.3 g/dl (13.5-17.5); MEAN CORPUSCULAR HEMOGLOBIN 27.5 pg (27.0-33.0); MEAN CORPUSCULAR VOLUME 86.1 fl (80.0-96.0); PLATELET COUNT, AUTOMATED 211 10^3/uL (150-450); RED BLOOD COUNT 3.74 10^6/uL (4.30-6.10); WHITE BLOOD COUNT 8.2 10^3/uL (4.0-10.0)
[2019-05-20 09:04] LABS: BLOOD UREA NITROGEN 30 MG/DL (7-18); CALCIUM LEVEL 8.9 MG/DL (8.8-10.2); CARBON DIOXIDE LEVEL 31 MEQ/L (21-32); CHLORIDE LEVEL 106 MEQ/L (98-107); CREATININE FOR GFR 0.87 MG/DL (0.70-1.30); GLOMERULAR FILTRATION RATE > 60.0 (>35); GLUCOSE, FASTING 100 MG/DL (70-100); POTASSIUM SERUM 3.7 MEQ/L (3.5-5.1); SODIUM LEVEL 142 MEQ/L (136-145)
[2019-05-20 09:09] LABS: INR 1.87; PROTHROMBIN TIME 21.3 SECONDS (11.8-14.0)
== END ==
LOC: SKLAB4 11:17
PROVIDERS: ATTEND Family Medicine
DX: I48.91 Unspecified atrial fibrillation (principal)

== ENCOUNTER → 2019-05-23 | Outpatient (REF) ==
[2019-05-23 08:51] LABS: INR 1.7; PROTHROMBIN TIME 19.7 SECONDS (11.8-14.0)
== END ==
LOC: SKLAB4 11:23
PROVIDERS: ATTEND Family Medicine
DX: I48.91 Unspecified atrial fibrillation (principal)

== ENCOUNTER → 2019-05-27 | Outpatient (REF) | LOC: SKLAB4 10:20 | PROVIDERS: ATTEND Family Medicine | DX: I48.91 Unspecified atrial fibrillation (principal); D64.9 Anemia, unspecified ==

== ENCOUNTER → 2019-05-30 | Outpatient (REF) ==
[2019-05-30 09:02] LABS: INR 2.06
== END ==
LOC: SKLAB4 08:48
PROVIDERS: ATTEND Family Medicine
DX: I48.91 Unspecified atrial fibrillation (principal)

== ENCOUNTER → 2019-06-03 | Outpatient (REF) | payer MEDICARE, OTHER ==
[2019-06-03 08:02] LABS: HEMATOCRIT 30.2 % (42.0-52.0); MEAN CORPUSCULAR HGB CONC 33.1 g/dl (32.0-36.5); MEAN CORPUSCULAR VOLUME 84.6 fl (80.0-96.0); PLATELET COUNT, AUTOMATED 215 10^3/uL (150-450); RED BLOOD COUNT 3.57 10^6/uL (4.30-6.10); WHITE BLOOD COUNT 8.7 10^3/uL (4.0-10.0)
[2019-06-03 08:05] LABS: INR 2.02; PROTHROMBIN TIME 22.6 SECONDS (11.8-14.0)
[2019-06-03 08:21] LABS: BLOOD UREA NITROGEN 36 MG/DL (7-18); CALCIUM LEVEL 9.1 MG/DL (8.8-10.2); CARBON DIOXIDE LEVEL 29 MEQ/L (21-32); CHLORIDE LEVEL 105 MEQ/L (98-107); CREATININE FOR GFR 0.96 MG/DL (0.70-1.30); GLOMERULAR FILTRATION RATE > 60.0 (>35); GLUCOSE, FASTING 95 MG/DL (70-100); POTASSIUM SERUM 4.2 MEQ/L (3.5-5.1); SODIUM LEVEL 140 MEQ/L (136-145)
== END ==
LOC: SKLAB4 11:02
PROVIDERS: ATTEND Family Medicine
DX: N18.9 Chronic kidney disease, unspecified (principal); I48.91 Unspecified atrial fibrillation; D64.9 Anemia, unspecified

== ENCOUNTER → 2019-06-06 | Outpatient (REF) | payer MEDICARE, OTHER ==
[2019-06-06 10:25] LABS: INR 1.87; PROTHROMBIN TIME 21.3 SECONDS (11.8-14.0)
== END ==
LOC: SKLAB4 11:45
PROVIDERS: ATTEND Family Medicine
DX: I48.91 Unspecified atrial fibrillation (principal)

== ENCOUNTER → 2019-06-10 | Outpatient (REF) | payer MEDICARE, OTHER ==
[2019-06-10 09:23] LABS: INR 2.21; PROTHROMBIN TIME 24.4 SECONDS (11.8-14.0)
== END ==
LOC: SKLAB4 10:20
PROVIDERS: ATTEND Family Medicine
DX: I48.91 Unspecified atrial fibrillation (principal)

== ENCOUNTER → 2019-06-14 | Outpatient (REF) | payer MEDICARE, OTHER ==
[2019-06-14 07:22] LABS: INR 2.1; PROTHROMBIN TIME 23.4 SECONDS (11.8-14.0)
== END ==
LOC: SKLAB4 10:03
PROVIDERS: ATTEND Family Medicine
DX: I48.91 Unspecified atrial fibrillation (principal)

== ENCOUNTER → 2019-06-18 | Outpatient (REF) | payer MEDICARE ==
[2019-06-18 07:20] LABS: INR 1.83; PROTHROMBIN TIME 20.9 SECONDS (11.8-14.0)
== END ==
LOC: SKLAB4 10:21
PROVIDERS: ATTEND Family Medicine
DX: I48.91 Unspecified atrial fibrillation (principal); Z79.01 Long term (current) use of anticoagulants

== ENCOUNTER → 2019-06-25 | Outpatient (REF) | payer MEDICARE ==
[2019-06-25 07:54] LABS: INR 1.84
== END ==
LOC: SKLAB4 11:32
PROVIDERS: ATTEND Family Medicine
DX: I48.91 Unspecified atrial fibrillation (principal); Z79.01 Long term (current) use of anticoagulants

== ENCOUNTER → 2019-07-04 | Outpatient (REF) | payer MEDICARE ==
[2019-07-04 09:46] LABS: INR 2.32; PROTHROMBIN TIME 25.3 SECONDS (11.8-14.0)
== END ==
LOC: SKLAB4 10:18
PROVIDERS: ATTEND Family Medicine
DX: I48.91 Unspecified atrial fibrillation (principal)

== ENCOUNTER → 2019-07-11 | Outpatient (REF) | payer MEDICARE ==
[2019-07-11 09:51] LABS: INR 2.33; PROTHROMBIN TIME 25.4 SECONDS (11.8-14.0)
== END ==
LOC: SKLAB4 09:45
PROVIDERS: ATTEND Family Medicine
DX: I48.91 Unspecified atrial fibrillation (principal)

== ENCOUNTER → 2019-07-18 | Outpatient (REF) | payer MEDICARE ==
[2019-07-18 09:23] LABS: INR 2.24; PROTHROMBIN TIME 24.6 SECONDS (11.8-14.0)
== END ==
LOC: SKLAB4 10:26
PROVIDERS: ATTEND Family Medicine
DX: I48.91 Unspecified atrial fibrillation (principal)

== ENCOUNTER → 2019-07-25 | Outpatient (REF) | payer MEDICARE ==
[2019-07-25 09:31] LABS: INR 2.79; PROTHROMBIN TIME 29.3 SECONDS (11.8-14.0)
== END ==
LOC: SKLAB4 07:25
PROVIDERS: ATTEND Family Medicine
DX: Z51.81 Encounter for therapeutic drug level monitoring (principal); Z79.01 Long term (current) use of anticoagulants; I48.91 Unspecified atrial fibrillation

== ENCOUNTER → 2019-08-01 | Outpatient (REF) | payer MEDICARE ==
[2019-08-01 08:43] LABS: INR 2.31; PROTHROMBIN TIME 25.2 SECONDS (11.8-14.0)
== END ==
LOC: SKLAB4 10:05
PROVIDERS: ATTEND Family Medicine
DX: I48.91 Unspecified atrial fibrillation (principal)

== ENCOUNTER → 2019-08-07 | Outpatient (REF) | LOC: SKLAB4 13:13 | PROVIDERS: ATTEND Internal Medicine | DX: Z03.818 Encounter for observation for suspected exposure to other biological agents ruled out (principal) ==

== ENCOUNTER → 2019-08-08 | Outpatient (REF) | payer MEDICARE ==
[2019-08-08 08:40] LABS: INR 2.46; PROTHROMBIN TIME 26.5 SECONDS (11.8-14.0)
== END ==
LOC: SKLAB4 07:43
PROVIDERS: ATTEND Family Medicine
DX: I48.91 Unspecified atrial fibrillation (principal)

== ENCOUNTER → 2019-08-09 | Outpatient (REF) | payer MEDICARE ==
[2019-08-09 08:28] LABS: BASO % 0.4 % (0.0-1.0); EOS # 0.6 10^3/uL (0.0-0.5); EOS % 7.4 % (0.0-3.0); HEMATOCRIT 32.7 % (42.0-52.0); HEMOGLOBIN 10.5 g/dl (13.5-17.5); LYMPH # 1.7 10^3/uL (1.5-5.0); LYMPH % 21.2 % (24.0-44.0); MEAN CORPUSCULAR HEMOGLOBIN 28.8 pg (27.0-33.0); MEAN CORPUSCULAR HGB CONC 32.1 g/dl (32.0-36.5); MEAN CORPUSCULAR VOLUME 89.8 fl (80.0-96.0); MONO # 0.6 10^3/uL (0.0-0.8); MONO % 7.5 % (0.0-5.0); NEUTROPHILS % 62.3 % (36.0-66.0); PLATELET COUNT, AUTOMATED 195 10^3/uL (150-450); RED BLOOD COUNT 3.64 10^6/uL (4.30-6.10); WHITE BLOOD COUNT 8.1 10^3/uL (4.0-10.0)
[2019-08-09 08:49] LABS: ALBUMIN 2.9 GM/DL (3.2-5.2); ALT/SGPT 15 U/L (12-78); BILIRUBIN,TOTAL 0.3 MG/DL (0.2-1.0); BLOOD UREA NITROGEN 32 MG/DL (7-18); CALCIUM LEVEL 8.9 MG/DL (8.8-10.2); CARBON DIOXIDE LEVEL 31 MEQ/L (21-32); CHLORIDE LEVEL 104 MEQ/L (98-107); CREATININE FOR GFR 1.05 MG/DL (0.70-1.30); GLOMERULAR FILTRATION RATE > 60.0 (>35); GLUCOSE, FASTING 127 MG/DL (70-100); POTASSIUM SERUM 3.9 MEQ/L (3.5-5.1); SODIUM LEVEL 140 MEQ/L (136-145); TOTAL PROTEIN 6.4 GM/DL (6.4-8.2)
== END ==
LOC: SKLAB4 07:30
PROVIDERS: ATTEND Family Medicine
DX: I48.91 Unspecified atrial fibrillation (principal)

== ENCOUNTER → 2019-08-13 | Outpatient (REF) | payer MEDICARE ==
[2019-08-13 09:29] LABS: INR 2.29
== END ==
LOC: SKLAB4 09:54
PROVIDERS: ATTEND Family Medicine
DX: I48.91 Unspecified atrial fibrillation (principal)

== ENCOUNTER → 2019-08-20 | Outpatient (REF) | payer MEDICARE ==
[~2019-08-20] MED LIST changes: +NEUR300C PO; +SORB70SO36 PO
[2019-08-20 19:06] LABS: INR 3.21; PROTHROMBIN TIME 32.8 SECONDS (11.8-14.0)
== END ==
LOC: M SHH 15:19
PROVIDERS: ATTEND Internal Medicine
DX: Z51.81 Encounter for therapeutic drug level monitoring (principal)

== ENCOUNTER → 2019-08-28 | Outpatient (REF) | payer MEDICARE ==
[~2019-08-28] MED LIST changes: +COLA100C5 PO; -COUM1TAB14 PO; +COUM4TAB8 PO; +HYDR-3910 PO
[2019-08-28 15:26] LABS: INR 1.85; PROTHROMBIN TIME 21.1 SECONDS (11.8-14.0)
== END ==
LOC: M SHH 14:54
PROVIDERS: ATTEND Internal Medicine
DX: Z51.81 Encounter for therapeutic drug level monitoring (principal)

== ENCOUNTER → 2019-09-02 | Outpatient (CLI) | payer MEDICARE ==
[~2019-09-02] MED LIST changes: -COLA100C5 PO; -HYDR-3910 PO
== END ==
LOC: M LABSMTC 09:21
PROVIDERS: ATTEND Anesthesiology
DX: Z01.818 Encounter for other preprocedural examination (principal); Z11.59 Encounter for screening for other viral diseases
CPT/HCPCS: 87486; 87581; 87633; 87798; C9803

== ENCOUNTER 2019-09-04 08:56 | Inpatient (IN) | payer MEDICAID, MEDICARE ==
[~2019-09-04] VITALS: Ht 177.8 cm; Wt 80.7 kg
[~2019-09-04 08:56] MED LIST changes: +LR 1,000 ML IV ONE; +ceFAZolin SOD 2 GM in IV 1 EA IV ONE
[2019-09-04] MEDS ORDERED: BUPIVACAINE/EPIN 0.25% 30 ML VIAL As Ordered ONE (09:24)
[2019-09-04] MEDS ORDERED: THROMBIN SOLN 20,000 UNITS KIT As Ordered ONE (09:24)
[2019-09-04] MEDS ORDERED: HEPARIN SOD (PORCINE) 5000UNITS/ML VIAL (J1644 PER 1000UNITS) As Ordered ONE ×2 (09:24→13:22)
[2019-09-04 09:52] LABS: HEMATOCRIT 36.7 % (42.0-52.0); HEMOGLOBIN 11.8 g/dl (13.5-17.5); MEAN CORPUSCULAR HEMOGLOBIN 29.1 pg (27.0-33.0); MEAN CORPUSCULAR HGB CONC 32.2 g/dl (32.0-36.5); MEAN CORPUSCULAR VOLUME 90.4 fl (80.0-96.0); PLATELET COUNT, AUTOMATED 205 10^3/uL (150-450); RED BLOOD COUNT 4.06 10^6/uL (4.30-6.10)
[2019-09-04 10:06] LABS: INR 1.29; PROTHROMBIN TIME 15.8 SECONDS (11.8-14.0)
[2019-09-04 10:07] LABS: PARTIAL THROMBOPLASTIN TIME 29.8 SECONDS (25.0-38.4)
[2019-09-04 10:11] LABS: CALCIUM LEVEL 8.7 MG/DL (8.8-10.2); CREATININE FOR GFR 1.27 MG/DL (0.70-1.30); GLOMERULAR FILTRATION RATE 57.1 (>35)
[2019-09-04] MEDS ORDERED: ETOMIDATE INJ 20MG/10ML VIAL As Ordered ONE (11:20)
[2019-09-04] MEDS ORDERED: METOCLOPRAMIDE INJ 10MG/2ML VIAL (J2765 PER 1) As Ordered ONE (11:20)
[2019-09-04] MEDS ORDERED: LIDOCAINE 2% 100MG/5ML SDV (FOR ANES.) As Ordered ONE (11:20)
[2019-09-04] MEDS ORDERED: SUGAMMADEX SODIUM 500 MG/5 ML VIAL (BRIDION) As Ordered ONE (11:20)
[2019-09-04] MEDS ORDERED: ROCURONIUM BROMIDE 50 MG/5 ML VIAL As Ordered ONE (11:20)
[2019-09-04] MEDS ORDERED: fentaNYL 250 MCG/5 ML INJECTION (J3010) As Ordered ONE (11:20)
[2019-09-04] MEDS ORDERED: MIDAZOLAM INJ 2MG/2ML VIAL (J2250 PER 1MG) As Ordered ONE (11:20)
[2019-09-04] MEDS ORDERED: propofoL 200 MG/20 ML VIAL As Ordered ONE (11:20)
[2019-09-04] MEDS ORDERED: dexameTHASONE 4 MG/ML 1ML VIAL (J1100 PER 1MG) As Ordered ONE (11:20)
[2019-09-04] MEDS ORDERED: ONDANSETRON 4MG/2ML VIAL As Ordered ONE (11:20)
[2019-09-04] MEDS ORDERED: HYDROmorphone 2 MG TAB PO PRN (14:15)
[2019-09-04] MEDS ORDERED: traMADol 50 MG TAB PO PRN ×2 (14:15)
[2019-09-04] MEDS ORDERED: fentaNYL 100 MCG/2 ML INJECTION (J3010) As Ordered ONE (14:17)
[2019-09-04] MEDS ORDERED: oxyCODONE 5MG TAB As Ordered ONE (14:17)
--- NOTE | 2019-09-04 14:20 | ROOPDOC ---
[facility] Report Of Operation Report of Operation DATE OF PROCEDURE: 09/04/19 PREPROCEDURE DIAGNOSES: Atherosclerosis of the [place] arteries with nonhealing wounds left lateral ankle and left first toe POSTPROCEDURE DIAGNOSES: Same. PROCEDURE: Left femoral endarterectomy with xenosure patch angioplasty SURGEON: Hodan Leblanc MD ANESTHESIA: General anesthesia and local anesthesia INDICATION FOR PROCEDURE: Mr. Nguyen is a very pleasant 89-year-old gentleman with severe atherosclerosis of the [place]nine [place] arteries and a nonhealing wound of his left lateral ankle near the malleolus and a left first toe wound. An arteriogram of the left arterial system done by another provider was reviewed and then I discussed options for revascularization with the patient. Although he has extensive disease throughout the left lower extremity, the worst of the disease is in the left common femoral artery and at the origin of the profunda in the SFA. I believe restoring inflow by removing this nearly occlusive plaque will dramatically improve flow to his left lower extremity. Therefore, the risks benefits and alternatives to a left femoral endarterectomy extending onto the proximal superficial femoral artery and profunda was discussed with the patient, and informed consent was obtained. After this procedure, if the patient still is not healing his left lower extremity wounds and is still having symptomatic claudication in the left lower extremity, we can consider going back for an endovascular procedure to improve flow through the SFA popliteal and tibial system. However, I'm hopeful that improving inflow significantly will provide enough additional blood flow to help his wounds to heal. Patient is agreeable to this plan. REPORT OF OPERATION: The patient was brought to the operating room in stable condition. Anesthesia and antibiotics were administered without complication. His bilateral groins were prepped and draped in a sterile fashion. A timeout was performed. An oblique incision was made over the left groin just inferior to the inguinal ligament and carried down to the subcutaneous tissue with Bovie cautery. Bridging veins were suture ligated and divided. We continued her dissection down to the femoral sheath. We then opened the femoral sheath longi tudinally to expose the common femoral artery and profunda and SFA. We skeletonized the vessels proximally and distally. Vesseloops were placed around the circumflex vessels the SFA profunda and smaller branches of the profunda. 5000 units of heparin was given by anesthesia and allowed to circulate. We then secured a clamp on the common femoral artery proximal to the area of heaviest plaque. We then secured the Vesseloops and an arteriotomy was made from the proximal SFA up to the external iliac artery. There was bulky near occlusive calcified plaque throughout the common femoral artery, origin of the profunda, and origin of the SFA. This was carefully elevated away from the intima and sent for pathology. We then proceeded to complete the endarterectomy by carefully removing any loose intima and debris from the vessel. The profunda and the SFA were inverted to allow clean endarterectomy planes. We then allow backbleeding from each of the arteries in the inflow artery, and irrigated with heparinized saline. A xenosure patch was then anastomosed to the arteriotomy in a running fashion with 5-0 Prolene hemostatic suture. Before the final sutures were placed, the inflow and outflow arteries were allowed to backbleeding and they vessel was irrigated with heparinized saline. We place her final sutures and flow was restored first through the profunda and the small profunda branches in the circumflex vessels, then the common femoral artery, then the superficial femoral artery. Surgicel and gentle pressure were used for 1 minute and good hemostasis was noted. The groin was irrigated with copious amounts of saline. Local anesthesia was a sewer and cutter finger buff material to the skin and subcutaneous tissue around the incision. The femoral sheath was approximated with a running 2-0 Vicryl suture. The groin fascial layers were then closed in 3 layers with running 2-0 Vicryl suture. The deep dermal layer was approximated with interrupted 3-0 Vicryl suture. The skin was closed with tesha. The incision was cleaned and dried and sterile dressings were applied. The patient was allowed to awaken from anesthesia and was taken to recovery in stable condition. He tolerated the proc edure and the anesthesia well. ESTIMATED BLOOD LOSS: Approximately 50 mL. SPECIMEN: Plaque from the left femoral artery was sent for pathology. COMPLICATIONS: None. PLAN: Patient will be admitted for proximally 2 days for postoperative care, analgesia, and physical therapy as needed. It is okay to restart his Coumadin. He will be on bedrest overnight and then will be activity as tolerated starting in the morning. He does not need to be on flat bedrest however. We will keep him on a high protein diet to help with wound healing. We will provide local wound care for his left ankle and toe wounds. We appreciate the opportunity to participate in the care of this patient and appreciate our hospitalist team admitting the patient postop. HODAN LEBLANC MD Sep 04, 2019 14:20
[2019-09-04] MEDS ORDERED: ACETAMINOPHEN TAB 650MG DOSE (2X325MG) PO PRN ×2 (14:30→15:45)
[2019-09-04] MEDS ORDERED: oxyCODONE 5MG TAB PO PRN (14:30)
[2019-09-04] MEDS ORDERED: fentaNYL 100 MCG/2 ML INJECTION (J3010) IV PRN (14:30)
[2019-09-04] MEDS ORDERED: MOM 30ML SUSPENSION UDC PO PRN (14:30)
[2019-09-04] MEDS ORDERED: ONDANSETRON 4MG/2ML VIAL IV PRN (14:30)
[2019-09-04] MEDS ORDERED: HYDROMORPHONE HCL 0.5 MG/ 0.5 ML SYRINGE (J1170 PER 1) IV PRN (14:30)
[2019-09-04] MEDS ORDERED: LR 1,000 ML IV SCH (14:30)
[2019-09-04] MEDS ORDERED: GLUCAGON INJ 1MG VIAL SC PRN (15:45)
[2019-09-04] MEDS ORDERED: DEXTROSE 50% 50 ML SYRINGE IV PRN (15:45)
[2019-09-04] MEDS ORDERED: ALBUTEROL 90 MCG/ACT 8GM HFA INHALER INH PRN (15:45)
[2019-09-04] MEDS ORDERED: GLUCOSE 4GM CHEW TABLET PO PRN (15:45)
[2019-09-04] MEDS ORDERED: HYDR-3910 PO (15:46)
[2019-09-04] MEDS ORDERED: INSUDET SC (15:46)
[2019-09-04] MEDS ORDERED: COLA100C5 PO (15:46)
[2019-09-04] MEDS ORDERED: FERR1TAB8 PO (15:46)
--- NOTE | 2019-09-04 15:57 | HPE ---
DATE OF ADMISSION: 09/04/2019 CHIEF COMPLAINT: Nonhealing left ankle arterial ulcer, status post femoral endarterectomy. HISTORY OF PRESENT ILLNESS: This is an 89-year-old male with a history of diabetes, chronic kidney disease, stage III, atrial fibrillation, on chronic warfarin, peripheral arterial disease with chronic nonhealing arterial ulcer at the left lower extremity, coronary artery disease (CAD), coronary stents. Underwent left lower extremity femoral endarterectomy by Dr. Elidia Leblanc without complications and hemodynamically stable, being admitted for observation overnight and physical therapy. Patient has been resumed on his home dose of warfarin. The patient still complains of 10/10 pain at the surgical site. No signs of hematoma are noted. No fever, chills, shortness of breath, chest pain, pressure, or tightness, nausea, vomiting diarrhea, abdominal pain. Patient is able to move his bilateral lower extremities without any difficulty. Postoperatively, patient remained hypertensive with blood pressure of 182/81, improved with pain medications with intravenous (IV) hydromorphone and fentanyl. Patient's current blood pressure is 147/67. He was 88% on room air and currently 92%. Awaiting bed assignment on the medical/surgical floor. PAST MEDICAL HISTORY: 1. CAD. 2. Peripheral arterial disease. 3. Diabetes. 4. Hypertension. 5. Diverticulitis. 6. Osteoarthritis. 7. Chronic kidney disease, stage III. 8. Atrial fibrillation, on chronic warfarin. 9. Hypertension. 10. 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 11. Urinary tract infection secondary to chronic indwelling catheter. 12. Benign prostatic hypertrophy. 13. Chronic bronchitis. 14. Chronic obstructive pulmonary disease (COPD). 15. Anxiety and depression. PAST SURGICAL HISTORY: 1. Bilateral cataract surgery. 2. Hip fracture repair. 3. Coronary artery stents. Five cardiac stents are in place from [place]. 4. Femoral endarterectomy 09/04/2019. ALLERGIES: HYDROCODONE, MORPHINE, OXYCODONE, QUINOLONE, SULFA, SULFAMETHOXAZOLE, BACTRIM. HOME MEDICATIONS: - acetaminophen 325 - aspirin 81 daily - atorvastatin 80 daily - citalopram 20 mg - Colace 100 daily - ferrous sulfate 325 daily - hydralazine 25 - Levemir insulin - gabapentin 300 - Prilosec 40 - trazodone 100 - Ventolin as needed - vitamin D 1250 mcg - warfarin 2 mg for 5 days FAMILY HISTORY: Brother of brain tumor in his 50s. SOCIAL HISTORY: Patient worked for [employer] for 36 years. Had been a previous smoker. Quit 20 years ago. Lives with his in [place]. Three grown children, one of whom is a nurse. REVIEW OF SYSTEMS: Per history of present illness (HPI). A 12-point system otherwise negative. PHYSICAL EXAMINATION: Temperature 97.7, pulse 66, respiratory rate 18, blood pressure 165/74, 96% on room air. General: Patient is awake, alert, oriented to himself, place. Answering questions appropriate. Face is symmetric. No pallor, icterus, or jaundice. No jugular venous distention (JVD) or thyromegaly. Very hard of hearing. Appears his stated age. No respiratory distress. Able to speak i full sentences. Pupils are round and reactive to light and accommodation. No facial asymmetry. Speech is fluent. Patient wears dentures. Lungs are clear to auscultation. No wheezes, rales, or rhonchi. Heart: S1, S2, irregularly irregular. Abdomen is soft, nontender, nondistended. Positive bowel sounds times four quadrants. Patient's left groin incision appears clean and dry. No bloody drainage. Marrero catheter in place. Chronic indwelling catheter. Extremities: Trace edema bilaterally. Skin is warm, dry, well perfused, pink in color. Pulses: Dorsalis pedis, posterior tibialis noted by Doppler. LABORATORY DATA: White count 7, hemoglobin 11, hematocrit 36, platelet count 205. Sodium 140, potassium 4, chloride 106, bicarbonate 30, BUN 19, creatinine 1.27, glucose 92. INR is 1.29. On 04/25/2019 arterial extremity study: Left with stenosis of the profunda and proximal superficial femoral artery, fairly high grade. High-grade stenosis of the proximal anterior tibial artery. Stenosis of left iliac arteries. ASSESSMENT AND PLAN: This is an 89-year-old male with a history of peripheral arterial disease without atherosclerosis of saxman vessels and nonhealing wounds of the left lateral ankle and left 1st toe, status post left femoral endarterectomy with XenoSure patch angioplasty by vascular surgery. Patient is admitted to the medical service. Postoperative care managed by Dr. Leblanc, vascular surgery. Approximately 2 days of postoperative care is anticipated. Physical therapy has been consulted. Patient is restarted back on his home dose of warfarin. He is to be bedrest overnight and activity as tolerated in the morning. Patient will be kept on a high-protein diet. Guest Service Representative will be consulted. Left ankle and toes will be evaluated by liquified natural gas specialist with daily changes. 2. Atrial fibrillation, currently rate controlled. Ventricular rate of 67-70. May resume home dose of warfarin. Current INR is 1.27. Currently postoperative. No signs of any active bleeding. 3. Chronic kidney disease, stage III, at baseline creatinine. Currently stable. Avoid nephrotoxins. Renally dose all medications. 4. Type 2 diabetes, on consistent-carbohydrate diet, sliding scale. Fingersticks before food and at bedtime. Check A1c. 5. History of coronary artery disease, status post five coronary stents. Currently on his home dose of warfarin, statin. 6. Depression. Resume back on Celexa. 7. Iron deficiency anemia, on ferrous sulfate. 8. Hypertension. May resume on home dose of hydralazine. 9. Bowel regimen, on Colace. MTDD
[2019-09-04] MEDS: HumaLOG INSULIN (NovoLOG) PER UNIT SC SCH ×2 (17:30→21:57)
[2019-09-04] MEDS: CitaloPRAM (CeleXA) 20 MG TAB PO SCH (17:46)
[2019-09-04] MEDS: **hydrALAZINE HCL** 25 MG TAB PO SCH (18:00)
[2019-09-04] MEDS ORDERED: DOCUSATE SODIUM 100 MG CAP PO SCH (21:00)
[2019-09-04] MEDS: traZODone 100 MG TAB PO SCH (21:41)
[2019-09-04] MEDS: ATORVASTATIN 20 MG TAB PO SCH (21:42)
[2019-09-04] MEDS: DOCUSATE SODIUM 100 MG CAP PO SCH (21:42)
[2019-09-04] MEDS: FERROUS SULFATE 325MG TAB PO SCH (21:42)
[2019-09-04 22:00] VITALS: BP 129/66
[2019-09-05 02:00] VITALS: BP 134/72
[2019-09-05 06:00] VITALS: BP 149/69
[2019-09-05] MEDS: **hydrALAZINE HCL** 25 MG TAB PO SCH ×5 (06:00→23:50)
[2019-09-05 07:19] LABS: BASO % 0.2 % (0.0-1.0); EOS # 0.1 10^3/uL (0.0-0.5); HEMATOCRIT 30.3 % (42.0-52.0); LYMPH # 1.5 10^3/uL (1.5-5.0); LYMPH % 16.7 % (24.0-44.0); MEAN CORPUSCULAR HEMOGLOBIN 28.8 pg (27.0-33.0); MEAN CORPUSCULAR HGB CONC 32.3 g/dl (32.0-36.5); MEAN CORPUSCULAR VOLUME 89.1 fl (80.0-96.0); MONO # 0.9 10^3/uL (0.0-0.8); MONO % 9.8 % (0.0-5.0); NEUTROPHILS # 6.5 10^3/uL (1.5-8.5); NEUTROPHILS % 71.5 % (36.0-66.0); PLATELET COUNT, AUTOMATED 180 10^3/uL (150-450); WHITE BLOOD COUNT 9.2 10^3/uL (4.0-10.0)
[2019-09-05 07:23] LABS: HEMOGLOBIN 9.8 g/dl (13.5-17.5)
[2019-09-05 07:32] LABS: INR 1.41
[2019-09-05 07:45] LABS: BLOOD UREA NITROGEN 20 MG/DL (7-18); CALCIUM LEVEL 7.9 MG/DL (8.8-10.2); CARBON DIOXIDE LEVEL 28 MEQ/L (21-32); CHLORIDE LEVEL 106 MEQ/L (98-107); CREATININE FOR GFR 1.13 MG/DL (0.70-1.30); GLOMERULAR FILTRATION RATE > 60.0 (>35); GLUCOSE, FASTING 151 MG/DL (70-100); POTASSIUM SERUM 4.3 MEQ/L (3.5-5.1); SODIUM LEVEL 141 MEQ/L (136-145)
[2019-09-05] MEDS: CitaloPRAM (CeleXA) 20 MG TAB PO SCH (09:22)
[2019-09-05] MEDS: DOCUSATE SODIUM 100 MG CAP PO SCH ×2 (09:22→21:07)
[2019-09-05] MEDS: FERROUS SULFATE 325MG TAB PO SCH ×2 (09:22→21:07)
[2019-09-05] MEDS: OMEPRAZOLE 20 MG CAP PO SCH (09:23)
[2019-09-05] MEDS: LEVEMIR (INSULIN DETEMIR) 1 UNITS/0.01ML SC SCH (09:24)
[2019-09-05] MEDS: HumaLOG INSULIN (NovoLOG) PER UNIT SC SCH ×4 (09:24→20:59)
[2019-09-05 10:00] VITALS: BP 133/62
[2019-09-05 14:00] VITALS: BP 121/54
--- NOTE | 2019-09-05 14:41 | IPNPDOC ---
Date Seen The patient was seen on 09/05/19. Progress Note Chronic AFib -continued on warfarin. -target inr 2-3 VS, I&O, 24H, Fishbone Vital Signs/I&O Vital Signs Date Time Temp Pulse Resp B/P (MAP) Pulse Ox O2 Delivery O2 Flow Rate FiO2 09/05/19 14:00 97.4 80 20 121/54 (76) 100 Room Air 09/04/19 15:40 2.0 I&O- Last 24 Hours up to 6 AM 09/05/19 06:00 Intake Total 2970 ml Output Total 875 ml Balance 2095 ml Laboratory Data 24H LABS Laboratory Tests 2 09/04/19 16:43: Bedside Glucose (Misc Panel) 147H 09/04/19 21:09: Bedside Glucose (Misc Panel) 261H 09/05/19 06:01: Immature Granulocyte % (Auto) 0.8, Neutrophils (%) (Auto) 71.5H, Lymphocytes (%) (Auto) 16.7L, Monocytes (%) (Auto) 9.8H, Eosinophils (%) (Auto) 1.0, Basophils (%) (Auto) 0.2, Neutrophils # (Auto) 6.5, Lymphocytes # (Auto) 1.5, Monocytes # (Auto) 0.9H, Eosinophils # (Auto) 0.1, Basophils # (Auto) 0.0, Nucleated Red Blood Cells % (auto) 0.0, Prothrombin Time 17.0H, Prothromb Time International Ratio 1.41, Anion Gap 7L, Glomerular Filtration Rate > 60.0, Calcium Level 7.9L 09/05/19 11:28: Bedside Glucose (Misc Panel) 142H CBC/BMP Laboratory Tests 09/05/19 06:01 CORY RIZZO MD Sep 05, 2019 14:41
[2019-09-05] MEDS ORDERED: MIRALAX *UNIT DOSE* 17GM PACKET PO PRN (15:30)
--- NOTE | 2019-09-05 15:47 | IPNPDOC ---
Text Note Date of Service The patient was seen on 09/05/19. NOTE Vascular surgery. Dr. Leblanc Mr. Nguyen is a very pleasant 89-year-old gentleman with severe atherosclerosis of the [place] arteries and a nonhealing wound of his left lateral ankle near the malleolus and a left first toe wound status post left common femoral endarterectomy 09/04/[address] Leblanc. The patient is recovering well. He has been up and out of bed to the bathroom. The patient states he is not having claudication with ambulation. He is eating and drinking. Pain is controlled. He worked with physical therapy this morning. His only complaint is that he is not getting a lot of sleep. The patient's left groin wound is noted to have a small amount of oozing on the dressing. No active bleeding. Suri are intact. Mild bruising is noted around the incision this is not unexpected since the patient is on Coumadin. The patient's wound is thoroughly cleaned, dry dressing is reapplied. The patient's left foot is warm and well perfused. He has a strong pulse at the left femoral. Tentative plan is to continue with antibiotic activity, likely shower in the morning possible discharge tomorrow depending on the patient's progress. We appreciate the hospitalist excellent management of this patient. VS,Moreno, I+O VS, Moreno, I+O Laboratory Tests 09/05/19 06:01 Vital Signs Date Time Temp Pulse Resp B/P (MAP) Pulse Ox O2 Delivery O2 Flow Rate FiO2 09/05/19 14:00 97.4 80 20 121/54 (76) 100 Room Air 09/04/19 15:40 2.0 I&O- Last 24 Hours up to 6 AM 09/05/19 05:59 Intake Total 2940 ml Output Total 725 ml Balance 2215 ml Genoveva Andrade Sep 05, 2019 15:47
[2019-09-05 18:00] VITALS: BP 139/66
--- NOTE | 2019-09-05 18:00 | IPN ---
DATE OF SERVICE: 09/05/2019 Patient is sitting in bed eating his breakfast. He said he slept well. He is extremely hard of hearing. He says he has no pain at the left groin site. There are now signs of hematoma. He is able to wiggle his toes. No other issues per nursing overnight. Temperature 98.2, pulse 58, respiratory rate 16, blood pressure 133/62, 96% on room air. Generally, patient is awake, alert, oriented to person, place, and time, answering questions appropriately. He is very hard of hearing. Face is symmetric. Tongue is midline. No conversational dyspnea, cyanosis, pallor, icterus, or jaundice. Lungs are clear to auscultation. No wheezes, rales, or rhonchi. Heart: S1, S2, irregularly irregular. Abdomen is soft, nontender, nondistended. Positive bowel sounds. Left groin incision is clean and dry. No bloody or purulent discharge. Marrero catheter is in place, which is chronic indwelling. Extremities: Trace edema. Patient has a left foot ulcer that appears clean and dry without any purulence. LABORATORY DATA: Reviewed. IMAGING STUDIES: Reviewed. ASSESSMENT AND PLAN: This is an 89-year-old male with history of peripheral arterial disease with a nonhealing left ankle ulcer, status post left femoral endarterectomy with XenoSure patch angioplasty by Dr. Leblanc, vascular surgery. Patient was admitted to medical service for observation for the next 2 days. IMPRESSION: 1. Peripheral arterial disease status with nonhealing left lateral ankle ulcer. Patient is status post left femoral endarterectomy with patch angioplasty. Postoperative management per vascular surgery, including pain control, bowel regimen, and activity level. Physical therapy (PT) has been consulted along with ARU. Patient is to be kept on a high protein diet. Business Operations Director to be consulted. 2. Atrial fibrillation, currently rate controlled. Resumed on home dose of warfarin. 3. Chronic kidney disease, stage III, currently at baseline. Avoid nephrotoxins. Renally dose medications. 4. Type 2 diabetes, on consistent-carbohydrate diet. Fingersticks before food/nightly. 5. Coronary artery disease, status post five stents. Currently on warfarin and statin. 6. Depression. On Celexa. 7. Iron-deficiency anemia. On ferrous sulfate. 8. Hypertension. On hydralazine. 9. Bowel regimen. On Colace. MTDD
[2019-09-05] MEDS: ANALGESIC BALM CRM 120 GM TOP SCH ×2 (18:33→21:07)
[2019-09-05] MEDS: traZODone 100 MG TAB PO SCH (21:06)
[2019-09-05 22:00] VITALS: BP 145/82
[2019-09-06 02:00] VITALS: BP 142/69
[2019-09-06] MEDS: **hydrALAZINE HCL** 25 MG TAB PO SCH ×4 (05:49→23:35)
[2019-09-06 06:00] VITALS: BP 141/72
[2019-09-06] MEDS: HumaLOG INSULIN (NovoLOG) PER UNIT SC SCH ×4 (07:30→21:18)
[2019-09-06] MEDS ORDERED: ONDANSETRON 4MG/2ML VIAL IV PRN ×2 (07:30)
--- NOTE | 2019-09-06 07:45 | IPNPDOC ---
Date Seen The patient was seen on 09/06/19. Progress Note Patient seen and examined postoperative day 2 from a left femoral endarterectomy and patch angioplasty. He says he was doing well, but woke up early this morning with symptoms of nausea and phlegm in the back of his throat. He denies recent history of sinus infection or significant drainage, but he has an emesis back with mucus in it. I ordered Zofran and the nurse gave him a dose with some relief, but not completely resolved. I'm hopeful that after he is able to get out of bed and eat today, he may be able to cough up some of that phlegm. If necessary, we can do further interrogation with a chest x-ray. His lungs sound fairly clear, no wheezing present, and we will order an incentive spirometry as well. From a vascular standpoint, the patient's incision on his left groin is clean dry and intact. The minimal bruising postoperative around the incision expected since the patient is on Coumadin is starting to resolve. There is no bleeding or drainage on the dressing from yesterday. The incision was thoroughly cleaned and dried and a sterile dressing was applied. The patient has excellent perfusion with bounding pulses at the left femoral artery, and biphasic signals at the DP and PT arteries. His foot wounds are stable. Plan was for the patient to possibly go home today, but he does not look like he is quite ready. With his advanced age, I think one more day in the hospital may be prudent. I would continue physical therapy and out of bed as tolerated. If his clinical status is at his baseline tomorrow, likely home tomorrow. We appreciate the hospitalist's excellent care of this patient. VS, I&O, 24H, Fishbone Vital Signs/I&O Vital Signs Date Time Temp Pulse Resp B/P (MAP) Pulse Ox O2 Delivery O2 Flow Rate FiO2 09/06/19 06:00 98.2 70 16 141/72 (95) 100 Room Air 09/04/19 15:40 2.0 I&O- Last 24 Hours up to 6 AM 09/06/19 06:00 Intake Total 1931 ml Output Total 1950 ml Balance -19 ml Laboratory Data 24H LABS Laboratory Tests 2 09/05/19 11:28: Bedside Glucose (Misc Panel) 142H 09/05/19 16:25: Bedside Glucose (Misc Panel) 131H 09/05/19 20:52: Bedside Glucose (Misc Panel) 109 09/06/19 05:38: Bedside Glucose (Misc Panel) 175H HODAN SCHMIDT MD Sep 06, 2019 07:45
[2019-09-06 08:23] LABS: BASO % 0.2 % (0.0-1.0); EOS # 0.1 10^3/uL (0.0-0.5); EOS % 1.2 % (0.0-3.0); HEMATOCRIT 32.6 % (42.0-52.0); HEMOGLOBIN 10.8 g/dl (13.5-17.5); LYMPH # 0.8 10^3/uL (1.5-5.0); LYMPH % 9.9 % (24.0-44.0); MEAN CORPUSCULAR HEMOGLOBIN 28.5 pg (27.0-33.0); MEAN CORPUSCULAR HGB CONC 33.1 g/dl (32.0-36.5); MONO # 0.5 10^3/uL (0.0-0.8); MONO % 6.5 % (0.0-5.0); NEUTROPHILS # 6.7 10^3/uL (1.5-8.5); NEUTROPHILS % 81.6 % (36.0-66.0); PLATELET COUNT, AUTOMATED 172 10^3/uL (150-450); RED BLOOD COUNT 3.79 10^6/uL (4.30-6.10); WHITE BLOOD COUNT 8.2 10^3/uL (4.0-10.0)
[2019-09-06 08:34] LABS: INR 1.35; PROTHROMBIN TIME 16.4 SECONDS (11.8-14.0)
[2019-09-06 08:55] LABS: BLOOD UREA NITROGEN 21 MG/DL (7-18); CALCIUM LEVEL 8.4 MG/DL (8.8-10.2); CARBON DIOXIDE LEVEL 28 MEQ/L (21-32); CHLORIDE LEVEL 100 MEQ/L (98-107); CREATININE FOR GFR 0.95 MG/DL (0.70-1.30); GLOMERULAR FILTRATION RATE > 60.0 (>35); GLUCOSE, FASTING 217 MG/DL (70-100); POTASSIUM SERUM 3.5 MEQ/L (3.5-5.1); SODIUM LEVEL 137 MEQ/L (136-145)
[2019-09-06] MEDS: LEVEMIR (INSULIN DETEMIR) 1 UNITS/0.01ML SC SCH (09:00)
[2019-09-06] MEDS ORDERED: PROMETHAZINE INJ 25 MG/ML VIAL (J2550) IV PRN ×2 (09:15→10:45)
[2019-09-06] MEDS ORDERED: PROMETHAZINE INJ 25 MG/ML VIAL (J2550) IV ONE ×2 (09:15→10:45)
[2019-09-06] MEDS ORDERED: ISOVUE-370 76% 100ML VIAL As Ordered ONE (09:33)
--- NOTE | 2019-09-06 11:13 | REP ---
CT ABDOMEN AND PELVIS WITH AND WITHOUT IV CONTRAST: TECHNIQUE: CT abdomen and pelvis performed prior to and following the intravenous administration of 100 mL of Isovue 370. Sagittal and coronal reconstruction images are performed. Visualized lung bases demonstrate mild fibroatelectatic change There is mild cardiomegaly. The patient has had a prior cholecystectomy. There is no evidence of significant biliary dilatation. There is a tiny cyst in the right lobe of the liver. The spleen is normal in size with no intrinsic abnormality. The adrenal glands are normal. The pancreas demonstrates several tiny calcifications in the region of pancreatic head compatible with chronic pancreatitis. There is atrophy of the pancreas with no mass. Exophytic cyst is seen of the posterior upper pole right kidney measuring 3.8 cm. There is an exophytic cyst of the mid left kidney laterally 1.4 cm. No renal stone is seen. There are bilateral renal vascular calcifications. There is mild cortical atrophy bilaterally. There is on renal, ureteral or bladder calculus and no hydroureteronephrosis. There is moderate atherosclerotic calcification of the abdominal aorta and its branches. There is no aneurysm. There is no adenopathy. There is no free air or free fluid. There is no bowel wall thickening. Marrero catheter is seen in the collapsed urinary bladder which also contains a small amount of air. Metallic prosthesis is noted of the right hip causing adjacent streaky artifact limiting evaluation of adjacent structures. There is a small right inguinal hernia containing fat. In the left inguinal region, there are skin tesha present. Mild streaky infiltration of the subcutaneous fat as well as small foci of air in the soft tissues. There are degenerative changes of the spine. IMPRESSION: No evidence of bowel obstruction. No acute findings in the abdomen or pelvis. There appear to be postsurgical changes in the left inguinal region with skin tesha as well as subcutaneous infiltration of fat and multiple small foci of air in the soft tissues. Electronically Signed by Fady Riggs MD 09/10/2019 06:27 P
[2019-09-06] MEDS: OMEPRAZOLE 20 MG CAP PO SCH (11:29)
[2019-09-06] MEDS: DOCUSATE SODIUM 100 MG CAP PO SCH ×2 (11:29→21:18)
[2019-09-06] MEDS: CitaloPRAM (CeleXA) 20 MG TAB PO SCH (11:30)
[2019-09-06] MEDS: FERROUS SULFATE 325MG TAB PO SCH ×2 (11:30→21:18)
[2019-09-06] MEDS: ANALGESIC BALM CRM 120 GM TOP SCH ×4 (11:30→21:19)
[2019-09-06 14:00] VITALS: BP 112/65
[2019-09-06] MEDS ORDERED: WARFARIN SOD 2MG TAB PO ONE (17:00)
--- NOTE | 2019-09-06 18:05 | REP ---
Single view chest: 09/06/2019. Indication: Dyspnea. Cough. Comparison: 05/12/2018. Findings: The lungs are clear. There is no significant pleural effusion or pneumothorax. Cardiac silhouette is borderline enlarged. Impression: Clear lungs. Electronically Signed by Henry Kaufman DO 09/06/2019 05:56 P
--- NOTE | 2019-09-06 18:11 | IPN ---
DATE: 09/06/2019 Patient this morning said that he had a lot of phlegm this morning with coughing and had complaints of nausea and vomited multiple times. Abdominal film was negative for bowel obstruction. No acute finding. Patient had mild fibroatelectatic changes in the lungs. He had been afebrile overnight. No shortness of breath. Patient was ambulating well. White count is normal. Sedimentation rate was slightly elevated at 44, and C-reactive protein (CRP) of 2.27. PHYSICAL EXAMINATION: VITAL SIGNS: Temperature 97.9, pulse 87, respiratory rate 16, blood pressure 112/65, 100% on room air. GENERAL: Patient is awake, alert, oriented to person and place. Answers questions appropriately. He is extremely [id number]. No jugular venous distention (JVD). No thyromegaly. LUNGS: Clear to auscultation. Fine crackles at the bases but clears with coughing. HEART: S1, S2. No murmurs, rubs, or gallops. Irregularly irregular. ABDOMEN: Soft, nontender, nondistended. Positive bowel sounds. EXTREMITIES: No cyanosis, clubbing, or any pitting edema. Patient's left groin surgical site is clean and dry without any discharge. LABORATORY DATA: White count 8.2, hemoglobin 10, hematocrit 32, platelet count 172. Sodium 137, potassium 3.5, chloride 100, bicarbonate 28, BUN 21, creatinine 0.95, glucose 217, C-reactive protein 2.27. ASSESSMENT AND PLAN: This is an 89-year-old male with a history of peripheral arterial disease with a nonhealing left ankle ulcer, status post left femoral endarterectomy with angioplasty by vascular surgery, admitted to medical service for observation. IMPRESSION: 1. Peripheral arterial disease, status post left femoral endarterectomy with patch angioplasty. Postoperative management per vascular surgery. Patient has not passed physical therapy, and due to complaints of phlegm, shortness of breath, and cough today along with episodes of nausea and vomiting, patient will be observed for the next 24 hours. 2. Nausea and vomiting. CT abdomen and pelvis was negative for bowel obstruction. Will continue to monitor overnight. 3. Cough. Patient has had no fevers or chills. No shortness of breath. Says that he has a lot of "phlegm." Chest x-ray will be obtained. 4. Atrial fibrillation. Currently rate controlled. May resume on home dose of warfarin. 5. Chronic kidney disease, stage III, at baseline creatinine. 6. Type 2 diabetes, on consistent-carbohydrate diet and fingersticks. 7. Coronary artery disease (CAD), status post five stents. Continue on statin and warfarin. 8. Depression, on Celexa. 9. Iron deficiency anemia, on ferrous sulfate. 10. Hypertension, on hydralazine. 11. Bowel regimen, on Colace. DISPOSITION: Monitor overnight. Await PT clearance and discharge home in 1-2 days.
[2019-09-06] MEDS: ATORVASTATIN 20 MG TAB PO SCH (21:18)
[2019-09-06] MEDS: traZODone 100 MG TAB PO SCH (21:18)
[2019-09-06 21:29] VITALS: O2SAT 98
[2019-09-06 22:00] VITALS: BP 126/72
[2019-09-07 02:00] VITALS: BP 123/69
[2019-09-07] MEDS: **hydrALAZINE HCL** 25 MG TAB PO SCH ×2 (05:32→12:00)
[2019-09-07 06:00] VITALS: BP 126/72
[2019-09-07 06:44] LABS: BASO % 0.4 % (0.0-1.0); EOS # 0.4 10^3/uL (0.0-0.5); EOS % 4.6 % (0.0-3.0); HEMATOCRIT 32.1 % (42.0-52.0); HEMOGLOBIN 10.4 g/dl (13.5-17.5); LYMPH # 1.8 10^3/uL (1.5-5.0); LYMPH % 22.5 % (24.0-44.0); MEAN CORPUSCULAR HEMOGLOBIN 28.3 pg (27.0-33.0); MEAN CORPUSCULAR HGB CONC 32.4 g/dl (32.0-36.5); MEAN CORPUSCULAR VOLUME 87.5 fl (80.0-96.0); MONO # 0.8 10^3/uL (0.0-0.8); MONO % 10.3 % (0.0-5.0); NEUTROPHILS # 4.9 10^3/uL (1.5-8.5); NEUTROPHILS % 61.4 % (36.0-66.0); PLATELET COUNT, AUTOMATED 160 10^3/uL (150-450); RED BLOOD COUNT 3.67 10^6/uL (4.30-6.10)
[2019-09-07 06:53] LABS: INR 1.4; PROTHROMBIN TIME 16.9 SECONDS (11.8-14.0)
[2019-09-07 07:02] LABS: BLOOD UREA NITROGEN 23 MG/DL (7-18); CARBON DIOXIDE LEVEL 30 MEQ/L (21-32); CHLORIDE LEVEL 103 MEQ/L (98-107); CREATININE FOR GFR 1.03 MG/DL (0.70-1.30); GLOMERULAR FILTRATION RATE > 60.0 (>35); GLUCOSE, FASTING 115 MG/DL (70-100); POTASSIUM SERUM 3.3 MEQ/L (3.5-5.1); SODIUM LEVEL 139 MEQ/L (136-145)
[2019-09-07] MEDS: FERROUS SULFATE 325MG TAB PO SCH (09:36)
[2019-09-07] MEDS: CitaloPRAM (CeleXA) 20 MG TAB PO SCH (09:36)
[2019-09-07] MEDS: DOCUSATE SODIUM 100 MG CAP PO SCH (09:36)
[2019-09-07] MEDS: OMEPRAZOLE 20 MG CAP PO SCH (09:36)
[2019-09-07] MEDS: HumaLOG INSULIN (NovoLOG) PER UNIT SC SCH ×2 (09:37→13:04)
[2019-09-07] MEDS: ANALGESIC BALM CRM 120 GM TOP SCH ×2 (09:37→13:06)
[2019-09-07] MEDS: LEVEMIR (INSULIN DETEMIR) 1 UNITS/0.01ML SC SCH (09:37)
[2019-09-07 10:00] VITALS: BP 124/68
[2019-09-07 12:00] VITALS: BP 133/68
[2019-09-07] MEDS ORDERED: POTASSIUM CHLORIDE 10 MEQ SR TABLET PO ONE (12:00)
--- NOTE | 2019-09-07 13:12 | IPNPDOC ---
Date Seen The patient was seen on 09/07/19. Progress Note Patient seen and examined postoperative day 3 status post left femoral endarterectomy and patch angioplasty, and he is doing well today. He no longer has any nausea or postnasal drip, no shortness of breath, getting out of bed without difficulty, and has passed physical therapy. He is hopeful that he can go home today, and from a vascular standpoint I think this is great. On exam his left groin incision is clean dry and intact, still with minimal bruising around the incision secondary to Coumadin, but stable and improving daily. No drainage is noted on the dressing, and the incision was cleaned and a new dry dressing was placed. The patient's toe and foot ulcers were cleaned and redressed as well. If he is stable to go home from the hospitalist standpoint, that is fine from a vascular surgery standpoint. We appreciate the hospitalist excellent management of this patient. The following are vascular surgery recommendations at discharge: 1. Incision left groin should be dressed daily. The best option is to remove the dressing, shower with warm soap and water with the dressing off, Pat dry with a clean towel, and place a dry dressing. Avoid touching the incision if your hands are not freshly washed and cleaned. No tub baths, swimming, or hot tubs until incision and wounds are completely healed. 2. Continue dressings to left foot per Dr. Sewell's instructions from the wound care center. 3. We encouraged her to eat high-protein diet, as protein helps with wound healing. 4. No strenuous exercise or lifting greater than 5 pounds for 2 weeks. 5. Follow-up in clinic in 1 week for an incision check, and then in 2 weeks for staple removal. We appreciate the opportunity to participate in the care of this patient. VS, I&O, 24H, Fishbone Vital Signs/I&O Vital Signs Date Time Temp Pulse Resp B/P (MAP) Pulse Ox O2 Delivery O2 Flow Rate FiO2 09/07/19 12:00 133/68 09/07/19 10:00 97.3 72 17 98 Room Air 09/04/19 15:40 2.0 I&O- Last 24 Hours up to 6 AM 09/07/19 06:00 Intake Total 570 ml Output Total 1700 ml Balance -1130 ml Laboratory Data 24H LABS Laboratory Tests 2 09/06/19 16:39: Bedside Glucose (Misc Panel) 148H 09/06/19 20:40: Bedside Glucose (Misc Panel) 264H 09/07/19 06:24: Immature Granulocyte % (Auto) 0.8, Neutrophils (%) (Auto) 61.4, Lymphocytes (%) (Auto) 22.5L, Monocytes (%) (Auto) 10.3H, Eosinophils (%) (Auto) 4.6H, Basophils (%) (Auto) 0.4, Neutrophils # (Auto) 4.9, Lymphocytes # (Auto) 1.8, Monocytes # (Auto) 0.8, Eosinophils # (Auto) 0.4, Basophils # (Auto) 0.0, Nucleated Red Blood Cells % (auto) 0.0, Prothrombin Time 16.9H, Prothromb Time International Ratio 1.40, Anion Gap 6L, Glomerular Filtration Rate > 60.0, Calcium Level 8.0L 09/07/19 11:22: Bedside Glucose (Misc Panel) 193H CBC/BMP Laboratory Tests 09/07/19 06:24 HODAN SCHMIDT MD Sep 07, 2019 13:12
[2019-09-07 14:00] VITALS: BP 124/60
--- NOTE | 2019-09-07 15:21 | IPN ---
DATE: 09/07/2019 The patient says that he is feeling much better. No shortness of breath, chest pain, pressure or tightness. Ambulating well. Await physical therapy (PT) clearance. No recurrent nausea or vomiting. CT abdomen and pelvis yesterday was negative. Chest x-ray showed clear lungs. Vital signs: Temperature 97.6, pulse 64, respiratory rate 18, blood pressure 126/72, 99% on room air. Face is symmetric. Very hard of hearing. No jugular venous distension (JVD), thyromegaly. Lungs are clear to auscultation. No wheezes, rales or rhonchi. Heart: S1, S2, irregularly irregular. Abdomen is soft, nontender, nondistended. Left groin incision site clean and dry, no drainage. Extremities: No pitting edema. Chronic Marrero catheter in place. LABORATORY DATA: White count 8, hemoglobin 10, hematocrit 32, platelet count 160. Sodium 139, potassium 3.3, chloride 103, bicarbonate 30, BUN 23, creatinine 1.03, glucose of 115. Imaging studies have been reviewed. ASSESSMENT AND PLAN: This is an 89-year-old male with a history of peripheral arterial disease, status post left femoral endarterectomy due to a nonhealing ulcer in the left heel, developed nausea and vomiting, most likely due to opioid use for pain control. CT abdomen and pelvis was negative. He also complained of a cough with normal chest x-ray with clear lungs. No fever or chills or elevated white count. Current issues: 1. Peripheral arterial disease, status post left femoral endarterectomy with patch angioplasty, post management per Dr. Leblanc. Once the patient passes home safety evaluation, he may be discharged home with postop instructions per vascular surgery. 2. Chronic atrial fibrillation, currently on home dose of warfarin. Target INR of 2 to 3, rate controlled. 3. Type 2 diabetes on consistent carbohydrate diet. Fingersticks. 4. Chronic kidney disease at baseline creatinine. 5. History of coronary artery disease, 5 stents, on statin. 6. Depression on Celexa. 7. Iron deficiency anemia on ferrous sulfate. 8. Hypertension, resumed on home medications. 9. Bowel regimen on Colace. DISPOSITION: May discharge home with home care today. Postop management per vascular surgery and followup recommendations by Dr. Leblanc. If the patient passes home safety evaluation, may be discharged home with home care MTDD
[2019-09-07] MEDS ORDERED: WARFARIN SOD 2MG TAB PO SCH (17:00)
== END 2019-09-07 15:30 | disposition home or self-care (01) | DRG 253 ==
LOC: M OR 08:56 → M MSPAV 15:29
PROVIDERS: ADMIT Surgery Vascular Surgery; ATTEND Surgery Vascular Surgery
PROC: 041K0JJ Bypass Right Femoral Artery to Left Femoral Artery with Synthetic Substitute, Open Approach (ICD-10-PCS; 2019-09-04)
PROC: 04CL0ZZ Extirpation of Matter from Left Femoral Artery, Open Approach (ICD-10-PCS; principal; 2019-09-04 11:00)
DX: I70.243 Atherosclerosis of native arteries of left leg with ulceration of ankle (principal); I48.20 Chronic atrial fibrillation, unspecified; I13.0 Hypertensive heart and chronic kidney disease with heart failure and stage 1 through stage 4 chronic kidney disease, or unspecified chronic kidney disease; N18.3 Chronic kidney disease, stage 3 (moderate); D50.9 Iron deficiency anemia, unspecified; I25.10 Atherosclerotic heart disease of native coronary artery without angina pectoris; E11.51 Type 2 diabetes mellitus with diabetic peripheral angiopathy without gangrene; K57.30 Diverticulosis of large intestine without perforation or abscess without bleeding; M19.90 Unspecified osteoarthritis, unspecified site; Z79.01 Long term (current) use of anticoagulants; N40.0 Benign prostatic hyperplasia without lower urinary tract symptoms; J44.9 Chronic obstructive pulmonary disease, unspecified; F41.9 Anxiety disorder, unspecified; F32.9 Major depressive disorder, single episode, unspecified; Z79.82 Long term (current) use of aspirin; Z79.899 Other long term (current) drug therapy; Z88.5 Allergy status to narcotic agent; Z88.2 Allergy status to sulfonamides; Z88.8 Allergy status to other drugs, medicaments and biological substances; Z87.891 Personal history of nicotine dependence

== ENCOUNTER → 2019-09-09 | Outpatient (REF) | payer MEDICARE ==
[~2019-09-09] MED LIST changes: +COLA100C5 PO; +HYDR-3910 PO; -LR 1,000 ML IV ONE; -ceFAZolin SOD 2 GM in IV 1 EA IV ONE
[2019-09-09 16:23] LABS: INR 1.71; PROTHROMBIN TIME 19.8 SECONDS (11.8-14.0)
== END ==
LOC: M SHH 15:23
PROVIDERS: ATTEND Internal Medicine
DX: Z51.81 Encounter for therapeutic drug level monitoring (principal)

== ENCOUNTER → 2019-09-20 | Outpatient (REF) | payer MEDICARE ==
[2019-09-20 16:12] LABS: INR 1.69; PROTHROMBIN TIME 19.6 SECONDS (11.8-14.0)
== END ==
LOC: M SHH 14:54
PROVIDERS: ATTEND Internal Medicine
DX: Z51.81 Encounter for therapeutic drug level monitoring (principal)

== ENCOUNTER → 2019-09-30 | Outpatient (REF) | payer MEDICARE ==
[~2019-09-30] MED LIST changes: -AMLO10TA5 PO; +AMLO1TAB25 PO; +ASPI-546 PO; -ASPI1TAB15 PO
[2019-09-30 17:52] LABS: INR 2.6; PROTHROMBIN TIME 27.7 SECONDS (11.8-14.0)
== END ==
LOC: M SHH 15:52
PROVIDERS: ATTEND Internal Medicine
DX: Z51.81 Encounter for therapeutic drug level monitoring (principal)

== ENCOUNTER → 2019-10-07 | Outpatient (REF) | payer MEDICARE ==
[2019-10-07 16:12] LABS: INR 2.45; PROTHROMBIN TIME 26.4 SECONDS (11.8-14.0)
== END ==
LOC: M SHH 15:28
PROVIDERS: ATTEND Internal Medicine
DX: Z51.81 Encounter for therapeutic drug level monitoring (principal)

== ENCOUNTER → 2019-10-21 | Outpatient (REF) | payer MEDICARE ==
[2019-11-20 21:08] LABS: INR 2.35; PROTHROMBIN TIME 26.3 SECONDS (11.8-14.0)
== END ==
LOC: M SFHCPLAZ 16:55
PROVIDERS: ATTEND Internal Medicine
DX: Z79.01 Long term (current) use of anticoagulants (principal)

== ENCOUNTER → 2019-11-07 | Outpatient (CLI) | payer MEDICARE, MEDICAID ==
--- NOTE | 2019-12-20 08:45 | REP ---
BILATERAL LOWER EXTREMITY DUPLEX DOPPLER ARTERIAL ULTRASOUND: HISTORY: Left femoral endarterectomy 2 months ago. FINDINGS: Real time ultrasound evaluation and duplex Doppler interrogation of the bilateral lower extremity arterial systems is performed. There is heavily calcified atherosclerotic plaque diffusely bilaterally. This somewhat limits the examination. In the right lower extremity, there are diffuse biphasic wave forms. There appears to be occlusion of the distal right posterior tibial artery at the level of the medial malleolus. Distal to the medial malleolus, there is reversal of flow in there posterior tibial artery. On the left, biphasic and triphasic waves forms are seen down to the popliteal artery with transformation to monophasic wave forms at that level extending into the calf arteries. There is stenosis of the left popliteal artery proximally with elevated peak systolic velocity. The stenosis is approximately 3:1, the stenosis is located just proximal to the sural artery. VELOCITY CHART PSV RIGHT (cm/s) PSV LEFT (cm/s) Femoral artery 84.7 73.3 Profunda 84.7 115 Proximal SFA 83.9 62.6 Mid-SFA 127 77.5 Distal SFA 155 672. Popliteal 123 286 Proximal ETA 93 75.1 Tibioperoneal trunk 78.0 97.9 Proximal SUSTAINABILITY COACH 57.4 116 Distal SUSTAINABILITY COACH 24.4 140 Distal LIONEL 129 80.8 MTDD
== END ==
LOC: M RAD 10:19
PROVIDERS: ATTEND Physician Assistant
DX: I70.243 Atherosclerosis of native arteries of left leg with ulceration of ankle (principal); I70.245 Atherosclerosis of native arteries of left leg with ulceration of other part of foot; I70.201 Unspecified atherosclerosis of native arteries of extremities, right leg

== ENCOUNTER → 2019-11-19 | Outpatient (CLI) | payer MEDICARE ==
[2019-11-19 12:59] LABS: HEMATOCRIT 31.2 % (42.0-52.0); HEMOGLOBIN 10.1 g/dl (13.5-17.5); MEAN CORPUSCULAR HEMOGLOBIN 28.9 pg (27.0-33.0); MEAN CORPUSCULAR HGB CONC 32.4 g/dl (32.0-36.5); MEAN CORPUSCULAR VOLUME 89.1 fl (80.0-96.0); PLATELET COUNT, AUTOMATED 202 10^3/uL (150-450); WHITE BLOOD COUNT 6.8 10^3/uL (4.0-10.0)
[2019-11-19 13:25] LABS: CALCIUM LEVEL 8.6 MG/DL (8.8-10.2); CREATININE FOR GFR 1.34 MG/DL (0.70-1.30); GLOMERULAR FILTRATION RATE 53.7 (>35); POTASSIUM SERUM 4.2 MEQ/L (3.5-5.1)
== END ==
LOC: M LAB 11:04
PROVIDERS: ATTEND Physician Assistant
DX: I70.201 Unspecified atherosclerosis of native arteries of extremities, right leg (principal); I70.243 Atherosclerosis of native arteries of left leg with ulceration of ankle

== ENCOUNTER → 2019-12-11 | Outpatient (CLI) | payer MEDICARE ==
[~2019-12-11] MED LIST changes: +ACETAMINOPHEN 325 MG TAB As Ordered ONE; +CLOPIDOGREL 75 MG TAB As Ordered ONE; +ISOVUE-300 61% 50ML VIAL As Ordered ONE; +LIDOCAINE 1% MDV 20ML VIAL As Ordered ONE; +MIDAZOLAM INJ 2MG/2ML VIAL (J2250 PER 1MG) As Ordered ONE; +fentaNYL 100 MCG/2 ML INJECTION (J3010) As Ordered ONE; +hydrALAZINE 20MG/ML 1ML VIAL (J0360 PER 20MG) As Ordered ONE
[2019-12-11 09:18] LABS: HEMATOCRIT 33.9 % (42.0-52.0); HEMOGLOBIN 10.6 g/dl (13.5-17.5); MEAN CORPUSCULAR HEMOGLOBIN 27.7 pg (27.0-33.0); MEAN CORPUSCULAR HGB CONC 31.3 g/dl (32.0-36.5); MEAN CORPUSCULAR VOLUME 88.5 fl (80.0-96.0); PLATELET COUNT, AUTOMATED 192 10^3/uL (150-450); RED BLOOD COUNT 3.83 10^6/uL (4.30-6.10); WHITE BLOOD COUNT 6.4 10^3/uL (4.0-10.0)
[2019-12-11 09:27] LABS: INR 1.48; PROTHROMBIN TIME 18.2 SECONDS (11.8-14.0)
[2019-12-11 09:42] LABS: BLOOD UREA NITROGEN 22 MG/DL (7-18); CALCIUM LEVEL 8.7 MG/DL (8.8-10.2); CARBON DIOXIDE LEVEL 30 MEQ/L (21-32); CHLORIDE LEVEL 106 MEQ/L (98-107); CREATININE FOR GFR 1.12 MG/DL (0.70-1.30); GLOMERULAR FILTRATION RATE > 60.0 (>35); GLUCOSE, FASTING 91 MG/DL (70-100); POTASSIUM SERUM 4.1 MEQ/L (3.5-5.1); SODIUM LEVEL 142 MEQ/L (136-145)
--- NOTE | 2019-12-11 12:28 | ROOPDOC ---
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 Ultrasound-guided access right common femoral artery 2. Aortoiliofemoral arteriogram 3. Selection left superficial femoral artery and left lower extremity runoff 4. Selection left popliteal artery with tibial runoff 5. Selection distal left peroneal artery with arteriogram 6. Angioplasty bilateral common iliac artery and left external iliac artery with 9 x 40 Richmond balloon 7. Angioplasty left superficial femoral artery with 6 x 200 Richmond balloon 8. Stents left superficial femoral artery was 6 x 150 Innova stent, 7 x 100 Innova stent, and post-dilation with 6 x 200 Richmond balloon 9. Angioplasty left posterior tibial artery and left peroneal artery with 2 x 220 Luis balloon 10. Attempt to cross chronic total occlusion at the origin of the left anterior tibial artery, aborted 11. Completion arteriograms 12. Mynx closure right common femoral artery SURGEON: Hodan Leblanc MD ANESTHESIA: Local anesthesia with 8 mL lidocaine. Moderate intravenous conscious sedation was supervised by Dr. Leblanc. The patient was independently monitored by registered nurse assigned to the Department of radiology using automated blood pressure, EKG, and pulse oximetry. The details sedation record is primally stored in the hospital information system. The following is a brief sedation record: Start time 09:41, stop time 11:17, Versed 1 mg IV, no fentanyl was used for this procedure as the patient is sensitive to narcotics and frequently has delirium when narcotics are administered. Heparin 5000 units IV. 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 Risks benefits and alternatives to a left lower extremity arteriogram and potential intervention were explained to the patient and he was agreeable to proceed. Informed consent was obtained. INTERPRETATION: 1. The distal aorta and bilateral common iliac arteries, external iliac arteries, hypogastric arteries are patent but heavily calcified with ectatic irr egular plaque. 2. The left distal external iliac artery, common femoral artery, origin of the profunda, origin the SFA are all widely patent after endarterectomy. There is good flow through the profunda. There is heavy dense calcium throughout the length of the superficial femoral artery and proximal popliteal artery. There are multiple focal stenoses ranging from 40-80% throughout the mid and distal SFA and proximal popliteal artery. Distal to this, the popliteal artery is a bit more diminutive, still somewhat calcified, but patent. 3. The patient has severe calcification of his tibial vessels on the left as well. The left posterior tibial artery is the best runoff to the foot, with ectasia and a few areas of focal stenoses in the midportion, but otherwise rapid flow all the way to the distal foot and toes. The peroneal artery tapers off to a near occlusion in the mid calf, with a little bit of reconstitution distally. The anterior tibial artery has occlusive plaque for 1 cm at the origin extending into the distal popliteal artery, but is otherwise patent throughout the lower extremity and has good flow, fairly rapid, from chronic collaterals around the occlusion. These collaterals come from the genicular vessels as well as from the peroneal artery proximally. 4. After angioplasty of the iliac vessels with a 9 x 40 balloon to allow for and up and over sheath placement, there was still good flow through the vessels with no extravasation or embolization noted, no dissection noted. 5. After angioplasty of the left superficial femoral artery and popliteal artery, there were extensive flow-limiting dissections and residual stenosis in the areas of heavy is calcified plaque. After stenting the left lower extremity with a 6 x 150 and a 7 x 100 Innova stent in the proximal popliteal artery to the proximal mid superficial femoral artery, and post-dilating with a 6 x 200 balloon, there was widely patent flow with only one focal area of the heaviest plaque that still had about 30% residual stenosis but was not flow-limiting. 6. After angioplasty of the left peroneal artery and the posterior tibial artery with 2 x 220 Luis balloons, there was widely patent in-line to vessel flow to the ankle, with brisk collateral flow into the anterior tibial artery around the occlusion at the origin, providing 3 vessel runoff overall, but two vessel in-line flow to the foot. REPORT OF OPERATION: The patient was brought to the angiographic suite in stable condition. Bilateral groins were prepped and draped in sterile fashion. A timeout was performed. Local anesthesia was administered to the skin and subcutaneous tissue over the right common femoral artery. A microneedle was used to access the artery and a wire was passed through this access and the needle was removed. A 4 Italian sheath was placed and flushed with saline. Through this access, Glidewire and flushing catheter were placed into the distal aorta and an d aortoiliofemoral arteriogram were performed. Please see interpretation above. Next, we went up and over the bifurcation with Glidewire and Omni Flush catheter. This was difficult, due to heavy irregular calcified plaque in the iliac vessels that made passing the wire and the catheter very challenging. Eventually we were able to we then attempted to exchange the sheath for a 6 Wilfred nch 45 cm destination sheath up and over the bifurcation, but we could not pass the sheath despite her best efforts. We then removed the sheath and exchange for short 6 Italian sheath and flushed the sheath with saline. Over the wire, we then did sequential brief angioplasty throughout the iliac vessels to smooth out the plaque and allow for easier passage of the sheath. Following this, we still noted good flow through the iliac vessels and a little less ectasia. We then attempted again to exchange the sheath for 6 Italian 45 cm destination sheath, but this again improved challenging. We therefore replaced the short 6 Italian sheath and flushed the sheath was saline. Over the wire, a past glide cath into the distal SFA. The wire was removed and an Amplatz superstiff wire was passed through the catheter. We then removed the catheter and over this superstiff wire, we were able to successfully advance the 45 cm 6 Italian destination sheath. The sheath was flushed with saline. We then exchange the wire again for an O35 Glidewire which was advanced under fluoroscopic guidance into the distal popliteal artery. This was also very challenging due to heavy ectatic plaque and near occlusions in areas focally in the SFA. We then angioplasty the length of the proximal popliteal artery up to the proximal axonal he with a 7 x 100 Innova stent with a 1 cm overlap. We then postdilated with his own 2 due to really resistive plaque in the mid SFA. Although there was still one focal area that had 30% residual stenosis, it was not flow-limiting and the majority of the vessel was widely patent without ectasia. We then turned our attention to the below-knee tibial disease. We attempted for about 20 minutes with angle glide cath in the Glidewire of the anterior tibial artery. We placed the glide cath over the wire and removed the wire. No arteriogram of the tibial vessels was performed from a selection of the popliteal artery. We then placed an O18 Glidewire advantage and exchange the catheter for an O18 Glidewire angled catheter and tried again to access the origin of the left anterior tibial artery. Unfortunately, despite our best efforts, we were not able to cross the occlusion. This was aborted. We then advanced the 018 wire and the catheter down to the mid left peroneal artery. It took a bit of time to cross to the ankle, but we were eventually able to advance the catheter down further and an arteriogram from this selected access in the peroneal artery confirmed we were in the true lumen. We then angioplasty the length of the peroneal artery with a 2 x 220 Luis balloon. Following this, there is rapid flow to the ankle. This also provided some collateral flow to the distal anterior tibial artery. He then advanced the wire and the balloon into the posterior tibial artery to smooth out any ectatic plaque and allow for more rapid flow to the foot. An angioplasty was performed for three-minute inflation and following this there was rapid to vessel in-line flow to the foot, but with collateral circulation 3 vessel flow to the foot over all. The patient has excellent in-line flow all the way to the distal toes, and should have adequate blood flow for wound healing. This concluded the procedure. We exchange the wire for an O35 Glidewire and exchange the sheath for short 6 Italian sheath. Sheath was flushed with saline and then a Mynx closure device was deployed with good hemostasis. Pressure was held for 10 minutes and sterile dressings were applied. The patient was then taken to recovery in stable condition. He tolerated the procedure and the sedation well. ESTIMATED BLOOD LOSS: Approximately 5 mL. COMPLICATIONS: None. PLAN: We will see the patient back in a week to check his access site. He should continue with his local wound care for his toe ulceration. It is important to remember that offloading, good wound care, controls infection, and tight glucose control as well as a high-protein diet are also important for wound healing. No lifting or strenuous exercise for 48 hours. It is okay to resume the Coumadin tonight, and I discussed this with the patient's daughter. We will give him a single dose of Plavix in recovery today, but he will not need a prescription ongoing for Plavix since he is on full Coumadin anticoagulation. We do want him to take a baby aspirin daily. We appreciate the opportunity to participate in the care of this patient. HODAN LEBLANC MD Dec 11, 2019 12:28
[2019-12-11 15:00] VITALS: BP 155/70
== END ==
LOC: M IRPRO 08:39
PROVIDERS: ATTEND Surgery Vascular Surgery
DX: I70.245 Atherosclerosis of native arteries of left leg with ulceration of other part of foot (principal); L97.529 Non-pressure chronic ulcer of other part of left foot with unspecified severity; I70.92 Chronic total occlusion of artery of the extremities
CPT/HCPCS: 37220; 37222; 37226; 37228; 37232; 75630; 80048; 85027; 85610; 99152; 99153; C1725; C1729; C1760; C1769; C1876; C1887; C1894; J0360; J1644; J2250; J3010; Q9967

== ENCOUNTER → 2019-12-25 | Outpatient (REF) | payer MEDICARE ==
[~2019-12-25] MED LIST changes: -ACETAMINOPHEN 325 MG TAB As Ordered ONE; -CLOPIDOGREL 75 MG TAB As Ordered ONE; -ISOVUE-300 61% 50ML VIAL As Ordered ONE; -LIDOCAINE 1% MDV 20ML VIAL As Ordered ONE; -MIDAZOLAM INJ 2MG/2ML VIAL (J2250 PER 1MG) As Ordered ONE; -fentaNYL 100 MCG/2 ML INJECTION (J3010) As Ordered ONE; -hydrALAZINE 20MG/ML 1ML VIAL (J0360 PER 20MG) As Ordered ONE
[2019-12-25 17:40] LABS: ALBUMIN 3.2 GM/DL (3.2-5.2); ALT/SGPT 17 U/L (12-78); BILIRUBIN,TOTAL 0.2 MG/DL (0.2-1.0); BLOOD UREA NITROGEN 21 MG/DL (7-18); CALCIUM LEVEL 8.4 MG/DL (8.8-10.2); CARBON DIOXIDE LEVEL 30 MEQ/L (21-32); CHLORIDE LEVEL 106 MEQ/L (98-107); CHOLESTEROL LEVEL 128 MG/DL (<200); CHOLESTEROL RISK RATIO 3.282 (<5); CREATININE FOR GFR 1.07 MG/DL (0.70-1.30); GLOMERULAR FILTRATION RATE > 60.0 (>35); GLUCOSE, FASTING 177 MG/DL (70-100); HDL CHOLESTEROL 39 MG/DL (>40); LDL CHOLESTEROL 49 MG/DL (<100); MAGNESIUM LEVEL 1.4 MG/DL (1.8-2.4); NON-HDL-C 89 MG/DL; POTASSIUM SERUM 4.8 MEQ/L (3.5-5.1); SODIUM LEVEL 140 MEQ/L (136-145); TOTAL PROTEIN 6.2 GM/DL (6.4-8.2); TRIGLYCERIDES LEVEL 199 MG/DL (<150)
[2019-12-25 17:47] LABS: PTH INTACT 41.7 PG/ML (18.5-88.0)
[2019-12-25 19:12] LABS: HEMOGLOBIN A1c 6.3 %
== END ==
LOC: M SFHCPLAZ 15:27
PROVIDERS: ATTEND Internal Medicine
DX: I12.9 Hypertensive chronic kidney disease with stage 1 through stage 4 chronic kidney disease, or unspecified chronic kidney disease (principal); E11.40 Type 2 diabetes mellitus with diabetic neuropathy, unspecified; E78.00 Pure hypercholesterolemia, unspecified; Z79.01 Long term (current) use of anticoagulants
CPT/HCPCS: 36415; 80053; 80061; 83036; 83735; 83970; 85610; 90682; G0463

== ENCOUNTER 2019-12-31 20:58 | Emergency (ER) | payer MEDICARE ==
[~2019-12-31] VITALS: Ht 177.8 cm; Wt 83.6 kg
[2019-12-31 22:15] LABS: INR 1.8; PROTHROMBIN TIME 21.2 SECONDS (12.5-14.3)
[2020-01-01 00:43] VITALS: BP 154/70
== END 2020-01-01 00:46 | disposition home or self-care (01) ==
LOC: M ED 20:58
DX: S61.202A Unspecified open wound of right middle finger without damage to nail, initial encounter (principal); W26.8XXA Contact with other sharp object(s), not elsewhere classified, initial encounter; Y92.019 Unspecified place in single-family (private) house as the place of occurrence of the external cause; Y93.E8 Activity, other personal hygiene; Y99.9 Unspecified external cause status; J44.9 Chronic obstructive pulmonary disease, unspecified; E11.9 Type 2 diabetes mellitus without complications; I11.0 Hypertensive heart disease with heart failure; Z88.2 Allergy status to sulfonamides; Z88.6 Allergy status to analgesic agent; Z88.8 Allergy status to other drugs, medicaments and biological substances; Z79.01 Long term (current) use of anticoagulants; Z79.899 Other long term (current) drug therapy

== ENCOUNTER → 2020-02-07 | Outpatient (REF) | payer MEDICARE ==
[~2020-02-07] MED LIST changes: +DOXY100C PO; +MED REC COMMENT; +RA N1TAB PO
[2020-02-07 18:30] LABS: APPEARANCE, URINE TURBID (CLEAR); BACTERIA, URINE AUTO 2+ (NEGATIVE); BILIRUBIN, URINE AUTO 2+ (NEGATIVE); BLOOD, URINE BLOOD NEGATIVE (NEGATIVE); COLOR, URINE AMBER (YELLOW); GLUCOSE, URINE (UA) AUTO NEGATIVE (NEGATIVE); KETONE, URINE AUTO NEGATIVE (NEGATIVE); LEUKOCYTE ESTERASE, URINE AUTO 3+ (NEGATIVE); MUCUS, URINE SMALL (NEGATIVE); NITRITE, URINE AUTO NEGATIVE (NEGATIVE); PROTEIN, URINE AUTO 3+ mg/dL (NEGATIVE); RBC, URINE AUTO 6 /HPF (0-3); SPECIFIC GRAVITY URINE AUTO 1.029 (1.002-1.035); SQUAMOUS EPITHELIAL CELL UR AU 7 /HPF (0-6); TRANSITIONAL EPITHELIAL AUTO 1 /HPF; UROBILINOGEN, URINE AUTO 0.2 mg/dL (0.0-2.0); WBC, URINE AUTO 34 /HPF (0-3)
== END ==
LOC: M SFHCPLAZ 16:54
PROVIDERS: ATTEND Nurse Practitioner Family
DX: R44.3 Hallucinations, unspecified (principal); Z79.899 Other long term (current) drug therapy

== ENCOUNTER → 2020-02-07 | Outpatient (REF) | payer MEDICARE | LOC: M SFHCPLAZ 16:55 | PROVIDERS: ATTEND Nurse Practitioner Family | DX: R05 Cough (principal); Z20.828 Contact with and (suspected) exposure to other viral communicable diseases ==

== ENCOUNTER → 2020-02-07 | Outpatient (CLI) | payer MEDICARE ==
--- NOTE | 2020-02-07 16:48 | REPPI ---
INDICATION: R05 COUGH. COMPARISON: 09/06/2019. The latest prior. TECHNIQUE: AP and lateral views FINDINGS: The technique utilized in obtaining the radiograph has magnified the cardiac silhouette and attenuated the interstitial markings. There is cardiomegaly accentuated by technique. The interstitial markings are diffusely increased. There are patchy basilar opacities bilaterally. There is ascending aortic ectasia and calcification unchanged from the lateral view of 05/12/2018. There is no significant change in the osseous structures. IMPRESSION: 1. Cardiomegaly 2. Bibasilar opacities. Basilar pneumonia cannot be ruled out. Mild interstitial edema superimposed upon chronic fibrotic changes cannot be ruled out. Correlate clinically. <Electronically signed by Jacek Enciso > 02/07/20 [id number]
== END ==
LOC: M PLAIMG 15:31
PROVIDERS: ATTEND Nurse Practitioner Family
DX: I51.7 Cardiomegaly (principal); R91.8 Other nonspecific abnormal finding of lung field; R05 Cough

== ENCOUNTER → 2020-02-07 | Outpatient (REF) | payer MEDICARE ==
[2020-02-07 17:53] LABS: BASO % 0.3 % (0.0-1.0); EOS % 0.1 % (0.0-3.0); HEMOGLOBIN 9.3 g/dl (13.5-17.5); LYMPH # 0.7 10^3/uL (1.5-5.0); LYMPH % 7.9 % (24.0-44.0); MEAN CORPUSCULAR HEMOGLOBIN 26.3 pg (27.0-33.0); MEAN CORPUSCULAR VOLUME 87.6 fl (80.0-96.0); MONO # 0.6 10^3/uL (0.0-0.8); MONO % 7.1 % (0.0-5.0); NEUTROPHILS # 7.2 10^3/uL (1.5-8.5); NEUTROPHILS % 83.4 % (36.0-66.0); PLATELET COUNT, AUTOMATED 293 10^3/uL (150-450); RED BLOOD COUNT 3.54 10^6/uL (4.30-6.10); WHITE BLOOD COUNT 8.6 10^3/uL (4.0-10.0)
[2020-02-07 18:08] LABS: ALBUMIN 3.1 GM/DL (3.2-5.2); BILIRUBIN,TOTAL 0.4 MG/DL (0.2-1.0); C REACTIVE PROTEIN QUANTITATIV 1.47 MG/DL (0.00-0.30); CALCIUM LEVEL 6.8 MG/DL (8.8-10.2); CREATININE FOR GFR 1.47 MG/DL (0.70-1.30); GLOMERULAR FILTRATION RATE 48.2 (>35); POTASSIUM SERUM 5.2 MEQ/L (3.5-5.1); TOTAL PROTEIN 6.3 GM/DL (6.4-8.2)
== END ==
LOC: M SFHCPLAZ 15:31
PROVIDERS: ATTEND Nurse Practitioner Family
DX: R05 Cough (principal)

== ENCOUNTER 2020-02-08 15:49 | Inpatient (IN) | payer MEDICARE ==
[~2020-02-08] VITALS: Ht 180.3 cm; Wt 89.7 kg
[~2020-02-08 15:49] MED LIST changes: -DOXY100C PO; -MED REC COMMENT; -RA N1TAB PO; +VANCOMYCIN HCL 750 MG, VIAL MATE ADAPTER 1 EACH in D5W 250 ML IV SCH
[2020-02-08] MEDS ORDERED: NITROGLYCERIN 2% OINT 1 GM *U/D* PKT TOP ONE (16:15)
[2020-02-08 16:23] VITALS: BP 162/99
--- NOTE | 2020-02-08 16:25 | REP ---
INDICATION: DYSPNEA/COUGH. COMPARISON: 02/07/2020 FINDINGS: The technique utilized in obtaining the radiograph has magnified the cardiac silhouette and accentuated the interstitial markings. There is cardiomegaly accentuated by technique status quo. Fibrotic changes are seen throughout the lung [place] with basilar predominance status quo. There is no change in the osseous structures. IMPRESSION: Cardiomegaly and chronic changes as described above. Acute basilar pneumonia superimposed upon chronic change cannot be ruled out. <Electronically signed by Jacek Enciso > 02/08/20 [id number]
[2020-02-08] MEDS ORDERED: FUROSEMIDE 40MG/4ML VIAL (J1940) IV ONE ×2 (16:30→18:30)
[2020-02-08 16:40] LABS: BASO % 0.3 % (0.0-1.0); EOS % 0.1 % (0.0-3.0); HEMOGLOBIN 9.3 g/dl (13.5-17.5); LYMPH # 1.1 10^3/uL (1.5-5.0); LYMPH % 9.9 % (24.0-44.0); MEAN CORPUSCULAR HEMOGLOBIN 25.8 pg (27.0-33.0); MEAN CORPUSCULAR VOLUME 85.9 fl (80.0-96.0); MONO # 0.9 10^3/uL (0.0-0.8); MONO % 8.5 % (0.0-5.0); NEUTROPHILS # 8.8 10^3/uL (1.5-8.5); NEUTROPHILS % 80.1 % (36.0-66.0); PLATELET COUNT, AUTOMATED 316 10^3/uL (150-450); RED BLOOD COUNT 3.61 10^6/uL (4.30-6.10)
[2020-02-08 16:57] LABS: INR 4.86; PROTHROMBIN TIME 46.5 SECONDS (12.5-14.3)
[2020-02-08 18:04] LABS: BILIRUBIN,DIRECT 0.2 MG/DL (0.0-0.2); BILIRUBIN,TOTAL 0.4 MG/DL (0.2-1.0); CALCIUM LEVEL 6.8 MG/DL (8.8-10.2); CK-MB VALUE MASS 18.4 NG/ML (<3.6); CREATININE FOR GFR 1.65 MG/DL (0.70-1.30); GLOMERULAR FILTRATION RATE 42.2 (>35); MB/CK RELATIVE INDEX 1.62 (< OR =4); POTASSIUM SERUM 5.1 MEQ/L (3.5-5.1); THYROID STIMULATING HORMONE 2.49 uIU/ML (0.358-3.740); THYROXINE (T4) 9.7 UG/DL (4.5-12.0); TOTAL PROTEIN 6.3 GM/DL (6.4-8.2); TROPONIN I 0.11 NG/ML (< 0.10)
[2020-02-08] MEDS ORDERED: VANCOMYCIN HCL 1,750 MG in D5W 250 ML IV ONE (18:30)
[2020-02-08] MEDS ORDERED: ATOR40TA75 PO (18:57)
[2020-02-08] MEDS ORDERED: WARF-20 PO (18:57)
[2020-02-08] MEDS ORDERED: GLIP5TAB8 PO (19:00)
[2020-02-08] MEDS ORDERED: VANCOMYCIN HCL 750 MG, VIAL MATE ADAPTER 1 EACH in D5W 250 ML IV ONE (19:00)
[2020-02-08] MEDS ORDERED: RA N1TAB PO (19:00)
[2020-02-08] MEDS ORDERED: VANCOMYCIN HCL 1,000 MG, VIAL MATE ADAPTER 1 EACH in D5W 250 ML IV ONE ×9 (19:00)
[2020-02-08] MEDS ORDERED: DOXY100C PO (19:00)
[2020-02-08] MEDS ORDERED: MED REC COMMENT (19:01)
--- NOTE | 2020-02-08 20:38 | HPEPDOC ---
[facility] Medical History & Physical Date of Admission Feb 08, 2020 Date of Service: Feb 08, 2020 History and Physical CHIEF COMPLAINT: Short of breath, cough, no appetite x few days HISTORY OF PRESENT ILLNESS: 89-year-old male who lives at home, brought in by ambulance after noted increasing shortness of breath, cough productive of white sputum without fever, chills, decreased appetite for a few days. Patient was also noted to be hallucinating and having shaking chills at home, without documented fevers. . He has a chronic indwelling Marrero catheter, but denies any flank pain. . He denies any malodorous urine, dysuria, urgency, frequency. . He denies any chest pain, pressure, tightness, lightheadedness or dizziness. He denies any paroxysmal nocturnal dyspnea and has been weak with difficulty ambulating due to shortness of breath. Patient does not know if he is having any weight gain and has chronic lower extremity edema, with bilateral big toe ulcers managed with every 2 day dressings and debridement by Dr. Sewell's outpatient. In the ER, patient has no fever, white count of 11 ,chest x-ray showing basilar pneumonia, 3+ leukocyte esterase, 66 wbc's, 2+ bacteria. Hospitalist was called to admit the patient for basilar pneumonia, CHF and urinary tract infection with acute encephalopathy. PAST MEDICAL HISTORY: Atrial fibrillation, on chronic warfarin.CAD.diastolic CHF grade 1 EF55%-60%, mild TR, mild pulmonary hypertension. Peripheral arterial disease.Hypertension.Hypertension.Diverticulitis Diabetes.Chronic kidney disease, stage III.Osteoarthritis.Chronic indwelling catheter secondary to st ricture.Urinary tract infection secondary to chronic indwelling catheter.Chronic bronchitis.Chronic obstructive pulmonary disease (COPD).Anxiety and depression.Benign prostatic hypertrophy. 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 PAST SURGICAL HISTORY: Bilateral cataract surgery.Chronic bronchitis.Chronic obstructive pulmonary disease (COPD). 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 Hip fracture repair.Coronary artery stents. Five cardiac stents are in place from [place]. Femoral endarterectomy 09/04/2019. ALLERGIES: HYDROCODONE, MORPHINE, OXYCODONE, QUINOLONE, SULFA, SULFAMETHOXAZOLE, BACTRIM. HOME MEDICATIONS:SEE BELOW FAMILY HISTORY: Brother age 50, brain tumor SOCIAL HISTORY: lives with at home. denies etoh,drug use. ex-smoker. Quit 20 years ago. [employer] for 36 years. REVIEW OF SYSTEMS: Per history of present illness (HPI). A 12-point system otherwise negative. PHYSICAL EXAMINATION: VITALS: SEE BELOW General:AAOxperson and place. disoriented to date.Answering questions appr opriate. mild use of respiratory muscles. nasal cannula.Very hard of hearing. HEENT: Face is symmetric. No pallor,icterus, or jaundice. No jugular venous distention (JVD) or thyromegaly. Pupils are round and reactive to light and accommodation.Speech is fluent. Patient wears dentures. Lungs: diminished. bibasilar fine crackles. no wheezing. AEBE Heart: S1, S2, irregularly irregular. Abdomen is soft, nontender, nondistended. Positive bowel sounds times four quadrants. Chronic indwelling catheter. Extremities: 3+pitting edema to the sacrum. SKIN:Right great toe 3.0 x 2.5 cm ulcer without purulent drainage. left great toe 3.5 x2 cm LABORATORY DATA:see below IMAGING STUDIES: INDICATION: DYSPNEA/COUGH. COMPARISON: 02/07/2020 FINDINGS: The technique utilized in obtaining the radiograph has magnified the cardiac silhouette and accentuated the interstitial markings. There is cardiomegaly accentuated by technique status quo. Fibrotic changes are seen throughout the lung [place] with basilar predominance status quo. There is no change in the osseous structures. IMPRESSION: Cardiomegaly and chronic changes as described above. Acute basilar pneumonia superimposed upon chronic change cannot be ruled out. <Electronically signed by Jacek Enciso > 02/08/20 1622 ECHOCARDIOGRAM DATE OF PROCEDURE: 04/26/2019 REFERRING PROVIDER: Dr. Carson Menjivar PATIENT LOCATION: Room 3223 REASON FOR THE STUDY: Abnormal EKG. 2D MEASUREMENTS: IVS: 1.3 cm LV: 4.9 cm LVPW: 1.2 cm LA: 3.5 cm Aorta: 3.5 cm IVC: 2.1 cm DOPPLER MEASUREMENTS: Peak velocity across the aortic valve: 1.5 m/s Peak velocity across the LVOT: 0.68 m/s Mitral E: 0.60 Mitral A: 1.0 with a ratio of 0.6 Maximum tricuspid valve velocity: 2.8 m/s 2-D COMMENTS: 1. Normal left ventricular size with mildly increased left ventricular wall thickness. Left ventricular systolic function is normal, estimated at 55-60%. 2. Normal left atrium. Normal right atrium and right ventricle. 3. The atrial septum appeared to be normal without evidence of defect or shunt. 4. Normal aortic root. 5. No pericardial effusion seen. 6. Mildly calcified aortic valve with normal leaflet excursion. Mildly calcified mitral annulus with normal anterior mitral leaflet motion. Normal tricuspid valve and pulmonic valve. The proximal pulmonary artery branches were not well visualized. 7. The inferior vena cava was mildly enlarged, central venous pressure mildly elevated. DOPPLER: It detects trace to mild mitral regurgitation, mild tricuspid regurgitation, and trace pulmonic regurgitation. The calculated pulmonary artery systolic pressure varies between 30-40 mmHg. Abnormal relaxation pattern was noted across the mitral valve leaflets as well as the mitral valve annulus consistent with features of grade 1 left ventricular diastolic dysfunction. IMPRESSION: 1. Low normal global left ventricular systolic function with mild concentric left ventricular hypertrophy. There is some features of left ventricular diastolic dysfunction manifested by abnormal relaxation. 2. Aortic valve sclerosis without stenosis or aortic radiation. 3. Mitral annulus calcification with trace to mild mitral radiation. 4. Mild tricuspid radiation with mild pulmonary hypertension. ASSESSMENT AND PLAN: 89-year-old male who lives at home, brought in by ambulance after noted increasing shortness of breath, cough productive of white sputum without fever, chills, decreased appetite for a few days. Patient was also noted to be hallucinating and having shaking chills at home, without documented fevers. . He has a chronic indwelling Marrero catheter, but denies any flank pain. . He denies any malodorous urine, dysuria, urgency, frequency. . He denies any chest pain, pressure, tightness, lightheadedness or dizziness. He denies any paroxysmal nocturnal dyspnea and has been weak with difficulty ambulating due to shortness of breath. Patient does not know if he is having any weight gain and has chronic lower extremity edema, with bilateral big toe ulcers managed with every 2 day dressings and debridement by Dr. Sewell's outpatient. In the ER, patient has no fever, white count of 11 ,chest x-ray showing basilar pneumonia, 3+ leukocyte esterase, 66 wbc's, 2+ bacteria. Hospitalist was called to admit the patient for basilar pneumonia, CHF and urinary tract infection with acute encephalopathy. Acute Encephalopathy -due to UTI in the setting of chronic indwelling catheter, basilar community acquired pneumonia, and acute on chronic diastolic CHF exacerbation with preserved systolic function. -supportive care with IV abx for UTI and pneumonia-ceftriaxone, and vancomycin due to h/o enteroccoccus faecalis in urine, and iv lasix for CHF. Acute on chronic diastolic congestive heart failure exacerbation, EF 55-60% with preserved systolic function -Positive troponin cycle serially every 6 hours hourly. No chest pain, pressure. Continue with diuresis. Lasix 40 IV every 8 hourly. Strict I's and O's, daily weights. Fluid restriction 1.5 L daily with goal net negative balance of at least 1 L daily. Monitor patient's creatinine with serial basic metabolic panel and replete electrolytes as needed. Telemetry monitoring Possible Community acquired pneumonia -IV ceftriaxone. Check sputum culture, urine Legionella, urine streptococcal antigen. No fever. Slightly increased white count with complaints of shortness of breath and cough productive of white sputum. If infiltrate on x-ray results of diuresis. Discontinue antibiotics . Supplemental oxygen to keep saturations above 90%. Blood cultures pending. Urinary tract infection with chronic indwelling Marrero catheter due to chronic urinary retention -History of enterococcus faecalis in the urine. Therefore, vancomycin has been given IV ceftriaxone for gram-negative coverage. Change antibiotics once sensit ivity results are available. history of peripheral arterial disease without atherosclerosis of [place] vessels and nonhealing bilateral 1st toe nonpressure ulcers -Consult Dr. Sewell on Monday for wound management. Continue home wound care regimen until re-evaluated by Dr. Sewell. RN to arrange telemetry medicine. Chronic Atrial fibrillation, currently rate controlled. -Continue on home medications and anticoagulation. Telemetry. Chronic kidney disease, stage III, at baseline creatinine. -Currently stable.Avoid nephrotoxins. Renally dose all medications. Type 2 diabetes - on consistent-carbohydrate diet, sliding scale. Fingersticks before food and at bedtime. History of coronary artery disease, status post five coronary stents. -Cycle cardiac markers. Repeat EKG if worsening shortness of breath or complaints of chest pain Depression. Resume back on Celexa. Iron deficiency anemia, on ferrous sulfate. Hypertension. -Resume home medications with holding parameters Bowel regimen, on Colace. Vital Signs Vital Signs Date Time Temp Pulse Resp B/P (MAP) Pulse Ox O2 Delivery O2 Flow Rate FiO2 02/08/20 18:15 95 144/88 (106) 100 02/08/20 16:37 97.1 18 Laboratory Data Labs 24H Laboratory Tests 2 02/08/20 16:18: POC Troponin I (Misc) 0.07 02/08/20 16:29: Immature Granulocyte % (Auto) 1.1, Neutrophils (%) (Auto) 80.1H, Lymphocytes (%) (Auto) 9.9L, Monocytes (%) (Auto) 8.5H, Eosinophils (%) (Auto) 0.1, Basophils (%) (Auto) 0.3, Neutrophils # (Auto) 8.8H, Lymphocytes # (Auto) 1.1L, Monocytes # (Auto) 0.9H, Eosinophils # (Auto) 0.0, Basophils # (Auto) 0.0, Nucleated Red Blood Cells % (auto) 0.3H, Lactic Acid Level 2.5*H 02/08/20 16:30: Prothrombin Time 46.5H, Prothromb Time International Ratio 4.86, Anion Gap 7L, Glomerular Filtration Rate 42.2, Calcium Level 6.8L, Total Bilirubin 0.4, Direct Bilirubin 0.2, Aspartate Amino Transf (AST/SGOT) 360H, Alanine Aminotransferase (ALT/SGPT) 236H, Alkaline Phosphatase 113, Total Creatine Kinase 1137H, Creatine Kinase MB 18.4H, Creatine Kinase MB Relative Index 1.62, Troponin I 0.11H, HD-Kyq-G-Type Natriuretic Peptide 38436V, Total Protein 6.3L, Albumin 3.0L, Albumin/Globulin Ratio 0.9, Thyroid Stimulating Hormone (TSH) 2.490, Thyroxine (T4) 9.7 02/08/20 17:35: Urine Color YELLOW, Urine Appearance CLOUDYH, Urine pH 8.0, Urine Specific [place] 1.013, Urine Protein 2+H, Urine Glucose (UA) NEGATIVE, Urine Ketones NEGATIVE, Urine Blood 1+H, Urine Nitrite NEGATIVE, Urine Bilirubin NEGATIVE, Urine Urobilinogen 0.2, Urine Leukocyte Esterase 3+H, Urine WBC (Auto) 66H, Urine RBC (Auto) 18H, Urine Hyaline Casts (Auto) 0, Urine Bacteria (Auto) 2+H, Urine Squamous Epithelial Cells 3, Urine Transitional Epithelial Cells 1, Urine Mucus (Auto) SMALL, Urine Sperm (Auto) 11/14/20 18:06: Coronavirus (COVID-19)(PCR) NEGATIVE 02/08/20 18:46: CBC/BMP Laboratory Tests 02/08/20 16:29 02/08/20 16:30 Microbiology Microbiology 02/08/20 Urine Culture, Received Pending 02/08/20 Blood Culture, Received Pending 02/08/20 Blood Culture, Received Pending Home Medications Scheduled Atorvastatin Calcium (Atorvastatin Calcium) 40 Mg Tablet, 40 MG PO 3XW MON,MON,MON Citalopram Hydrobromide (Citalopram HBr) 20 Mg Tab, 20 MG PO DAILY Doxycycline Hyclate (Doxycycline Hyclate) 100 Mg Capsule, 100 MG PO BID STARTED 02/04/20 X 7 DAYS Ergocalciferol (Vitamin D2) (Vitamin D2) 50,000 Units Cap, 50,000 UNITS PO Q2WK EVERY OTHER MONDAY Gabapentin (Neurontin) 300 Mg Capsule, 300 MG PO TID Glipizide (Glipizide) 5 Mg Tablet, 2.5 MG PO BID BREAKFAST AND LUNCH Insulin Detemir (Levemir) 100 Unit/1 Ml Vial, 17 UNITS SC DAILY Magnesium (Magnesium) 250 Mg Tablet, 250 MG PO DAILY Omeprazole (Omeprazole) 40 Mg Cap, 40 MG PO DAILY Sorbitol Solution (Sorbitol 70%) 1 Ml Solution, 30 ML PO DAILY Trazodone HCl (Trazodone HCl) 100 Mg Tab, 100 MG PO QHS Warfarin Sodium (Warfarin Sodium) 2 Mg Tablet, 2 MG PO 5XW TU,TH,MON,SAT,SUN Warfarin Sodium (Warfarin Sodium) 4 Mg Tablet, 4 MG PO 2XW MON,MON Scheduled PRN Acetaminophen (Acetaminophen) 325 Mg Tablet, 650 MG PO Q6H PRN for PAIN Albuterol Sulfate (Ventolin Hfa) 108 Mcg/Act Aer, 2 PUFF INH Q4H PRN for SHORTNESS OF BREATH Docusate Sodium (Colace) 100 Mg Capsule, 100 MG PO DAILY PRN for CONSTIPATION Miscellaneous Medications [Med Rec Comment] PATIENT STATES HAD FLU SHOT IN DECEMBER2019 Allergies Coded Allergies: Sulfa (Sulfonamide Antibiotics) (Verified Allergy, Mild, rash, 08/21/19) sulfamethoxazole (Verified Allergy, Mild, rash, 08/21/19) Pea (Verified Allergy, Unknown, 08/21/19) trimethoprim (Verified Allergy, Unknown, 08/21/19) Quinolones (Verified Adverse Reaction, Mild, AMS, 08/21/19) hydrocodone (Verified Adverse Reaction, Mild, AMS, 08/21/19) morphine (Verified Adverse Reaction, Mild, AMS, 08/21/19) oxycodone (Verified Adverse Reaction, Mild, AMS, 08/21/19) A-FIB/CHADSVASC A-FIB History Current/History of A-Fib/PAF?: Yes Current PO Anticoag Therapy: Yes Age/Risk Factor Scoring CHADSVASC: CHADSVASC Response (Comments) Value Age Risk Factor Age >/= 75 years old 2 Gender Risk Factor Male 0 Hx of CHF Yes 1 Hx of HTN Yes 1 Hx of Stroke/TIA/or VTE No 0 Hx of Diabetes Yes 1 Hx of Vascular Disease Yes 1 Total 6 Treatment Treatment ordered: Warfarin CORY RIZZO MD Feb 08, 2020 19:13
[2020-02-08] MEDS ORDERED: DOCUSATE SODIUM 100 MG CAP PO PRN (20:45)
[2020-02-08] MEDS ORDERED: ACETAMINOPHEN TAB 650MG DOSE (2X325MG) PO PRN (20:45)
[2020-02-08 21:35] VITALS: BP 140/87
[2020-02-08] MEDS: traZODone 100 MG TAB PO SCH (22:24)
[2020-02-08] MEDS: GABAPENTIN 300 MG CAP PO SCH (22:24)
[2020-02-09] VITALS: BP 153/74
[2020-02-09] MEDS: FUROSEMIDE 40MG/4ML VIAL (J1940) IV SCH ×4 (00:03→23:59)
[2020-02-09] MEDS: cefTRIAXone SOD 2 GM in D5W MINI-BAG PLUS 50 ML IV SCH ×2 (00:04→23:59)
[2020-02-09 00:34] LABS: CK-MB VALUE MASS 13.9 NG/ML (<3.6); MB/CK RELATIVE INDEX 1.49 (< OR =4); TROPONIN I 0.11 NG/ML (< 0.10)
[2020-02-09 04:00] VITALS: BP 129/66
[2020-02-09] MEDS ORDERED: VANCOMYCIN HCL 500 MG in D5W MINI-BAG PLUS 100 ML IV SCH (06:00)
[2020-02-09 06:46] LABS: BASO # 0.1 10^3/uL (0.0-0.2); BASO % 0.5 % (0.0-1.0); EOS # 0.1 10^3/uL (0.0-0.5); EOS % 1.3 % (0.0-3.0); HEMATOCRIT 28.3 % (42.0-52.0); HEMOGLOBIN 8.8 g/dl (13.5-17.5); LYMPH # 1.3 10^3/uL (1.5-5.0); LYMPH % 13.7 % (24.0-44.0); MEAN CORPUSCULAR HEMOGLOBIN 26.5 pg (27.0-33.0); MEAN CORPUSCULAR HGB CONC 31.1 g/dl (32.0-36.5); MEAN CORPUSCULAR VOLUME 85.2 fl (80.0-96.0); MONO % 10.9 % (0.0-5.0); NEUTROPHILS # 6.9 10^3/uL (1.5-8.5); NEUTROPHILS % 72.9 % (36.0-66.0); PLATELET COUNT, AUTOMATED 236 10^3/uL (150-450); RED BLOOD COUNT 3.32 10^6/uL (4.30-6.10); WHITE BLOOD COUNT 9.5 10^3/uL (4.0-10.0)
[2020-02-09 07:00] VITALS: BP 134/76
[2020-02-09 07:22] LABS: INR 4.74; PROTHROMBIN TIME 45.6 SECONDS (12.5-14.3)
[2020-02-09 07:28] LABS: CALCIUM LEVEL 6.6 MG/DL (8.8-10.2); CK-MB VALUE MASS 11.2 NG/ML (<3.6); CREATININE FOR GFR 1.44 MG/DL (0.70-1.30); GLOMERULAR FILTRATION RATE 49.4 (>35); MB/CK RELATIVE INDEX 1.4 (< OR =4); POTASSIUM SERUM 3.8 MEQ/L (3.5-5.1); TROPONIN I 0.09 NG/ML (< 0.10)
[2020-02-09] MEDS: LEVEMIR (INSULIN DETEMIR) 1 UNITS/0.01ML SC SCH (08:20)
[2020-02-09] MEDS: CitaloPRAM (CeleXA) 20 MG TAB PO SCH (08:20)
[2020-02-09] MEDS: GABAPENTIN 300 MG CAP PO SCH ×3 (08:20→20:16)
[2020-02-09] MEDS: OMEPRAZOLE 20 MG CAP PO SCH (08:20)
[2020-02-09] MEDS ORDERED: GLUCAGON INJ 1MG VIAL SC PRN (08:45)
[2020-02-09] MEDS ORDERED: DEXTROSE 50% 50 ML SYRINGE IV PRN (08:45)
[2020-02-09] MEDS ORDERED: GLUCOSE 4GM CHEW TABLET PO PRN (08:45)
--- NOTE | 2020-02-09 08:52 | IPNPDOC ---
Text Note Date of Service The patient was seen on 02/09/20. NOTE Subjective: Patient seen and examined at bedside. No acute overnight events reported. Patient voices no new medical complaints this morning. He states that his breathing does feel better. Objective: General: NAD, lying comfortably in bed, elderly HEENT: NC/AT, EOMI, nasal cannula in place Lungs: CTA B/L Heart: +S1S2, RRR Abd: soft, NT, +BS Ext: B/L LE edema 3+, B/L hallux ulcers Psych: AAOx3 A/P: 89M with extensive PMHx presents for worsening SOB/cough, chills/shaking, AMS with visual hallucination. Extensive PMHx afib/warfarin, CAD, HFpEF, PAD, HTN, DM, CKDIII, chronic indwelling catheter/urethral strictures/BPH, COPD, anxiety/depression. Admitted for PNA, CHF, UTI, AMS. #AMS - likely metabolic encephalopathy - appears to be resolved this morning - continue treating acute issues as below #CHF - continue IV lasix 40 IV q8h - I/O's, daily weights - supplemental oxygen as needed - patient baseline does not require supplemental oxygen as per patient - telemetry #Possible Community acquired pneumonia - IV ceftriaxone/vanco - FLQ allergy - sputum culture, urine Legionella, urine streptococcal antigen pending - Supplemental oxygen to keep saturations above 90% - BCx pending #CAUTI - History of enterococcus faecalis in the urine - UCx pending - ceftriaxone/vancomycin - FLQ allergy #history of peripheral arterial disease without atherosclerosis of [place] vessels and nonhealing bilateral 1st toe nonpressure ulcers -Consult Dr. Sewell on Monday for wound management. Continue home wound care regimen until re-evaluated by Dr. Sewell #Chronic Atrial fibrillation - NSR, rate controlled - warfarin on hold - supratherapeutic INR #CKDIII - stable - avoid nephrotoxins. Renally dose all medications. #Type 2 diabetes - on consistent-carbohydrate diet, sliding scale. Fingersticks before food and at bedtime. #History of coronary artery disease, status post five coronary stents. -Cycle cardiac markers. Repeat EKG if worsening shortness of breath or complaints of chest pain #Depression. Resume back on Celexa. #Iron deficiency anemia, on ferrous sulfate. #Hypertension. -Resume home medications with holding parameters #DVT prophylaxis - supratherapeutic on warfarin VS,Fishbone, I+O VS, Fishbone, I+O Laboratory Tests 02/08/20 16:29 02/08/20 16:30 02/09/20 05:48 Vital Signs Date Time Temp Pulse Resp B/P (MAP) Pulse Ox O2 Delivery O2 Flow Rate FiO2 02/09/20 07:00 97.9 89 18 134/76 (95) 96 Room Air I&O- Last 24 Hours up to 6 AM 02/09/20 06:00 Intake Total 1100 ml Output Total 860 ml Balance 240 ml CIELO LAMAS MD Feb 09, 2020 08:52
[2020-02-09 11:30] VITALS: BP 141/83
[2020-02-09] MEDS: HumaLOG INSULIN (NovoLOG) PER UNIT SC SCH ×4 (12:00→20:16)
[2020-02-09 12:44] LABS: CK-MB VALUE MASS 9.6 NG/ML (<3.6); MB/CK RELATIVE INDEX 1.34 (< OR =4); TROPONIN I 0.09 NG/ML (< 0.10)
--- NOTE | 2020-02-09 13:21 | ECGEPIP ---
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
[2020-02-09 15:13] VITALS: BP 134/79
[2020-02-09] MEDS ORDERED: VANCOMYCIN HCL 1,000 MG, VIAL MATE ADAPTER 1 EACH in D5W 250 ML IV SCH (16:00)
[2020-02-09] MEDS ORDERED: WARFARIN SOD 2MG TAB PO SCH (17:00)
[2020-02-09 20:00] VITALS: BP 112/76
[2020-02-09] MEDS: traZODone 100 MG TAB PO SCH (20:16)
[2020-02-10] VITALS: BP 153/89
[2020-02-10 03:36] VITALS: BP 147/86
[2020-02-10 05:55] LABS: BASO % 0.3 % (0.0-1.0); EOS # 0.1 10^3/uL (0.0-0.5); EOS % 0.9 % (0.0-3.0); HEMATOCRIT 31.1 % (42.0-52.0); HEMOGLOBIN 9.7 g/dl (13.5-17.5); LYMPH # 1.5 10^3/uL (1.5-5.0); LYMPH % 12.7 % (24.0-44.0); MEAN CORPUSCULAR HEMOGLOBIN 26.2 pg (27.0-33.0); MEAN CORPUSCULAR HGB CONC 31.2 g/dl (32.0-36.5); MEAN CORPUSCULAR VOLUME 84.1 fl (80.0-96.0); MONO # 1.3 10^3/uL (0.0-0.8); NEUTROPHILS # 8.7 10^3/uL (1.5-8.5); NEUTROPHILS % 74.6 % (36.0-66.0); PLATELET COUNT, AUTOMATED 318 10^3/uL (150-450); WHITE BLOOD COUNT 11.6 10^3/uL (4.0-10.0)
[2020-02-10 06:11] LABS: PROTHROMBIN TIME 53.3 SECONDS (12.5-14.3)
[2020-02-10 06:15] LABS: CALCIUM LEVEL 6.3 MG/DL (8.8-10.2); CREATININE FOR GFR 1.29 MG/DL (0.70-1.30); GLOMERULAR FILTRATION RATE 56.1 (>35); POTASSIUM SERUM 3.2 MEQ/L (3.5-5.1)
[2020-02-10 06:39] LABS: INR 5.77
[2020-02-10] MEDS: HumaLOG INSULIN (NovoLOG) PER UNIT SC SCH ×4 (07:30→20:39)
[2020-02-10 08:00] VITALS: BP 150/80
[2020-02-10 08:03] LABS: MAGNESIUM LEVEL 0.3 MG/DL (1.8-2.4)
[2020-02-10] MEDS: ATORVASTATIN 20 MG TAB PO SCH (08:39)
[2020-02-10] MEDS: CitaloPRAM (CeleXA) 20 MG TAB PO SCH (08:41)
[2020-02-10] MEDS: GABAPENTIN 300 MG CAP PO SCH ×3 (08:42→20:39)
[2020-02-10] MEDS: OMEPRAZOLE 20 MG CAP PO SCH (08:42)
[2020-02-10] MEDS: LEVEMIR (INSULIN DETEMIR) 1 UNITS/0.01ML SC SCH (08:43)
--- NOTE | 2020-02-10 08:53 | IPNPDOC ---
Text Note Date of Service The patient was seen on 02/10/20. NOTE Subjective: Patient seen and examined at bedside. Complains of cough, nausea and general malaise this morning. No acute overnight events reported. Objective: General: NAD, lying comfortably in bed, elderly HEENT: NC/AT, EOMI, nasal cannula in place Lungs: CTA B/L Heart: +S1S2, RRR Abd: soft, NT, +BS Ext: B/L LE edema 3+, B/L hallux ulcers Psych: AAOx3 A/P: 89M with extensive PMHx presents for worsening SOB/cough, chills/shaking, AMS with visual hallucination. Extensive PMHx afib/warfarin, CAD, HFpEF, PAD, HTN, DM, CKDIII, chronic indwelling catheter/urethral strictures/BPH, COPD, anxiety/depression. Admitted for PNA, CHF, UTI, AMS. #AMS - resolved - likely metabolic encephalopathy - continue treating acute issues as below #CHF - on hold for this morning given hypomagnesemia - had good diuresis yesterday - I/O's, daily weights - supplemental oxygen as needed - patient baseline does not require supplemental oxygen as per patient - telemetry #hypomagnesemia - replete with IV supplementation - recheck in afternoon #Possible Community acquired pneumonia - IV ceftriaxone/vanco - FLQ allergy - sputum culture, urine Legionella, urine streptococcal antigen pending - Supplemental oxygen to keep saturations above 90% - BCx pending #CAUTI - History of enterococcus faecalis in the urine - UCx pending - ceftriaxone/vancomycin - FLQ allergy #history of peripheral arterial disease without atherosclerosis of [place] vessels and nonhealing bilateral 1st toe nonpressure ulcers -Consult Dr. Sewell on Monday for wound management. Continue home wound care regimen until re-evaluated by Dr. Sewell #Chronic Atrial fibrillation - NSR, rate controlled - warfarin on hold - supratherapeutic INR #CKDIII - stable - avoid nephrotoxins. Renally dose all medications. #Type 2 diabetes - on consistent-carbohydrate diet, sliding scale. Fingersticks before food and at bedtime. #History of coronary artery disease, status post five coronary stents. -Cycle cardiac markers. Repeat EKG if worsening shortness of breath or complaints of chest pain #Depression. Resume back on Celexa. #Iron deficiency anemia, on ferrous sulfate. #Hypertension. -Resume home medications with holding parameters #DVT prophylaxis - supratherapeutic on warfarin VS,Fishbone, I+O VS, Fishbone, I+O Laboratory Tests 02/10/20 05:16 Vital Signs Date Time Temp Pulse Resp B/P (MAP) Pulse Ox O2 Delivery O2 Flow Rate FiO2 02/10/20 08:00 96.9 75 20 150/80 (103) 99 Nasal Cannula 1.0 I&O- Last 24 Hours up to 6 AM 02/10/20 06:00 Intake Total 720 ml Output Total 3425 ml Balance -2705 ml CIELO LAMAS MD Feb 10, 2020 08:53
[2020-02-10] MEDS ORDERED: guaiFENesin SYRUP 200 MG/10 ML UDC PO PRN (09:00)
[2020-02-10] MEDS: MAG SULF 1GM/100ML (MAG RUN) 1 GM in IV 1 EA IV SCH ×6 (09:06→20:39)
--- NOTE | 2020-02-10 10:01 | ECGEPIP ---
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
[2020-02-10 12:00] VITALS: BP 146/87
[2020-02-10 16:00] VITALS: BP 142/64
[2020-02-10] MEDS ORDERED: WARFARIN SOD 4MG TAB PO SCH (17:00)
[2020-02-10 20:00] VITALS: BP 153/78
[2020-02-10] MEDS: traZODone 100 MG TAB PO SCH (20:39)
[2020-02-10] MEDS: cefTRIAXone SOD 2 GM in D5W MINI-BAG PLUS 50 ML IV SCH (23:34)
[2020-02-11] VITALS: BP 110/61
[2020-02-11 04:00] VITALS: BP 109/53
[2020-02-11 05:17] LABS: BASO % 0.2 % (0.0-1.0); EOS # 0.3 10^3/uL (0.0-0.5); EOS % 2.2 % (0.0-3.0); HEMATOCRIT 29.9 % (42.0-52.0); LYMPH # 1.1 10^3/uL (1.5-5.0); MEAN CORPUSCULAR HEMOGLOBIN 25.2 pg (27.0-33.0); MEAN CORPUSCULAR HGB CONC 30.1 g/dl (32.0-36.5); MEAN CORPUSCULAR VOLUME 83.8 fl (80.0-96.0); MONO # 1.4 10^3/uL (0.0-0.8); MONO % 11.2 % (0.0-5.0); NEUTROPHILS # 9.6 10^3/uL (1.5-8.5); NEUTROPHILS % 76.6 % (36.0-66.0); PLATELET COUNT, AUTOMATED 286 10^3/uL (150-450); RED BLOOD COUNT 3.57 10^6/uL (4.30-6.10); WHITE BLOOD COUNT 12.5 10^3/uL (4.0-10.0)
[2020-02-11 05:33] LABS: PROTHROMBIN TIME 78.1 SECONDS (12.5-14.3)
[2020-02-11 06:10] LABS: INR 9.38
[2020-02-11 06:19] LABS: BLOOD UREA NITROGEN 33 MG/DL (7-18); CALCIUM LEVEL 6.3 MG/DL (8.8-10.2); CARBON DIOXIDE LEVEL 30 MEQ/L (21-32); CHLORIDE LEVEL 102 MEQ/L (98-107); CREATININE FOR GFR 1.14 MG/DL (0.70-1.30); GLOMERULAR FILTRATION RATE > 60.0 (>35); GLUCOSE, FASTING 43 MG/DL (70-100); MAGNESIUM LEVEL 1.5 MG/DL (1.8-2.4); POTASSIUM SERUM 2.5 MEQ/L (3.5-5.1); SODIUM LEVEL 141 MEQ/L (136-145)
[2020-02-11] MEDS ORDERED: POTASSIUM CHLORIDE 10 MEQ SR TABLET PO ONE ×2 (06:45→16:00)
[2020-02-11] MEDS: HumaLOG INSULIN (NovoLOG) PER UNIT SC SCH ×4 (07:30→20:23)
[2020-02-11 07:58] VITALS: BP 136/77
[2020-02-11] MEDS: MAG SULF 1GM/100ML (MAG RUN) 1 GM in IV 1 EA IV SCH ×2 (08:12→10:15)
[2020-02-11] MEDS: GABAPENTIN 300 MG CAP PO SCH ×3 (08:12→20:22)
[2020-02-11] MEDS: CitaloPRAM (CeleXA) 20 MG TAB PO SCH (08:12)
[2020-02-11] MEDS: OMEPRAZOLE 20 MG CAP PO SCH (08:12)
[2020-02-11] MEDS: LEVEMIR (INSULIN DETEMIR) 1 UNITS/0.01ML SC SCH (09:00)
[2020-02-11] MEDS ORDERED: PHYTONADIONE 1.25 MG 1/4 TAB PO ONE (10:30)
--- NOTE | 2020-02-11 10:30 | IPNPDOC ---
Text Note Date of Service The patient was seen on 02/11/20. NOTE Subjective: Patient seen and examined at bedside. Feeling better today, no acute overnight events reported. Objective: General: NAD, lying comfortably in bed, elderly HEENT: NC/AT, EOMI, nasal cannula in place Lungs: CTA B/L Heart: +S1S2, RRR Abd: soft, NT, +BS Ext: B/L LE edema 3+, B/L hallux ulcers Psych: AAOx3 A/P: 89M with extensive PMHx presents for worsening SOB/cough, chills/shaking, AMS with visual hallucination. Extensive PMHx afib/warfarin, CAD, HFpEF, PAD, HTN, DM, CKDIII, chronic indwelling catheter/urethral strictures/BPH, COPD, anxiety/depression. Admitted for PNA, CHF, UTI, AMS. #AMS - resolved - likely metabolic encephalopathy - continue treating acute issues as below #CHF - on hold for now given electrolyte abnormalities - still with good diuresis - I/O's, daily weights - supplemental oxygen as needed - patient baseline does not require supplemental oxygen - telemetry #hypomagnesemia/hypokalemia - replete with IV supplementation - recheck in afternoon #Possible Community acquired pneumonia - IV ceftriaxone - FLQ allergy - SCx shows Klebsiella Pneumoniae, yeast - considering fluconazole - concern given already supratherapeutic INR - urine Legionella, urine streptococcal antigen pending - Supplemental oxygen to keep saturations above 90% - BCx pending #CAUTI - History of enterococcus faecalis in the urine - UCx shows proteus - ceftriaxone - FLQ allergy #history of peripheral arterial disease without atherosclerosis of [place] vessels and nonhealing bilateral 1st toe nonpressure ulcers -Consult Dr. Sewell on Monday for wound management. Continue home wound care regimen until re-evaluated by Dr. Sewell #Chronic Atrial fibrillation - NSR, rate controlled - warfarin on hold - still supratherapeutic INR - will administer vitamin K PO 1.25 mg today - continue to monitor #B/L Hallux DFU - podiatry c/s pending - Dr. Ponce #CKDIII - stable - avoid nephrotoxins. Renally dose all medications. #Type 2 diabetes - on consistent-carbohydrate diet, sliding scale. Fingersticks before food and at bedtime. #History of coronary artery disease, status post five coronary stents. -Cycle cardiac markers. Repeat EKG if worsening shortness of breath or complaints of chest pain #Depression. Resume back on Celexa. #Iron deficiency anemia, on ferrous sulfate. #Hypertension. -Resume home medications with holding parameters, lasix on hold #DVT prophylaxis - supratherapeutic on warfarin Dispo: pending podiatry/Dr. Ponce c/s for DFU, improvement in supratherapeutic INR, replete/monitor electrolytes, IV Abx for CAUTI/PNA, wean O2, PT/OT VS,Fishbone, I+O VS, Fishbone, I+O Laboratory Tests 02/11/20 04:36 Vital Signs Date Time Temp Pulse Resp B/P (MAP) Pulse Ox O2 Delivery O2 Flow Rate FiO2 02/11/20 07:58 97.8 79 20 136/77 (96) 99 Nasal Cannula 1.0 I&O- Last 24 Hours up to 6 AM 02/11/20 06:00 Intake Total 1060 ml Output Total 1800 ml Balance -740 ml CIELO LAMAS MD Feb 11, 2020 10:30
[2020-02-11 11:35] VITALS: BP 134/87
[2020-02-11 15:38] LABS: CALCIUM LEVEL 6.5 MG/DL (8.8-10.2); CREATININE FOR GFR 1.24 MG/DL (0.70-1.30); GLOMERULAR FILTRATION RATE 58.7 (>35); POTASSIUM SERUM 2.9 MEQ/L (3.5-5.1)
[2020-02-11 16:00] VITALS: BP 136/78
[2020-02-11] MEDS ORDERED: MAGNESIUM OXIDE 400 MG TAB (MAG-OX) PO ONE (18:00)
[2020-02-11 20:00] VITALS: BP 121/80
[2020-02-11] MEDS: traZODone 100 MG TAB PO SCH (20:22)
[2020-02-11] MEDS: cefTRIAXone SOD 2 GM in D5W MINI-BAG PLUS 50 ML IV SCH (23:35)
[2020-02-12] VITALS: BP 106/62
[2020-02-12 04:00] VITALS: BP 136/71
[2020-02-12 05:21] LABS: BASO % 0.2 % (0.0-1.0); EOS # 0.3 10^3/uL (0.0-0.5); EOS % 3.4 % (0.0-3.0); HEMATOCRIT 29.1 % (42.0-52.0); LYMPH # 1.1 10^3/uL (1.5-5.0); LYMPH % 12.4 % (24.0-44.0); MEAN CORPUSCULAR HEMOGLOBIN 26.1 pg (27.0-33.0); MEAN CORPUSCULAR HGB CONC 30.9 g/dl (32.0-36.5); MEAN CORPUSCULAR VOLUME 84.3 fl (80.0-96.0); MONO # 1.1 10^3/uL (0.0-0.8); MONO % 12.7 % (0.0-5.0); NEUTROPHILS # 6.1 10^3/uL (1.5-8.5); NEUTROPHILS % 70.8 % (36.0-66.0); PLATELET COUNT, AUTOMATED 231 10^3/uL (150-450); RED BLOOD COUNT 3.45 10^6/uL (4.30-6.10); WHITE BLOOD COUNT 8.6 10^3/uL (4.0-10.0)
[2020-02-12 05:33] LABS: INR 2.69; PROTHROMBIN TIME 29.2 SECONDS (12.5-14.3)
[2020-02-12 05:43] LABS: CALCIUM LEVEL 6.7 MG/DL (8.8-10.2); CREATININE FOR GFR 1.24 MG/DL (0.70-1.30); GLOMERULAR FILTRATION RATE 58.7 (>35); MAGNESIUM LEVEL 1.6 MG/DL (1.8-2.4); POTASSIUM SERUM 3.6 MEQ/L (3.5-5.1)
[2020-02-12] MEDS: ALBUTEROL 90 MCG/ACT 8GM HFA INHALER INH PRN (07:48)
[2020-02-12 08:00] VITALS: BP 122/62
[2020-02-12] MEDS: LEVEMIR (INSULIN DETEMIR) 1 UNITS/0.01ML SC SCH (09:00)
[2020-02-12] MEDS: CitaloPRAM (CeleXA) 20 MG TAB PO SCH (09:17)
[2020-02-12] MEDS: HumaLOG INSULIN (NovoLOG) PER UNIT SC SCH ×4 (09:17→20:18)
[2020-02-12] MEDS: OMEPRAZOLE 20 MG CAP PO SCH (09:18)
[2020-02-12] MEDS: GABAPENTIN 300 MG CAP PO SCH ×3 (09:18→20:18)
[2020-02-12] MEDS: ATORVASTATIN 20 MG TAB PO SCH (09:18)
--- NOTE | 2020-02-12 11:07 | CR ---
DATE OF CONSULTATION: 02/11/2020 CHIEF COMPLAINT: An 89-year-old male seen for evaluation of ulcerations on both feet. The patient has been seen by me in the past. He is seen today for evaluation. PAST MEDICAL HISTORY: Atrial fibrillation, coronary arterial disease, congestive heart failure Grade 1, mild pulmonary hypertension, peripheral artery disease, hypertension, diverticulitis, diabetes, chronic kidney disease, osteoarthritis, chronic bronchitis, chronic obstructive pulmonary disease, benign prostatic hypertrophy. PAST SURGICAL HISTORY: Bilateral cataract surgery, hip fracture repair, coronary arterial stents, femoral endarterectomy. ALLERGIES: Hydrocodone, Morphine, Oxycodone, Quinolone, Sulfa. PHYSICAL EXAMINATION: Physical exam reveals an alert, well-orientated 89-year-old male in no acute distress. Evaluation of his foot reveals bilateral Stage III ulcerations on his big toe. There is yellow fibrinous tissue with surrounding necrotic tissue, history of recent infection. Evaluation of the left ulcer reveals the ulcer prior to debridement measuring 4.0 cm x 1 cm x 0.2 cm. Post-debridement utilizing a sterile prep after consent and appropriate time-out for debridement of both big toes, the ulcer was excisionally debrided with a Herron Dermal Curette. Post-debridement measurements are 4.2 cm x 1.2 x 0.2 cm in depth. The right ulceration prior to debridement is 3.0 cm x 0.8 cm x 0.2 cm post-debridement with a sterile Herron Dermal Curette, this is 3.3 cm x 0.9 cm x 0.2 cm. A compression dressing was applied to both halluxes. Starting tomorrow, he may have his PolyMem dressings reapplied. The compression dressing is just applied for one day to help control bleeding, however even though the patients INR is elevated he has minimal bleeding at this time. The patients questions were answered. A culture was performed aerobic and anaerobically of the debrided ulcer. ARELI
[2020-02-12] MEDS ORDERED: MAG SULF 1GM/100ML (MAG RUN) 1 GM in IV 1 EA IV ONE (13:00)
[2020-02-12] MEDS: MAGNESIUM CHLORIDE 64 MG TABCR (SLO MAG) PO SCH (14:29)
[2020-02-12] MEDS: FUROSEMIDE 20 MG TAB PO SCH (14:39)
[2020-02-12 16:00] VITALS: BP 126/78
[2020-02-12 19:07] LABS: BODY FLUID CULTURE Not indicated. (.); LEGIONELLA ANTIGEN URINE Negative (Negative); ORGANISM ID Not indicated. (.); SPECIMEN SOURCE Urine (.); URINE STREP PNEUMONIAE ANTIGEN Negative (Negative)
[2020-02-12 20:00] VITALS: BP 118/70
[2020-02-12] MEDS: traZODone 100 MG TAB PO SCH (20:18)
[2020-02-12] MEDS: cefTRIAXone SOD 2 GM in D5W MINI-BAG PLUS 50 ML IV SCH (23:29)
[2020-02-13 01:02] VITALS: BP 121/72
[2020-02-13 06:00] VITALS: BP 123/72
[2020-02-13 06:07] LABS: BASO % 0.2 % (0.0-1.0); EOS # 0.5 10^3/uL (0.0-0.5); EOS % 6.2 % (0.0-3.0); HEMATOCRIT 27.3 % (42.0-52.0); HEMOGLOBIN 8.4 g/dl (13.5-17.5); LYMPH # 1.2 10^3/uL (1.5-5.0); LYMPH % 14.5 % (24.0-44.0); MEAN CORPUSCULAR HGB CONC 30.8 g/dl (32.0-36.5); MEAN CORPUSCULAR VOLUME 84.5 fl (80.0-96.0); MONO % 12.1 % (0.0-5.0); NEUTROPHILS # 5.4 10^3/uL (1.5-8.5); NEUTROPHILS % 66.1 % (36.0-66.0); PLATELET COUNT, AUTOMATED 190 10^3/uL (150-450); RED BLOOD COUNT 3.23 10^6/uL (4.30-6.10); WHITE BLOOD COUNT 8.1 10^3/uL (4.0-10.0)
[2020-02-13 06:23] LABS: INR 1.99
[2020-02-13 06:36] LABS: BLOOD UREA NITROGEN 28 MG/DL (7-18); CALCIUM LEVEL 7.3 MG/DL (8.8-10.2); CARBON DIOXIDE LEVEL 29 MEQ/L (21-32); CHLORIDE LEVEL 96 MEQ/L (98-107); CREATININE FOR GFR 1.15 MG/DL (0.70-1.30); GLOMERULAR FILTRATION RATE > 60.0 (>35); GLUCOSE, FASTING 104 MG/DL (70-100); NT-PRO BNP 26457 PG/ML (<450); POTASSIUM SERUM 3.5 MEQ/L (3.5-5.1); SODIUM LEVEL 133 MEQ/L (136-145)
[2020-02-13] MEDS: HumaLOG INSULIN (NovoLOG) PER UNIT SC SCH ×4 (07:30→21:08)
[2020-02-13] MEDS: LEVEMIR (INSULIN DETEMIR) 1 UNITS/0.01ML SC SCH (08:04)
[2020-02-13] MEDS: MAGNESIUM CHLORIDE 64 MG TABCR (SLO MAG) PO SCH (08:15)
[2020-02-13] MEDS: OMEPRAZOLE 20 MG CAP PO SCH (08:16)
[2020-02-13] MEDS: GABAPENTIN 300 MG CAP PO SCH ×3 (08:16→21:07)
[2020-02-13] MEDS: CitaloPRAM (CeleXA) 20 MG TAB PO SCH (08:16)
[2020-02-13] MEDS: FUROSEMIDE 20 MG TAB PO SCH (08:16)
--- NOTE | 2020-02-13 10:20 | IPNPDOC ---
Date Seen The patient was seen on 02/12/20. Progress Note SUBJECTIVE: The patient denies chest pain, pressure, tightness, fever, chills, cough productive of sputum. Telemetry was unremarkable overnight, shortness of breath is improved. Patient is adamant about being discharged today, "I don't want to be belligerent, but I need to go home." Patient is concerned about his demented being alone . He complains of slight dizziness this morning. Diure tics have been held due to electrolyte abnormalities. INR is improved from 922 this morning. No signs of active bleeding. Denies bright red blood per rectum, melena, black tarry stools or hematemesis. Objective physical examination vital signs see below General:. No conversational dyspnea. Appears his stated age, very hard of hearing, right ear better than the left HEENT: No pallor, icterus or jaundice. Dry mucous membranes. No cervical lymphadenopathy, thyromegaly, no jugular venous distention NC/AT, EOMI, on supplemental oxygen via nasal cannula Lungs: Diminished at the bases. Clear to auscultation bilateral upper lobes. No adventitious breath sounds. No kyphoscoliosis Heart: +S1S2, RRR. Nondisplaced point of maximal impulse no carotid bruits Abd: soft, NT, +BS 4 quadrants stunted. No hepatosplenomegaly. No abdominal bruits. No fluid wave Ext: B/L LE edema 2+, B/L hallux ulcers are clean, dry, no purulent Laboratory data see below, microbiology, see below, imaging studies, see below A/P: 89M hard of hearing, DO NOT RESUSCITATE, DO NOT INTUBATE with past medical history significant for A. fib on chronic warfarin congestive heart failure, diastolic dysfunction with some preserved systolic function. Chronic kidney disease stage III, hypertension, diabetes, peripheral bettina disease, chronic indwelling catheter due to chronic urethral stones, BPH, COPD, anxiety, depress ion, admitted due to acute encephalopathy secondary to pneumonia and congestive heart failure, with complaints of cough, shortness of breath, chills strictures/BPH, COPD, anxiety/depression. Admitted for PNA, CHF, UTI, AMS. Acute on chronic diastolic congestive heart failure, resolved. Acute encephalopathy secondary to CHF and bilateral big toe toe diabetic infection, community-acquired pneumonia Hypokalemia, hypomagnesemia Community acquired pneumonia with Klebsiella and yeast in sputum culture Acute hypoxic respiratory failure secondary to acute decompensated CHF and pneumonia Supratherapeutic INR secondary to warfarin Catheter associated urinary tract infection present at hospital admission Chronic Marrero catheter secondary to urethral strictures and chronic obstructive uropathy Chronic kidney disease stage III Chronic atrial fibrillation on warfarin peripheral arterial disease without atherosclerosis of [place] vessels and nonhealing bilateral 1st toe nonpressure ulcers coronary artery disease, status post five coronary stents. Depression Iron deficiency anemia Hypertension. Plan: Patient is clinically medically stable for hospital discharge. However, he remains unsteady in his feet with fall risk. Patient is adamant about going home and taking care of his demented . He is otherwise feeling comfortable to be released today. We have not resumed the diuretic due to electrolyte abnormalities and complaints of orthostasis. We may start with low-dose Lasix in the morning if he is not orthostatic. He currently denies any shortness of breath, chest pain, pressure, tightness at the bedside and will not be given a diuretic today. Con continue all other present management, management, we may resume low-dose warfarin since his INR is now at 2. We'll monitor daily INR unt il he is physically stable for discharge. [facility] V[facility] Sign[facility]/I&O Vital Signs Date Time Temp Pulse Resp B/P (MAP) Pulse Ox O2 Delivery O2 Flow Rate FiO2 02/12/20 08:00 98.0 83 18 122/62 (82) 95 Room Air 02/11/20 07:58 1.0 I&O- Last 24 Hours up to 6 AM 02/12/20 06:00 Intake Total 1360 ml Output Total 850 ml Balance 510 ml Laboratory Data 24H LABS Laboratory Tests 2 02/11/20 14:45: Anion Gap 8, Glomerular Filtration Rate 58.7, Calcium Level 6.5L, Magnesium Level 1.8 02/11/20 16:34: Bedside Glucose (Misc Panel) 157H 02/11/20 20:23: Bedside Glucose (Misc Panel) 149H 02/12/20 04:48: Anion Gap 8, Glomerular Filtration Rate 58.7, Calcium Level 6.7L, Magnesium Level 1.6L, Immature Granulocyte % (Auto) 0.5, Neutrophils (%) (Auto) 70.8H, Lymphocytes (%) (Auto) 12.4L, Monocytes (%) (Auto) 12.7H, Eosinophils (%) (Auto) 3.4H, Basophils (%) (Auto) 0.2, Neutrophils # (Auto) 6.1, Lymphocytes # (Auto) 1.1L, Monocytes # (Auto) 1.1H, Eosinophils # (Auto) 0.3, Basophils # (Auto) 0.0, Nucleated Red Blood Cells % (auto) 0.5H, Prothrombin Time 29.2H, Prothromb Time International Ratio 2.69 02/12/20 11:51: Bedside Glucose (Misc Panel) 285H CBC/BMP Laboratory Tests 02/11/20 14:45 02/12/20 04:48 Microbiology Microbiology 02/11/20 Anaerobic Culture, Received Pending 02/11/20 Abscess Culture, Received Pending 02/08/20 Urine Culture - Final, Complete Proteus Mirabilis 02/08/20 Blood Culture - Preliminary, Resulted No Growth after 72 hours. All specime... 02/08/20 Blood Culture - Preliminary, Resulted No Growth after 72 hours. All specime... 02/08/20 Gram Stain - Final, Complete 02/08/20 Sputum Culture - Final, Complete Klebsiella Pneumoniae Yeast Like Organism CORY RIZZO MD Feb 12, 2020 13:10
--- NOTE | 2020-02-13 10:24 | IPNPDOC ---
Date Seen The patient was seen on 02/13/20. Progress Note SUBJECTIVE: pt c/o gait imbalance, but cooperative w physical therapy. still c/o productive cough white sputum w/o fever chills or sob. Objective physical examination vital signs see below General:no distress HEENT: PERRLA EOMI moist mucous membranes. No cervical lymphadenopathy, thyromegaly, no jugular venous distention NC/AT, EOMI, on supplemental oxygen via nasal cannula Lungs: Diminished at the bases. Clear to auscultation bilateral upper lobes. no use of acc resp mm Heart: +S1S2, RRR.\no carotid bruits Abd: soft, NT, +BS 4 quadrants stunted. No hepatosplenomegaly. No abdominal bruits. No fluid wave Ext: B/L LE edema 2+, B/L hallux ulcers are clean, dry, no purulent Laboratory data see below, microbiology, see below, imaging studies, see below A/P: 89M hard of hearing, DO NOT RESUSCITATE, DO NOT INTUBATE with past medical history significant for A. fib on chronic warfarin congestive heart failure, diastolic dysfunction with some preserved systolic function. Chronic kidney disease stage III, hypertension, diabetes, peripheral bettina disease, chronic indwelling catheter due to chronic urethral stones, BPH, COPD, anxiety, depression, admitted due to acute encephalopathy secondary to pneumonia and congestive heart failure, with complaints of cough, shortness of breath, chills strictures/BPH, COPD, anxiety/depression. Admitted for PNA, CHF, UTI, AMS. Acute on chronic diastolic congestive heart failure, resolved. Acute encephalopathy secondary to CHF and bilateral big toe toe diabetic infection, community-acquired pneumonia Hypokalemia, hypomagnesemia Community acquired pneumonia with Klebsiella and yeast in sputum culture Acute hypoxic respiratory failure secondary to acute decompensated CHF and pneumonia Supratherapeutic INR secondary to warfarin Catheter associated urinary tract infection present at hospital admission Chronic Marrero catheter secondary to urethral strictures and chronic obstructive uropathy Chronic kidney disease stage III Chronic atrial fibrillation on warfarin peripheral arterial disease without atherosclerosis of [place] vessels and nonhealing bilateral 1st toe nonpressure ulcers coronary artery disease, status post five coronary stents. Depression Iron deficiency anemia Hypertension. Plan: start on low dose lasix. medically stable for discharge, but w unsteady gait and balance. will continue all other present meds. dc home in am. VS, I&O, 24H, Fishbone Vital Signs/I&O Vital Signs Date Time Temp Pulse Resp B/P (MAP) Pulse Ox O2 Delivery O2 Flow Rate FiO2 02/13/20 06:00 98.6 89 18 123/72 (89) 95 Room Air 02/11/20 07:58 1.0 I&O- Last 24 Hours up to 6 AM 02/13/20 06:00 Intake Total 880 ml Output Total 750 ml Balance 130 ml Laboratory Data 24H LABS Laboratory Tests 2 02/12/20 11:51: Bedside Glucose (Misc Panel) 285H 02/12/20 17:30: Bedside Glucose (Misc Panel) 264H 02/12/20 20:16: Bedside Glucose (Misc Panel) 200H 02/13/20 05:44: Immature Granulocyte % (Auto) 0.9, Neutrophils (%) (Auto) 66.1H, Lymphocytes (%) (Auto) 14.5L, Monocytes (%) (Auto) 12.1H, Eosinophils (%) (Auto) 6.2H, Basophils (%) (Auto) 0.2, Neutrophils # (Auto) 5.4, Lymphocytes # (Auto) 1.2L, Monocytes # (Auto) 1.0H, Eosinophils # (Auto) 0.5, Basophils # (Auto) 0.0, Nucleated Red Blood Cells % (auto) 0.0, Prothrombin Time 23.0H, Prothromb Time International Ratio 1.99, Anion Gap 8, Glomerular Filtration Rate > 60.0, Calcium Level 7.3L, [id number]-Type Natriuretic Peptide 20600V CBC/BMP Laboratory Tests 02/13/20 05:44 Microbiology Microbiology 02/11/20 Anaerobic Culture, Received Pending 02/11/20 Abscess Culture, Received Pending 02/08/20 Urine Culture - Final, Complete Proteus Mirabilis 02/08/20 Blood Culture - Preliminary, Resulted No Growth after 72 hours. All specime... 02/08/20 Blood Culture - Preliminary, Resulted No Growth after 72 hours. All specime... 02/08/20 Gram Stain - Final, Complete 02/08/20 Sputum Culture - Final, Complete Klebsiella Pneumoniae Yeast Like Organism CORY RIZZO MD Feb 13, 2020 10:24
[2020-02-13] MEDS: ALBUTEROL 90 MCG/ACT 8GM HFA INHALER INH PRN (11:26)
[2020-02-13 13:55] VITALS: BP 124/73
[2020-02-13] MEDS ORDERED: WARFARIN SOD 4MG TAB PO ONE (17:00)
[2020-02-13] MEDS: traZODone 100 MG TAB PO SCH (21:07)
[2020-02-13 22:00] VITALS: BP 126/74
[2020-02-13] MEDS: cefTRIAXone SOD 2 GM in D5W MINI-BAG PLUS 50 ML IV SCH (22:02)
[2020-02-14 05:52] LABS: BASO % 0.2 % (0.0-1.0); EOS # 0.6 10^3/uL (0.0-0.5); EOS % 6.5 % (0.0-3.0); HEMATOCRIT 27.6 % (42.0-52.0); HEMOGLOBIN 8.5 g/dl (13.5-17.5); LYMPH # 1.1 10^3/uL (1.5-5.0); LYMPH % 12.5 % (24.0-44.0); MEAN CORPUSCULAR HGB CONC 30.8 g/dl (32.0-36.5); MEAN CORPUSCULAR VOLUME 84.4 fl (80.0-96.0); MONO % 10.9 % (0.0-5.0); NEUTROPHILS # 6.2 10^3/uL (1.5-8.5); NEUTROPHILS % 69.3 % (36.0-66.0); PLATELET COUNT, AUTOMATED 201 10^3/uL (150-450); RED BLOOD COUNT 3.27 10^6/uL (4.30-6.10); WHITE BLOOD COUNT 8.9 10^3/uL (4.0-10.0)
[2020-02-14 06:00] VITALS: BP 114/62
[2020-02-14 06:14] LABS: BLOOD UREA NITROGEN 21 MG/DL (7-18); CALCIUM LEVEL 7.9 MG/DL (8.8-10.2); CARBON DIOXIDE LEVEL 29 MEQ/L (21-32); CHLORIDE LEVEL 96 MEQ/L (98-107); CREATININE FOR GFR 1.01 MG/DL (0.70-1.30); GLOMERULAR FILTRATION RATE > 60.0 (>35); GLUCOSE, FASTING 147 MG/DL (70-100); POTASSIUM SERUM 3.7 MEQ/L (3.5-5.1); SODIUM LEVEL 132 MEQ/L (136-145)
[2020-02-14] MEDS: LEVEMIR (INSULIN DETEMIR) 1 UNITS/0.01ML SC SCH (07:39)
[2020-02-14] MEDS ORDERED: SALIVA SUBSTITUTE(MOUTHKOTE) BTL MT PRN (08:45)
[2020-02-14] MEDS: HumaLOG INSULIN (NovoLOG) PER UNIT SC SCH ×4 (09:28→20:24)
[2020-02-14] MEDS: ATORVASTATIN 20 MG TAB PO SCH (09:29)
[2020-02-14] MEDS: GABAPENTIN 300 MG CAP PO SCH ×3 (09:29→20:24)
[2020-02-14] MEDS: OMEPRAZOLE 20 MG CAP PO SCH (09:29)
[2020-02-14] MEDS: FUROSEMIDE 20 MG TAB PO SCH (09:29)
[2020-02-14] MEDS: SALIVA SUBSTITUTE(MOUTHKOTE) BTL MT SCH ×4 (09:29→20:24)
[2020-02-14] MEDS: CitaloPRAM (CeleXA) 20 MG TAB PO SCH (09:29)
[2020-02-14] MEDS: CEPACOL LOZENGE PO PRN ×2 (09:30→20:24)
[2020-02-14] MEDS: MAGNESIUM CHLORIDE 64 MG TABCR (SLO MAG) PO SCH (09:30)
--- NOTE | 2020-02-14 10:41 | IPNPDOC ---
Date Seen The patient was seen on 02/14/20. Progress Note SUBJECTIVE: no sob . still w productive cough of white sputum. no fever chills. dc in am if stable overnight. Complains of dry mouth and sore throat Objective physical examination vital signs see below General:no distress no conversational dyspnea. No use of respiratory accessory muscles HEENT: PERRLA EOMI moist mucous membranes. No cervical lymphadenopathy, thyromegaly, no jugular venous distention NC/AT, EOMI, on supplemental oxygen via nasal cannula Lungs: Diminished at the bases. Clear to auscultation bilateral upper lobes. no use of acc resp mm , No conversational dyspnea. No rales Heart: +S1S2, RRR.\no carotid bruits Abd: soft, NT, +BS 4 quadrants stunted. No hepatosplenomegaly. No abdominal bruits. No fluid wave Ext: B/L LE edema 2+, B/L hallux ulcers are clean, dry, no purulent Laboratory data see below, microbiology, see below, imaging studies, see below A/P: 89M hard of hearing, DO NOT RESUSCITATE, DO NOT INTUBATE with past medical history significant for A. fib on chronic warfarin congestive heart failure, diastolic dysfunction with some preserved systolic function. Chronic kidney disease stage III, hypertension, diabetes, peripheral bettina disease, chronic indwelling catheter due to chronic urethral stones, BPH, COPD, anxiety, depression, admitted due to acute encephalopathy secondary to pneumonia and congestive heart failure, with complaints of cough, shortness of breath, chills strictures/BPH, COPD, anxiety/depression. Admitted for PNA, CHF, UTI, AMS. Acute on chronic diastolic congestive heart failure, resolved. Acute encephalopathy secondary to CHF and bilateral big toe toe diabetic infection, community-acquired pneumonia Hypokalemia, hypomagnesemia Community acquired pneumonia with Klebsiella and yeast in sputum culture Acute hypoxic respiratory failure secondary to acute decompensated CHF and pneumonia Supratherapeutic INR secondary to warfarin Catheter associated urinary tract infection present at hospital admission Chronic Marrero catheter secondary to urethral strictures and chronic obstructive uropathy Chronic kidney disease stage III Chronic atrial fibrillation on warfarin peripheral arterial disease without atherosclerosis of [place] vessels and nonhealing bilateral 1st toe nonpressure ulcers coronary artery disease, status post five coronary stents. Depression Iron deficiency anemia Hypertension. Plan: , Cooperative and anxious to go home. Discharge in the morning if stable. Continue all other present management for sore throat, cyclical lozenges. [place] [facility] VS, I&O, 24H, Fishbone Vital Signs/I&O Vital Signs Date Time Temp Pulse Resp B/P (MAP) Pulse Ox O2 Delivery O2 Flow Rate FiO2 02/14/20 06:00 98.8 85 20 114/62 (79) 92 Room Air 02/11/20 07:58 1.0 I&O- Last 24 Hours up to 6 AM 02/14/20 06:00 Intake Total 1290 ml Output Total 1300 ml Balance -10 ml Laboratory Data 24H LABS Laboratory Tests 2 02/13/20 12:02: Bedside Glucose (Misc Panel) 238H 02/13/20 16:23: Bedside Glucose (Misc Panel) 200H 02/13/20 20:18: Bedside Glucose (Misc Panel) 343H 02/14/20 05:40: Immature Granulocyte % (Auto) 0.6, Neutrophils (%) (Auto) 69.3H, Lymphocytes (%) (Auto) 12.5L, Monocytes (%) (Auto) 10.9H, Eosinophils (%) (Auto) 6.5H, Basophils (%) (Auto) 0.2, Neutrophils # (Auto) 6.2, Lymphocytes # (Auto) 1.1L, Monocytes # (Auto) 1.0H, Eosinophils # (Auto) 0.6H, Basophils # (Auto) 0.0, Nucleated Red Blood Cells % (auto) 0.0, Anion Gap 7L, Glomerular Filtration Rate > 60.0, Calcium Level 7.9L CBC/BMP Laboratory Tests 02/14/20 05:40 Microbiology Microbiology 02/11/20 Anaerobic Culture, Received Pending 02/11/20 Abscess Culture - Preliminary, Resulted Pseudomonas Aeruginosa 02/08/20 Urine Culture - Final, Complete Proteus Mirabilis 02/08/20 Blood Culture - Final, Complete NO GROWTH AFTER 5 DAYS 02/08/20 Blood Culture - Final, Complete NO GROWTH AFTER 5 DAYS 02/08/20 Gram Stain - Final, Complete 02/08/20 Sputum Culture - Final, Complete Klebsiella Pneumoniae Yeast Like Organism CORY RIZZO MD Feb 14, 2020 10:41
[2020-02-14 14:00] VITALS: BP 128/69
[2020-02-14] MEDS: traZODone 100 MG TAB PO SCH (20:24)
[2020-02-14 22:00] VITALS: BP 122/58
[2020-02-14] MEDS: cefTRIAXone SOD 2 GM in D5W MINI-BAG PLUS 50 ML IV SCH (22:16)
[2020-02-15 06:47] LABS: BASO % 0.4 % (0.0-1.0); EOS # 0.5 10^3/uL (0.0-0.5); EOS % 6.7 % (0.0-3.0); HEMOGLOBIN 8.2 g/dl (13.5-17.5); LYMPH # 1.4 10^3/uL (1.5-5.0); LYMPH % 18.2 % (24.0-44.0); MEAN CORPUSCULAR HEMOGLOBIN 25.8 pg (27.0-33.0); MEAN CORPUSCULAR HGB CONC 30.4 g/dl (32.0-36.5); MEAN CORPUSCULAR VOLUME 84.9 fl (80.0-96.0); MONO # 0.9 10^3/uL (0.0-0.8); MONO % 11.3 % (0.0-5.0); NEUTROPHILS # 4.8 10^3/uL (1.5-8.5); NEUTROPHILS % 62.7 % (36.0-66.0); PLATELET COUNT, AUTOMATED 196 10^3/uL (150-450); RED BLOOD COUNT 3.18 10^6/uL (4.30-6.10); WHITE BLOOD COUNT 7.6 10^3/uL (4.0-10.0)
[2020-02-15 07:11] LABS: BLOOD UREA NITROGEN 19 MG/DL (7-18); CALCIUM LEVEL 8.1 MG/DL (8.8-10.2); CARBON DIOXIDE LEVEL 29 MEQ/L (21-32); CHLORIDE LEVEL 99 MEQ/L (98-107); CREATININE FOR GFR 1.01 MG/DL (0.70-1.30); GLOMERULAR FILTRATION RATE > 60.0 (>35); GLUCOSE, FASTING 186 MG/DL (70-100); POTASSIUM SERUM 3.9 MEQ/L (3.5-5.1); SODIUM LEVEL 133 MEQ/L (136-145)
[2020-02-15] MEDS ORDERED: FURO20TA2 PO (08:38)
[2020-02-15] MEDS: OMEPRAZOLE 20 MG CAP PO SCH (09:10)
[2020-02-15] MEDS: MAGNESIUM CHLORIDE 64 MG TABCR (SLO MAG) PO SCH (09:10)
[2020-02-15] MEDS: GABAPENTIN 300 MG CAP PO SCH (09:10)
[2020-02-15] MEDS: CitaloPRAM (CeleXA) 20 MG TAB PO SCH (09:10)
[2020-02-15] MEDS: FUROSEMIDE 20 MG TAB PO SCH (09:10)
[2020-02-15] MEDS: LEVEMIR (INSULIN DETEMIR) 1 UNITS/0.01ML SC SCH (09:11)
[2020-02-15] MEDS: HumaLOG INSULIN (NovoLOG) PER UNIT SC SCH ×2 (09:12→12:32)
[2020-02-15] MEDS: SALIVA SUBSTITUTE(MOUTHKOTE) BTL MT SCH ×2 (09:16→13:00)
--- NOTE | 2020-02-15 12:25 | DS.PDOC ---
Discharge Summary General Date of Admission Feb 08, 2020 at 19:08 Date of Discharge 02/15/20 Discharge Summary DISCHARGE DIAGNOSES: . Acute metabolic encephalopathy . Acute diastolic congestive heart failure exacerbation . Hypomagnesemia . hypokalemia . Community acquired pneumonia . CAUTI . history of peripheral arterial disease without atherosclerosis of [place] vessels and nonhealing bilateral 1st toe nonpressure ulcers . Chronic Atrial fibrillation . B/L Hallux DFU . CKDIII . Type 2 diabetes . History of coronary artery disease, status post five coronary stents. . Depression. Resume back on Celexa. . Iron deficiency anemia, on ferrous sulfate . Hypertension. . Supratherapeutic INR secondary to warfarin, requiring vitamin K for reversal Discharge medications : please see below Discharge instructions : wound care per wound care center Dr. Sewell's outpatient. Primary care physician and cardiology follow-up within 7 days of discharge. Strict I's and O's, daily weights, 2 L fluid restriction [place] fire management officer at more than 2 pound weight gain occurs at home HOSPITAL COURSE: 89M hard of hearing, DO NOT RESUSCITATE, DO NOT INTUBATE with past medical history significant for A. fib on chronic warfarin congestive heart failure, diastolic dysfunction with some preserved systolic function. Chronic kidney disease stage III, hypertension, diabetes, peripheral bettina disease, chronic ind welling catheter due to chronic urethral stones, BPH, COPD, anxiety, depression, admitted due to acute encephalopathy secondary to pneumonia and congestive heart failure, with complaints of cough, shortness of breath, chills strictures/BPH, COPD, anxiety/depression. Admitted for PNA, CHF, UTI, AMS. Patient was treated with intravenous ceftriaxone from February 07 to February 14, completed 7 days of antibiotics. He was seen by installation tech, Dr. Tinsley, with no new recommendations with Wound care and activity level as previously instructed. Patient is to follow-up with Dr. Torres as outpatient at the [facility]. Patient developed supratherapeutic INR, requiring vitamin K, no signs of active GI bleeding. He is now resuming his home dose at home. Patient underwent physical therapy evaluation and safely discharged home today with instructions for 2 L fluid restriction, daily weights and to call his fire management officer if he gains more than 2 pounds of weight. DISCHARGE PHYSICAL EXAM: vital signs see below General:no distress no conversational dyspnea. No use of respiratory accessory muscles HEENT: PERRLA EOMI moist mucous membranes. No cervical lymphadenopathy, thyromegaly, no jugular venous distention NC/AT, EOMI, on supplemental oxygen via nasal cannula Lungs: Diminished at the bases. Clear to auscultation bilateral upper lobes. no use of acc resp mm , No conversational dyspnea. No rales Heart: +S1S2, RRR.\no carotid bruits Abd: soft, NT, +BS 4 quadrants stunted. No hepatosplenomegaly. No abdominal bruits. No fluid wave Ext: B/L LE edema 2+, B/L hallux ulcers are clean, dry, no purulent DISCHARGE LABORATORY DATA: SEE BELOW , MICROBIOLOGY: SEE BELOW IMAGING STUDIES: INDICATION: DYSPNEA/COUGH. COMPARISON: 02/07/2020 FINDINGS: The technique utilized in obtaining the radiograph has magnified the cardiac silhouette and accentuated the interstitial markings. There is cardiomegaly accentuated by technique status quo. Fibrotic changes are seen throughout the lung [place] with basilar predominance status quo. There is no change in the osseous structures. IMPRESSION: Cardiomegaly and chronic changes as described above. Acute basilar pneumonia superimposed upon chronic change cannot be ruled out. <Electronically signed by Jacek Enciso > 02/08/20 1622 TIME SPENT ON DISCHARGE 30 MINUTES. Vital Signs/I&Os Vital Signs Date Time Temp Pulse Resp B/P (MAP) Pulse Ox O2 Delivery O2 Flow Rate FiO2 02/14/20 22:00 97.9 86 20 122/58 (79) 98 Room Air 02/11/20 07:58 1.0 I&O- Last 24 Hours up to 6 AM 02/15/20 06:00 Intake Total 1600 ml Output Total 900 ml Balance 700 ml Laboratory Data Labs 24H Laboratory Tests 2 02/14/20 12:50: Bedside Glucose (Misc Panel) 182H 02/14/20 16:48: Bedside Glucose (Misc Panel) 205H 02/15/20 06:02: Immature Granulocyte % (Auto) 0.7, Neutrophils (%) (Auto) 62.7, Lymphocytes (%) (Auto) 18.2L, Monocytes (%) (Auto) 11.3H, Eosinophils (%) (Auto) 6.7H, Basophils (%) (Auto) 0.4, Neutrophils # (Auto) 4.8, Lymphocytes # (Auto) 1.4L, Monocytes # (Auto) 0.9H, Eosinophils # (Auto) 0.5, Basophils # (Auto) 0.0, Nucleated Red Blood Cells % (auto) 0.0, Anion Gap 5L, Glomerular Filtration Rate > 60.0, Calcium Level 8.1L 02/15/20 10:58: Bedside Glucose (Misc Panel) 192H CBC/BMP Laboratory Tests 02/15/20 06:02 FSBS Laboratory Tests Test 02/14/20 12:50 02/14/20 16:48 02/15/20 10:58 Range/Units Bedside Glucose (Misc Panel) 182 205 192 83-110 MG/DL Microbiology Microbiology 02/11/20 Anaerobic Culture - Final, Complete 02/11/20 Abscess Culture - Preliminary, Resulted Pseudomonas Aeruginosa Enterococcus Faecalis Corynebacterium Species Staphylococcus Aureus 02/08/20 Urine Culture - Final, Complete Proteus Mirabilis 02/08/20 Blood Culture - Final, Complete NO GROWTH AFTER 5 DAYS 02/08/20 Blood Culture - Final, Complete NO GROWTH AFTER 5 DAYS 02/08/20 Gram Stain - Final, Complete 02/08/20 Sputum Culture - Final, Complete Klebsiella Pneumoniae Yeast Like Organism Discharge Medications Scheduled Atorvastatin Calcium (Atorvastatin Calcium) 40 Mg Tablet, 40 MG PO 3XW, (Reported) MON,MON,MON Citalopram Hydrobromide (Citalopram HBr) 20 Mg Tab, 20 MG PO DAILY, (Reported) Doxycycline Hyclate (Doxycycline Hyclate) 100 Mg Capsule, 100 MG PO BID, (Reported) STARTED 02/04/20 X 7 DAYS Ergocalciferol (Vitamin D2) (Vitamin D2) 50,000 Units Cap, 50,000 UNITS PO Q2WK, (Reported) EVERY OTHER MONDAY Furosemide (Furosemide) 20 Mg Tablet, 20 MG PO DAILY Gabapentin (Neurontin) 300 Mg Capsule, 300 MG PO TID, (Reported) Glipizide (Glipizide) 5 Mg Tablet, 2.5 MG PO BID, (Reported) BREAKFAST AND LUNCH Insulin Detemir (Levemir) 100 Unit/1 Ml Vial, 17 UNITS SC DAILY, (Reported) Magnesium (Magnesium) 250 Mg Tablet, 250 MG PO DAILY, (Reported) Omeprazole (Omeprazole) 40 Mg Cap, 40 MG PO DAILY, (Reported) Sorbitol Solution (Sorbitol 70%) 1 Ml Solution, 30 ML PO DAILY, (Reported) Trazodone HCl (Trazodone HCl) 100 Mg Tab, 100 MG PO QHS, (Reported) Warfarin Sodium (Warfarin Sodium) 2 Mg Tablet, 2 MG PO 5XW, (Reported) TU,TH,MON,SAT,SUN Warfarin Sodium (Warfarin Sodium) 4 Mg Tablet, 4 MG PO 2XW, (Reported) MON,WED Scheduled PRN Acetaminophen (Acetaminophen) 325 Mg Tablet, 650 MG PO Q6H PRN for PAIN, (Reported) Albuterol Sulfate (Ventolin Hfa) 108 Mcg/Act Aer, 2 PUFF INH Q4H PRN for SHORTNESS OF BREATH, (Reported) Docusate Sodium (Colace) 100 Mg Capsule, 100 MG PO DAILY PRN for CONSTIPATION, (Reported) Miscellaneous Medications [Med Rec Comment] , (Reported) PATIENT STATES HAD FLU SHOT IN DECEMBER2019 Allergies Coded Allergies: Sulfa (Sulfonamide Antibiotics) (Verified Allergy, Mild, rash, 08/21/19) sulfamethoxazole (Verified Allergy, Mild, rash, 08/21/19) Pea (Verified Allergy, Unknown, 08/21/19) trimethoprim (Verified Allergy, Unknown, 08/21/19) Quinolones (Verified Adverse Reaction, Mild, AMS, 08/21/19) hydrocodone (Verified Adverse Reaction, Mild, AMS, 08/21/19) morphine (Verified Adverse Reaction, Mild, AMS, 08/21/19) oxycodone (Verified Adverse Reaction, Mild, AMS, 08/21/19) CORY RIZZO MD Feb 15, 2020 12:21
== END 2020-02-15 13:17 | disposition home health service (06) | DRG 698 ==
LOC: EDBD 15:49 → M ED 15:49 → M ED INP 19:08 → ENRESERV 19:43 → M PCU 21:48 → M MSPAV 02-13 00:57
PROVIDERS: ADMIT General Practice; ATTEND General Practice
DX: T83.511A Infection and inflammatory reaction due to indwelling urethral catheter, initial encounter (principal); J18.9 Pneumonia, unspecified organism; G93.41 Metabolic encephalopathy; I50.33 Acute on chronic diastolic (congestive) heart failure; I48.20 Chronic atrial fibrillation, unspecified; I13.0 Hypertensive heart and chronic kidney disease with heart failure and stage 1 through stage 4 chronic kidney disease, or unspecified chronic kidney disease; I51.7 Cardiomegaly; Z79.899 Other long term (current) drug therapy; Z20.828 Contact with and (suspected) exposure to other viral communicable diseases; E83.42 Hypomagnesemia; N18.30 Chronic kidney disease, stage 3 unspecified; E87.6 Hypokalemia; D50.9 Iron deficiency anemia, unspecified; E11.51 Type 2 diabetes mellitus with diabetic peripheral angiopathy without gangrene; F32.9 Major depressive disorder, single episode, unspecified; I25.10 Atherosclerotic heart disease of native coronary artery without angina pectoris; Z95.2 Presence of prosthetic heart valve; E11.621 Type 2 diabetes mellitus with foot ulcer; L97.529 Non-pressure chronic ulcer of other part of left foot with unspecified severity; L97.519 Non-pressure chronic ulcer of other part of right foot with unspecified severity; Z66 Do not resuscitate; Z79.01 Long term (current) use of anticoagulants; I27.20 Pulmonary hypertension, unspecified; M19.90 Unspecified osteoarthritis, unspecified site; J44.9 Chronic obstructive pulmonary disease, unspecified; N40.0 Benign prostatic hyperplasia without lower urinary tract symptoms; Z88.5 Allergy status to narcotic agent; Z88.2 Allergy status to sulfonamides; Z88.8 Allergy status to other drugs, medicaments and biological substances; Y84.6 Urinary catheterization as the cause of abnormal reaction of the patient, or of later complication, without mention of misadventure at the time of the procedure

== ENCOUNTER 2020-02-19 15:07 | Inpatient (IN) | payer MEDICARE ==
[~2020-02-19] VITALS: Ht 180.3 cm; Wt 88.8 kg
[~2020-02-19 15:07] MED LIST changes: +DOXY100C PO; +FURO20TA2 PO; +MED REC COMMENT; +RA N1TAB PO; -VANCOMYCIN HCL 750 MG, VIAL MATE ADAPTER 1 EACH in D5W 250 ML IV SCH
[2020-02-19] MEDS ORDERED: FUROSEMIDE 40MG/4ML VIAL (J1940) IV ONE (15:45)
[2020-02-19] MEDS ORDERED: ALBUTEROL 90 MCG/ACT 8GM HFA INHALER INH ONE (15:45)
[2020-02-19] MEDS ORDERED: COMBIVENT RESPIMAT 100-20MCG INHALER 4GM INH ONE (15:45)
[2020-02-19 15:58] LABS: BASO % 0.2 % (0.0-1.0); EOS # 0.2 10^3/uL (0.0-0.5); EOS % 1.7 % (0.0-3.0); HEMOGLOBIN 8.5 g/dl (13.5-17.5); LYMPH # 1.1 10^3/uL (1.5-5.0); MEAN CORPUSCULAR HEMOGLOBIN 25.1 pg (27.0-33.0); MEAN CORPUSCULAR HGB CONC 29.3 g/dl (32.0-36.5); MEAN CORPUSCULAR VOLUME 85.8 fl (80.0-96.0); MONO # 1.1 10^3/uL (0.0-0.8); NEUTROPHILS # 6.5 10^3/uL (1.5-8.5); NEUTROPHILS % 73.3 % (36.0-66.0); PLATELET COUNT, AUTOMATED 190 10^3/uL (150-450); RED BLOOD COUNT 3.38 10^6/uL (4.30-6.10); WHITE BLOOD COUNT 8.9 10^3/uL (4.0-10.0)
[2020-02-19 16:16] LABS: INR 2.64; PROTHROMBIN TIME 28.8 SECONDS (12.5-14.3)
[2020-02-19 16:21] LABS: ABG pH (ARTERIAL) 7.435 UNITS (7.350-7.450)
[2020-02-19 16:22] LABS: ABG BASE EXCESS 5.2 (-2.0-2.0); ABG O2 SATURATION 98.4 % (95.0-99.0); ABG PARTIAL PRESSURE CO2 45.7 mmHg (35.0-45.0); ABG PARTIAL PRESSURE O2 106.4 mmHg (75.0-100.0); ABG STANDARD HCO3 29.1 MEQ/L (22.0-26.0); ABG TOTAL CO2 31.4 MEQ/L (23.0-31.0)
[2020-02-19 16:35] LABS: ALBUMIN 2.7 GM/DL (3.2-5.2); ALT/SGPT 33 U/L (12-78); BILIRUBIN,DIRECT 0.2 MG/DL (0.0-0.2); BILIRUBIN,TOTAL 0.4 MG/DL (0.2-1.0); BLOOD UREA NITROGEN 26 MG/DL (7-18); CALCIUM LEVEL 8.5 MG/DL (8.8-10.2); CARBON DIOXIDE LEVEL 31 MEQ/L (21-32); CHLORIDE LEVEL 97 MEQ/L (98-107); CK-MB VALUE MASS 2.8 NG/ML (<3.6); CPK CREATINE PHOSPHOKINASE 42 U/L (39-308); CREATININE FOR GFR 1.12 MG/DL (0.70-1.30); GLOMERULAR FILTRATION RATE > 60.0 (>35); GLUCOSE, FASTING 176 MG/DL (70-100); MB/CK RELATIVE INDEX 6.67 (< OR =4); NT-PRO BNP 27335 PG/ML (<450); POTASSIUM SERUM 4.6 MEQ/L (3.5-5.1); SODIUM LEVEL 134 MEQ/L (136-145); TOTAL PROTEIN 5.9 GM/DL (6.4-8.2); TROPONIN I 0.05 NG/ML (< 0.10)
[2020-02-19] MEDS ORDERED: APAP325T4 PO (16:51)
[2020-02-19] MEDS ORDERED: MELA5CAP2 PO (16:51)
[2020-02-19] MEDS ORDERED: MAGN400T2 PO (16:51)
[2020-02-19] MEDS ORDERED: ASPI81TA26 PO (16:51)
[2020-02-19] MEDS ORDERED: FURO20TA2 PO (16:51)
--- NOTE | 2020-02-19 17:28 | REP ---
INDICATION: DYSPNEA/COUGH COMPARISON: 02/08/2020 TECHNIQUE: Portable AP view of the chest FINDINGS: Cardiomegaly with findings to suggest pulmonary vascular congestion including moderate pleural effusions (right greater left) and scattered airspace disease. IMPRESSION: Findings most compatible with CHF. Differential diagnosis includes multifocal pneumonia. <Electronically signed by Checo Martinez > 02/19/20 7822
--- NOTE | 2020-02-19 19:56 | HPEPDOC ---
[facility] Medical History & Physical Date of Admission Feb 19, 2020 Date of Service: Feb 19, 2020 Primary Care Physician: Doc Smith Attending Physician: CONSTANTINE TOTH MD History and Physical TIME OF SERVICE: 8:35 PM CHIEF COMPLAINT: Shortness of breath HISTORY OF PRESENT ILLNESS: This 89-year-old gentleman last admitted to our service from February 0705/17 for management of metabolic encephalopathy and acute diastolic CHF. Today he presented with complaints of shortness of breath, cough productive of clear sputum, and bilateral lower extremity edema. He was not sure how long he had the symptoms. His cooks for him. He denies eating any new foods, and drinking more fluids than usual. In fact, he admitted that he thinks he has been drinking less fluids than usual. The only thing that he noticed is that his sugars have been higher than usual. He has also been having difficulty sleeping and has to use one pillow to prop himself up so that he can lie on his side. REVIEW OF SYSTEMS: 12 point review of systems negative except as listed in HPI PAST MEDICAL/ SURGICAL HISTORY: HFpEF grade 1 EF 55%-60% / Mild pulmonary HTN COPD Atrial fibrillation Chronic CAD s/p placement of 5 stents Mild TR PAD Chronic HTN IDDM CKD 3 Diverticulitis Osteoarthritis BPH / Urethral stricture requiring chronic haynes catheter / hx of CAUTI Anxiety and depression Chronic nonhealing toe ulcers Bilateral cataract surgery Hx of hip fx requiring replacement Femoral endarterectomy SOCIAL HISTORY: Doesn't smoke, drink or use recreational drugs. Lives with FAMILY HISTORY: Brain cancer ALLERGIES: Please see below. HOME MEDICATIONS: Please see below. PHYSICAL EXAMINATION: Vital Signs Date Time Temp Pulse Resp B/P (MAP) Pulse Ox O2 Delivery O2 Flow Rate FiO2 02/19/20 15:14 97.8 89 24 139/81 (100) 100 2.0 02/19/20 15:25 Nasal Cannula GEN: well-nourished / well developed/ listless INTEGUMENT: not flushed/ not jaundice HEENT: lips acyanotic /mucus membranes moist and pink / NC in place CVS: RRR/NMRG/ radial pulses intact / 2+ lower extremity edema LUNGS: he is not able to speak full sentences without stopping to take a breath / he is coughing ocassionally / lungs are clear to auscultation ABDOMEN: Contour (flat,) / soft & not tender with palpation : haynes in place MSK/EXTREMITIES: NCAT NEURO: CN 2-12 are grossly intact / speech is not dysarthric PSYCH: alert and oriented to person place and time/ able to understand and follow all commands LABORATORY DATA: 02/19/20 15:48 IMAGING: Chest xray "IMPRESSION: Findings most compatible with CHF. Differential diagnosis includes multifocal pneumonia." MICROBIOLOGY: 02/19/20 Urine Culture, Received Pending 02/19/20 Respiratory Virus Panel (PCR) ([facility]) - Final, Complete 02/19/20 Blood Culture, Received Pending ASSESSMENT: is an 89-year-old with a history of chronic HFpEF, COPD, atrial fibrillation, CAD, pulmonary hypertension, chronic HTN, PAD, IDDM, CKD, osteoarthritis, BPH and chronic indwelling Haynes catheter who presented with c omplaints of shortness of breath, cough and bilateral lower extremity edema; he will be admitted for management of acute on chronic HFpEF. PLAN: 1. Acute on chronic HFpEF / Chronic HTN He mentioned his serum glucose has been elevated, therefore I suspect the fluid overload is due to the osmotic effect of hyperglycemia. Plan: Admit to medical floor/telemetry/follow-up strict I's and O's and daily weights/restrict salt to 2 g and fluids to 2 L or 67 ounces/IV Lasix with a target fluid balance of 2500 mL every 24 hours 2. IDDM Plan: diabetic diet / f/u accuchecks & A1C / hypoglycemia protocol / sliding scale insulin / reduce Levemir from 17units to 10 units daily / hold glipizide 3. Mild Acute COPD Trigger for acute COPD is fluid overload Plan: treat fluid overload / Dunebs Q6H with levalbuterol Q1HP 4. Chronic Atrial fibrillation Plan: warfarin 5. Chronic CAD s/p placement of 5 stents / PAD Plan: ASA, atorvastatin 6. CKD 3 stable Plan: bc he has CKD with DM he can f/u with his PCP to discuss starting ACEI and adding Canagliflozin if, he has proteinuria to further reduce progression of CKD and risk of from CAD 7. BPH / Urethral stricture Plan: haynes 10. Anxiety and depression Plan: citalopram 11. Chronic Toe Ulcers Plan: will ask the day time team to consult regarding wound dressing DVT PROPHYLAXIS: n/a on warfarin DISPOSITION: home after more than 2 midnight's stay Late entry #Hypomagnesemia Plan: replete Mg Home Medications Scheduled Acetaminophen (Acetaminophen) 325 Mg Tablet, 650 MG PO QHS Aspirin (Aspirin EC) 81 Mg Tablet.dr, 81 MG PO QHS Atorvastatin Calcium (Atorvastatin Calcium) 40 Mg Tablet, 40 MG PO 3XW MON,WED,FRI Citalopram Hydrobromide (Citalopram HBr) 20 Mg Tab, 20 MG PO DAILY TAKES AT NOON Docusate Sodium (Colace) 100 Mg Capsule, 100 MG PO DAILY Ergocalciferol (Vitamin D2) (Vitamin D2) 50,000 Units Cap, 50,000 UNITS PO Q2WK EVERY OTHER MONDAY Furosemide (Furosemide) 20 Mg Tablet, 20 MG PO DAILY Gabapentin (Neurontin) 300 Mg Capsule, 300 MG PO TID Glipizide (Glipizide) 5 Mg Tablet, 2.5 MG PO BID BREAKFAST AND LUNCH Insulin Detemir (Levemir) 100 Unit/1 Ml Vial, 17 UNITS SC DAILY Magnesium Oxide (Magnesium Oxide) 400 Mg Tablet, 400 MG PO QHS Melatonin (Melatonin) 5 Mg Capsule, 5 MG PO QHS Omeprazole (Omeprazole) 40 Mg Cap, 40 MG PO DAILY TAKES AT NOON Trazodone HCl (Trazodone HCl) 100 Mg Tab, 100 MG PO QHS Warfarin Sodium (Warfarin Sodium) 2 Mg Tablet, 2 MG PO 5XW TUES,MON,FRI,SAT,SUN EVENINGS Warfarin Sodium (Warfarin Sodium) 4 Mg Tablet, 4 MG PO 2XW MON,TH EVENING Scheduled PRN Acetaminophen (Acetaminophen) 325 Mg Tablet, 650 MG PO Q6H PRN for PAIN Albuterol Sulfate (Ventolin Hfa) 108 Mcg/Act Aer, 2 PUFF INH Q4H PRN for SHORTNESS OF BREATH Allergies Coded Allergies: Sulfa (Sulfonamide Antibiotics) (Verified Allergy, Mild, rash, 08/21/19) sulfamethoxazole (Verified Allergy, Mild, rash, 08/21/19) Pea (Verified Allergy, Unknown, 08/21/19) trimethoprim (Verified Allergy, Unknown, 08/21/19) Quinolones (Verified Adverse Reaction, Mild, AMS, 08/21/19) hydrocodone (Verified Adverse Reaction, Mild, AMS, 08/21/19) morphine (Verified Adverse Reaction, Mild, AMS, 08/21/19) oxycodone (Verified Adverse Reaction, Mild, AMS, 08/21/19) A-FIB/CHADSVASC A-FIB History Current/History of A-Fib/PAF?: Yes Current PO Anticoag Therapy: Yes CONSTANTINE TOTH MD Feb 19, 2020 19:55
[2020-02-19] MEDS ORDERED: MAALOX 30 ML SUSP *UDC PO PRN (20:00)
[2020-02-19] MEDS ORDERED: DEXTROSE 50% 50 ML SYRINGE IV PRN (20:00)
[2020-02-19] MEDS ORDERED: GLUCOSE 4GM CHEW TABLET PO PRN (20:00)
[2020-02-19] MEDS ORDERED: GLUCAGON INJ 1MG VIAL SC PRN (20:00)
[2020-02-19] MEDS ORDERED: MOM 30ML SUSPENSION UDC PO PRN (20:00)
[2020-02-19] MEDS: FUROSEMIDE 40MG/4ML VIAL (J1940) IV SCH (20:21)
[2020-02-19 20:40] LABS: MAGNESIUM LEVEL 1.2 MG/DL (1.8-2.4); PHOSPHORUS LEVEL 2.9 MG/DL (2.5-4.9)
[2020-02-19 21:34] VITALS: BP 131/74
[2020-02-19] MEDS: HumaLOG INSULIN (NovoLOG) PER UNIT SC SCH (21:35)
[2020-02-19] MEDS ORDERED: RAMELTEON 8 MG TAB (ROZEREM) PO ONE (22:15)
[2020-02-20] VITALS (8 sets, daily range): BP systolic 124–137; BP diastolic 66–78; O2SAT 95–100
[2020-02-20] MEDS: FUROSEMIDE 40MG/4ML VIAL (J1940) IV SCH ×3 (00:43→08:24)
[2020-02-20] MEDS: LEVALBUTEROL 1.25 MG/0.5 ML CONCENTRATE NEB INH PRN ×2 (01:52→06:03)
[2020-02-20] MEDS: MAG SULF 1GM/100ML (MAG RUN) 1 GM in IV 1 EA IV SCH ×2 (04:51→05:54)
[2020-02-20 06:44] LABS: HEMATOCRIT 26.8 % (42.0-52.0); HEMOGLOBIN 8.1 g/dl (13.5-17.5); MEAN CORPUSCULAR HEMOGLOBIN 25.6 pg (27.0-33.0); MEAN CORPUSCULAR HGB CONC 30.2 g/dl (32.0-36.5); MEAN CORPUSCULAR VOLUME 84.8 fl (80.0-96.0); PLATELET COUNT, AUTOMATED 176 10^3/uL (150-450); RED BLOOD COUNT 3.16 10^6/uL (4.30-6.10); WHITE BLOOD COUNT 7.6 10^3/uL (4.0-10.0)
[2020-02-20 06:57] LABS: BLOOD UREA NITROGEN 23 MG/DL (7-18); CALCIUM LEVEL 8.3 MG/DL (8.8-10.2); CARBON DIOXIDE LEVEL 34 MEQ/L (21-32); CHLORIDE LEVEL 98 MEQ/L (98-107); CREATININE FOR GFR 0.93 MG/DL (0.70-1.30); GLOMERULAR FILTRATION RATE > 60.0 (>35); GLUCOSE, FASTING 57 MG/DL (70-100); MAGNESIUM LEVEL 1.5 MG/DL (1.8-2.4); POTASSIUM SERUM 3.7 MEQ/L (3.5-5.1); SODIUM LEVEL 137 MEQ/L (136-145)
[2020-02-20] MEDS: HumaLOG INSULIN (NovoLOG) PER UNIT SC SCH ×4 (07:30→20:51)
[2020-02-20] MEDS ORDERED: DEXTROSE 50% 50 ML SYRINGE IV STA (07:30)
--- NOTE | 2020-02-20 07:36 | ECGEPIP ---
[facility] - ED Test Date: 2020-02-19 Pat Name: AME MCCOLLUM Department: Room: - Gender: Male [employer]: : [id number] Requested By: PACO HANCOCK Order Number: [id number] Reading MD: Aria Cormier Measurements Intervals [place] Rate: 85 P: 10 NE: 198 QRS: 0 QRSD: 147 T: -27 QT: 421 QTc: 502 Interpretive Statements SINUS RHYTHM RIGHT BUNDLE BRANCH BLOCK MODERATE T-WAVE ABNORMALITY, CONSIDER ANTEROLATERAL ISCHEMIA SIMILAR 02/09/20 Electronically Signed on 02-20-2020 7:36:49 EST by Aria Cormier
[2020-02-20] MEDS ORDERED: ENOXAPARIN 40MG/0.4ML SYRINGE (J1650 PER 10MG) SC SCH (09:00)
[2020-02-20] MEDS ORDERED: LEVALBUTEROL 1.25 MG/0.5 ML CONCENTRATE NEB INH PRN (10:00)
[2020-02-20] MEDS ORDERED: metOLazone 5 MG TAB PO ONE (10:00)
[2020-02-20] MEDS: LEVALBUTEROL 1.25 MG/0.5 ML CONCENTRATE NEB INH SCH ×3 (10:13→19:10)
[2020-02-20] MEDS ORDERED: FUROSEMIDE 100MG/10ML VIAL (J1940) IV ONE (10:30)
[2020-02-20] MEDS ORDERED: methylPREDNISolone 125MG 2ML VIAL IV ONE (11:00)
[2020-02-20] MEDS ORDERED: BUDESONIDE 180MCG INHALER (PULMICORT FLEXHALER) INH SCH (11:00)
[2020-02-20] MEDS ORDERED: NITROGLYCERIN 0.4 MG SUBL TABLET SL STA (11:00)
--- NOTE | 2020-02-20 12:02 | IPNPDOC ---
Date Seen The patient was seen on 02/20/20. Progress Note S: c/o sob, PND, 2 pillow orthopnea, mucus, cough productive of thick white sputum w/o fever. denies cp, palpitations O: PE VS see below GEN: mild distress 8word conversational dyspnea. no cyanosis HEENT: + JVD moist mucus membranes no carotid bruits LUNGS: diminished, crackles b/l expiratory wheezing prolonged expiration. conversational dyspnea no nasal flaring or tracheal deviation. no abd mm use HEART: S1 S2 irregularly irregular ABD: soft NT ND bs x 4 quadrants no fluid wave EXT: trace edema. left big toe wound bandaged no purulent or serosanguinous drainage Labs: see below Imaging: see below PROBLEM LIST: HFpEF grade 1 EF 55%-60% / Mild pulmonary HTN, decompensated COPD, acute on chronic decompensated Atrial fibrillation,rate controlled Chronic CAD s/p placement of 5 stents Mild TR PAD Chronic HTN IDDM CKD 3 Diverticulitis Osteoarthritis BPH / Urethral stricture requiring chronic haynes catheter / hx of CAUTI Anxiety and depression Chronic nonhealing toe ulcers, left big toe amputation managed by Dr. Tinsley/Donato. Bilateral cataract surgery Hx of hip fx requiring replacement Femoral endarterectomy PLAN: fluid restrict 1.5 liter , strict i/o, diurese to net negative goal daily, monitor electrolytes and supplement. tele . continue home meds. start on nebs, spiriva and solumedrol, doxy q12hr. recheck cxr in am to see if edema has resolved. supportive care. cardmark to r/o ischemia. repeat echo VS, I&O, 24H, Fishbone Vital Signs/I&O Vital Signs Date Time Temp Pulse Resp B/P (MAP) Pulse Ox O2 Delivery O2 Flow Rate FiO2 02/20/20 06:18 96 Room Air 02/20/20 06:17 1.0 02/20/20 06:00 98.4 83 26 124/67 (86) I&O- Last 24 Hours up to 6 AM 02/20/20 06:00 Intake Total 280 ml Output Total 2125 ml Balance -1845 ml Laboratory Data 24H LABS Laboratory Tests 2 02/19/20 15:48: Immature Granulocyte % (Auto) 0.8, Neutrophils (%) (Auto) 73.3H, Lymphocytes (%) (Auto) 12.0L, Monocytes (%) (Auto) 12.0H, Eosinophils (%) (Auto) 1.7, Basophils (%) (Auto) 0.2, Neutrophils # (Auto) 6.5, Lymphocytes # (Auto) 1.1L, Monocytes # (Auto) 1.1H, Eosinophils # (Auto) 0.2, Basophils # (Auto) 0.0, Nucleated Red Blood Cells % (auto) 0.0, Prothrombin Time 28.8H, Prothromb Time International Ratio 2.64, Anion Gap 6L, Glomerular Filtration Rate > 60.0, Lactic Acid Level 1.4, Calcium Level 8.5L, Phosphorus Level 2.9, Magnesium Level 1.2L, Total Bilirubin 0.4, Direct Bilirubin 0.2, Aspartate Amino Transf (AST/SGOT) 14, Alanine Aminotransferase (ALT/SGPT) 33, Alkaline Phosphatase 101, Total Creatine Kinase 42, Creatine Kinase MB 2.8, Creatine Kinase MB Relative Index 6.67H, Troponin I 0.05, ZC-Dpm-K-Type Natriuretic Peptide 95513I, Total Protein 5.9L, Albumin 2.7L, Albumin/Globulin Ratio 0.8 02/19/20 16:07: Blood Gas Bicarbonate Standard 29.1H, Arterial Blood pH 7.435, Arterial Blood Partial Pressure CO2 45.7H, Arterial Blood Partial Pressure O2 106.4H, Arterial Blood Total CO2 31.4H, Arterial Blood HCO3 30.0H, Arterial Blood Base Excess 5.2H, Arterial Blood Oxygen Saturation 98.4 02/19/20 17:21: Urine Color YELLOW, Urine Appearance HAZY, Urine pH 5.0, Urine Specific [place] 1.018, Urine Protein 1+H, Urine Glucose (UA) NEGATIVE, Urine Ketones NEGATIVE, Urine Blood NEGATIVE, Urine Nitrite NEGATIVE, Urine Bilirubin NEGATIVE, Urine Urobilinogen 0.2, Urine Leukocyte Esterase 1+H, Urine WBC (Auto) 15H, Urine RBC (Auto) 7H, Urine Hyaline Casts (Auto) 0, Urine Bacteria (Auto) 1+H, Urine Squamous Epithelial Cells 6, Urine Mucus (Auto) SMALL, Urine Sperm (Auto) 02/19/20 21:25: Troponin I 0.05 02/19/20 21:54: Bedside Glucose (Misc Panel) 122H 02/20/20 03:23: Troponin I 0.04 02/20/20 05:49: Nucleated Red Blood Cells % (auto) 0.0, Anion Gap 5L, Glomerular Filtration Rate > 60.0, Calcium Level 8.3L, Magnesium Level 1.5L 02/20/20 08:08: Bedside Glucose (Misc Panel) 80L 02/20/20 11:29: CBC/BMP Laboratory Tests 02/19/20 15:48 02/20/20 05:49 Microbiology Microbiology 02/19/20 Urine Culture, Received Pending 02/19/20 Respiratory Virus Panel (PCR) ([facility]) - Final, Complete 02/19/20 Blood Culture, Received Pending CORY RIZZO MD Feb 20, 2020 11:56
[2020-02-20 12:25] LABS: MB/CK RELATIVE INDEX 4.76 (< OR =4); TROPONIN I 0.04 NG/ML (< 0.10)
[2020-02-20] MEDS: TIOTROPIUM INHALER/CAPSULE (SPIRIVA) INH SCH (14:59)
[2020-02-20 16:47] LABS: BLOOD UREA NITROGEN 22 MG/DL (7-18); CALCIUM LEVEL 8.1 MG/DL (8.8-10.2); CARBON DIOXIDE LEVEL 34 MEQ/L (21-32); CHLORIDE LEVEL 94 MEQ/L (98-107); CK-MB VALUE MASS 2.2 NG/ML (<3.6); CPK CREATINE PHOSPHOKINASE 34 U/L (39-308); CREATININE FOR GFR 1.15 MG/DL (0.70-1.30); GLOMERULAR FILTRATION RATE > 60.0 (>35); GLUCOSE, FASTING 158 MG/DL (70-100); MAGNESIUM LEVEL 1.6 MG/DL (1.8-2.4); MB/CK RELATIVE INDEX 6.47 (< OR =4); POTASSIUM SERUM 4.1 MEQ/L (3.5-5.1); SODIUM LEVEL 135 MEQ/L (136-145); TROPONIN I 0.04 NG/ML (< 0.10)
[2020-02-20] MEDS: methylPREDNISolone 125MG 2ML VIAL IV SCH (17:45)
[2020-02-20] MEDS: BUDESONIDE 180MCG INHALER (PULMICORT FLEXHALER) INH SCH (19:10)
[2020-02-20] MEDS: RAMELTEON 8 MG TAB (ROZEREM) PO SCH (20:51)
[2020-02-21] VITALS (19 sets, daily range): BP systolic 118–168; BP diastolic 61–95; O2SAT 93–99
[2020-02-21] MEDS: methylPREDNISolone 125MG 2ML VIAL IV SCH ×5 (00:49→23:40)
[2020-02-21 05:39] LABS: HEMATOCRIT 29.5 % (42.0-52.0); LYMPH # 0.4 10^3/uL (1.5-5.0); LYMPH % 12.5 % (24.0-44.0); MEAN CORPUSCULAR HEMOGLOBIN 25.6 pg (27.0-33.0); MEAN CORPUSCULAR HGB CONC 30.5 g/dl (32.0-36.5); MONO # 0.1 10^3/uL (0.0-0.8); NEUTROPHILS # 2.5 10^3/uL (1.5-8.5); NEUTROPHILS % 84.8 % (36.0-66.0); PLATELET COUNT, AUTOMATED 203 10^3/uL (150-450); RED BLOOD COUNT 3.51 10^6/uL (4.30-6.10)
[2020-02-21 05:58] LABS: BLOOD UREA NITROGEN 26 MG/DL (7-18); CALCIUM LEVEL 8.4 MG/DL (8.8-10.2); CARBON DIOXIDE LEVEL 31 MEQ/L (21-32); CHLORIDE LEVEL 94 MEQ/L (98-107); CREATININE FOR GFR 1.18 MG/DL (0.70-1.30); GLOMERULAR FILTRATION RATE > 60.0 (>35); GLUCOSE, FASTING 254 MG/DL (70-100); MAGNESIUM LEVEL 1.6 MG/DL (1.8-2.4); POTASSIUM SERUM 4.6 MEQ/L (3.5-5.1); SODIUM LEVEL 135 MEQ/L (136-145)
[2020-02-21] MEDS: LEVALBUTEROL 1.25 MG/0.5 ML CONCENTRATE NEB INH SCH ×4 (07:29→20:01)
[2020-02-21] MEDS: TIOTROPIUM INHALER/CAPSULE (SPIRIVA) INH SCH (07:30)
[2020-02-21] MEDS: BUDESONIDE 180MCG INHALER (PULMICORT FLEXHALER) INH SCH ×2 (07:30→20:01)
[2020-02-21] MEDS ORDERED: MAG SULF 1GM/100ML (MAG RUN) 1 GM in IV 1 EA IV ONE (07:45)
[2020-02-21] MEDS: HumaLOG INSULIN (NovoLOG) PER UNIT SC SCH ×4 (07:56→21:00)
[2020-02-21 08:52] LABS: INR 3.27; PROTHROMBIN TIME 34.1 SECONDS (12.5-14.3)
--- NOTE | 2020-02-21 11:25 | IPNPDOC ---
Date Seen The patient was seen on 02/21/20. Progress Note SUBJECTIVE: Patient was transferred to PCU due to worsening respiratory distress, currently being treated for COPD and CHF. Complains of worsening shortness of breath this morning but per nursing. Patient's saturations have been 97-99% on 2 L of oxygen. Patient complains of cough productive of sputum scant in amount. No fever, chills overnight. No chest pain, pressure, tightness, nausea, vomiting, diaphoresis or feeling of impending doom. Today he complains of not being able to sleep last night due to shortness of breath and wants to rest all day today. OBJECTIVE PHYSICAL EXAMINATION: VITAL SIGNS: Please see below. GENERAL: Answering questions appropriately monitored mild distress with 4-5 word conversational dyspnea and use of respiratory accessory muscles HEENT: Mild JVD no thyromegaly. Tongue is midline. Dry mucous membranes . No nasal flaring, no pallor CARDIOVASCULAR: S1, S2. Positive JVD. Systolic ejection murmur at the apex, 2 out of 6. No radiation to the carotids., No carotid bruits RESPIRATORY: Diminished. No wheezing or rales. Clear ABDOMINAL: Positive bowel sounds, soft, nontender, nondistended EXTREMITIES: 2+ pitting edema bilaterally LABORATORY DATA, IMAGING STUDIES, MICROBIOLOGY: Please see below. ASSESSMENT AND PLAN: PROBLEMS: Acute hypoxic respiratory failure requiring 2 L of oxygen HFpEF grade 1 EF 55%-60% / Mild pulmonary HTN, decompensated COPD, acute on chronic decompensated Atrial fibrillation,rate controlled Chronic CAD s/p placement of 5 stents Mild TR PAD Chronic HTN IDDM CKD 3 Diverticulitis Osteoarthritis BPH / Urethral stricture requiring chronic haynes catheter / hx of CAUTI Anxiety and depression Chronic nonhealing toe ulcers, left big toe amputation managed by Dr. Tinsley/Donato. Bilateral cataract surgery Hx of hip fx requiring replacement Femoral endarterectomy PLAN: Patient is being treated for acute COPD exacerbation as well as CHF exacerbation, currently on Lasix and at negative balance. Goal daily fluid restriction, strict I's and O's and daily weights. Continue with the same. He is currently on IV Solu-Medrol as well as nebulizer treatments, bronchodilators. O2 sat to be titrated to greater than 90%. Currently on supplemental oxygen. Continue with the same management until patient's respiratory status improves, then we can change to oral prednisone as well as oral diuretics. No ischemia on EKG cardiac markers are negative. Wound care per Dr. Sewell, Dr. Tinsley recommended outpatient follow-up with the wound center at hospital discharge. Telemetry medicine with Dr. Sewell on Monday. VS, I&O, 24H, Fishbone Vital Signs/I&O Vital Signs Date Time Temp Pulse Resp B/P (MAP) Pulse Ox O2 Delivery O2 Flow Rate FiO2 02/21/20 10:00 97 Room Air 02/21/20 08:00 97.2 86 18 168/81 (110) 0.5 I&O- Last 24 Hours up to 6 AM 02/21/20 06:00 Intake Total 840 ml Output Total 1750 ml Balance -910 ml Laboratory Data 24H LABS Laboratory Tests 2 02/20/20 11:29: Total Creatine Kinase 42, Creatine Kinase MB 2.0, Creatine Kinase MB Relative Index 4.76H, Troponin I 0.04 02/20/20 12:22: Bedside Glucose (Misc Panel) 73L 02/20/20 16:10: Total Creatine Kinase 34L, Creatine Kinase MB 2.2, Creatine Kinase MB Relative Index 6.47H, Troponin I 0.04, Anion Gap 7L, Glomerular Filtration Rate > 60.0, Calcium Level 8.1L, Whole Blood Ionized Calcium 4.1L, Magnesium Level 1.6L 02/20/20 16:20: Bedside Glucose (Misc Panel) 209H 02/20/20 20:06: Bedside Glucose (Misc Panel) 229H 02/21/20 05:02: Immature Granulocyte % (Auto) 0.7, Neutrophils (%) (Auto) 84.8H, Lymphocytes (%) (Auto) 12.5L, Monocytes (%) (Auto) 2.0, Eosinophils (%) (Auto) 0.0, Basophils (%) (Auto) 0.0, Neutrophils # (Auto) 2.5, Lymphocytes # (Auto) 0.4L, Monocytes # (Auto) 0.1, Eosinophils # (Auto) 0.0, Basophils # (Auto) 0.0, Nucleated Red Blood Cells % (auto) 0.0, Anion Gap 10, Glomerular Filtration Rate > 60.0, Calcium Level 8.4L, Magnesium Level 1.6L 02/21/20 07:52: Prothrombin Time 34.1H, Prothromb Time International Ratio 3.27 CBC/BMP Laboratory Tests 02/20/20 16:10 02/21/20 05:02 Microbiology Microbiology 02/19/20 Urine Culture - Final, Complete 02/19/20 Respiratory Virus Panel (PCR) ([facility]) - Final, Complete 02/19/20 Blood Culture - Preliminary, Resulted No growth after 24 hours . All specim... CORY RIZZO MD Feb 21, 2020 11:25
[2020-02-21] MEDS ORDERED: WARFARIN SOD 5MG TAB PO SCH (17:00)
[2020-02-21] MEDS: ACETAMINOPHEN TAB 650MG DOSE (2X325MG) PO PRN (21:04)
[2020-02-21] MEDS: RAMELTEON 8 MG TAB (ROZEREM) PO SCH (21:04)
[2020-02-22] VITALS (14 sets, daily range): BP systolic 135–162; BP diastolic 56–78; O2SAT 91–99
[2020-02-22 05:21] LABS: EOS % 0.2 % (0.0-3.0); HEMOGLOBIN 9.2 g/dl (13.5-17.5); LYMPH # 0.4 10^3/uL (1.5-5.0); LYMPH % 8.3 % (24.0-44.0); MEAN CORPUSCULAR HEMOGLOBIN 25.4 pg (27.0-33.0); MEAN CORPUSCULAR HGB CONC 30.7 g/dl (32.0-36.5); MEAN CORPUSCULAR VOLUME 82.9 fl (80.0-96.0); MONO # 0.2 10^3/uL (0.0-0.8); MONO % 4.9 % (0.0-5.0); NEUTROPHILS # 3.9 10^3/uL (1.5-8.5); NEUTROPHILS % 86.2 % (36.0-66.0); PLATELET COUNT, AUTOMATED 222 10^3/uL (150-450); RED BLOOD COUNT 3.62 10^6/uL (4.30-6.10); WHITE BLOOD COUNT 4.5 10^3/uL (4.0-10.0)
[2020-02-22] MEDS: methylPREDNISolone 125MG 2ML VIAL IV SCH ×2 (05:26→18:46)
[2020-02-22] MEDS ORDERED: metOLazone 2.5 MG TAB PO ONE (05:30)
[2020-02-22 05:33] LABS: INR 4.59; PROTHROMBIN TIME 44.5 SECONDS (12.5-14.3)
[2020-02-22 05:42] LABS: CALCIUM LEVEL 8.9 MG/DL (8.8-10.2); CREATININE FOR GFR 1.54 MG/DL (0.70-1.30); GLOMERULAR FILTRATION RATE 45.7 (>35); MAGNESIUM LEVEL 1.8 MG/DL (1.8-2.4); POTASSIUM SERUM 4.5 MEQ/L (3.5-5.1)
--- NOTE | 2020-02-22 05:52 | REPVR ---
PROCEDURE INFORMATION: Exam: XR Chest, 1 View Exam date and time: 02/22/2020 5:36 AM Age: 89 years old Clinical indication: Other: SOB R/O chf TECHNIQUE: Imaging protocol: XR of the chest Views: 1 view. COMPARISON: CR PORTABLE CHEST X-RAY 02/19/2020 5:09 PM FINDINGS: Lungs: There is right lower lung zone infiltrates. There is left basilar atelectatic changes versus infiltrates. Pleural space: Unremarkable. No pleural effusion. No pneumothorax. Heart/Mediastinum: The heart is significantly enlarged. Bones/joints: Unremarkable. Other findings: Right-sided effusion cannot be excluded. IMPRESSION: 1. Marked cardiomegaly. 2. Right lower lung zone infiltrates and/or atelectasis with or without effusion. This represent progression since the prior exam. 3. Left basilar atelectatic changes. Subtle underlying infiltrates cannot be excluded. Electronically signed by: Higinio Barboza On 02/22/2020 05:52:59 AM
[2020-02-22] MEDS: FUROSEMIDE 40MG/4ML VIAL (J1940) IV SCH ×3 (06:00→18:47)
[2020-02-22] MEDS: TIOTROPIUM INHALER/CAPSULE (SPIRIVA) INH SCH (07:10)
[2020-02-22] MEDS: BUDESONIDE 180MCG INHALER (PULMICORT FLEXHALER) INH SCH ×2 (07:11→20:24)
[2020-02-22] MEDS: LEVALBUTEROL 1.25 MG/0.5 ML CONCENTRATE NEB INH SCH ×4 (07:11→20:23)
[2020-02-22] MEDS: CEFEPIME HCL 1 GM in D5W MINI-BAG PLUS 50 ML IV SCH ×2 (09:53→20:26)
[2020-02-22] MEDS: HumaLOG INSULIN (NovoLOG) PER UNIT SC SCH ×4 (09:54→20:27)
--- NOTE | 2020-02-22 11:19 | IPNPDOC ---
Date Seen The patient was seen on 02/22/20. Progress Note SUBJECTIVE: Patient says that his shortness of breath is significantly improved. He is less anxious now that his is able to stay with him in the room 24. 7. He denies any chest pain, pressure, tightness, fever, chills or cough., No nausea, vomiting, abdominal pain, diaphoresis OBJECTIVE PHYSICAL EXAMINATION: VITAL SIGNS: Please see below. GENERAL: No distress. No use of respiratory accessory muscles HEENT: Mild JVD no thyromegaly. Tongue is midline. Dry mucous membranes . No nasal flaring, no pallor CARDIOVASCULAR: S1, S2. Positive JVD. No carotid bruits RESPIRATORY: Diminished. No wheezing or rales. Clear ABDOMINAL: Positive bowel sounds, soft, nontender, nondistended EXTREMITIES: 2+ pitting edema bilaterally . Chronic venous stasis ulcers LABORATORY DATA, IMAGING STUDIES, MICROBIOLOGY: Please see below. Exam: XR Chest, 1 View Exam date and time: 02/22/2020 5:36 AM Age: 89 years old Clinical indication: Other: SOB R/O chf TECHNIQUE: Imaging protocol: XR of the chest Views: 1 view. COMPARISON: CR PORTABLE CHEST X-RAY 02/19/2020 5:09 PM FINDINGS: Lungs: There is right lower lung zone infiltrates. There is left basilar atelectatic changes versus infiltrates. Pleural space: Unremarkable. No pleural effusion. No pneumothorax. Heart/Mediastinum: The heart is significantly enlarged. Bones/joints: Unremarkable. Other findings: Right-sided effusion cannot be excluded. IMPRESSION: 1. Marked cardiomegaly. 2. Right lower lung zone infiltrates and/or atelectasis with or without effusion. This represent progression since the prior exam. 3. Left basilar atelectatic changes. Subtle underlying infiltrates cannot be excluded. Electronically signed by: Higinio Barboza On 02/22/2020 05:52:59 AM ASSESSMENT AND PLAN: PROBLEMS: Acute hypoxic respiratory failure requiring 2 L of oxygen, resolved HFpEF grade 1 EF 55%-60% / Mild pulmonary HTN, decompensated acute on chronic heart failure exacerbation with preserved systolic function. Awaiting repeat echo COPD, acute on chronic ,decompensated Atrial fibrillation,rate controlled Chronic CAD s/p placement of 5 stents Mild TR PAD Chronic HTN IDDM CKD 3 Diverticulitis Osteoarthritis BPH / Urethral stricture requiring chronic haynes catheter / hx of CAUTI Anxiety and depression Chronic nonhealing toe ulcers, left big toe amputation managed by Dr. Tinsley/Donato. Bilateral cataract surgery Hx of hip fx requiring replacement Femoral endarterectomy PLAN: . Decrease Solu-Medrol to 60 mg IV every 6 hourly due to worsening infiltrates and recent hospitalization. Patient has been broadly covered with cefepime. Check sputum culture, urine Legionella and streptococcal antigen. If he remains afebrile with improvement in infiltrates after diuresis. We'll discontinue cefepime. Continue All other medications per home dose VS, I&O, 24H, Fishbone Vital Signs/I&O Vital Signs Date Time Temp Pulse Resp B/P (MAP) Pulse Ox O2 Delivery O2 Flow Rate FiO2 02/22/20 08:00 97.1 84 18 145/77 (99) 98 02/22/20 04:00 Room Air 02/21/20 11:54 0.5 I&O- Last 24 Hours up to 6 AM 02/22/20 06:00 Intake Total 1060 ml Output Total 625 ml Balance 435 ml Laboratory Data 24H LABS Laboratory Tests 2 02/21/20 11:42: Bedside Glucose (Misc Panel) 253H 02/21/20 16:51: Bedside Glucose (Misc Panel) 172H 02/21/20 19:41: Bedside Glucose (Misc Panel) 172H 02/22/20 04:54: Immature Granulocyte % (Auto) 0.4, Neutrophils (%) (Auto) 86.2H, Lymphocytes (%) (Auto) 8.3L, Monocytes (%) (Auto) 4.9, Eosinophils (%) (Auto) 0.2, Basophils (%) (Auto) 0.0, Neutrophils # (Auto) 3.9, Lymphocytes # (Auto) 0.4L, Monocytes # (Auto) 0.2, Eosinophils # (Auto) 0.0, Basophils # (Auto) 0.0, Nucleated Red Blood Cells % (auto) 0.0, Prothrombin Time 44.5H, Prothromb Time International Ratio 4.59, Anion Gap 10, Glomerular Filtration Rate 45.7, Calcium Level 8.9, Magnesium Level 1.8 02/22/20 10:22: CBC/BMP Laboratory Tests 02/22/20 04:54 Microbiology Microbiology 02/19/20 Urine Culture - Final, Complete 02/19/20 Respiratory Virus Panel (PCR) ([facility]) - Final, Complete 02/19/20 Blood Culture - Preliminary, Resulted No Growth after 48 hours. All Specime... CORY RIZZO MD Feb 22, 2020 11:18
[2020-02-22 16:28] LABS: CALCIUM LEVEL 8.6 MG/DL (8.8-10.2); CREATININE FOR GFR 1.85 MG/DL (0.70-1.30); POTASSIUM SERUM 3.9 MEQ/L (3.5-5.1)
[2020-02-22] MEDS: RAMELTEON 8 MG TAB (ROZEREM) PO SCH (20:26)
[2020-02-23] VITALS (7 sets, daily range): BP systolic 122–140; BP diastolic 61–75; O2SAT 96
[2020-02-23] MEDS: FUROSEMIDE 40MG/4ML VIAL (J1940) IV SCH
[2020-02-23] MEDS: methylPREDNISolone 125MG 2ML VIAL IV SCH (06:29)
[2020-02-23] MEDS: TIOTROPIUM INHALER/CAPSULE (SPIRIVA) INH SCH (07:23)
[2020-02-23] MEDS: BUDESONIDE 180MCG INHALER (PULMICORT FLEXHALER) INH SCH ×2 (07:23→20:12)
[2020-02-23] MEDS: LEVALBUTEROL 1.25 MG/0.5 ML CONCENTRATE NEB INH SCH ×4 (07:23→20:13)
[2020-02-23 07:26] LABS: HEMATOCRIT 28.3 % (42.0-52.0); HEMOGLOBIN 8.7 g/dl (13.5-17.5); LYMPH # 0.3 10^3/uL (1.5-5.0); LYMPH % 7.3 % (24.0-44.0); MEAN CORPUSCULAR HEMOGLOBIN 24.7 pg (27.0-33.0); MEAN CORPUSCULAR HGB CONC 30.7 g/dl (32.0-36.5); MEAN CORPUSCULAR VOLUME 80.4 fl (80.0-96.0); MONO # 0.5 10^3/uL (0.0-0.8); MONO % 9.9 % (0.0-5.0); NEUTROPHILS # 3.8 10^3/uL (1.5-8.5); NEUTROPHILS % 82.2 % (36.0-66.0); PLATELET COUNT, AUTOMATED 222 10^3/uL (150-450); RED BLOOD COUNT 3.52 10^6/uL (4.30-6.10); WHITE BLOOD COUNT 4.6 10^3/uL (4.0-10.0)
--- NOTE | 2020-02-23 07:27 | IPNPDOC ---
Date Seen The patient was seen on 02/23/20. Progress Note SUBJECTIVE: SOB resolved. no cp/n/v/abd pain/pleuritic cp/fever/chills. c/o nonproductive dry cough , but able to sleep. OBJECTIVE PHYSICAL EXAMINATION: VITAL SIGNS: Please see below. GENERAL: sitting on chair at the bedside. no distress HEENT: Mild JVD no thyromegaly. Tongue is midline. Dry mucous membranes . CARDIOVASCULAR: S1, S2. Positive JVD. No carotid bruits RESPIRATORY: Clear ABDOMINAL: Positive bowel sounds, soft, nontender, nondistended EXTREMITIES: decreased edema still 1+ b/l Chronic venous stasis ulcers LABORATORY DATA, IMAGING STUDIES, MICROBIOLOGY: Please see below. Exam: XR Chest, 1 View Exam date and time: 02/22/2020 5:36 AM Age: 89 years old Clinical indication: Other: SOB R/O chf TECHNIQUE: Imaging protocol: XR of the chest Views: 1 view. COMPARISON: CR PORTABLE CHEST X-RAY 02/19/2020 5:09 PM FINDINGS: Lungs: There is right lower lung zone infiltrates. There is left basilar atelectatic changes versus infiltrates. Pleural space: Unremarkable. No pleural effusion. No pneumothorax. Heart/Mediastinum: The heart is significantly enlarged. Bones/joints: Unremarkable. Other findings: Right-sided effusion cannot be excluded. IMPRESSION: 1. Marked cardiomegaly. 2. Right lower lung zone infiltrates and/or atelectasis with or without effusion. This represent progression since the prior exam. 3. Left basilar atelectatic changes. Subtle underlying infiltrates cannot be excluded. Electronically signed by: Higinio Barboza On 02/22/2020 05:52:59 AM ASSESSMENT AND PLAN: PROBLEMS: Acute hypoxic respiratory failure requiring 2 L of oxygen, resolved HFpEF grade 1 EF 55%-60% / Mild pulmonary HTN, decompensated acute on chronic heart failure exacerbation with preserved systolic function. Awaiting repeat echo COPD, acute on chronic ,decompensated acute kidney injury due to overdiuresis coagulopathy with elevated inr due to warfarin Atrial fibrillation,rate controlled Chronic CAD s/p placement of 5 stents Mild TR PAD Chronic HTN IDDM CKD 3 Diverticulitis Osteoarthritis BPH / Urethral stricture requiring chronic haynes catheter / hx of CAUTI Anxiety and depression Chronic nonhealing toe ulcers, left big toe amputation managed by Dr. Tinsley/Donato. Bilateral cataract surgery Hx of hip fx requiring replacement Femoral endarterectomy PLAN: due to zabrina, dc lasix. repeat mp in 12hrs, if worsens, give ns 75/hr x 1liter. dc solumedrol. lungs are improved. change to po prednisone 40 mg daily. hold warfarin due to high inr. recheck daily inr. if signs of bleeding, give vitamin k 2.5 mg . wound care consult for toe. no signs of infection. tele medicine w dr. perdomo in am. per dr tinsley, pt is to follow w wound center after hospital discharge. aat. pt hse. dc in am if inr normal, creatinine improved. hold off on any diuretics, and avoid NSAIDS. renally dose all meds. VS, I&O, 24H, Fishbone Vital Signs/I&O Vital Signs Date Time Temp Pulse Resp B/P (MAP) Pulse Ox O2 Delivery O2 Flow Rate FiO2 02/23/20 06:00 98.1 85 20 138/71 (93) 95 Nasal Cannula 1.0 I&O- Last 24 Hours up to 6 AM 02/23/20 06:00 Intake Total 780 ml Output Total 1750 ml Balance -970 ml Laboratory Data 24H LABS Laboratory Tests 2 02/22/20 10:22: 02/22/20 12:39: Bedside Glucose (Misc Panel) 277H 02/22/20 15:52: Anion Gap 11, Glomerular Filtration Rate 37.0, Calcium Level 8.6L, Whole Blood Ionized Calcium 4.5, Magnesium Level 2.0 02/22/20 17:00: Bedside Glucose (Misc Panel) 145H 02/22/20 19:53: Bedside Glucose (Misc Panel) 166H 02/23/20 06:58: CBC/BMP Laboratory Tests 02/22/20 15:52 Microbiology Microbiology 02/22/20 Gram Stain - Final, Resulted 02/22/20 Sputum Culture, Resulted Pending 02/19/20 Urine Culture - Final, Complete 02/19/20 Respiratory Virus Panel (PCR) (ROSITA) - Final, Complete 02/19/20 Blood Culture - Preliminary, Resulted No Growth after 72 hours. All specime... CORY RIZZO MD Feb 23, 2020 07:27
[2020-02-23 07:44] LABS: INR 4.7; PROTHROMBIN TIME 45.3 SECONDS (12.5-14.3)
[2020-02-23 07:50] LABS: CALCIUM LEVEL 8.4 MG/DL (8.8-10.2); CREATININE FOR GFR 1.71 MG/DL (0.70-1.30); GLOMERULAR FILTRATION RATE 40.5 (>35); MAGNESIUM LEVEL 1.9 MG/DL (1.8-2.4)
[2020-02-23] MEDS: HumaLOG INSULIN (NovoLOG) PER UNIT SC SCH ×4 (08:35→19:55)
[2020-02-23] MEDS: predniSONE 20 MG TAB PO SCH (08:36)
[2020-02-23] MEDS: CEFEPIME HCL 1 GM in D5W MINI-BAG PLUS 50 ML IV SCH ×2 (10:26→19:55)
[2020-02-23] MEDS: RAMELTEON 8 MG TAB (ROZEREM) PO SCH (19:55)
[2020-02-23] MEDS: ACETAMINOPHEN TAB 650MG DOSE (2X325MG) PO PRN (19:55)
[2020-02-24 06:00] VITALS: BP 146/71
[2020-02-24] MEDS ORDERED: NS 1,000 ML IV ONE (06:00)
[2020-02-24] MEDS ORDERED: PRED10TA2 PO (06:04)
[2020-02-24 06:53] LABS: HEMOGLOBIN 8.5 g/dl (13.5-17.5); LYMPH # 0.5 10^3/uL (1.5-5.0); LYMPH % 5.5 % (24.0-44.0); MEAN CORPUSCULAR HEMOGLOBIN 25.4 pg (27.0-33.0); MEAN CORPUSCULAR HGB CONC 31.5 g/dl (32.0-36.5); MEAN CORPUSCULAR VOLUME 80.8 fl (80.0-96.0); MONO % 11.2 % (0.0-5.0); NEUTROPHILS # 7.5 10^3/uL (1.5-8.5); PLATELET COUNT, AUTOMATED 200 10^3/uL (150-450); RED BLOOD COUNT 3.34 10^6/uL (4.30-6.10)
[2020-02-24 07:04] LABS: INR 4.44; PROTHROMBIN TIME 43.3 SECONDS (12.5-14.3)
--- NOTE | 2020-02-24 07:09 | ECGEPIP ---
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
[2020-02-24 07:15] LABS: CALCIUM LEVEL 8.6 MG/DL (8.8-10.2); CREATININE FOR GFR 1.45 MG/DL (0.70-1.30); POTASSIUM SERUM 3.3 MEQ/L (3.5-5.1)
--- NOTE | 2020-02-24 07:23 | ECHO ---
DATE OF PROCEDURE: 02/21/2020 Age: 89 Gender: Male Height: 71 inches Weight: 198 pounds Body surface area: 2.1 m2 PATIENT LOCATION: Inpatient [address] [place], Room 3219. REFERRING PHYSICIAN: Amara Mejia MD. INDICATION: Dyspnea. MEASUREMENTS: 2D Measurements: RV 5.8 cm LV 6.0 cm Septum 1.1 cm Posterior wall 1.1 cm Aortic Root 3.8 cm LA 5.2 cm LVEF 25-30% Doppler Measurements: AV 0.94 m/s LVOT 0.49 m/s LVOT diameter 2.3 cm MV-E 112, A 47, E/A ratio 2.4 Early mitral deceleration time 161 msec E prime medial 4.2, A prime medial 3, E prime lateral 4.4 Average E/E prime ratio 26/PCWP - 34 mmHg RVSP at least 55 mmHg IVC 2.9 cm COMMENTS: Normal sinus rhythm with right bundle branch block. M-mode and two-dimensional echocardiography was performed with pulse, continuous wave, and tissue Doppler studies. At least moderately dilated left ventricle with normal wall thickness and severe global hypokinesis. Prominently dilated left atrium with grade 2 LV diastolic dysfunction and significantly elevated estimated mean left atrial pressure. Prominently dilated right heart chambers with hypokinesis of the right ventricular free wall and Doppler evidence of at least moderately severe pulmonary hypertension. Prominently dilated IVC with absent respiratory collapse in keeping with elevated central venous pressure. Aortic diameters upper limits of normal. Mild aortic valvular sclerosis with adequate cusp separation, but premature closure in keeping with reduced forward stroke volume. Moderate mitral annular calcification with some thickening of the mitral leaflets, but adequate leaflet excursion, but somewhat low flow appearance. No posterior systolic buckling. At least mild mitral insufficiency. Normal appearing tricuspid valve with at least moderately severe tricuspid insufficiency. No apparent intracardiac mass. Very small posterior pericardial effusion measuring 0.5 cm without evidence of cardiac chamber compression. Based on his DO NOT RESUSCITATE (DNR), he would not be a candidate for prophylactic implantable cardioverter defibrillator, but he may well be a candidate for Entresto and Farxiga. Would recommend withholding IV diuretic therapy for at least 24 hours prior to introducing low dose Entresto and would suggest 24-26 mg tablet once a day for several days prior to slowly increasing the dosage. MTDD
[2020-02-24] MEDS: BUDESONIDE 180MCG INHALER (PULMICORT FLEXHALER) INH SCH ×2 (07:31→19:50)
[2020-02-24] MEDS: LEVALBUTEROL 1.25 MG/0.5 ML CONCENTRATE NEB INH SCH ×4 (07:32→19:50)
[2020-02-24] MEDS: TIOTROPIUM INHALER/CAPSULE (SPIRIVA) INH SCH (07:32)
[2020-02-24] MEDS: CEFEPIME HCL 1 GM in D5W MINI-BAG PLUS 50 ML IV SCH ×2 (08:14→20:39)
[2020-02-24] MEDS: predniSONE 20 MG TAB PO SCH (08:14)
[2020-02-24] MEDS: HumaLOG INSULIN (NovoLOG) PER UNIT SC SCH ×4 (08:15→20:45)
[2020-02-24] MEDS: ACETAMINOPHEN TAB 650MG DOSE (2X325MG) PO PRN ×2 (10:17→20:40)
[2020-02-24 13:14] LABS: CALCIUM LEVEL 8.5 MG/DL (8.8-10.2); CREATININE FOR GFR 1.49 MG/DL (0.70-1.30); GLOMERULAR FILTRATION RATE 47.5 (>35); POTASSIUM SERUM 3.6 MEQ/L (3.5-5.1)
[2020-02-24 14:00] VITALS: BP 123/69
--- NOTE | 2020-02-24 17:16 | IPNPDOC ---
Date Seen The patient was seen on 02/24/20. Progress Note SUBJECTIVE: not feeling well today. "I feel very tired." no sob, cp, pressure, dizziness, lightheadedness. refused physical therapy. denied diaphoresis, n, v, abd pain, dysuria, fever, chills, cough OBJECTIVE PHYSICAL EXAMINATION: VITAL SIGNS: Please see below. GENERAL: sitting on chair at the bedside. speaks in full sentences. no respiratory distress. chapped lips. no pallor . not using resp acc mm. HEENT: no JVD no thyromegaly. Tongue is midline. Dry mucous membranes . CARDIOVASCULAR: S1, S2. Positive JVD. No carotid bruits RESPIRATORY: no wheezing fine crepitations at b/l bases. clear in b/l upper lobes ABDOMINAL: Positive bowel sounds, soft, nontender, nondistended EXTREMITIES: decreased edema still 1+ b/l Chronic venous stasis ulcers LABORATORY DATA, IMAGING STUDIES, MICROBIOLOGY: Please see below. ECHOCARDIOGRAM: DATE OF PROCEDURE: 02/21/2020 Age: 89 Gender: Male Height: 71 inches Weight: 198 pounds Body surface area: 2.1 m2 PATIENT LOCATION: Inpatient [address] [place] [address], Room 3219. REFERRING PHYSICIAN: Cory Rizzo MD. INDICATION: Dyspnea. MEASUREMENTS: 2D Measurements: RV 5.8 cm LV 6.0 cm Septum 1.1 cm Posterior wall 1.1 cm Aortic Root 3.8 cm LA 5.2 cm LVEF 25-30% Doppler Measurements: AV 0.94 m/s LVOT 0.49 m/s LVOT diameter 2.3 cm MV-E 112, A 47, E/A ratio 2.4 Early mitral deceleration time 161 msec E prime medial 4.2, A prime medial 3, E prime lateral 4.4 Average E/E prime ratio 26/PCWP - 34 mmHg RVSP at least 55 mmHg IVC 2.9 cm COMMENTS: Normal sinus rhythm with right bundle branch block. M-mode and two-dimensional echocardiography was performed with pulse, continuouswave, and tissue Doppler studies. At least moderately dilated left ventricle with normal wall thickness and severeglobal hypokinesis. Prominently dilated left atrium with grade 2 LV diastolic dysfunction and significantly elevated estimated mean left atrial pressure. Prominently dilated right heart chambers with hypokinesis of the right ventricular free wall and Doppler evidence of at least moderately severe pulmonary hypertension. Prominently dilated IVC with absent respiratory collapse in keeping with elevated central venous pressure. Aortic diameters upper limits of normal. Mild aortic valvular sclerosis with adequate cusp separation, but premature closure in keeping with reduced forward stroke volume. Moderate mitral annular calcification with some thickening of the mitral leaflets, but adequate leaflet excursion, but somewhat low flow appearance. No posterior systolic buckling. At least mild mitral insufficiency. Normal appearing tricuspid valve with at least moderately severe tricuspid insufficiency. No apparent intracardiac mass. Very small posterior pericardial effusion measuring 0.5 cm without evidence of cardiac chamber compression. Based on his DO NOT RESUSCITATE (DNR), he would not be a candidate for prophylactic implantable cardioverter defibrillator, but he may well be a candidate for Entresto and Farxiga. Would recommend withholding IV diuretic therapy for at least 24 hours prior to introducing low dose Entresto and would suggest 24-26 mg tablet once a day for several days prior to slowly increasing the dosage. DD: Braden Bennett MD, [facility] 02/22/20 1351 DT: EBONY 02/22/20 194 DS: ELENA 02/24/20 0741 Exam: XR Chest, 1 View Exam date and time: 02/22/2020 5:36 AM Age: 89 years old Clinical indication: Other: SOB R/O chf TECHNIQUE: Imaging protocol: XR of the chest Views: 1 view. COMPARISON: CR PORTABLE CHEST X-RAY 02/19/2020 5:09 PM FINDINGS: Lungs: There is right lower lung zone infiltrates. There is left basilar atelectatic changes versus infiltrates. Pleural space: Unremarkable. No pleural effusion. No pneumothorax. Heart/Mediastinum: The heart is significantly enlarged. Bones/joints: Unremarkable. Other findings: Right-sided effusion cannot be excluded. IMPRESSION: 1. Marked cardiomegaly. 2. Right lower lung zone infiltrates and/or atelectasis with or without effusion. This represent progression since the prior exam. 3. Left basilar atelectatic changes. Subtle underlying infiltrates cannot be excluded. Electronically signed by: Higinio Barboza On 02/22/2020 05:52:59 AM ASSESSMENT AND PLAN: 89 y/o male re-admitted for CHF exacerbation with h/o copd, chronic afib, PAD, htn, dm, ckd 3, BPH w chronic haynes due to urethral stricture and CAUTI, chronic left big toe ulcer, PAD s/p femoral endarterectomy, moderate pulmonary HTN, with TR. Acute hypoxic respiratory failure requiring 2 L of oxygen -due to chf and copd. optimized rx for both. dc 02 if sat>88% on ra w ambulation Decompensated combined acute on chronic systolic and diastolic congestive heart failure exacerbation -entresto in am. unable to use babatunde inh due to renal failure. low dose coreg, asa, statin. off lasix due to zabrina and appears to be euvolemic now. still on strict i/o, weigh daily and 2liter fluidrestriction. monitoring daily fluid status. cardiology referral Acute COPD exacerbation -tapered steroids, abx. nebs , supplemental o2 if sat<88% Acute RLL pneumonia -on iv cefepime, supplemental o2 if needed. nebs. Anemia of chronic disease -stool for blood.type and screen and rbc transfusion to decrease demand on heart. keep hgb 9-10. acute kidney injury due to overdiuresis on CKD3 -off lasix.avoiding nephrotoxins, renally dosing meds. coagulopathy with elevated inr due to warfarin -held warfarin. checking daily INR Atrial fibrillation,rate controlled -on oral AC, low dose coreg Chronic CAD s/p placement of 5 stents -on oral AC , beta roland, entresto, lipitor, PAD -on oral AC,Femoral endarterectomy IDDM -avoid oral hypoglycemic while in acute chf. BPH / Urethral stricture requiring chronic haynes catheter / hx of CAUTI -chronic haynes Anxiety and depression -chronic Chronic nonhealing toe ulcers, left big toe amputation managed by Dr. Tinsley/Donato. -wound care consult Bilateral cataract surgery Hx of hip fx requiring replacement code: DNR DNI VS, I&O, 24H, [facility] Vital Signs/I&O Vital Signs Date Time Temp Pulse Resp B/P (MAP) Pulse Ox O2 Delivery O2 Flow Rate FiO2 02/24/20 06:00 97.8 83 20 146/71 (96) 97 Nasal Cannula 2.0 I&O- Last 24 Hours up to 6 AM 02/24/20 05:59 Intake Total 1190 ml Output Total 350 ml Balance 840 ml Laboratory Data 24H LABS Laboratory Tests 2 02/23/20 19:55: Bedside Glucose (Misc Panel) 204H 02/24/20 06:38: Immature Granulocyte % (Auto) 0.3, Neutrophils (%) (Auto) 83.0H, Lymphocytes (%) (Auto) 5.5L, Monocytes (%) (Auto) 11.2H, Eosinophils (%) (Auto) 0.0, Basophils (%) (Auto) 0.0, Neutrophils # (Auto) 7.5, Lymphocytes # (Auto) 0.5L, Monocytes # (Auto) 1.0H, Eosinophils # (Auto) 0.0, Basophils # (Auto) 0.0, Nucleated Red Blood Cells % (auto) 0.0, Prothrombin Time 43.3H, Prothromb Time International Ratio 4.44, Anion Gap 8, Glomerular Filtration Rate 49.0, Calcium Level 8.6L, Magnesium Level 2.0 02/24/20 12:10: Bedside Glucose (Misc Panel) 193H 02/24/20 12:26: Anion Gap 6L, Glomerular Filtration Rate 47.5, Calcium Level 8.5L 02/24/20 16:22: Bedside Glucose (Misc Panel) 268H CBC/BMP Laboratory Tests 02/24/20 06:38 02/24/20 12:26 Microbiology Microbiology 02/22/20 Gram Stain - Final, Complete 02/22/20 Sputum Culture - Final, Complete Klebsiella Pneumoniae Yeast Like Organism 02/19/20 Urine Culture - Final, Complete 02/19/20 Respiratory Virus Panel (PCR) (ROSITA) - Final, Complete 02/19/20 Blood Culture - Final, Complete NO GROWTH AFTER 5 DAYS CORY RIZZO MD Feb 24, 2020 16:54
[2020-02-24] MEDS: CARVedilol 3.125 MG TAB PO SCH (20:40)
[2020-02-24] MEDS: ATORVASTATIN 20 MG TAB PO SCH (20:40)
[2020-02-24] MEDS: RAMELTEON 8 MG TAB (ROZEREM) PO SCH (20:41)
[2020-02-24 22:00] VITALS: BP 133/78
[2020-02-25 06:00] VITALS: BP 130/77
[2020-02-25 06:41] LABS: BASO % 0.1 % (0.0-1.0); EOS % 0.2 % (0.0-3.0); HEMATOCRIT 28.2 % (42.0-52.0); HEMOGLOBIN 8.7 g/dl (13.5-17.5); LYMPH # 0.9 10^3/uL (1.5-5.0); LYMPH % 7.2 % (24.0-44.0); MEAN CORPUSCULAR HEMOGLOBIN 25.1 pg (27.0-33.0); MEAN CORPUSCULAR HGB CONC 30.9 g/dl (32.0-36.5); MEAN CORPUSCULAR VOLUME 81.5 fl (80.0-96.0); MONO # 1.1 10^3/uL (0.0-0.8); MONO % 9.5 % (0.0-5.0); NEUTROPHILS # 9.7 10^3/uL (1.5-8.5); NEUTROPHILS % 82.3 % (36.0-66.0); PLATELET COUNT, AUTOMATED 229 10^3/uL (150-450); RED BLOOD COUNT 3.46 10^6/uL (4.30-6.10); WHITE BLOOD COUNT 11.8 10^3/uL (4.0-10.0)
[2020-02-25 06:57] LABS: CALCIUM LEVEL 8.6 MG/DL (8.8-10.2); CREATININE FOR GFR 1.24 MG/DL (0.70-1.30); GLOMERULAR FILTRATION RATE 58.7 (>35); POTASSIUM SERUM 3.2 MEQ/L (3.5-5.1)
[2020-02-25 07:00] LABS: INR 4.8; PROTHROMBIN TIME 46.1 SECONDS (12.5-14.3)
[2020-02-25] MEDS: HumaLOG INSULIN (NovoLOG) PER UNIT SC SCH ×4 (07:57→22:02)
[2020-02-25] MEDS: ASPIRIN 81 MG ENTERIC TAB PO SCH (07:57)
[2020-02-25] MEDS: CEFEPIME HCL 1 GM in D5W MINI-BAG PLUS 50 ML IV SCH (07:57)
[2020-02-25] MEDS: ENTRESTO 24-26MG TABLET (SACUBITRIL/VALSARTAN) PO SCH ×2 (07:58→22:03)
[2020-02-25] MEDS: CARVedilol 3.125 MG TAB PO SCH ×2 (07:58→22:04)
[2020-02-25] MEDS: predniSONE 20 MG TAB PO SCH (07:58)
[2020-02-25 07:59] LABS: PERCENT SATURATION 9.5 % (19.7-50.0)
[2020-02-25] MEDS ORDERED: POTASSIUM CHLORIDE 10 MEQ SR TABLET PO ONE (08:00)
[2020-02-25] MEDS: BUDESONIDE 180MCG INHALER (PULMICORT FLEXHALER) INH SCH ×2 (08:25→19:59)
[2020-02-25] MEDS: LEVALBUTEROL 1.25 MG/0.5 ML CONCENTRATE NEB INH SCH (08:25)
[2020-02-25] MEDS: TIOTROPIUM INHALER/CAPSULE (SPIRIVA) INH SCH (08:25)
[2020-02-25] MEDS: CEFDINIR 300 MG CAP (OMNICEF) PO SCH ×2 (09:20→22:03)
[2020-02-25 12:49] LABS: TOTAL PROTEIN 5.9 GM/DL (6.4-8.2)
--- NOTE | 2020-02-25 21:19 | IPNPDOC ---
Subjective Date Seen The patient was seen on 02/25/20. Subjective Chief Complaint/HPI Mr. Nguyen is an 89-year-old male who is here for right lower lobe pneumonia, CHF exacerbation, and COPD exacerbation. His has been staying with him. Denies any chest pain, shortness of breath, or abdominal pain. Discussed with about rehabilitation versus home physical therapy. wants him at home. Patient has stairs at home and will need to be able to traverse stairs. Objective Physical Examination General Exam: Positive: Cooperative Eye Exam: Positive: EOMI; Negative: Sclera icteric ENT Exam: Positive: Atraumatic, Tongue Midline Neck Exam: Negative: thyromegaly Chest Exam: Positive: Clear to auscultation Heart Exam: Positive: Rate Normal, Regular Rhythm Abdomen Exam: Positive: Normal bowel sounds, Soft; Negative: Tenderness Extremity Exam: Positive: Edema (bilateral pitting edema) Neuro Exam: Positive: Normal Speech Psych Exam: Positive: Mental status NL, Mood NL Assessment /Plan Assessment Mr. Nguyen is an 89-year-old male who is here for right lower lobe pneumonia, CHF exacerbation, and COPD exacerbation. In terms of his respiratory status, he has improved. Patient has debility and is not able to transverse stairs. Patient will work with physical therapy. does not want patient to go to rehabilitation. Pending physical therapy clearance for home and home physical therapy. Plan/VTE VTE Prophylaxis Ordered?: Yes Plan 1. Acute on chronic combined systolic and diastolic congestive heart failure Echocardiogram on 02/21/2020 demonstrates an EF of 25-30% with a grade 2 diastolic dysfunction. Patient is not a candidate for prophylactic implantable cardioverter defibrillator as he is DNR. Continue Entresto and carvedilol Consider restarting Lasix tomorrow 2. COPD exacerbation Resolved Continue budesonide and tiotropium Will be on a prednisone taper on discharge 3. Right lower lobe pneumonia Transition from cefepime to cefdinir 4. Debility Need to able to transverse stairs declined inpatient rehabilitation Pending physical therapy clearance for home physical therapy 5. Diabetes mellitus Continue insulin sliding scale 6. Atrial fibrillation Continue Coreg On warfarin at home, but currently hypercoagulable Continue to monitor INRs 7. BPH, urethral stricture requiring chronic indwelling Marrero Chronic Marrero 8. CAD status post 5 stents Continue aspirin, statin, Entresto, and Coreg 9. DVT prophylaxis Currently hypercoagulable on warfarin VS, I&O, 24H, Fishbone Vital Signs/I&O Vital Signs Date Time Temp Pulse Resp B/P (MAP) Pulse Ox O2 Delivery O2 Flow Rate FiO2 02/25/20 07:58 74 130/77 02/25/20 06:00 98.0 18 97 Room Air 02/24/20 21:00 1.0 I&O- Last 24 Hours up to 6 AM 02/25/20 06:00 Intake Total 2330 ml Output Total 825 ml Balance 1505 ml Laboratory Data 24H LABS Laboratory Tests 2 02/25/20 06:18: Prothrombin Time 46.1H, Prothromb Time International Ratio 4.80, Anion Gap 8, Glomerular Filtration Rate 58.7, Calcium Level 8.6L, Magnesium Level 2.0, Iron Level 28L, Total Iron Binding Capacity 295, Transferrin % Saturation 9.5L, Ferritin 132 02/25/20 06:19: Immature Granulocyte % (Auto) 0.7, Neutrophils (%) (Auto) 82.3H, Lymphocytes (%) (Auto) 7.2L, Monocytes (%) (Auto) 9.5H, Eosinophils (%) (Auto) 0.2, Basophils ( %) (Auto) 0.1, Neutrophils # (Auto) 9.7H, Lymphocytes # (Auto) 0.9L, Monocytes # (Auto) 1.1H, Eosinophils # (Auto) 0.0, Basophils # (Auto) 0.0, Nucleated Red Blood Cells % (auto) 0.0, Differential Slide Review Report, Peripheral Blood Smear Path Consult PERIPHERAL SMEAR 02/25/20 11:43: Bedside Glucose (Misc Panel) 187H 02/25/20 16:25: Bedside Glucose (Misc Panel) 248H 02/25/20 20:12: Bedside Glucose (Misc Panel) 255H CBC/BMP Laboratory Tests 02/25/20 06:18 02/25/20 06:19 Microbiology Microbiology 02/22/20 Gram Stain - Final, Complete 02/22/20 Sputum Culture - Final, Complete Klebsiella Pneumoniae Yeast Like Organism 02/19/20 Urine Culture - Final, Complete 02/19/20 Respiratory Virus Panel (PCR) (ROSITA) - Final, Complete 02/19/20 Blood Culture - Final, Complete NO GROWTH AFTER 5 DAYS XOCHITL HUMPHRIES DO Feb 25, 2020 21:19
[2020-02-25 22:00] VITALS: BP 132/61
[2020-02-25] MEDS: traZODone 100 MG TAB PO SCH (22:02)
[2020-02-25] MEDS: RAMELTEON 8 MG TAB (ROZEREM) PO SCH (22:03)
[2020-02-25] MEDS: ACETAMINOPHEN TAB 650MG DOSE (2X325MG) PO PRN (22:03)
[2020-02-25] MEDS: ATORVASTATIN 20 MG TAB PO SCH (22:03)
[2020-02-26 06:00] VITALS: BP 131/65
[2020-02-26] MEDS: BUDESONIDE 180MCG INHALER (PULMICORT FLEXHALER) INH SCH ×2 (08:00→20:21)
[2020-02-26] MEDS: TIOTROPIUM INHALER/CAPSULE (SPIRIVA) INH SCH (08:00)
[2020-02-26 08:15] LABS: BASO % 0.2 % (0.0-1.0); EOS # 0.1 10^3/uL (0.0-0.5); EOS % 1.3 % (0.0-3.0); HEMATOCRIT 29.4 % (42.0-52.0); HEMOGLOBIN 8.7 g/dl (13.5-17.5); LYMPH % 9.4 % (24.0-44.0); MEAN CORPUSCULAR HEMOGLOBIN 24.4 pg (27.0-33.0); MEAN CORPUSCULAR HGB CONC 29.6 g/dl (32.0-36.5); MEAN CORPUSCULAR VOLUME 82.6 fl (80.0-96.0); MONO # 0.9 10^3/uL (0.0-0.8); MONO % 8.5 % (0.0-5.0); NEUTROPHILS # 8.5 10^3/uL (1.5-8.5); NEUTROPHILS % 79.7 % (36.0-66.0); PLATELET COUNT, AUTOMATED 224 10^3/uL (150-450); RED BLOOD COUNT 3.56 10^6/uL (4.30-6.10); WHITE BLOOD COUNT 10.7 10^3/uL (4.0-10.0)
[2020-02-26] MEDS: HumaLOG INSULIN (NovoLOG) PER UNIT SC SCH ×4 (08:18→20:32)
[2020-02-26] MEDS: CEFDINIR 300 MG CAP (OMNICEF) PO SCH ×2 (08:18→20:31)
[2020-02-26] MEDS: predniSONE 20 MG TAB PO SCH (08:18)
[2020-02-26] MEDS: ENTRESTO 24-26MG TABLET (SACUBITRIL/VALSARTAN) PO SCH ×2 (08:19→20:31)
[2020-02-26] MEDS: ASPIRIN 81 MG ENTERIC TAB PO SCH (08:19)
[2020-02-26] MEDS: CARVedilol 3.125 MG TAB PO SCH ×2 (08:19→20:31)
[2020-02-26 08:23] LABS: INR 4.2; PROTHROMBIN TIME 41.5 SECONDS (12.5-14.3)
[2020-02-26 08:35] LABS: BLOOD UREA NITROGEN 45 MG/DL (7-18); CALCIUM LEVEL 7.9 MG/DL (8.8-10.2); CARBON DIOXIDE LEVEL 32 MEQ/L (21-32); CHLORIDE LEVEL 99 MEQ/L (98-107); CREATININE FOR GFR 1.03 MG/DL (0.70-1.30); GLOMERULAR FILTRATION RATE > 60.0 (>35); GLUCOSE, FASTING 155 MG/DL (70-100); POTASSIUM SERUM 3.4 MEQ/L (3.5-5.1); SODIUM LEVEL 135 MEQ/L (136-145)
[2020-02-26 14:00] VITALS: BP 130/88
[2020-02-26 19:09] LABS: BODY FLUID CULTURE Not indicated. (.); LEGIONELLA ANTIGEN URINE Negative (Negative); ORGANISM ID Not indicated. (.); SPECIMEN SOURCE Urine (.); URINE STREP PNEUMONIAE ANTIGEN Negative (Negative)
--- NOTE | 2020-02-26 19:24 | IPNPDOC ---
Subjective Date Seen The patient was seen on 02/26/20. Subjective Chief Complaint/HPI Mr. Nguyen is an 89-year-old male who is here for right lower lobe pneumonia, CHF exacerbation, and COPD exacerbation. His has been staying with him due to his dementia. She tells me that she will need to go back home by the end of the week. Otherwise, patient denies chest pain, shortness of breath, or abdominal pain. expresses concern about patient's ability to get into house as there are stairs to get into and out of house. Objective Physical Examination General Exam: Positive: No Acute Distress Eye Exam: Positive: EOMI; Negative: Sclera icteric ENT Exam: Positive: Atraumatic, Tongue Midline Neck Exam: Negative: thyromegaly Chest Exam: Positive: Clear to auscultation Heart Exam: Positive: Rate Normal, Regular Rhythm Abdomen Exam: Positive: Normal bowel sounds, Soft; Negative: Tenderness Extremity Exam: Positive: Edema (bilateral pitting edema) Neuro Exam: Positive: Normal Speech Psych Exam: Positive: Mental status NL, Mood NL Assessment /Plan Assessment Mr. Nguyen is an 89-year-old male who is here for right lower lobe pneumonia, CHF exacerbation, and COPD exacerbation. In terms of his respiratory status, he has improved. Patient has debility and is not able to transverse stairs. Patient will work with physical therapy, but patient will not be able to climb stairs anytime soon. Pending physical therapy clearance for home and home physical therapy. Plan/VTE VTE Prophylaxis Ordered?: Yes Plan 1. Acute on chronic combined systolic and diastolic congestive heart failure Echocardiogram on 02/21/2020 demonstrates an EF of 25-30% with a grade 2 diastolic dysfunction. Patient is not a candidate for prophylactic implantable cardioverter defibrillator as he is DNR. Continue Entresto and carvedilol Restarting Lasix tomorrow 2. COPD exacerbation Resolved Continue budesonide and tiotropium Taper prednisone 3. Right lower lobe pneumonia Transition from cefepime to cefdinir 4. Debility Need to able to transverse stairs Pending physical therapy clearance for home physical therapy -May need wheelchair access for entering and leaving home 5. Diabetes mellitus Continue insulin sliding scale 6. Atrial fibrillation Continue Coreg On warfarin at home, but currently hypercoagulable Continue to monitor INRs 7. BPH, urethral stricture requiring chronic indwelling Marrero Chronic Marrero 8. CAD status post 5 stents Continue aspirin, statin, Entresto, and Coreg 9. DVT prophylaxis Currently hypercoagulable on warfarin VS, I&O, 24H, Fishbone Vital Signs/I&O Vital Signs Date Time Temp Pulse Resp B/P (MAP) Pulse Ox O2 Delivery O2 Flow Rate FiO2 02/26/20 14:00 98.2 74 18 130/88 (102) 94 02/26/20 06:00 Room Air 02/24/20 21:00 1.0 I&O- Last 24 Hours up to 6 AM 02/26/20 06:00 Intake Total 1140 ml Output Total 1000 ml Balance 140 ml Laboratory Data 24H LABS Laboratory Tests 2 02/25/20 20:12: Bedside Glucose (Misc Panel) 255H 02/26/20 07:32: Immature Granulocyte % (Auto) 0.9, Neutrophils (%) (Auto) 79.7H, Lymphocytes (%) (Auto) 9.4L, Monocytes (%) (Auto) 8.5H, Eosinophils (%) (Auto) 1.3, Basophils (%) (Auto) 0.2, Neutrophils # (Auto) 8.5, Lymphocytes # (Auto) 1.0L, Monocytes # (Auto) 0.9H, Eosinophils # (Auto) 0.1, Basophils # (Auto) 0.0, Nucleated Red Blood Cells % (auto) 0.0, Prothrombin Time 41.5H, Prothromb Time International Ratio 4.20, Anion Gap 4L, Glomerular Filtration Rate > 60.0, Calcium Level 7.9L, Magnesium Level 2.0 02/26/20 07:50: Bedside Glucose (Misc Panel) 158H 02/26/20 11:39: Bedside Glucose (Misc Panel) 201H 02/26/20 17:01: Bedside Glucose (Misc Panel) 128H CBC/BMP Laboratory Tests 02/26/20 07:32 Microbiology Microbiology 02/22/20 Gram Stain - Final, Complete 02/22/20 Sputum Culture - Final, Complete Klebsiella Pneumoniae Yeast Like Organism 02/19/20 Urine Culture - Final, Complete 02/19/20 Respiratory Virus Panel (PCR) (ROSITA) - Final, Complete 02/19/20 Blood Culture - Final, Complete NO GROWTH AFTER 5 DAYS XOCHITL HUMPHRIES DO Feb 26, 2020 19:24
[2020-02-26] MEDS ORDERED: POTASSIUM CHLORIDE 10 MEQ SR TABLET PO ONE (19:30)
[2020-02-26 20:00] VITALS: BP 150/90
[2020-02-26] MEDS: RAMELTEON 8 MG TAB (ROZEREM) PO SCH (20:31)
[2020-02-26] MEDS: traZODone 100 MG TAB PO SCH (20:31)
[2020-02-26] MEDS: ATORVASTATIN 20 MG TAB PO SCH (20:31)
[2020-02-27 05:56] LABS: BASO % 0.1 % (0.0-1.0); EOS # 0.1 10^3/uL (0.0-0.5); EOS % 0.8 % (0.0-3.0); HEMATOCRIT 29.6 % (42.0-52.0); HEMOGLOBIN 9.2 g/dl (13.5-17.5); LYMPH # 0.9 10^3/uL (1.5-5.0); LYMPH % 8.5 % (24.0-44.0); MEAN CORPUSCULAR HEMOGLOBIN 25.5 pg (27.0-33.0); MEAN CORPUSCULAR HGB CONC 31.1 g/dl (32.0-36.5); MONO # 0.9 10^3/uL (0.0-0.8); MONO % 8.4 % (0.0-5.0); NEUTROPHILS # 8.8 10^3/uL (1.5-8.5); NEUTROPHILS % 81.5 % (36.0-66.0); PLATELET COUNT, AUTOMATED 236 10^3/uL (150-450); RED BLOOD COUNT 3.61 10^6/uL (4.30-6.10); WHITE BLOOD COUNT 10.8 10^3/uL (4.0-10.0)
[2020-02-27 06:00] VITALS: BP 103/58
[2020-02-27 06:05] LABS: INR 3.67; PROTHROMBIN TIME 37.3 SECONDS (12.5-14.3)
[2020-02-27 06:19] LABS: BLOOD UREA NITROGEN 35 MG/DL (7-18); CALCIUM LEVEL 8.1 MG/DL (8.8-10.2); CARBON DIOXIDE LEVEL 31 MEQ/L (21-32); CHLORIDE LEVEL 100 MEQ/L (98-107); CREATININE FOR GFR 1.02 MG/DL (0.70-1.30); GLOMERULAR FILTRATION RATE > 60.0 (>35); GLUCOSE, FASTING 208 MG/DL (70-100); MAGNESIUM LEVEL 1.9 MG/DL (1.8-2.4); POTASSIUM SERUM 3.9 MEQ/L (3.5-5.1); SODIUM LEVEL 136 MEQ/L (136-145)
[2020-02-27] MEDS: TIOTROPIUM INHALER/CAPSULE (SPIRIVA) INH SCH (07:12)
[2020-02-27] MEDS: BUDESONIDE 180MCG INHALER (PULMICORT FLEXHALER) INH SCH ×2 (07:13→19:37)
[2020-02-27] MEDS: ASPIRIN 81 MG ENTERIC TAB PO SCH (07:45)
[2020-02-27] MEDS: ENTRESTO 24-26MG TABLET (SACUBITRIL/VALSARTAN) PO SCH ×2 (07:45→22:16)
[2020-02-27] MEDS: predniSONE 20 MG TAB PO SCH (07:45)
[2020-02-27] MEDS: FUROSEMIDE 20 MG TAB PO SCH (07:46)
[2020-02-27] MEDS: CEFDINIR 300 MG CAP (OMNICEF) PO SCH ×2 (07:46→22:16)
[2020-02-27] MEDS: HumaLOG INSULIN (NovoLOG) PER UNIT SC SCH ×4 (07:47→21:00)
[2020-02-27] MEDS: CARVedilol 3.125 MG TAB PO SCH ×2 (07:48→22:15)
[2020-02-27 11:43] LABS: ALBUMIN 3.32 GM/DL (3.29-5.55); ALBUMIN % 56.3 % (55.8-66.1); ALPHA-1-GLOBULIN % 6.6 % (2.9-4.9); ALPHA-1-GLOBULINS 0.39 GM/DL (0.17-0.41); ALPHA-2-GLOBULINS 0.73 GM/DL (0.42-0.99); ALPHA-2-GLOBULINS % 12.4 % (7.1-11.8); BETA-1-GLOBULINS 0.43 GM/DL (0.28-0.60); BETA-1-GLOBULINS % 7.3 % (4.7-7.2); BETA-2-GLOBULINS 0.26 GM/DL (0.19-0.55); BETA-2-GLOBULINS % 4.4 % (3.2-6.5); GAMMA GLOBULINS 0.77 GM/DL (0.65-1.58)
[2020-02-27 14:12] VITALS: BP 156/90
--- NOTE | 2020-02-27 17:21 | IPNPDOC ---
Subjective Date Seen The patient was seen on 02/27/20. Subjective Chief Complaint/HPI Mr. Nguyen is an 89-year-old male who is here for right lower lobe pneumonia, CHF exacerbation, and COPD exacerbation. This morning, he denies any fever/chills, chest pain, dyspnea, abdominal pain, or dysuria. Spoke with urban planner and . Plan for Monday discharge. Otherwise, patient is working with physical therapy for getting into and out of the wheelchair. Objective Physical Examination General Exam: Positive: No Acute Distress Eye Exam: Positive: EOMI; Negative: Sclera icteric ENT Exam: Positive: Atraumatic, Tongue Midline Neck Exam: Negative: thyromegaly Chest Exam: Positive: Clear to auscultation Heart Exam: Positive: Rate Normal, Regular Rhythm Abdomen Exam: Positive: Normal bowel sounds, Soft; Negative: Tenderness Extremity Exam: Positive: Edema (bilateral pitting edema) Neuro Exam: Positive: Normal Speech Psych Exam: Positive: Mental status NL, Mood NL Assessment /Plan Assessment Mr. Nguyen is an 89-year-old male who is here for right lower lobe pneumonia, CHF exacerbation, and COPD exacerbation. In terms of his respiratory status, he has improved. Patient is not able to transverse stairs, but patient does not want to go to rehab. Plan for patient to utilize wheelchair for mobility. Planning for Monday discharge Plan/VTE VTE Prophylaxis Ordered?: Yes Plan 1. Acute on chronic combined systolic and diastolic congestive heart failure Echocardiogram on 02/21/2020 demonstrates an EF of 25-30% with a grade 2 diastolic dysfunction. Patient is not a candidate for prophylactic implantable cardioverter defibrillator as he is DNR. Continue Entresto and carvedilol -Continue Lasix 2. COPD exacerbation Resolved Continue budesonide and tiotropium Taper prednisone 3. Right lower lobe pneumonia Transition from cefepime to cefdinir 4. Debility Will use wheel chair for mobility Home physical therapy 5. Diabetes mellitus Continue insulin sliding scale 6. Atrial fibrillation Continue Coreg On warfarin at home, but currently hypercoagulable Continue to monitor INRs 7. BPH, urethral stricture requiring chronic indwelling Marrero Chronic Marrero 8. CAD status post 5 stents Continue aspirin, statin, Entresto, and Coreg 9. DVT prophylaxis Currently hypercoagulable on warfarin Dispo: Planning for Monday discharge VS, I&O, 24H, Fishbone Vital Signs/I&O Vital Signs Date Time Temp Pulse Resp B/P (MAP) Pulse Ox O2 Delivery O2 Flow Rate FiO2 02/27/20 14:12 98.0 93 20 156/90 (112) 96 Room Air 02/24/20 21:00 1.0 I&O- Last 24 Hours up to 6 AM 02/27/20 06:00 Intake Total 1160 ml Output Total 400 ml Balance 760 ml Laboratory Data 24H LABS Laboratory Tests 2 02/26/20 19:41: Bedside Glucose (Misc Panel) 193H 02/27/20 05:06: Immature Granulocyte % (Auto) 0.7, Neutrophils (%) (Auto) 81.5H, Lymphocytes (%) (Auto) 8.5L, Monocytes (%) (Auto) 8.4H, Eosinophils (%) (Auto) 0.8, Basophils (%) (Auto) 0.1, Neutrophils # (Auto) 8.8H, Lymphocytes # (Auto) 0.9L, Monocytes # (Auto) 0.9H, Eosinophils # (Auto) 0.1, Basophils # (Auto) 0.0, Nucleated Red Blood Cells % (auto) 0.0, Prothrombin Time 37.3H, Prothromb Time International Ratio 3.67, Anion Gap 5L, Glomerular Filtration Rate > 60.0, Calcium Level 8.1L, Magnesium Level 1.9 02/27/20 06:56: Bedside Glucose (Misc Panel) 204H 02/27/20 11:34: Bedside Glucose (Misc Panel) 243H 02/27/20 16:40: Bedside Glucose (Misc Panel) 234H CBC/BMP Laboratory Tests 02/27/20 05:06 Microbiology Microbiology 02/22/20 Gram Stain - Final, Complete 02/22/20 Sputum Culture - Final, Complete Klebsiella Pneumoniae Yeast Like Organism 02/19/20 Urine Culture - Final, Complete 02/19/20 Respiratory Virus Panel (PCR) (ROSITA) - Final, Complete 02/19/20 Blood Culture - Final, Complete NO GROWTH AFTER 5 DAYS XOCHITL HUMPHRIES DO Feb 27, 2020 17:21
[2020-02-27] MEDS ORDERED: DOCUSATE SODIUM 100MG CAPSULE PO PRN (20:45)
[2020-02-27 22:00] VITALS: BP 148/79
[2020-02-27] MEDS: RAMELTEON 8 MG TAB (ROZEREM) PO SCH (22:15)
[2020-02-27] MEDS: traZODone 100 MG TAB PO SCH (22:16)
[2020-02-27] MEDS: ATORVASTATIN 20 MG TAB PO SCH (22:16)
[2020-02-28 06:00] VITALS: BP 140/74
[2020-02-28 06:48] LABS: HEMOGLOBIN 8.8 g/dl (13.5-17.5); MEAN CORPUSCULAR HEMOGLOBIN 25.1 pg (27.0-33.0); MEAN CORPUSCULAR HGB CONC 30.3 g/dl (32.0-36.5); MEAN CORPUSCULAR VOLUME 82.9 fl (80.0-96.0); PLATELET COUNT, AUTOMATED 250 10^3/uL (150-450); WHITE BLOOD COUNT 13.5 10^3/uL (4.0-10.0)
[2020-02-28 07:04] LABS: INR 2.21
[2020-02-28 07:13] LABS: BLOOD UREA NITROGEN 31 MG/DL (7-18); CALCIUM LEVEL 7.9 MG/DL (8.8-10.2); CARBON DIOXIDE LEVEL 32 MEQ/L (21-32); CHLORIDE LEVEL 98 MEQ/L (98-107); CREATININE FOR GFR 0.96 MG/DL (0.70-1.30); GLOMERULAR FILTRATION RATE > 60.0 (>35); GLUCOSE, FASTING 184 MG/DL (70-100); POTASSIUM SERUM 4.1 MEQ/L (3.5-5.1); SODIUM LEVEL 135 MEQ/L (136-145)
[2020-02-28] MEDS: TIOTROPIUM INHALER/CAPSULE (SPIRIVA) INH SCH (07:17)
[2020-02-28] MEDS: BUDESONIDE 180MCG INHALER (PULMICORT FLEXHALER) INH SCH ×2 (07:17→21:03)
[2020-02-28] MEDS: CARVedilol 3.125 MG TAB PO SCH ×2 (08:49→21:26)
[2020-02-28] MEDS: CEFDINIR 300 MG CAP (OMNICEF) PO SCH ×2 (08:49→21:26)
[2020-02-28] MEDS: ASPIRIN 81 MG ENTERIC TAB PO SCH (08:49)
[2020-02-28] MEDS: HumaLOG INSULIN (NovoLOG) PER UNIT SC SCH ×4 (08:49→21:00)
[2020-02-28] MEDS: ENTRESTO 24-26MG TABLET (SACUBITRIL/VALSARTAN) PO SCH ×2 (08:49→21:25)
[2020-02-28] MEDS: FUROSEMIDE 20 MG TAB PO SCH (08:50)
[2020-02-28] MEDS: predniSONE 20 MG TAB PO SCH (08:50)
--- NOTE | 2020-02-28 10:39 | IPNPDOC ---
Subjective Date Seen The patient was seen on 02/28/20. Subjective Chief Complaint/HPI Mr. Nguyen is an 89-year-old male who is here for right lower lobe pneumonia, CHF exacerbation, and COPD exacerbation. This morning, denies any fever, chest pain, worsening dyspnea, abdominal pain, or dysuria. Planning for Monday discharge, and is agreeable to this plan. Objective Physical Examination General Exam: Positive: No Acute Distress Eye Exam: Positive: EOMI; Negative: Sclera icteric ENT Exam: Positive: Atraumatic, Tongue Midline Neck Exam: Negative: thyromegaly Chest Exam: Positive: Clear to auscultation Heart Exam: Positive: Rate Normal, Regular Rhythm Abdomen Exam: Positive: Normal bowel sounds, Soft; Negative: Tenderness Extremity Exam: Positive: Edema (bilateral pitting edema) Neuro Exam: Positive: Normal Speech Psych Exam: Positive: Mental status NL, Mood NL Assessment /Plan Assessment Mr. Nguyen is an 89-year-old male who is here for right lower lobe pneumonia, CHF exacerbation, and COPD exacerbation. In terms of his respiratory status, he has improved. Patient is not able to transverse stairs, but patient does not want to go to rehab. Plan for patient to utilize wheelchair for mobility. Planning for Monday discharge Plan/VTE VTE Prophylaxis Ordered?: Yes Plan 1. Acute on chronic combined systolic and diastolic congestive heart failure Echocardiogram on 02/21/2020 demonstrates an EF of 25-30% with a grade 2 diastolic dysfunction. Patient is not a candidate for prophylactic implantable cardioverter defibrillator as he is DNR. Continue Entresto and carvedilol -Continue Lasix 2. COPD exacerbation Resolved Continue budesonide and tiotropium Taper prednisone 3. Right lower lobe pneumonia Transition from cefepime to cefdinir 4. Debility Will use wheel chair for mobility Home physical therapy 5. Diabetes mellitus Continue insulin sliding scale 6. Atrial fibrillation Continue Coreg -Warfarin has been restarted 7. BPH, urethral stricture requiring chronic indwelling Marrero Chronic Marrero 8. CAD status post 5 stents Continue aspirin, statin, Entresto, and Coreg 9. DVT prophylaxis INR is at acceptable level. Restart warfarin Dispo: Planning for Monday discharge VS, I&O, 24H, Fishbone Vital Signs/I&O Vital Signs Date Time Temp Pulse Resp B/P (MAP) Pulse Ox O2 Delivery O2 Flow Rate FiO2 02/28/20 08:49 83 140/74 02/28/20 06:00 98.3 18 93 Room Air 02/24/20 21:00 1.0 I&O- Last 24 Hours up to 6 AM 02/28/20 06:00 Intake Total 1080 ml Output Total 1000 ml Balance 80 ml Laboratory Data 24H LABS Laboratory Tests 2 02/27/20 11:34: Bedside Glucose (Misc Panel) 243H 02/27/20 16:40: Bedside Glucose (Misc Panel) 234H 02/27/20 20:27: Bedside Glucose (Misc Panel) 223H 02/28/20 05:55: Nucleated Red Blood Cells % (auto) 0.0, Prothrombin Time 25.0H, Prothromb Time International Ratio 2.21, Anion Gap 5L, Glomerular Filtration Rate > 60.0, Calcium Level 7.9L CBC/BMP Laboratory Tests 02/28/20 05:55 Microbiology Microbiology 02/22/20 Gram Stain - Final, Complete 02/22/20 Sputum Culture - Final, Complete Klebsiella Pneumoniae Yeast Like Organism 02/19/20 Urine Culture - Final, Complete 02/19/20 Respiratory Virus Panel (PCR) (ROSITA) - Final, Complete 02/19/20 Blood Culture - Final, Complete NO GROWTH AFTER 5 DAYS XOCHITL HUMPHRIES DO Feb 28, 2020 10:39
[2020-02-28 14:00] VITALS: BP 135/70
[2020-02-28] MEDS ORDERED: WARFARIN SOD 2MG TAB PO ONE (17:00)
[2020-02-28] MEDS: RAMELTEON 8 MG TAB (ROZEREM) PO SCH (21:25)
[2020-02-28] MEDS: ATORVASTATIN 20 MG TAB PO SCH (21:25)
[2020-02-28] MEDS: traZODone 100 MG TAB PO SCH (21:25)
[2020-02-28] MEDS: ACETAMINOPHEN TAB 650MG DOSE (2X325MG) PO PRN (21:26)
[2020-02-28 22:00] VITALS: BP 139/69
[2020-02-29 06:00] VITALS: BP 131/63
[2020-02-29 06:52] LABS: HEMATOCRIT 30.1 % (42.0-52.0); MEAN CORPUSCULAR HEMOGLOBIN 24.5 pg (27.0-33.0); MEAN CORPUSCULAR HGB CONC 29.9 g/dl (32.0-36.5); PLATELET COUNT, AUTOMATED 256 10^3/uL (150-450); RED BLOOD COUNT 3.67 10^6/uL (4.30-6.10); WHITE BLOOD COUNT 13.7 10^3/uL (4.0-10.0)
[2020-02-29 07:00] LABS: INR 2.47; PROTHROMBIN TIME 27.3 SECONDS (12.5-14.3)
[2020-02-29 07:15] LABS: BLOOD UREA NITROGEN 28 MG/DL (7-18); CALCIUM LEVEL 8.1 MG/DL (8.8-10.2); CARBON DIOXIDE LEVEL 29 MEQ/L (21-32); CHLORIDE LEVEL 100 MEQ/L (98-107); CREATININE FOR GFR 0.92 MG/DL (0.70-1.30); GLOMERULAR FILTRATION RATE > 60.0 (>35); GLUCOSE, FASTING 161 MG/DL (70-100); SODIUM LEVEL 135 MEQ/L (136-145)
[2020-02-29] MEDS: TIOTROPIUM INHALER/CAPSULE (SPIRIVA) INH SCH (08:00)
[2020-02-29] MEDS: BUDESONIDE 180MCG INHALER (PULMICORT FLEXHALER) INH SCH (08:01)
[2020-02-29] MEDS: ENTRESTO 24-26MG TABLET (SACUBITRIL/VALSARTAN) PO SCH (08:19)
[2020-02-29] MEDS: CEFDINIR 300 MG CAP (OMNICEF) PO SCH (08:19)
[2020-02-29] MEDS: ASPIRIN 81 MG ENTERIC TAB PO SCH (08:19)
[2020-02-29] MEDS: predniSONE 20 MG TAB PO SCH (08:19)
[2020-02-29 08:20] VITALS: BP 131/63
[2020-02-29] MEDS: CARVedilol 3.125 MG TAB PO SCH (08:20)
[2020-02-29] MEDS: FUROSEMIDE 20 MG TAB PO SCH (08:20)
[2020-02-29] MEDS: HumaLOG INSULIN (NovoLOG) PER UNIT SC SCH (08:21)
[2020-02-29] MEDS ORDERED: SPIR12.9 INH (08:30)
[2020-02-29] MEDS ORDERED: PRED10TA2 PO (08:30)
[2020-02-29] MEDS ORDERED: ENTR1TAB PO (08:30)
--- NOTE | 2020-02-29 19:56 | DS.PDOC ---
Discharge Summary General Date of Admission Feb 19, 2020 at 19:50 Date of Discharge Feb 29, 2020 Attending Physician: XOCHITL HUMPHRIES DO Discharge Summary PROCEDURES PERFORMED DURING STAY: None. ADMITTING DIAGNOSES: 1. Acute on chronic combined systolic and diastolic congestive heart failure 2. COPD exacerbation 3. Right lower lobe pneumonia 4. Debility 5. Diabetes mellitus 6. Atrial fibrillation 7. BPH, urethral stricture requiring chronic indwelling Marrero 8. CAD status post 5 stents DISCHARGE DIAGNOSES: 1. Acute on chronic combined systolic and diastolic congestive heart failure 2. COPD exacerbation 3. Right lower lobe pneumonia 4. Debility 5. Diabetes mellitus 6. Atrial fibrillation 7. BPH, urethral stricture requiring chronic indwelling Marrero 8. CAD status post 5 stents COMPLICATIONS/CHIEF COMPLAINT: CHF. HISTORY OF PRESENT ILLNESS: Mr. Nguyen is an 89 year old male with COPD and CHF who presents for worsening shortness of breath, productive cough with sputum, and bilateral lower extremity edema. Due to his dementia, he does not know how long he has had the symptoms. He has been having difficulty sleeping on his back and he has to use one pillow to prop himself up. HOSPITAL COURSE: During patient's hospitalization history for both acute exacerbation of CHF and COPD. In terms of his CHF, he is aggressively diuresed. He did develop acute kidney injury during hospitalization, but resolved at the end of hospitalization by withholding diuresis. He also had an echocardiogram which demonstrated an EF of 25-30%. 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 He was started on Entresto. There is also a recommendation for Farxiga, but this would need to be started outpatient. During that time, he did become hypercoagulable with INR peaking at 4.7, but that has also return to therapeutic range at 2.47. In terms of his COPD, history of antibiotics. Repeat chest x-ray did demonstrate infiltrate in the right lung. He completed an antibiotic course here. His IV steroids were tapered to by mouth steroids. He started on Spiriva Respimat on discharge for COPD and to be continued on PRN albuterol. His home had stairs at entryway and inside. He was too weak to climb stairs. Discussed acute rehabilitation with him of which he declined. He was adamant about not going to rehabilitation. Physical therapy and occupational therapy worked with patient and wheelchair. environmental restoration planner worked on wheelchair service for patient. Otherwise, due to both his systolic CHF and COPD, patient t ells me that he prefers to sleep in chair oversleeping in bed. He often wakes up at night to get up and sleep in chair. He does need physical therapy due to his debility. He may benefit from a hospital bed. DISCHARGE MEDICATIONS: Please see below. ALLERGIES: Please see below. PHYSICAL EXAMINATION ON DISCHARGE: VITAL SIGNS: Please see below. GENERAL: Comfortable, in no apparent distress. HEENT: Head normocephalic/atraumatic, EOMI, sclera clear. NECK: No thyromegaly. RESPIRATORY: Lungs clear to auscultation bilaterally. CARDIOVASCULAR: Regular rate and rhythm. ABDOMEN: Soft, nontender, no guarding or rebound tenderness. Normal bowel sounds. MUSCLE SKELETAL: Bilateral pitting edema NEUROLOGICAL: CN 312 grossly intact, no focal deficits noted. PSYCHOLOGICAL: Normal mood and affect LABORATORY DATA: Please see below. IMAGING: Chest x-ray 1. Marked cardiomegaly. 2. Right lower lung zone infiltrates and/or atelectasis with or without effusion. This represent progression since the prior exam. 3. Left basilar atelectatic changes. Subtle underlying infiltrates cannot be excluded. Echocardiogram Based on his DO NOT RESUSCITATE (DNR), he would not be a candidate for proph ylactic implantable cardioverter defibrillator, but he may well be a candidate for Entresto and Farxiga. Would recommend withholding IV diuretic therapy for at least 24 hours prior to introducing low dose Entresto and would suggest 24-26 mg tablet once a day for several days prior to slowly increasing the dosage. PROGNOSIS: Stable ACTIVITY: Walk with walker. DIET: 2 g sodium diet, 2 L fluid restriction DISCHARGE PLAN: Home with home services DISPOSITION: Home Health Service. DISCHARGE INSTRUCTIONS: 1. Follow-up with your PCP within 5 days 2[address] Follow with Dr. Mcintyre in one week 3. Follow-up with cardiology in 1 week. DISCHARGE CONDITION: Stable. Signs on discharge planning, discharge summary, medication reconciliation: 55 minutes Vital Signs/I&Os Vital Signs Date Time Temp Pulse Resp B/P (MAP) Pulse Ox O2 Delivery O2 Flow Rate FiO2 02/29/20 08:20 84 131/63 02/29/20 06:00 98.9 18 93 Room Air 02/24/20 21:00 1.0 I&O- Last 24 Hours up to 6 AM 02/29/20 06:00 Intake Total 1000 ml Output Total 550 ml Balance 450 ml Laboratory Data Labs 24H Laboratory Tests 2 02/28/20 20:34: Bedside Glucose (Misc Panel) 216H 02/29/20 06:17: Nucleated Red Blood Cells % (auto) 0.0, Prothrombin Time 27.3H, Prothromb Time International Ratio 2.47, Anion Gap 6L, Glomerular Filtration Rate > 60.0, C alcium Level 8.1L 02/29/20 11:26: Bedside Glucose (Misc Panel) 232H CBC/BMP Laboratory Tests 02/29/20 06:17 FSBS Laboratory Tests Test 02/28/20 20:34 02/29/20 11:26 Range/Units Bedside Glucose (Misc Panel) 216 232 83-110 MG/DL Microbiology Microbiology 02/22/20 Gram Stain - Final, Complete 02/22/20 Sputum Culture - Final, Complete Klebsiella Pneumoniae Yeast Like Organism 02/19/20 Urine Culture - Final, Complete 02/19/20 Respiratory Virus Panel (PCR) (ROSITA) - Final, Complete 02/19/20 Blood Culture - Final, Complete NO GROWTH AFTER 5 DAYS Discharge Medications Scheduled Acetaminophen (Acetaminophen) 325 Mg Tablet, 650 MG PO QHS, (Reported) Aspirin (Aspirin EC) 81 Mg Tablet.dr, 81 MG PO QHS, (Reported) Atorvastatin Calcium (Atorvastatin Calcium) 40 Mg Tablet, 40 MG PO 3XW, (Reported) MON,MON,MON Citalopram Hydrobromide (Citalopram HBr) 20 Mg Tab, 20 MG PO DAILY, (Reported) TAKES AT NOON Docusate Sodium (Colace) 100 Mg Capsule, 100 MG PO DAILY, (Reported) Ergocalciferol (Vitamin D2) (Vitamin D2) 50,000 Units Cap, 50,000 UNITS PO Q2WK, (Reported) EVERY OTHER MONDAY Furosemide (Furosemide) 20 Mg Tablet, 20 MG PO DAILY, (Reported) Gabapentin (Neurontin) 300 Mg Capsule, 300 MG PO TID, (Reported) Glipizide (Glipizide) 5 Mg Tablet, 2.5 MG PO BID, (Reported) BREAKFAST AND LUNCH Insulin Detemir (Levemir) 100 Unit/1 Ml Vial, 17 UNITS SC DAILY, (Reported) Magnesium Oxide (Magnesium Oxide) 400 Mg Tablet, 400 MG PO QHS, (Reported) Melatonin (Melatonin) 5 Mg Capsule, 5 MG PO QHS, (Reported) Omeprazole (Omeprazole) 40 Mg Cap, 40 MG PO DAILY, (Reported) TAKES AT NOON Prednisone (Prednisone) 10 Mg Tablet, 10 MG PO TAPER Take 2 tabs daily x 1 days, then 1 tab daily x 3 days and stop Sacubitril/Valsartan (Entresto 24 mg-26 mg Tablet) 1 Each Tablet, 1 TAB PO BID Tiotropium [place] (Spiriva Respimat) 4 Gm Mist.inhal, 2 INHALATION INH DAILY Trazodone HCl (Trazodone HCl) 100 Mg Tab, 100 MG PO QHS, (Reported) Warfarin Sodium (Warfarin Sodium) 2 Mg Tablet, 2 MG PO 5XW, (Reported) ,MON,FRI,SAT,SUN EVENINGS Warfarin Sodium (Warfarin Sodium) 4 Mg Tablet, 4 MG PO 2XW, (Reported) MON,THURS EVENING Scheduled PRN Acetaminophen (Acetaminophen) 325 Mg Tablet, 650 MG PO Q6H PRN for PAIN, (Reported) Albuterol Sulfate (Ventolin Hfa) 108 Mcg/Act Aer, 2 PUFF INH Q4H PRN for SHORTNESS OF BREATH, (Reported) Allergies Coded Allergies: Sulfa (Sulfonamide Antibiotics) (Verified Allergy, Mild, rash, 08/21/19) sulfamethoxazole (Verified Allergy, Mild, rash, 08/21/19) Pea (Verified Allergy, Unknown, 08/21/19) trimethoprim (Verified Allergy, Unknown, 08/21/19) Quinolones (Verified Adverse Reaction, Mild, AMS, 08/21/19) hydrocodone (Verified Adverse Reaction, Mild, AMS, 08/21/19) morphine (Verified Adverse Reaction, Mild, AMS, 08/21/19) oxycodone (Verified Adverse Reaction, Mild, AMS, 08/21/19) XOCHITL HUMPHRIES DO Feb 29, 2020 19:56
== END 2020-02-29 12:00 | disposition home health service (06) | DRG 291 ==
LOC: M ED 15:07 → M ED INP 19:50 → ENRESERV 20:29 → M MSPAV 21:34 → M PCU 02-20 11:34 → M MS5PR 02-23 00:48
PROVIDERS: ADMIT Internal Medicine; ATTEND Internal Medicine
DX: I13.0 Hypertensive heart and chronic kidney disease with heart failure and stage 1 through stage 4 chronic kidney disease, or unspecified chronic kidney disease (principal); I50.43 Acute on chronic combined systolic (congestive) and diastolic (congestive) heart failure; J96.01 Acute respiratory failure with hypoxia; J18.9 Pneumonia, unspecified organism; N17.9 Acute kidney failure, unspecified; J44.1 Chronic obstructive pulmonary disease with (acute) exacerbation; I48.20 Chronic atrial fibrillation, unspecified; N18.30 Chronic kidney disease, stage 3 unspecified; I25.10 Atherosclerotic heart disease of native coronary artery without angina pectoris; Z95.2 Presence of prosthetic heart valve; E11.9 Type 2 diabetes mellitus without complications; N40.0 Benign prostatic hyperplasia without lower urinary tract symptoms; Z66 Do not resuscitate; Z79.4 Long term (current) use of insulin; Z79.899 Other long term (current) drug therapy; Z79.82 Long term (current) use of aspirin; Z88.2 Allergy status to sulfonamides; Z88.5 Allergy status to narcotic agent; Z91.018 Allergy to other foods; I36.0 Nonrheumatic tricuspid (valve) stenosis; F41.9 Anxiety disorder, unspecified; F32.9 Major depressive disorder, single episode, unspecified; Z96.641 Presence of right artificial hip joint; M19.90 Unspecified osteoarthritis, unspecified site; K57.30 Diverticulosis of large intestine without perforation or abscess without bleeding; I27.20 Pulmonary hypertension, unspecified

== ENCOUNTER → 2020-03-17 | Outpatient (REF) | payer MEDICARE ==
[~2020-03-17] MED LIST changes: +APAP325T4 PO; +ASPI81TA26 PO; +ENTR1TAB PO; +MAGN400T2 PO; +MELA5CAP2 PO; +PRED10TA2 PO; +SPIR12.9 INH
[2020-03-17 14:34] LABS: INR 2.84; PROTHROMBIN TIME 30.5 SECONDS (12.5-14.3)
== END ==
LOC: M SFHCPLAZ 14:11 → M SHH 14:11
PROVIDERS: ATTEND Internal Medicine
DX: Z79.01 Long term (current) use of anticoagulants (principal)